=== PATIENT | female | born 1940 | race Caucasian/White ===

== ENCOUNTER → 2016-08-16 | Outpatient (CLI) | payer BC, OTHER | END | disposition home or self-care (01) | LOC: C.PATHSPEC 18:17 | PROVIDERS: ATTEND Podiatrist Primary Podiatric Medicine | DX: M67.471 Ganglion, right ankle and foot (principal) ==

== ENCOUNTER → 2017-04-12 | Outpatient (CLI) | payer BC ==
[2017-04-12 15:24] LABS: BLOOD UREA NITROGEN 15 mg/dl (7-18); CREATININE 0.96 mg/dl (0.60-1.20)
== END | disposition home or self-care (01) ==
LOC: C.LAB 12:17
PROVIDERS: ATTEND Podiatrist Primary Podiatric Medicine
DX: M67.471 Ganglion, right ankle and foot (principal)

== ENCOUNTER → 2017-04-18 | Outpatient (CLI) | payer BC ==
[~2017-04-18] MED LIST: GADAVIST IV PRN
--- NOTE | 2017-04-18 12:44 | DIAGNOSTIC IMAGING REPORT ---
R LOWER EXT NONJOINT COMBO CLINICAL HISTORY: GANGLION CYST TECHNIQUE: Multiaxial MRI acquisition COMPARISON STUDY: None FINDINGS: Findings consistent with a 7 x 6 mm ganglion cyst immediately dorsal and/or dorsal lateral to the base of the fifth metatarsal. This appears to be primarily within the subcutaneous fat. Appears to be a slight pressure effects upon the lateral cortical margin base fifth metatarsal. Remainder the study is remarkable for minimal degenerative change of the articular services throughout. There is a no evidence for a true bone marrow replacing process. All major ligamentous and tendinous structures are intact. IMPRESSION: 1. Cystic lesion adjacent to the base of the fifth metatarsal measuring 7 x 6 mm. 2. This is statistically most consistent with that of a ganglion cyst. 3. Several very small additional adjacent small cysts on the order 1 to 2 mm. 4. Remainder the study is remarkable for minimal scattered degenerative change for age. The above report was generated using voice recognition software. It may contain grammatical, syntax or spelling errors. Electronically signed by: Sumeet Webber M.D. 04/18/2017 12:43 PM Dictated Date/Time: 04/18/2017 12:35 PM
--- NOTE | 2017-04-18 14:20 | DIAGNOSTIC IMAGING REPORT ---
MRI OF THE RIGHT HINDFOOT/ANKLE WITH AND WITHOUT CONTRAST CLINICAL HISTORY: Ganglion cyst. COMPARISON STUDY: No previous studies for comparison. TECHNIQUE: Utilizing a 1.5 Ana magnet, multiplanar, multiecho imaging of the right hindfoot/ankle was performed pre and postcontrast administration. Injection of 6.5 cc of Gadavist IV was uneventful. Please note that the MRI of the right forefoot will be reported separately. FINDINGS: A marker was placed on the skin at site of palpable abnormality. Immediately deep to the marker, there is a multiloculated cystic nonenhancing focus that measures 1.8 x 1.2 cm in aggregate. This represents a ganglion cyst and represents the palpable abnormality. This has multiple components which measure up to 8 mm in size. There is a deeper 5 mm cystic focus adjacent to the lateral proximal shaft of the fifth metatarsal. The ganglion cyst overlies the extensor digitorum longus tendon. This also overlies the bases of the left fourth and fifth metatarsals. No additional ganglion cysts are noted. Talar dome is intact. Achilles tendon and plantar fascia are unremarkable. The flexor, extensor and peroneal tendons are intact. Intrinsic ligaments of the right ankle appear intact as well. IMPRESSION: 1.8 x 1.2 cm multiloculated cystic subcutaneous abnormality of the lateral right midfoot consistent with a ganglion cyst. This ganglion cyst overlies the extensor digitorum longus tendon as well as the bases of the fourth and fifth metatarsals. Electronically signed by: Lorne Diallo M.D. 04/18/2017 2:19 PM Dictated Date/Time: 04/18/2017 12:27 PM
== END | disposition home or self-care (01) ==
LOC: C.MRI 09:41
PROVIDERS: ATTEND Podiatrist Primary Podiatric Medicine
DX: M25.571 Pain in right ankle and joints of right foot (principal); M79.671 Pain in right foot; M85.471 Solitary bone cyst, right ankle and foot

== ENCOUNTER 2024-05-18 20:43 | Observation (INO) ==
--- NOTE | 2024-05-18 22:21 | CT Scan Report ---
Exam(s): CT HEAD Without Contrast EXAM: CT Head Without Intravenous Contrast CLINICAL HISTORY: Reason for exam: Confusion with fall. TECHNIQUE: Axial computed tomography images of the head/brain without intravenous contrast. CTDI is 38.74 mGy and DLP is 547.75 mGy-cm. Automated exposure control was utilized for the study. A dose lowering technique was utilized adhering to the principles of ALARA. COMPARISON: No relevant prior studies available. FINDINGS: Brain: No intracranial hemorrhage, mass-effect, or cerebral edema. Atrophy and chronic microvascular ischemic changes. Ventricles: Unremarkable. Bones/joints: Unremarkable. No fracture. Soft tissues: Unremarkable. Sinuses: No acute sinusitis. Mastoid air cells: Unremarkable as visualized. IMPRESSION: 1. No acute intracranial findings. 2. Atrophy and chronic microvascular ischemic changes. Electronically signed by: Ryan Loyola MD 05/18/24 22:20 PM
[2024-05-18 22:50] LABS: Hematocrit (blood only) 45.3 % (37.0-47.0); Hemoglobin 15.5 g/dl (12.0-16.0); Mean Corpuscular Hgb Conc 34.2 g/dL (32.0-36.0); Mean Corpuscular Volume 90.6 fL (80.0-100.0); Mean Platelet Volume 9.4 fL (9.4-12.4); Platelet Count 190 K/uL (130-400); RDW Coefficient of Variation 13.8 % (11.5-14.5); RDW Standard Deviation 46.1 fL (36.4-46.3); White Blood Count 9.15 K/ul (4.8-10.8)
--- NOTE | 2024-05-18 23:05 | XRay Report ---
Exam(s): XR CXR 1 VIEW EXAM: XR Chest, 1 View CLINICAL HISTORY: Reason for exam: stroke alert. TECHNIQUE: Frontal view of the chest. COMPARISON: No relevant prior studies available. FINDINGS: Lungs: No consolidation. No overt edema. Pleural space: No pleural effusion. No pneumothorax. Heart: Unremarkable. No cardiomegaly. Bones/joints: Chronic fracture deformity of the right clavicle. IMPRESSION: No acute findings in the chest. Electronically signed by: Ryan Loyola MD 05/18/24 23:04 PM
[2024-05-18 23:06] LABS: Alanine Aminotransferase 16 U/L (7-52); Albumin Globulin Ratio 1.6 (0.9-2); Albumin Level 4.4 gm/dl (3.4-5.0); Alkaline Phosphatase 84 U/L (34-104); Anion Gap 9 (3-11); Aspartate Aminotransferase 33 U/L (13-39); BUN Creatinine Ratio 17.6 (10-20); Bilirubin,Total 0.6 mg/dl (0.2-1.0); Blood Urea Nitrogen 16 mg/dl (6-23); Calcium 9.6 mg/dl (8.6-10.3); Carbon Dioxide 30 mmol/L (21-32); Chloride 100 mmol/L (98-107); Globulin 2.8 gm/dl (2.5-4.0); Glucose 104 mg/dl (70-99(Fasting)); Magnesium 2.1 mg/dl (1.7-2.4); Potassium 3.2 mmol/L (3.5-5.1); Sodium 139 mmol/L (136-145); Total Protein 7.2 gm/dl (6.0-8.3)
[2024-05-18 23:25] LABS: Partial Thromboplastin Ratio 1.1; Partial Thromboplastin Time 30 Seconds (21-31); Prothrombin Time 10.9 Seconds (9.0-12.0)
[2024-05-18 23:34] LABS: Appearance Urine Cloudy (Clear); Bacteria Urine Automated 4+ (None Seen); Bilirubin Urine Negative (Negative); Blood Urine 1+ (Negative); Color Urine Yellow; Epithelial Cell Urine Auto 0-2 /hpf (0-2); Glucose Urine UA Negative (Negative); Ketones Urine 1+ (Negative); Leukocyte Esterase Urine 2+ (Negative); Nitrite Urine Positive (Negative); Protein Urine Trace (Negative); RBC Urine Automated 0-2 /hpf (0-2); Specific Gravity Urine 1.022 (1.000-1.030); Urobilinogen Urine Negative (Negative); WBC Urine Automated 21-50 /hpf (0-5); pH Urine 5.5 (4.5-7.5)
[2024-05-18] MEDS: OPTIRAY 320 125ml IV ONE (23:53)
[2024-05-18 23:56] LABS: Troponin I High Sensitivity 10.7 pg/ml (0-14)
[2024-05-19 00:05] LABS: Thyroid Stimulating Hormone 22.423 uIu/ml (0.300-4.500)
[2024-05-19] MEDS: SODIUM CHLORIDE 0.9% 1,000 ML IV SCH (00:20)
[2024-05-19] MEDS: cefTRIAXone SODIUM 2,000 MG/50 ML BAG IV STA (00:20)
[2024-05-19] MEDS: POTASSIUM CHLORIDE CRTAB 20 MEQ TABCR PO STA (00:21)
--- NOTE | 2024-05-19 00:38 | Emergency Department Note ---
Impression & Plan Confusion, Generalized weakness, Acute UTI (urinary tract infection) ED Provider Note ED Provider Note NAME: CORKY SMART AGE:84 SEX: Female : 1940 ARRIVES VIA: private vehicle INFORMANT: Patient ED PROVIDER(s): Aliyah Hansen DO CHIEF COMPLAINT: confusion, weakness HPI: This is an 84-year-old female brought in by family due to concern for increased confusion, increased weakness, and an episode of incontinence tonight. They have noted a decline in her memory over the last several months. They states she did have a fall 2 months ago at [facility] but this was unwitnessed and they do not know if this was mechanical or syncope. They deny any recent illness, fevers or chills. No recent change in any medications. They state patient's symptoms seem to worsen the last 2 days and culminated tonight with an episode of incontinence at home. They state patient was shuffling and had difficulty getting out of her chair even with assistance. No more recent falls. Patient does live at home with her . has noted a decline in her appetite in the last 2 to 3 days also. Patient here seems confused to chronology of events and time. She does not recall recent events additionally. She does know she is at the hospital and recognizes family. PAST MEDICAL HISTORY:See Below PAST SURGICAL HISTORY:See Below FAMILY HISTORY:See Below SOCIAL HISTORY:See Below HOME MEDICATIONS:See Below ALLERGIES:See Below VITALS:See Below PHYSICAL EXAMINATION: GENERAL: alert, well appearing, well nourished, no distress, non-toxic HEAD: nc/at EYE EXAM: normal conjunctiva, PERRL and EOM's grossly intact OROPHARYNX: no exudate, no erythema, lips, buccal mucosa, and tongue normal and mucous membranes are dry NECK: supple, no nuchal rigidity, no adenopathy, non-tender LUNGS: Clear to auscultation. Normal chest wall mechanics, no w/r/r HEART: no murmurs, S1 normal and S2 normal ABDOMEN: abdomen soft, non-tender, normo-active bowel sounds, no masses, no rebound or guarding. SKIN: no rashes, petechiae, orbruising UPPER EXTREMITIES: upper extremities are grossly normal. FROM, nml pulses b/l. LOWER EXTREMITIES: No pitting edema. FROM, nml pulses b/l. NEURO EXAM: Normal sensorium, cranial nerves II-XII grossly intact, normal speech, no facial droop,nogross weakness of arms, no gross weakness of legs. Gross sensation intact. No ataxia. NIHSS 0. Vital Signs: reviewed and remarkable Differential Diagnosis: dehydration, stroke, anemia, hypoglycemia, hyponatremia, hypernatremia, urinary tract infection, pneumonia, bronchitis, sepsis, gastroenteritis, additional abdominal pathology, metabolic abnormalities, as well as others were considered MEDICAL DECISION MAKING: This is an 84-year-old female brought in by family due to concern for increased weakness, urinary incontinence, and memory loss/confusion recently. Patient was afebrile and hemodynamically stable. Family at bedside provides a lot of the history. Patient was afebrile and vital signs were stable. Labs drawn and sent, IV established, EKG and chest x-ray performed at bedside and interpreted by me and patient monitored on telemetry. Patient sent for CT head wo contrast initially. Urine collected and sent and did reveal urinary tract infection. Patient with no prior history of UTIs. She was started on IV Rocephin and IV fluids were also added as patient did appear clinically dehydrated. Patient had a normal and nonfocal neuroexam at bedside otherwise. In consideration for differential diagnosis, patient was sent back down for CT angiography head and neck. I discussed the results with patient's family at bedside as well as need for further inpatient evaluation. Case discussed with the hospitalist team additionally. Consultation(s): 0115: Discussed with Dr. Lomas, [facility] hospitalist team, for additional evaluation and management. ER Treatment Provided: See below Diagnostics Interpreted By Me: -ECG: Normal sinus at 66, normal axis, normal intervals, no acute ST/T wave changes -Cardiac Monitoring: An order was placed for continuous cardiac monitoring. The monitor shows a rate of 66 with normal sinus rhythm. -Laboratory studies: As stated above and show below. 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 Mother , age 79 , heart problems , COPD No problems noted. Brother , age 83 , dementia No problems noted. Son No problems noted. Daughter Lupus Sister Stomach cancer Other No family history of adverse response to anesthesia No family history of bleeding disorder Social History Smoking Status: Never smoker Do You Dip or Chew Tobacco: No; Hx Alcohol Use: No Hx Substance Use: No Preferred Language: Occitan Communication Ability: Effective Diabetes Clinical Manager Required: No Beliefs That Will Affect Care: None marital status: Current Living Situation: Spouse Feels Safe at Home: Yes Safety Concerns: Feels Safe At This Time Assistive Devices: Denture - Upper and Glasses Allergies Allergies Allergy/AdvReac Type Severity Reaction Status Date / Time No Known Drug Allergies Allergy Unknown Verified 05/19/24 00:47 Home Meds Home Medications Medication Instructions Recorded Confirmed levothyroxine 100 mcg tablet 100 mcg PO DAILYBB 01/07/18 05/19/24 (Synthroid) multivitamin 1 tab PO DAILY 01/07/18 05/19/24 Results & Data (ED) Vital Signs Vital Signs - 24 hr 05/18/24 20:53 05/18/24 22:04 05/18/24 22:15 Temperature 36.9 C Temperature Source Oral Pulse Rate 68 63 66 Pulse Rate from SpO2 Sensor 66 Respiratory Rate 20 19 Respiratory Effort / Characteristics Non-Labored Respiratory Depth Normal Blood Pressure 155/85 H Blood Pressure Mean 108 Pulse Oximetry 99 97 Oxygen Delivery Method Room Air Room Air Sepsis Recent Fever Within 48 Hours No Sepsis New/Unexplained Change in Mental Status Yes Sepsis Action Taken by Nursing No Action Required 05/18/24 22:24 05/18/24 22:30 05/18/24 22:42 Temperature Temperature Source Pulse Rate 65 63 62 Pulse Rate from SpO2 Sensor 65 64 63 Respiratory Rate 27 H 28 H 21 Respiratory Effort / Characteristics Respiratory Depth Blood Pressure Blood Pressure Mean Pulse Oximetry 95 95 95 Oxygen Delivery Method Room Air Room Air Room Air Sepsis Recent Fever Within 48 Hours Sepsis New/Unexplained Change in Mental Status Sepsis Action Taken by Nursing 05/18/24 22:51 05/18/24 22:56 05/18/24 23:00 Temperature Temperature Source Pulse Rate 69 Pulse Rate from SpO2 Sensor 65 Respiratory Rate 14 Respiratory Effort / Characteristics Respiratory Depth Blood Pressure 137/76 140/70 Blood Pressure Mean 87 96 Pulse Oximetry Oxygen Delivery Method Sepsis Recent Fever Within 48 Hours Sepsis New/Unexplained Change in Mental Status Sepsis Action Taken by Nursing 05/18/24 23:00 05/18/24 23:03 05/18/24 23:24 Temperature Temperature Source Pulse Rate 65 63 Pulse Rate from SpO2 Sensor 64 63 Respiratory Rate 15 23 Respiratory Effort / Characteristics Respiratory Depth Blood Pressure 140/70 Blood Pressure Mean 96 Pulse Oximetry 95 97 Oxygen Delivery Method Room Air Sepsis Recent Fever Within 48 Hours Sepsis New/Unexplained Change in Mental Status Sepsis Action Taken by Nursing 05/18/24 23:36 05/18/24 23:39 05/19/24 00:09 Temperature Temperature Source Pulse Rate 62 Pulse Rate from SpO2 Sensor 61 64 Respiratory Rate 27 H Respiratory Effort / Characteristics Respiratory Depth Blood Pressure 154/72 H Blood Pressure Mean 121 Pulse Oximetry 97 97 Oxygen Delivery Method Sepsis Recent Fever Within 48 Hours Sepsis New/Unexplained Change in Mental Status Sepsis Action Taken by Nursing 05/19/24 00:15 05/19/24 00:18 05/19/24 00:30 Temperature Temperature Source Pulse Rate 73 69 Pulse Rate from SpO2 Sensor 73 69 Respiratory Rate 19 16 Respiratory Effort / Characteristics Respiratory Depth Blood Pressure 176/59 H Blood Pressure Mean 80 Pulse Oximetry 96 96 Oxygen Delivery Method Sepsis Recent Fever Within 48 Hours Sepsis New/Unexplained Change in Mental Status Sepsis Action Taken by Nursing 05/19/24 00:33 05/19/24 00:45 Temperature Temperature Source Pulse Rate 67 62 Pulse Rate from SpO2 Sensor 65 62 Respiratory Rate 24 26 H Respiratory Effort / Characteristics Respiratory Depth Blood Pressure Blood Pressure Mean Pulse Oximetry 95 Oxygen Delivery Method Sepsis Recent Fever Within 48 Hours Sepsis New/Unexplained Change in Mental Status Sepsis Action Taken by Nursing Laboratory Data 05/18/24 22:40 05/18/24 22:40 Lab Results 05/18/24 05/18/24 Range/Units 22:40 22:56 WBC 9.15 (4.8-10.8) K/ul RBC 5.00 (4.20-5.40) M/uL Hgb 15.5 (12.0-16.0) g/dl Hct 45.3 (37.0-47.0) % MCV 90.6 (80.0-100.0) fL MCH 31.0 (25.0-34.0) pg MCHC 34.2 (32.0-36.0) g/dL RDW Std Deviation 46.1 (36.4-46.3) fL RDW Coeff of Consuelo 13.8 (11.5-14.5) % Plt Count 190 (130-400) K/uL MPV 9.4 (9.4-12.4) fL PT 10.9 (9.0-12.0) Seconds INR 1.0 (0.9-1.1) APTT 30 (21-31) Seconds PTT Ratio 1.1 Sodium 139 (136-145) mmol/L Potassium 3.2 L (3.5-5.1) mmol/L Chloride 100 (98-107) mmol/L Carbon Dioxide 30 (21-32) mmol/L Anion Gap 9 (3-11) BUN 16 (6-23) mg/dl Creatinine 0.91 (0.6-1.2) mg/dl Est Cr Clr Drug Dosing Not Reportable eGFR 62.21 BUN/Creatinine Ratio 17.6 (10-20) Glucose 104 H (70-99(Fasting)) mg/dl Calcium 9.6 (8.6-10.3) mg/dl Magnesium 2.1 (1.7-2.4) mg/dl Total Bilirubin 0.6 (0.2-1.0) mg/dl AST 33 (13-39) U/L ALT 16 (7-52) U/L Alkaline Phosphatase 84 (34-104) U/L Troponin I High Sens 10.7 (0-14) pg/ml Total Protein 7.2 (6.0-8.3) gm/dl Albumin 4.4 (3.4-5.0) gm/dl Globulin 2.8 (2.5-4.0) gm/dl Albumin/Globulin Ratio 1.6 (0.9-2) TSH 22.423 H (0.300-4.500) uIu/ml Free T4 0.73 (0.61-1.60) ng/dl Urine Color Yellow Urine Appearance Cloudy A (Clear) Urine pH 5.5 (4.5-7.5) Ur Specific [place] 1.022 (1.000-1.030) Urine Protein Trace H (Negative) Urine Glucose (UA) Negative (Negative) Urine Ketones 1+ H (Negative) Urine Blood 1+ H (Negative) Urine Nitrite Positive A (Negative) Urine Bilirubin Negative (Negative) Urine Urobilinogen Negative (Negative) Ur Leukocyte Esterase 2+ H (Negative) Urine WBC (Auto) 21-50 H (0-5) /hpf Urine RBC (Auto) 0-2 (0-2) /hpf U Hyaline Cast (Auto) 11-20 H (0-2) /lpf U Epithel Cells (Auto) 0-2 (0-2) /hpf Urine Bacteria (Auto) 4+ H (None Seen) Administered Medications Sodium Chloride (Nss) 1,000 mls @ 50 mls/hr IV .Q20H ONE Stop: 05/19/24 20:48 Last Admin: 05/19/24 02:20 Dose: 50 mls/hr Documented By: LAKESHA Discontinued Medications Sodium Chloride (Nss) 1,000 mls @ 125 mls/hr IV .Q8H MARY Stop: 05/19/24 23:29 Last Infusion: 05/19/24 01:05 Dose: Infused Documented By: Admin: 05/19/24 00:20 Dose: 125 mls/hr Documented By: KEVEN Ceftriaxone Sodium (Rocephin) 2,000 mg in 50 mls @ 100 mls/hr IV NOW STA Stop: 05/19/24 00:17 Last Infusion: 05/19/24 00:57 Dose: Infused Documented By: Admin: 05/19/24 00:20 Dose: 100 mls/hr Documented By: KEVEN Ioversol (Optiray 320 125ml) 125 ml IV ONCE ONE Stop: 05/18/24 23:54 Last Admin: 05/18/24 23:53 Dose: 118 ml Documented By: BLAKE Potassium Chloride (Potassium Chloride Crtab 20 Meq Tabcr) 40 meq PO NOW STA Stop: 05/18/24 23:26 Last Admin: 05/19/24 00:21 Dose: 40 meq Documented By: KMS Imaging Data Radiologist's Impression: Chest X-Ray 05/18/24 20:59 Exam(s): XR CXR 1 VIEW EXAM: XR Chest, 1 View CLINICAL HISTORY: Reason for exam: stroke alert. TECHNIQUE: Frontal view of the chest. COMPARISON: No relevant prior studies available. FINDINGS: Lungs: No consolidation. No overt edema. Pleural space: No pleural effusion. No pneumothorax. Heart: Unremarkable. No cardiomegaly. Bones/joints: Chronic fracture deformity of the right clavicle. IMPRESSION: No acute findings in the chest. Electronically signed by: Ryan Loyola MD 05/18/24 23:[address] 05/18/24 20:59 Exam(s): CT HEAD Without Contrast EXAM: CT Head Without Intravenous Contrast CLINICAL HISTORY: Reason for exam: Confusion with fall. TECHNIQUE: Axial computed tomography images of the head/brain without intravenous contrast. CTDI is 38.74 mGy and DLP is 547.75 mGy-cm. Automated exposure control was utilized for the study. A dose lowering technique was utilized adhering to the principles of ALARA. COMPARISON: No relevant prior studies available. FINDINGS: Brain: No intracranial hemorrhage, mass-effect, or cerebral edema. Atrophy and chronic microvascular ischemic changes. Ventricles: Unremarkable. Bones/joints: Unremarkable. No fracture. Soft tissues: Unremarkable. Sinuses: No acute sinusitis. Mastoid air cells: Unremarkable as visualized. IMPRESSION: 1. No acute intracranial findings. 2. Atrophy and chronic microvascular ischemic changes. Electronically signed by: Ryan Loyola MD 05/18/24 22:20 PM Head CTA 05/18/24 23:24 EXAM: CT angio head w con CLINICAL HISTORY: weak, ataxia TECHNIQUE: Contrast enhanced thin slice CT angiography scan of the cerebral vessels was performed with intravenous contrast. Angiographic images were processed, 3D MIP images were acquired for interpretation. Contiguous axial images were obtained. Reformatted coronal and sagittal images were also reviewed. If IV contrast material had not been administered, the likelihood of detecting abnormalities relevant to the patients condition would have been substantially decreased. CT scan was performed according to ALARA (as low as reasonable achievable). COMPARISON: none. FINDINGS: Bilateral internal carotid arteries show normal course, calibre and opacification in the canalicular and cavernous part. Their division into the anterior cerebral artery and middle cerebral artery is defined. A1, A2 and M1, M2 segments are normal on both the sides. Bilateral vertebral arteries are seen to unite the form the basilar artery in a normal fashion. Basilar artery shows normal course, caliber and opacification. Its division into the posterior cerebral arteries is defined. Bilateral P1 and P2 segments are normal. Visualized venous structures show normal opacification. No evidence of intracranial aneurysm or AV malformation is seen. IMPRESSION: 1. No evidence of stenosis or aneurysm. No evidence of dissection. Electronically signed by Charlie Tran 05-19-2024 01:04 AM Neck CTA 05/18/24 23:24 EXAM: CT angio neck with con CLINICAL HISTORY: weak, ataxia TECHNIQUE: Contrast enhanced thin slice CT angiography scan of the carotid vessels was performed with intravenous contrast. Angiographic images were processed, 3D MIP images were acquired for interpretation.Contiguous axial images were obtained. Reformatted coronal and sagittal images were also reviewed. If IV contrast material had not been administered, the likelihood of detecting abnormalities relevant to the patients condition would have been substantially decreased. CT scan was performed according to ALARA (as low as reasonable achievable). COMPARISON: None. FINDINGS: Included great vessels of the aortic arch are grossly unremarkable. Common carotid artery, carotid Bulb, internal carotid artery , and origin of the external carotid artery are well opacified. Vertebral arteries are well opacified. Jugular veins are well opacified. Included lung apices are grossly unremarkable. Thyroid gland appears unremarkable. IMPRESSION: 1. No evidence of stenosis or aneurysm. No evidence of dissection. Electronically signed by Charlie Tran 05-19-2024 01:03 AM Discharge Plan Visit Data Chief Complaint: TIA Symptoms Stated Complaint: NUMBNESS ON LT SIDE, CONFUSION, WEAKNESS ED Provider: Aliyah Hansen Discharge Problem: Confusion, Generalized weakness, Acute UTI (urinary tract infection) Patient Disposition: Admitted As Inpatient Discharge Instructions Interventions: ED Discharge Assessment Last Done: 05/19/24 01:21
[2024-05-19 00:41] LABS: T4 Free Thyroxine 0.73 ng/dl (0.61-1.60)
--- NOTE | 2024-05-19 00:54 | History & Physical Report ---
Date of Service May 19, 2024 Assessment & Plan (1) Complicated UTI (urinary tract infection): Plan: Complicated UTI No sepsis for now Incipient cognitive impairment Patient mentating well during encounter although noted to struggle with some memory lapses. Systolic murmur on exam hyperlipidemia, not on maintenance Rx hypothyroidism, TSH markedly evaded with normal free T4 prediabetes, hemoglobin A1c of 5.8 from last year left breast cancer status post surgery status post incomplete tamoxifen Rx, in remission Admit to medical Urine CS, Ceftriaxone TTE re: systolic murmur Increase home levothyroxine daily dose to 112 mcg p.o. from 100 mcg p.o. daily and recheck TSH outpatient after 6 weeks. PT OT eval DVT prophylaxis per Lovenox subcu DNR as per patient directives. Attempted to contact patient's (Mr. Shane Monet, contact #[phone]) over the phone to obtain additional details. No answer, left message for call back. Text document was generated using [employer] voice recognition software. It may contain grammatical or spelling errors. Kindly contact undersigned for clarification of any documentation item in question. History of Present Illness Chief Complaint: Increasing confusion, weakness as per records Primary Care Provider: Deborah Galarza MD History obtained from patient, ED provider, and records. Patient is a fair historian. Medical history significant for hyperlipidemia, hypothyroidism, prediabetes, left breast cancer status post surgery status post incomplete tamoxifen Rx. Patient with increasing confusion, memory issues at home over the last few weeks as per family. Fall at a local grocery few months ago. Patient/family unsure of syncopal episode. No recollection of head trauma. Incontinence symptoms noted at home. Patient denies headache, chest pain, SOB, cough. No fever, no chills. Achy lower abdominal pain. Denies hematuria symptoms. Ceftriaxone administered at the ER. Medical History as above Surgical History : Lymph node dissection, partial mastectomy left, cataract surgeries Family History : Heart disease, dementia, stomach cancer Personal/Social history : Non-smoker, rare EtOH intake, retired from office work Allergies Allergy/AdvReac Type Severity Reaction Status Date / Time No Known Drug Allergies Allergy Unknown Verified 05/19/24 00:47 Home Medications Medication Instructions Recorded Confirmed Type levothyroxine 100 mcg tablet 100 mcg PO DAILYBB 01/07/18 05/19/24 History (Synthroid) multivitamin 1 tab PO DAILY 01/07/18 05/19/24 History Past Med/Surg History Problem List (Updated 05/19/24 @ 06:11 by Christian Zimmer MD) Complicated UTI (urinary tract infection) Acute UTI (urinary tract infection) (Acute) Generalized weakness (Acute) Confusion (Acute) Acute dysfunction of both eustachian tubes Sensorineural hearing loss (SNHL) of both 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 Mother , age 79 , heart problems , COPD No problems noted. Brother , age 83 , dementia No problems noted. Son No problems noted. Daughter Lupus Sister Stomach cancer Other No family history of adverse response to anesthesia No family history of bleeding disorder Social History Smoking Status: Never smoker Do You Dip or Chew Tobacco: No; Hx Alcohol Use: No Hx Substance Use: No Preferred Language: Estonian Communication Ability: Effective Consumer Loan Processor Required: No Beliefs That Will Affect Care: None marital status: Current Living Situation: Spouse Feels Safe at Home: Yes Safety Concerns: Feels Safe At This Time Assistive Devices: Denture - Upper and Glasses Review of Systems Review of Systems: As per HPI, all other systems reviewed and negative Results & Data Results & Data Vital Signs (Past 12 Hours) Vital Signs Temp Pulse Resp BP Pulse Ox O2 Del Method 05/18/24 23:03 65 15 95 Room Air 05/18/24 23:00 140/70 05/18/24 23:00 140/70 05/18/24 22:56 137/76 05/18/24 22:51 69 14 05/18/24 22:42 62 21 95 Room Air 05/18/24 22:30 63 28 H 95 Room Air 05/18/24 22:24 65 27 H 95 Room Air 05/18/24 22:15 66 19 97 Room Air 05/18/24 22:04 63 05/18/24 20:53 36.9 C 68 20 155/85 H 99 Room Air Laboratory Results Laboratory Results WBC 9.15 K/ul (4.8-10.8) 05/18/24 22:40 RBC 5.00 M/uL (4.20-5.40) 05/18/24 22:40 Hgb 15.5 g/dl (12.0-16.0) 05/18/24 22:40 Hct 45.3 % (37.0-47.0) 05/18/24 22:40 MCV 90.6 fL (80.0-100.0) 05/18/24 22:40 MCH 31.0 pg (25.0-34.0) 05/18/24 22:40 MCHC 34.2 g/dL (32.0-36.0) 05/18/24 22:40 RDW Std Deviation 46.1 fL (36.4-46.3) 05/18/24 22:40 RDW Coeff of Consuelo 13.8 % (11.5-14.5) 05/18/24 22:40 Plt Count 190 K/uL (130-400) 05/18/24 22:40 MPV 9.4 fL (9.4-12.4) 05/18/24 22:40 PT 10.9 Seconds (9.0-12.0) 05/18/24 22:40 INR 1.0 (0.9-1.1) 05/18/24 22:40 APTT 30 Seconds (21-31) 05/18/24 22:40 PTT Ratio 1.1 05/18/24 22:40 Sodium 139 mmol/L (136-145) 05/18/24 22:40 Potassium 3.2 mmol/L (3.5-5.1) L 05/18/24 22:40 Chloride 100 mmol/L (98-107) 05/18/24 22:40 Carbon Dioxide 30 mmol/L (21-32) 05/18/24 22:40 Anion Gap 9 (3-11) 05/18/24 22:40 BUN 16 mg/dl (6-23) 05/18/24 22:40 Creatinine 0.91 mg/dl (0.6-1.2) 05/18/24 22:40 Est Cr Clr Drug Dosing Not Reportable 05/18/24 22:40 eGFR 62.21 05/18/24 22:40 BUN/Creatinine Ratio 17.6 (10-20) 05/18/24 22:40 Glucose 104 mg/dl (70-99(Fasting)) H 05/18/24 22:40 Calcium 9.6 mg/dl (8.6-10.3) 05/18/24 22:40 Magnesium 2.1 mg/dl (1.7-2.4) 05/18/24 22:40 Total Bilirubin 0.6 mg/dl (0.2-1.0) 05/18/24 22:40 AST 33 U/L (13-39) 05/18/24 22:40 ALT 16 U/L (7-52) 05/18/24 22:40 Alkaline Phosphatase 84 U/L (34-104) 05/18/24 22:40 Troponin I High Sens 10.7 pg/ml (0-14) 05/18/24 22:40 Total Protein 7.2 gm/dl (6.0-8.3) 05/18/24 22:40 Albumin 4.4 gm/dl (3.4-5.0) 05/18/24 22:40 Globulin 2.8 gm/dl (2.5-4.0) 05/18/24 22:40 Albumin/Globulin Ratio 1.6 (0.9-2) 05/18/24 22:40 TSH 22.423 uIu/ml (0.300-4.500) H 05/18/24 22:40 Free T4 0.73 ng/dl (0.61-1.60) 05/18/24 22:40 Urine Color Yellow 05/18/24 22:56 Urine Appearance Cloudy (Clear) A 05/18/24 22:56 Urine pH 5.5 (4.5-7.5) 05/18/24 22:56 Ur Specific [place] 1.022 (1.000-1.030) 05/18/24 22:56 Urine Protein Trace (Negative) H 05/18/24 22:56 Urine Glucose (UA) Negative (Negative) 05/18/24 22:56 Urine Ketones 1+ (Negative) H 05/18/24 22:56 Urine Blood 1+ (Negative) H 05/18/24 22:56 Urine Nitrite Positive (Negative) A 05/18/24 22:56 Urine Bilirubin Negative (Negative) 05/18/24 22:56 Urine Urobilinogen Negative (Negative) 05/18/24 22:56 Ur Leukocyte Esterase 2+ (Negative) H 05/18/24 22:56 Urine WBC (Auto) 21-50 /hpf (0-5) H 05/18/24 22:56 Urine RBC (Auto) 0-2 /hpf (0-2) 05/18/24 22:56 U Hyaline Cast (Auto) 11-20 /lpf (0-2) H 05/18/24 22:56 U Epithel Cells (Auto) 0-2 /hpf (0-2) 05/18/24 22:56 Urine Bacteria (Auto) 4+ (None Seen) H 05/18/24 22:56 Impressions Chest X-Ray 05/18/24 20:59 Exam(s): XR CXR 1 VIEW EXAM: XR Chest, 1 View CLINICAL HISTORY: Reason for exam: stroke alert. TECHNIQUE: Frontal view of the chest. COMPARISON: No relevant prior studies available. FINDINGS: Lungs: No consolidation. No overt edema. Pleural space: No pleural effusion. No pneumothorax. Heart: Unremarkable. No cardiomegaly. Bones/joints: Chronic fracture deformity of the right clavicle. IMPRESSION: No acute findings in the chest. Electronically signed by: Ryan Loyola MD 05/18/24 23:[address] 05/18/24 20:59 Exam(s): CT HEAD Without Contrast EXAM: CT Head Without Intravenous Contrast CLINICAL HISTORY: Reason for exam: Confusion with fall. TECHNIQUE: Axial computed tomography images of the head/brain without intravenous contrast. CTDI is 38.74 mGy and DLP is 547.75 mGy-cm. Automated exposure control was utilized for the study. A dose lowering technique was utilized adhering to the principles of ALARA. COMPARISON: No relevant prior studies available. FINDINGS: Brain: No intracranial hemorrhage, mass-effect, or cerebral edema. Atrophy and chronic microvascular ischemic changes. Ventricles: Unremarkable. Bones/joints: Unremarkable. No fracture. Soft tissues: Unremarkable. Sinuses: No acute sinusitis. Mastoid air cells: Unremarkable as visualized. IMPRESSION: 1. No acute intracranial findings. 2. Atrophy and chronic microvascular ischemic changes. Electronically signed by: Ryan Loyola MD 05/18/24 22:[address] abdomen pelvis: 1. Normal excretory function of bilateral kidneys demonstrated secondary to contrast injected from previous study. 2. Minimal bilateral pleural effusion with fibro-atelectatic bands in bilateral lower lobes. Diagnostic Findings EKG as per my interpretation :Rate 65, NSR, normal axis, nonspecific T wave abnormalities
--- NOTE | 2024-05-19 01:03 | CT Scan Report ---
EXAM: CT angio neck with con CLINICAL HISTORY: weak, ataxia TECHNIQUE: Contrast enhanced thin slice CT angiography scan of the carotid vessels was performed with intravenous contrast. Angiographic images were processed, 3D MIP images were acquired for interpretation.Contiguous axial images were obtained. Reformatted coronal and sagittal images were also reviewed. If IV contrast material had not been administered, the likelihood of detecting abnormalities relevant to the patients condition would have been substantially decreased. CT scan was performed according to ALARA (as low as reasonable achievable). COMPARISON: None. FINDINGS: Included great vessels of the aortic arch are grossly unremarkable. Common carotid artery, carotid Bulb, internal carotid artery , and origin of the external carotid artery are well opacified. Vertebral arteries are well opacified. Jugular veins are well opacified. Included lung apices are grossly unremarkable. Thyroid gland appears unremarkable. IMPRESSION: 1. No evidence of stenosis or aneurysm. No evidence of dissection. Electronically signed by Charlie Tran 05-19-2024 01:03 AM
--- NOTE | 2024-05-19 01:04 | CT Scan Report ---
EXAM: CT angio head w con CLINICAL HISTORY: weak, ataxia TECHNIQUE: Contrast enhanced thin slice CT angiography scan of the cerebral vessels was performed with intravenous contrast. Angiographic images were processed, 3D MIP images were acquired for interpretation. Contiguous axial images were obtained. Reformatted coronal and sagittal images were also reviewed. If IV contrast material had not been administered, the likelihood of detecting abnormalities relevant to the patients condition would have been substantially decreased. CT scan was performed according to ALARA (as low as reasonable achievable). COMPARISON: none. FINDINGS: Bilateral internal carotid arteries show normal course, calibre and opacification in the canalicular and cavernous part. Their division into the anterior cerebral artery and middle cerebral artery is defined. A1, A2 and M1, M2 segments are normal on both the sides. Bilateral vertebral arteries are seen to unite the form the basilar artery in a normal fashion. Basilar artery shows normal course, caliber and opacification. Its division into the posterior cerebral arteries is defined. Bilateral P1 and P2 segments are normal. Visualized venous structures show normal opacification. No evidence of intracranial aneurysm or AV malformation is seen. IMPRESSION: 1. No evidence of stenosis or aneurysm. No evidence of dissection. Electronically signed by Charlie Tran 05-19-2024 01:04 AM
[2024-05-19] MEDS ORDERED: PROMETHAZINE 6.25 MG/50.25 ML BAG IV PRN (01:30)
[2024-05-19] MEDS: SODIUM CHLORIDE 0.9% 1,000 ML IV ONE (02:20)
--- NOTE | 2024-05-19 03:16 | CT Scan Report ---
EXAM: CT abd pelvis wo con CLINICAL HISTORY: abd pain, uti TECHNIQUE: Contiguous axial images were obtained from the level of the diaphragm to the pubic symphysis without intravenous or oral contrast. Coronal and sagittal reconstructions were likewise performed and indicated to increase the sensitivity for detecting clinically relevant pathology. CT scan was performed according to ALARA (as low as reasonably achievable). COMPARISON: none FINDINGS: The visualized lung bases shows minimal bilateral pleural effusion with fibro-atelectatic bands in bilateral lower lobes. Evaluation of the abdominal and pelvic visceral organs is limited without intravenous contrast. The unenhanced liver, spleen, pancreas, and adrenal glands are grossly unremarkable. The gallbladder is present. The kidneys are normal in size and attenuation and shows contrast excretion. There is no hydronephrosis or perinephric stranding. The ureters are normal in caliber. No adenopathy or fluid collections are seen. No evidence of focal or diffuse bowel wall thickening or evidence of bowel obstruction is seen. The appendix is not visualized. The aorta is normal in caliber. The urinary bladder is normal in contour. Uterus and adnexa are unremarkable. No aggressive appearing osseous lesions are identified. IMPRESSION: 1. Normal excretory function of bilateral kidneys demonstrated secondary to contrast injected from previous study. 2. Minimal bilateral pleural effusion with fibro-atelectatic bands in bilateral lower lobes. Electronically signed by Charlie Tran 05-19-2024 03:15 AM
--- OUTSIDE RECORDS SUMMARY | 2024-05-19 05:14 | External Medical Summary ---
Author Name Unknown Address Unknown Organization K01:[facility] [place] - [address] [facility] [id number] Laboratory Report Ordering Provider Test Date Status ASIA SINCLAIR[facility] 12/05/2023 15:50:31 Final Observation Date Value Abnormality Reference (Units ) Status Cryptosporidium sp Ag [Presence] in Stool by Immunoassay 12/05/2023 15:50:31 Negative Negative Final Negative for Cryptosporidium Antigen. Giardia lamblia Ag [Presence ] in Stool by Immunoassay 12/05/2023 15:50:31 Negative Negative Final Negative for Giardia Specifi c Antigen. Performing Location [facility] [place] - [address] [facility] [address]
--- OUTSIDE RECORDS SUMMARY | 2024-05-19 05:14 | External Medical Summary | Summary of Care ---
Author Name Unknown Organization [facility] Address [address] [place] [address] Phone [phone] Care Team Providers Care Terminal Gauger Name Role Phone Deborah Galarza MD Primary Care Provider [phone] Reason for Visit * Reason Comments Outpatient Testing Encounter Details Date Type Department Care Team (Late st Contact Info) Description 12/05/2023 3:50 PM EDT Laboratory Laboratory, [facility] [address] [place] [address] Kian, Specimen Drop Off [facility] [address] [place] [address] Arrived Allergies Active Allergy Reactions Criticality Noted Date Comments Prednisone 05/02/2023 Nausea, lethargy, states she felt awful documented as of this encounter (statuses as of 12/05/2023) Medications Medication Sig Dispensed Refills Start Date End Date Status Q-10 CO-ENZYME 10 MG OR CAPS daily 0 07/27/2003 Active SUPER MILK THISTLE X PO CAPSIndications:takes at night Take by mouth. Indications: takes at night 0 10/20/2007 Active CHROMIUM 200 MCG PO CAPS one daily 11/19/2008 Active VITAMIN C 500 MG PO TABS 2 daily 11/19/2008 Active POTASSIUM 99 MG PO TABS one daily 0 Active FISH OIL 1000 MG PO CAPSIndications:Dysli pidemia, goal to be determined 2 capsules daily 01/31/2011 Active NATURAL SUPPLEMENT K2 100 mcg daily 09/21/2014 Active Bilberry 40 MG CAPS Take by mouth daily. 10/04/2015 Active Red Yeast Rice Extract 600 MG Oral Capsule Take by mouth daily. 10/04/2015 Active Lutein Esters 18.6 MG CAPSIndications:Healt h examination of defined subpopulation 2 times a day. 40 mg once daily 30 Cap 10/14/2017 Active Probiotic Product (PRO-BIOTIC BLEND) CAPS Take by mouth. Active Niacin 250 MG TabletIndications:lizzy es at night Take 1 Tablet by mouth in the morning. Active Fluticasone Propionate 50 MCG/ACT Nasal Suspension (Flonase) Administer 1 [place] into nostril in the morning. 04/19/2023 Active Vitamin D3 125 MCG (5000 UT) Oral Capsule Take 1 Capsule by mouth in the morning. Active Amoxicillin 500 MG Oral Capsule (Amoxil) Take 1 Capsule by mouth in the morning and 1 Capsule at noon and 1 Capsule before bedtime. 11/13/2023 Active Benefiber Oral Powder Take 1 Tbsf in a glass of water daily 11/15/2023 Active Levothyroxine Sodium 100 MCG Oral Tablet (Levoxyl)Indications: Acquired hypothyroidism Take 1 Tablet by mouth in the morning. (at least 30 min prior to breakfast or other meds). 30 Tablet 2 11/19/2023 Active documented as of this encounter (statuses as of 12/05/2023) Active Problems Problem Noted Date Diagnosed Date Chronic kidney disease, stage 3a 10/31/2020 Overview: Per CKD protocol Senile osteoporosis 04/17/2019 Pain of left upper arm 10/15/2018 Synovial cyst of hand 10/15/2018 Malignant neoplasm of upper- outer quadrant of left breast in female, estrogen receptor positive 11/13/2017 Cancer Staging:Clinical: Unsigned Pathologic stage from 12/18/2017:Stage IA(pT1c, pN0(sn), cM0, G2, ER: Positive, OH: Positive, HER2: Negative) - Signed by Prosper Daley MD on 12/18/2017 Dyslipidemia, goal LDL below 130 09/11/2011 Acquired hypothyroidism 05/23/2005 LFTs abnormal 11/10/2003 documented as of this encounter (statuses as of 12/05/2023) Resolved Problems Problem Noted Date Diagnosed Date Resolved Date Prediabetes 11/05/2022 12/05/2023 Overview: Per Prediabetes protocol Generalized weakness 09/11/2021 022 Dyslipidemia, goal to be determined 03/09/2009 09/11/2011 Overview: Per Lipid Taxonomy. Other allergic rhinitis 05/23/200509/23 Overview: ICD-10 update of inactive term documented as of this encounter (statuses as of 12/05/2023) Immunizations Name Administration Dates Next Due COVID-19 mRNA, LNP-s, No Pre serve, 2-Dose Series (Pfizer) 05/21/2020,04/30/2020 Pneumococcal Conjugate Vacc, 13 Valent (Prevnar) 10/04/2015 Pneumococcal Polysaccharide PPV23 (Pneumovax) Seasonal Influenza, Trivalen t, (IIV3), with Preserv, (Fluzone) 01/24/2010,01/11/2009 TD, Preservative Free 01/24/2010 TDAP, Age 7 and older, IM (Adacel) 11/15/2023 Varicella Zoster Vaccine (Adult) 09/11/2011 documented as of this encounter Social History Tobacco Use Types Packs/Day Years Used Date Smoking Tobacco: Never Smokeless Tobacco: Never Alcohol Use Standard Drinks/Week Comments Yes 0 (1 standard drink = 0.6 oz pur e alcohol) rare PHQ-2 Answer Date Recorded PHQ Adult Total Score 0 04/09/2022 Hunger Vital Sign Answer Date Recorded Within the past 12 months, y ou worried that your food would run out before you got the money to buy more. Never true 04/09/19 23 Within the past 12 months, t he food you bought just didn't last and you didn't have money to get more. Never true 04/09/2022 Sex and Gender Information Value Date Recorded Sex Assigned at Female 10/15/2018 9:28 AM EDT Gender Identity Female 10/15/2018 9:28 AM EDT Sexual Orientation Straight 10/15/2018 9: 28 AM EDT Job Start Date Occupation Industry Not on file Not on file Not on file documented as of this encounter Plan of Treatment Upcoming Encounters Date Type Department Care Team (Late st Contact Info) Description 05/19/2024 2:20 PM EST Office Visit General Internal Medicine [facility] [address] [place] [address] Deborah Galarza MD [address] [facility] [place] [address] Health Maintenance Due Date Last Done Comments Zoster Vaccines (2 of 3) 11/06/2011 09/11/2011 *BISPHONATE OR OTHER ACCEPTABLE MEDICATION NEEDED FOR OSTEOPOROSIS (REFER TO SMARTSET #1146) 04/21/2021 Depression Screening 04/09/2023 04/09/2022 COVID-19 Vaccine ( season) 2023 05/21/2020, 04/30/2020 Influenza Vaccine (FLU shot) (#1) 2023 01/24/2010, 01/11/2009 CKD PHOS USE SMARTSET 63333 12/15/202311/24, 10/22/2022, 04/19/2021 GFR 05/17/2024 11/15/2023, 02/0 10/2023, 12/14/2022, Additional history exists CKD HGB USE SMARTSET 98634 11/14/202411/14, 05/02/2023, 10/22/2022, Additional history exists TSH 11/14/2024 11/15/2023, 05/24, 05/02/2023, Additional history exists Albumin/Creatinine Ratio 11/19/2024 024, 10/25/2022, 08/29/2021 Colonoscopy 11/23/2024 11/24/2019, 0903/2019, 12/01/2018, Additional history exists DXA Scan 08/04/2025 08/05/2023, 10/25, 10/23/2017, Additional history exists DTap/Tdap Vaccines (2 - Td or Tdap) 11/14/2033 11/15/2023, 01/24/2010 Pneumococcal Vaccine: 65+ Years Completed 10/04/2015, 09/18/2013 RETIRED - COLONOSCOPY-EVERY 5 YRS AGES 18-100 Discontinued 11/24/2019, 11/24/2019, 12/01/2018, Additional history exists VITAMIN D LEVEL ONCE IN A LIFETIME-USE SMARTSET# [id number] Completed 12/14/2022, 04/19/2021, 09/16/2014, Additional history exists HPV (Gardasil) Vaccine Aged Out No lo nger eligible based on patient's age to complete this topic Hepatitis B Vaccine Aged Out No longe r eligible based on patient's age to complete this topic MENINGOCOCCAL (MENACTRA/MENVEO) Aged Out No longer eligible based on patient's age to complete this topic documented as of this encounter Medical Devices Implanted Type Area Gang Bore Operator Device Identifier Shelf Expiration Date Model / Serial / Lot Lens Intraoc 24.0 - [id number] - [id number] Implanted:Qty: 1 on 04/17/2022 by Leonel Guaman MD at [facility] Left: Eye [employer] 07/22/2026 [id number] / [id number] / Lens Intraoc 24.5 - [id number] - [id number] Implanted:Qty: 1 on 05/01/2022 by Leonel Guaman MD at OR [facility] Right: Eye [employer] 09/21/2026 [id number] / [id number] / [id number] documented as of this encounter Additional Health Concerns Infection Onset Date Last Indicated Resolved Time Gastrointestinal Rule-Out 12/04/2023 12/05/2023 documented as of this encounter Advance Directives * No Code (Latest Code Status on File) Date Activated Date Inactivated Comments 05/01/2022 12:14 PM 05/01/2022 6:11 PM This order re flects the patients wishes and were consensually agreed upon. Question Answer Comments Discussion of Advance Directives occurred with: Patient Does the patient have a Living Will? No Does the patient have Health Care Power of Attor robyn? No * No Code Date Activated Date Inactivated Comments 04/17/2022 8:42 AM 04/17/2022 3:06 PM This order r eflects the patients wishes and were consensually agreed upon. Question Answer Comments Discussion of Advance Directives occurred with: Patient Does the patient have a Living Will? No Does the patient have Health Care Power of Attor robyn? No Care Teams Terminal Gauger Relationship Specialty Start Date End Date Deborah Galarza MD [address] [place] [address] PCP - General Internal Medicine 05/09/12 documented as of this encounter
--- OUTSIDE RECORDS SUMMARY | 2024-05-19 05:14 | External Medical Summary ---
Author Name Unknown Address Unknown Organization : Laboratory Report Ordering Provider Test Date Status [facility]IR 12/05/2023 15:50:50 Final Observation Date Value Abnormality Reference (Units ) Status result / comment 12/05/2023 15:50:50 Not Detected Not Detected Final Antimicrobials, proton pump inhibitors, and bismuth
preparations inhibit H. pylori and ingestion up to
two weeks prior to testing may cause false negative
results. If clinically indicated the test should
be repeated on a new specimen obtained two weeks
after discontinuing treatment.

Test Performed at:
[employer] [facility]
[address]
[place] [address]
Donavan Ortega M.D., Ph.D.,Director of Laboratories Performing Location
--- OUTSIDE RECORDS SUMMARY | 2024-05-19 05:14 | External Medical Summary | Summary of Care ---
Author Name Unknown Organization [facility] Address [address] [place] [address] Phone [phone] Care Team Providers Care Automatic Folder Seamer Name Role Phone Deborah Galarza MD Primary Care Provider [phone] Reason for Visit * Reason Comments eRx-Medication Refill Encounter Details Date Type Department Care Team (Late st Contact Info) Description 05/15/2024 Refill General Internal Medicine [facility] [place] [address] [facility] [place] [address] Deborah Galarza MD 200 [facility] [place] [address] Acquired hypothyroidism Allergies Active Allergy Reactions Criticality Noted Date Comments Prednisone 05/02/2023 Nausea, lethargy, states she felt awful documented as of this encounter (statuses as of 05/16/2024) Medications Q-10 CO-ENZYME 10 MG OR CAPS daily 0 07/27/19 04 Active SUPER MILK THISTLE X PO CAPSIndications:t akes at night Take by mouth. Indications: takes at night 0 10/20/19 08 Active CHROMIUM 200 MCG PO CAPS one daily 11/20/19 09 Active VITAMIN C 500 MG PO TABS 2 daily 11/20/19 09 Active POTASSIUM 99 MG PO TABS one daily 0 Active FISH OIL 1000 MG PO CAPSIndications:D yslipidemia, goal to be determined 2 capsules daily 02/01/20 11 Active NATURAL SUPPLEMENT K2 100 mcg daily 09/22/19 15 Active Bilberry 40 MG CAPS Take by mouth daily. 10/04/19 16 Active Red Yeast Rice Extract 600 MG Oral Capsule Take by mouth daily. 10/04/19 16 Active Lutein Esters 18.6 MG CAPSIndications:H ealth examination of defined subpopulation 2 times a day. 40 mg once daily 30 Cap 10/15/19 18 Active Probiotic Product (PRO-BIOTIC BLEND) CAPS Take by mouth. Active Niacin 250 MG TabletIndications :takes at night Take 1 Tablet by mouth in the morning. Active Fluticasone Propionate 50 MCG/ACT Nasal Suspension (Flonase) Administer 1 [place] into nostril in the morning. 04/19/19 24 Active Vitamin D3 125 MCG (5000 UT) Oral Capsule Take 1 Capsule by mouth in the morning. Active Amoxicillin 500 MG Oral Capsule (Amoxil) Take 1 Capsule by mouth in the morning and 1 Capsule at noon and 1 Capsule before bedtime. 11/13/19 24 Active Benefiber Oral Powder Take 1 Tbsf in a glass of water daily 11/15/19 24 Active Nystatin 626263 UNIT/GM External Cream Apply topically to affected area 2 times a day. Apply to underneath both breasts twice daily 30 g 01/14/20 24 Active Levothyroxine Sodium 100 MCG Oral Tablet (Levoxyl)Indicati ons:Acquired hypothyroidism TAKE 1 TABLET BY MOUTH IN THE MORNING 30 MINUTES BEFORE BREAKFAST OR OTHER MEDS 30 Tablet 05/16/19 25 Active Levothyroxine Sodium 100 MCG Oral Tablet (Levoxyl)Indicati ons:Acquired hypothyroidism TAKE 1 TABLET BY MOUTH IN THE MORNING 30 MINUTES BEFORE BREAKFAST OR OTHER MEDS 30 Tablet 03/18/20 24 2024 Discontinued documented as of this encounter (statuses as of 05/16/2024) Active Problems Problem Noted Date Diagnosed Date Chronic kidney disease, stage 3a 10/31/2020 Overview: Per CKD protocol Senile osteoporosis 04/17/2019 Pain of left upper arm 10/15/2018 Synovial cyst of hand 10/15/2018 Malignant neoplasm of upper- outer quadrant of left breast in female, estrogen receptor positive 11/13/2017 Cancer Staging:Clinical: Unsigned Pathologic stage from 12/18/2017:Stage IA(pT1c, pN0(sn), cM0, G2, ER: Positive, MT: Positive, HER2: Negative) - Signed by Prosper Daley MD on 12/18/2017 Dyslipidemia, goal LDL below 130 09/11/2011 Acquired hypothyroidism 05/23/2005 LFTs abnormal 11/10/2003 documented as of this encounter (statuses as of 05/16/2024) Resolved Problems Problem Noted Date Diagnosed Date Resolved Date Prediabetes 11/05/2022 12/05/2023 Overview: Per Prediabetes protocol Generalized weakness 09/11/2021 022 Dyslipidemia, goal to be determined 03/09/2009 09/11/2011 Overview (03/09/2009): Per Lipid Taxonomy. Other allergic rhinitis 05/23/200509/23 Overview (01/15/2017): ICD-10 update of inactive term documented as of this encounter (statuses as of 05/16/2024) Immunizations Name Administration Dates Next Due COVID-19 mRNA, LNP-s, No Pre serve, 2-Dose Series (Pfizer) 05/21/2020,04/30/2020 Pneumococcal Conjugate Vacc, 13 Valent (Prevnar) 10/04/2015 Pneumococcal Polysaccharide PPV23 (Pneumovax) Seasonal Influenza Vac., MDV, IM, 0.5 mL (Fluzon e) 01/24/2010,01/11/2009 TD, Preservative Free 01/24/2010 TDAP, Age [...] money to get more. Never true 04/09/2022 Comments No Sex and Gender Information Value Date Recorded Sex Assigned at Female 10/15/2018 9:28 AM EDT Legal Sex Female 7:10 AM EST Gender Identity Female 10/15/2018 9:28 AM EDT Sexual Orientation Straight 10/15/2018 9: 28 AM EDT documented as of this encounter Miscellaneous Notes * Telephone Encounter - Lauren Cisneros RPh - 05/16/2024 12:28 PM ESTSigned Prescriptions: Disp Refills Levothyroxine Sodium 100 MCG Oral Tablet (*30 Tab*0 Sig: TAKE 1 TABLET BY MOUTH IN THE MORNING 30 MINUTES BEFORE BREAKFAST OR OTHER MEDSAuthorizing Provider: Vanita GALARZA User: LAUREN CISNEROS * Telephone Encounter - Lauren Cisneros RPh - 05/16/2024 12:27 PM EST RX authorized for this fill only. Zero additional refills given until upcoming appt. 05/19/2024 Overdue for repeat TSH, lab pending in chart. Thanks, Lauren Cisneros, PharmD Clinical Pharmacist [facility] ([facility]) [phone] 05/16/2024 12:27 PM documented in this encounter Plan of Treatment Upcoming Encounters Date Type Department Care Team (Late st Contact Info) Description 05/19/2024 2:20 PM EST Office Visit General Internal Medicine [facility] [place] [address] [place] [address] Deborah Galarza MD [address] [place] [id number] 11/11/2024 1:15 PM EDT Imaging Radiology [address], [place] [address] [place] [address] Health Maintenance Due Date Last Done Comments Zoster Vaccines (2 of 3) 11/06/2011 09/11/2011 *BISPHONATE OR OTHER ACCEPTABLE MEDICATION NEEDED FOR OSTEOPOROSIS (REFER TO SMARTSET #1146) 04/21/2021 Depression Screening 04/09/2023 04/09/2022 COVID-19 Vaccine ( season) 2023 05/21/2020, 04/30/2020 Influenza Vaccine (FLU shot) (#1) 2023 01/24/2010, 01/11/2009 CKD PHOS USE SMARTSET 65523 12/15/2023 09/04/2022, 10/22/2022, 04/19/2021 GFR 05/17/2024 11/15/2023, 02/0 10/2023, 12/14/2022, Additional history exists CKD HGB USE SMARTSET 71528 11/14/202411/14, 05/02/2023, 10/22/2022, Additional history exists TSH 11/14/2024 11/15/2023, 05/24, 05/02/2023, Additional history exists Albumin/Creatinine Ratio 11/19/2024 024, 10/25/2022, 08/29/2021 Colonoscopy 11/23/2024 11/24/2019, 0903/2019, 12/01/2018, Additional history exists DXA Scan 08/04/2025 08/05/2023, 08/3 , 10/23/2017, Additional history exists DTap/Tdap Vaccines (2 - Td or Tdap) 11/14/2033 11/15/2023, 01/24/2010 Pneumococcal Vaccine: 50+ Years Completed 10/04/2015, 09/18/2013 RETIRED - COLONOSCOPY-EVERY 5 YRS AGES 18-100 Discontinued 11/24/2019, 11/24/2019, 12/01/2018, Additional history exists VITAMIN D LEVEL ONCE IN A LIFETIME-USE SMARTSET# 67372 Completed 12/14/2022, 04/19/2021, 09/16/2014, Additional history exists HPV (Gardasil) Vaccine Aged Out No lo nger eligible based on patient's age to complete this topic Hepatitis B Vaccine Aged Out No longe r eligible based on patient's age to complete this topic MENINGOCOCCAL (MENACTRA/MENVEO) Aged Out No longer eligible based on patient's age to complete this topic Meningitis B Vaccine (Bexsero/Trumemba) Aged Out No longer eligible based on patient's age to complete this topic documented as of this encounter Medical Devices Implanted Type Area Route Sales Delivery Drivers Supervisor Device Identifier Shelf Expiration Date Model / Serial / Lot Lens Intraoc 24.0 - [id number] - [id number] Implanted:Qty: 1 on 04/17/2022 by Leonel Guaman MD at OR [facility] Left: Eye [employer]OM[employer] 07/22/2026 [id number] / [id number] / Lens Intraoc 24.5 - [id number] - [id number] Implanted:Qty: 1 on 05/01/2022 by Leonel Guaman MD at OR [facility] Right: Eye [employer] LOMB 09/21/2026 [id number] / [id number] / [id number] documented as of this encounter Visit Diagnoses Diagnosis Acquired hypothyroidism Unspecified hypothyroidism documented in this encounter Advance Directives * No Code [...] Power of Attor robyn? No Care Teams Automatic Folder Seamer Relationship Specialty Start Date End Date Deborah Galarza MD [address] [place] [address], [place] [address] PCP - General Internal Medicine 05/09/12 documented as of this encounter
--- OUTSIDE RECORDS SUMMARY | 2024-05-19 05:14 | External Medical Summary | Summary of Care ---
Author Name Unknown Organization [facility] Address [address] [place] [address] Phone [phone] Care Team Providers Care Oilseed Meat Presser Name Role Phone Deborah Galarza MD Primary Care Provider [phone] Reason for Visit * Reason Onset Date Comments transfer of records 01/01/2024 Encounter Details Date Type Department Care Team (Late st Contact Info) Description 01/01/2024 Telephone General Internal Medicine [facility] [place] 200 [facility] [place] [address] Deborah Galarza MD 200 [facility] [place] [address] transfer of records Allergies Active Allergy Reactions Criticality Noted Date Comments Prednisone 05/02/2023 Nausea, lethargy, states she felt awful documented as of this encounter (statuses as of 01/01/2024) Medications Medication Sig Dispensed Refills Start Date [...] 50 MCG/ACT Nasal Suspension (Flonase) Administer 1 [place] into nostril in the morning. 04/19/2023 Active [...] as of this encounter (statuses as of 01/01/2024) Active Problems Problem Noted Date Diagnosed Date [...] as of this encounter (statuses as of 01/01/2024) Resolved Problems Problem Noted Date Diagnosed Date Resolved Date Prediabetes 11/05/2022 12/05/2023 Overview: Per Prediabetes protocol Generalized weakness 09/11/2021 022 Dyslipidemia, goal to be determined 03/09/2009 09/11/2011 Overview: Per Lipid Taxonomy. Other allergic rhinitis 05/23/200509/23 Overview: ICD-10 update of inactive term documented as of this encounter (statuses as of 01/01/2024) Immunizations Name Administration Dates Next Due COVID-19 [...] on file documented as of this encounter Miscellaneous Notes * Telephone Encounter - Keyana Jones OSA - 01/01/2024 3:52 PM EDT [facility] Thank you Forward to [facility] documented in this encounter Plan of Treatment Upcoming Encounters Date Type Department Care Team (Late st Contact Info) Description 05/19/2024 2:20 PM EST Office Visit General Internal Medicine [facility] [place] [address] [place] [address] Deborah Galarza MD [address] [place], [place] [address] Health Maintenance Due Date Last Done Comments Zoster Vaccines (2 of 3) 11/06/2011 09/11/2011 *BISPHONATE OR OTHER ACCEPTABLE MEDICATION NEEDED FOR OSTEOPOROSIS (REFER TO SMARTSET #1146) 04/21/2021 Depression Screening 04/09/2023 04/09/2022 COVID-19 Vaccine ( season) 2023 05/21/2020, 04/30/2020 Influenza Vaccine (FLU shot) (#1) 2023 01/24/2010, 01/11/2009 CKD PHOS USE SMARTSET 66218 12/15/202311/24, 10/22/2022, 04/19/2021 GFR 05/17/2024 11/15/2023, 10/2023, 12/14/2022, Additional history exists CKD HGB USE SMARTSET 55092 11/14/202411/14, 05/02/2023, 10/22/2022, Additional history exists TSH 11/14/2024 11/15/2023, 05/24, 05/02/2023, Additional history exists Albumin/Creatinine Ratio 11/19/2024 024, 10/25/2022, 08/29/2021 Colonoscopy 11/23/2024 11/24/2019, 03/2019, 12/01/2018, Additional history exists DXA Scan 08/04/2025 08/05/2023, 08, 10/23/2017, Additional history exists DTap/Tdap Vaccines (2 - Td or Tdap) 11/14/2033 11/15/2023, 01/24/2010 Pneumococcal Vaccine: 65+ Years Completed 10/04/2015, 09/18/2013 RETIRED - COLONOSCOPY-EVERY 5 YRS AGES 18-100 Discontinued 11/24/2019, 11/24/2019, 12/01/2018, Additional history exists VITAMIN D LEVEL ONCE IN A LIFETIME-USE SMARTSET# 94302 Completed 12/14/2022, 04/19/2021, 09/16/2014, Additional history exists [...] this encounter Medical Devices Implanted Type Area Data Entry Specialist Device Identifier Shelf Expiration Date Model / Serial / Lot Lens Intraoc 24.0 - [id number] - [id number] Implanted:Qty: 1 on 04/17/2022 by Leonel Guaman MD at OR [facility] Left: Eye [employer]OMB 07/22/2026 [id number] / [id number] / Lens Intraoc 24.5 - [id number] - [id number] Implanted:Qty: 1 on 05/01/2022 by Leonel Guaman MD at OR [facility] Right: Eye [employer]CH [employer]OMB 09/21/2026 [id number] / [id number] / [id number] documented as of this encounter Advance Directives [...] Power of Attor robyn? No Care Teams Oilseed Meat Presser Relationship Specialty Start Date End Date Deborah Galarza MD [address] [place] [address], [place] [address] PCP - General Internal Medicine 05/09/12 documented as of this encounter
--- OUTSIDE RECORDS SUMMARY | 2024-05-19 05:14 | External Medical Summary | Summary of Care ---
Author Name Unknown Organization [facility] Address [address] [place] [address] Phone [phone] Care Team Providers Care Pumper Gager Apprentice Name Role Phone Dottie Galarza MD Primary Care Provider [phone] Reason for Visit * Reason Comments eRx-Medication Refill Encounter Details Date Type Department Care Team (Late st Contact Info) Description 03/16/2024 [facility] 200 [facility] [place] [address] Dottie Galarza MD 200 [facility] [place] [address] Chronic kidney disease, stage 3a (HCC)*; Acquired hypothyroidism Allergies Active Allergy Reactions Criticality Noted Date Comments Prednisone 05/02/2023 Nausea, lethargy, states she felt awful documented as of this encounter (statuses as of 03/19/2024) Medications Q-10 CO-ENZYME 10 MG OR CAPS [...] 50 MCG/ACT Nasal Suspension (Flonase) Administer 1 [place] into nostril in the morning. 04/19/19 24 [...] of water daily 11/15/19 24 Active Nystatin 054708 UNIT/GM External Cream Apply topically to affected area 2 times a day. Apply to underneath both breasts twice daily 30 g 01/14/20 24 Active Levothyroxine Sodium 100 MCG Oral Tablet (Levoxyl)Indicati ons:Acquired hypothyroidism TAKE 1 TABLET BY MOUTH IN THE MORNING 30 MINUTES BEFORE BREAKFAST OR OTHER MEDS 30 Tablet 03/18/20 24 Active Levothyroxine Sodium 100 MCG Oral Tablet (Levoxyl)Indicati ons:Acquired hypothyroidism Take 1 Tablet by mouth in the morning. (at least 30 min prior to breakfast or other meds). 30 Tablet 2 11/19/19 24 2023 Discontinued documented as of this encounter (statuses as of 03/19/2024) Active Problems Problem Noted Date Diagnosed Date Chronic kidney disease, stage 3a 10/31/2020 Overview: Per CKD protocol Senile osteoporosis 04/17/2019 Pain of left upper arm 10/15/2018 Synovial cyst of hand 10/15/2018 Malignant neoplasm of upper- outer quadrant of left breast in female, estrogen receptor positive 11/13/2017 Cancer Staging:Clinical: Unsigned Pathologic stage from 12/18/2017:Stage IA(pT1c, pN0(sn), cM0, G2, ER: Positive, NE: Positive, HER2: Negative) - Signed by Prosper Daley MD on 12/18/2017 Dyslipidemia, goal LDL below 130 09/11/2011 Acquired hypothyroidism 05/23/2005 LFTs abnormal 11/10/2003 documented as of this encounter (statuses as of 03/19/2024) Resolved Problems Problem Noted Date Diagnosed Date Resolved Date Prediabetes 11/05/2022 12/05/2023 Overview: Per Prediabetes protocol Generalized weakness 09/11/2021 022 Dyslipidemia, goal to be determined 03/09/2009 09/11/2011 Overview (03/09/2009): Per Lipid Taxonomy. Other allergic rhinitis 05/23/200509/23 Overview (01/15/2017): ICD-10 update of inactive term documented as of this encounter (statuses as of 03/19/2024) Immunizations Name Administration Dates Next Due COVID-19 [...] encounter Miscellaneous Notes * Telephone Encounter - Ernestine Bartlett - 03/19/2024 5:03 PM EST Received message from [facility] regarding patient needing labs. Patient was notified. Successfully contacted patient and provided [facility] message. * Telephone Encounter - Lorri Trent [facility] - 03/18/2024 10:52 AM ESTSigned Prescriptions: Disp Refills Levothyroxine Sodium 100 MCG Oral Tablet (*30 Tab*0 Sig: TAKE 1 TABLET BY MOUTH IN THE MORNING 30 MINUTES BEFORE BREAKFAST OR OTHER MEDS Authorizing Provider: DOTTIE GALARZA Ordering User: LORRI TRENT * Telephone Encounter - Lorri Trent [facility] - 03/18/2024 10:51 AM EST Provided 30 days supply with 0 refill(s). Per refill protocol patient should have repeat TSH on file within past year. Reviewed AMP report, Care Gaps/Health Maintenance, medications list, and for anyroutine labs typically ordered for this patient. Lab orders placed. Please contact patient to advise of labs ordered for blood draw. Fasting is not required. Advise toobtain labs before requesting the next refill. Thank you, Lorri Trent [facility] Clinical Pharmacist Centralized Clinical Pharmacy Services ([facility]) 03/18/24 10:51 AM [phone] * Telephone Encounter - Lorri Trent RPh - 03/18/2024 10:50 AM EST Did you pend patient's preferred pharmacy and medication before forwarding?yes Pharmacy: [facility] [address] [place] [address] Pending Prescriptions: Disp Refills Levothyroxine Sodium 100 MCG Oral Tablet *30 Tab*0 Sig: TAKE 1 TABLET BY MOUTH IN THE MORNING 30 MINUTES BEFORE BREAKFAST OR OTHER MEDS Last Visit: 11/15/2023 (in office), Visit date not found (telemedicine) Next Visit: 05/19/2024 If no future appointments scheduled, and last appointment is greater than a year ago, please schedule patient for a follow-up appointment Last date the medication was ordered: 11/19/2023 Is this request for a controlled substance?No Urine Drug Screen:No results found for this or any previous visit. Patient Phone Numbers Labs: Lab Results Component Value Date/Time CREAT 0.8 11/15/2023 03:50 PM CREAT 1.1 (H) 04/18/2020 10:36 AM POTASSIUM 3.4 (L) 11/15/2023 03:50 PM POTASSIUM 4.3 04/18/2020 10:36 AM TSH 0.66 11/15/2023 03:34 PM TSH 1.69 04/18/2020 10:36 AM LDL 149 (H) 04/19/2021 09:58 AM LDL 153 (H) 04/18/2020 10:36 AM LDL NOT APPLICABLE 04/18/2020 10:36 AM ALT 22 11/15/2023 03:50 PM ALT 36 (H) 04/18/2020 10:36 AM HGBA1C 5.8 (H) 11/15/2023 03:34 PM HGBA1C 5.6 10/14/2017 10:55 AM documented in this encounter Plan of Treatment Upcoming Encounters Date Type Department Care Team ([facility] st Contact Info) Description 05/19/2024 2:20 PM EST Office Visit General Internal Medicine [facility] 200 [facility] [place] [address] Dottie Galarza MD 200 [facility] [place] [address] 11/11/2024 1:15 PM EDT Imaging Radiology [address] [place] [address] Scheduled Orders Name Type Priority Associated Diagnoses Orde r Schedule PHOSPHORUS Lab Routine Chronic kidney disease, stage 3a (HCC) Expected: 04/01/2024 (Approximate), Expires: 03/19/2025 Health Maintenance Due Date Last Done Comments Zoster Vaccines (2 of 3) 11/06/2011 09/11/2011 *BISPHONATE OR OTHER ACCEPTABLE MEDICATION NEEDED FOR OSTEOPOROSIS (REFER TO SMARTSET #1146) 04/21/2021 Depression Screening 04/09/2023 04/09/2022 COVID-19 Vaccine ( season) 2023 05/21/2020, 04/30/2020 Influenza Vaccine (FLU shot) (#1) 2023 01/24/2010, 01/11/2009 CKD PHOS USE SMARTSET 97011 12/15/202311/24, 10/22/2022, 04/19/2021 GFR 05/17/2024 11/15/2023, 02/0 10/2023, 12/14/2022, Additional history exists CKD HGB USE SMARTSET 50553 11/14/202411/14, 05/02/2023, 10/22/2022, Additional history exists TSH [...] D LEVEL ONCE IN A LIFETIME-USE SMARTSET# 37277 Completed 12/14/2022, 04/19/2021, 09/16/2014, Additional history exists [...] this encounter Medical Devices Implanted Type Area Custodial Manager Device Identifier Shelf Expiration Date Model / Serial / Lot Lens Intraoc 24.0 - [id number] - [id number] Implanted:Qty: 1 on 04/17/2022 by Leonel Guaman MD at OR [facility] Left: Eye [employer] LOMB 07/22/2026 [id number] / [id number] / Lens Intraoc 24.5 - [id number] - [id number] Implanted:Qty: 1 on 05/01/2022 by Leonel Guaman MD at OR [facility] Right: Eye BAUSCH [employer] LOMB 09/21/2026 [id number] / [id number] / [id number] documented as of this encounter Visit Diagnoses Diagnosis Chronic kidney disease, stage 3a (HCC)- Primary Acquired hypothyroidism Unspecified hypothyroidism documented in this [...] Power of Attor robyn? No Care Teams Pumper Gager Apprentice Relationship Specialty Start Date End Date Dottie Galarza MD [address] [place] [address] PCP - General Internal Medicine 05/09/12 documented as of this encounter
--- OUTSIDE RECORDS SUMMARY | 2024-05-19 05:14 | External Medical Summary ---
Author Name Unknown Address Unknown Organization K01:[facility] [address] [facility] [address] Laboratory Report Ordering Provider Test Date Status [facility] 12/05/2023 15:50:31 Final Observation Date Value Abnormality Reference (Units ) Status Campylobacter sp DNA.diarrheagenic [Presence] in Stool by ANNITA with probe detection 12/05/2023 15:50:31 Negative Negative Final Salmonella sp rpoD gene [Presence] in Stool by ANNITA with probe detection 12/05/2023 15:50:31 Negative Negative Final Shigella species+EIEC invasion plasmid antigen H ipaH gene [Presence] in Stool by ANNITA with probe detection 12/05/2023 15:50:31 Negative Negative Final Vibrio sp DNA [Identifier] in Specimen by ANNITA with probe detection 12/05/2023 15:50:31 Negative Negative Final Yersinia enterocolitica recN gene [Presence] in Stool by ANNITA with probe detection 12/05/2023 15:50:31 Negative Negative Final Escherichia coli Stx1 toxin stx1 gene [Presence] in Stool by ANNITA with probe detection 12/05/2023 15:50:31 Negative Negative Final Escherichia coli Stx2 toxin stx2 gene [Presence] in Stool by ANNITA with probe detection 12/05/2023 15:50:31 Negative Negative Final Norovirus genogroups I and II RNA panel - Stool by ANNITA with probe detection 12/05/2023 15:50:31 Negative Negative Final Rotavirus A RNA [Presence] in Stool by ANNITA with probe detection 12/05/2023 15:50:31 Negative Negative Final Performing Location [facility] [facility] [address] [facility] [address]
--- OUTSIDE RECORDS SUMMARY | 2024-05-19 05:14 | External Medical Summary | Summary of Care ---
Author Name Unknown Organization [facility] Address [address] [address] Phone [phone] Care Team Providers Care Camouflage Assembler Name Role Phone Deborah Galarza MD Primary Care Provider [phone] Encounter Details Date Type Department Care Team (Late st Contact Info) Description 03/24/2024 Orders Only PATIENT PORTAL DO NOT DELETE THIS DEPT USED BY [place] [id number] Allergies Active Allergy Reactions Criticality Noted Date Comments Prednisone 05/02/2023 Nausea, lethargy, states she felt awful documented as of this encounter (statuses as of 03/24/2024) Medications Q-10 CO-ENZYME 10 MG OR CAPS daily 0 4 Active SUPER MILK THISTLE X PO CAPSIndications:ta kes at night Take by mouth. Indications: takes at night 0 8 Active CHROMIUM 200 MCG PO CAPS one daily 9 Active VITAMIN C 500 MG PO TABS 2 daily 9 Active POTASSIUM 99 MG PO TABS one daily 0 Active FISH OIL 1000 MG PO CAPSIndications:Dy slipidemia, goal to be determined 2 capsules daily 1 Active NATURAL SUPPLEMENT K2 100 mcg daily 5 Active Bilberry 40 MG CAPS Take by mouth daily. 6 Active Red Yeast Rice Extract 600 MG Oral Capsule Take by mouth daily. 6 Active Lutein Esters 18.6 MG CAPSIndications:He alth examination of defined subpopulation 2 times a day. 40 mg once daily 30 Cap 8 Active Probiotic Product (PRO-BIOTIC BLEND) CAPS Take by mouth. Activ e Niacin 250 MG TabletIndications: takes at night Take 1 Tablet by mouth in the morning. Active Fluticasone Propionate 50 MCG/ACT Nasal Suspension (Flonase) Administer 1 [place] into nostril in the morning. 4 Active Vitamin D3 125 MCG (5000 UT) Oral Capsule Take 1 Capsule by mouth in the morning. Active Amoxicillin 500 MG Oral Capsule (Amoxil) Take 1 Capsule by mouth in the morning and 1 Capsule at noon and 1 Capsule before bedtime. 4 Active Benefiber Oral Powder Take 1 Tbsf in a glass of water daily 4 Active Nystatin 696100 UNIT/GM External Cream Apply topically to affected area 2 times a day. Apply to underneath both breasts twice daily 30 g 4 Active Levothyroxine Sodium 100 MCG Oral Tablet (Levoxyl)Indicatio ns:Acquired hypothyroidism TAKE 1 TABLET BY MOUTH IN THE MORNING 30 MINUTES BEFORE BREAKFAST OR OTHER MEDS 30 Tablet 4 Active documented as of this encounter (statuses as of 03/24/2024) Active Problems Problem Noted Date Diagnosed Date Chronic kidney disease, stage 3a 10/31/2020 Overview: Per CKD protocol Senile osteoporosis 04/17/2019 Pain of left upper arm 10/15/2018 Synovial cyst of hand 10/15/2018 Malignant neoplasm of upper- outer quadrant of left breast in female, estrogen receptor positive 11/13/2017 Cancer Staging:Clinical: Unsigned Pathologic stage from 12/18/2017:Stage IA(pT1c, pN0(sn), cM0, G2, ER: Positive, OK: Positive, HER2: Negative) - Signed by Prosper Daley MD on 12/18/2017 Dyslipidemia, goal LDL below 130 09/11/2011 Acquired hypothyroidism 05/23/2005 LFTs abnormal 11/10/2003 documented as of this encounter (statuses as of 03/24/2024) Resolved Problems Problem Noted Date Diagnosed Date Resolved Date Prediabetes 11/05/2022 12/05/2023 Overview: Per Prediabetes protocol Generalized weakness 09/11/2021 022 Dyslipidemia, goal to be determined 03/09/2009 09/11/2011 Overview (03/09/2009): Per Lipid Taxonomy. Other allergic rhinitis 05/23/200509/23 Overview (01/15/2017): ICD-10 update of inactive term documented as of this encounter (statuses as of 03/24/2024) Immunizations Name Administration Dates Next Due COVID-19 [...] AM EDT documented as of this encounter Plan of Treatment Upcoming Encounters Date Type Department Care Team (Late st Contact Info) Description 05/19/2024 2:20 PM EST Office Visit General Internal Medicine [facility] [place] [address] [facility] [place], [place] [address] Deborah Galarza MD [address] [place] [address] 11/11/2024 1:15 PM EDT Imaging Radiology [facility] [address] [facility], [place] [address] [place] [address] Health Maintenance Due Date Last Done Comments Zoster Vaccines (2 of 3) 11/06/2011 09/11/2011 *BISPHONATE OR OTHER ACCEPTABLE MEDICATION NEEDED FOR OSTEOPOROSIS (REFER TO SMARTSET #1146) 04/21/2021 Depression Screening 04/09/2023 04/09/2022 COVID-19 Vaccine ( season) 2023 05/21/2020, 04/30/2020 Influenza Vaccine (FLU shot) (#1) 2023 01/24/2010, 01/11/2009 CKD PHOS USE SMARTSET 88170 12/15/202311/24, 10/22/2022, 04/19/2021 GFR 05/17/2024 11/15/2023, 02/0 10/2023, 12/14/2022, Additional history exists CKD HGB USE SMARTSET 05881 11/14/202411/14, 05/02/2023, 10/22/2022, Additional history exists TSH [...] D LEVEL ONCE IN A LIFETIME-USE SMARTSET# 04883 Completed 12/14/2022, 04/19/2021, 09/16/2014, Additional history exists [...] this encounter Medical Devices Implanted Type Area Melter Supervisor Open Hearth Furnace Device Identifier Shelf Expiration Date Model / Serial / Lot Lens Intraoc 24.0 - [id number] - [id number] Implanted:Qty: 1 on 04/17/2022 by Leonel Guaman MD at OR [facility] Left: Eye [employer] LOM[employer] 07/22/2026 [id number] / [id number] / Lens Intraoc 24.5 - [id number] - [id number] Implanted:Qty: 1 on 05/01/2022 by Leonel Guaman MD at OR [facility] Right: Eye [employer]OMB 09/21/2026 [id number] / [id number] / [id number] documented as of this encounter Advance Directives [...] Power of Attor robyn? No Care Teams Camouflage Assembler Relationship Specialty Start Date End Date Deborah Galarza MD [address] [place] [address] PCP - General Internal Medicine 05/09/12 documented as of this encounter
--- OUTSIDE RECORDS SUMMARY | 2024-05-19 05:14 | External Medical Summary | Summary of Care ---
Author Name Unknown Organization [facility] Address [address] [place] [address] Phone [phone] Care Team Providers Care Cloud Automation Tester Name Role Phone Deborah Galarza MD Primary Care Provider [phone] Reason for Visit * Reason Comments Follow Up Yearly, last seen in 2021, hx of breast cancer, s/p left mastectomy, on tamoxifen Encounter Details Date Type Department Care Team (Late st Contact Info) Description 01/14/2024 9:45 AM EDT Office Visit General Surgery, [facility] [address] [place] [address] Ning Salcedo MD [address] [place] [address] Yeast infection of the skin*; Encounter for screening mammogram for breast cancer; History of breast cancer Allergies Active Allergy Reactions Criticality Noted Date Comments Prednisone 05/02/2023 Nausea, lethargy, states she felt awful documented as of this encounter (statuses as of 01/14/2024) Medications Medication Sig Dispensed Refills Start Date [...] 50 MCG/ACT Nasal Suspension (Flonase) Administer 1 [place] into nostril in the morning. 04/19/2023 Active [...] other meds). 30 Tablet 2 11/19/2023 Active Nystatin 078528 UNIT/GM External Cream Apply topically to affected area 2 times a day. Apply to underneath both breasts twice daily 30 g 01/14/2024 Active documented as of this encounter (statuses as of 01/14/2024) Active Problems Problem Noted Date Diagnosed Date [...] as of this encounter (statuses as of 01/14/2024) Resolved Problems Problem Noted Date Diagnosed Date Resolved Date Prediabetes 11/05/2022 12/05/2023 Overview: Per Prediabetes protocol Generalized weakness 09/11/2021 022 Dyslipidemia, goal to be determined 03/09/2009 09/11/2011 Overview: Per Lipid Taxonomy. Other allergic rhinitis 05/23/200509/23 Overview: ICD-10 update of inactive term documented as of this encounter (statuses as of 01/14/2024) Immunizations Name Administration Dates Next Due COVID-19 [...] Date Smoking Tobacco: Never Smokeless Tobacco: Never Tobacco Cessation:Counseling Given: Not Answered Alcohol Use Standard Drinks/Week Comments Yes 0 [...] on file documented as of this encounter Last Filed Vital Signs Vital Sign Reading Time Taken Comments Blood Pressure 151/75 01/14/2024 9:40 AM EDT Pulse 77 01/14/2024 9:40 AM EDT Temperature 35.7 C (96.3 F) 01/14/2024 9:40 AM ED T Respiratory Rate - - Oxygen Saturation - - Inhaled Oxygen Concentration - - Weight 68.9 kg (152 lb) 01/14/2024 9:40 AM EDT Height - - Body Mass Index 26.71 11/15/2023 2:23 PM EDT documented in this encounter Progress Notes * Ning Salcedo MD - 01/14/2024 9:51 AM EDT [facility] FOLLOW UP NOTE Chief Complaint Patient presents with Follow Up Yearly, last seen in 2021, hx of breast cancer, s/p left mastectomy, on tamoxifen REASON FOR VISIT: Follow up Left Breast Cancer Clinical Stage 1 - 6 yr f/u with new rash under leftbreast Last visit 01/11/2022 HPI: Rocio Monet is a 83 year old female with a history of breast cancer, as per following: Date of treatment: 12/04/2017 Breast cancer treated: an intermediate grade invasive lobular Pathologic Stage 1 Carcinoma [place] nodes were negative x3 Primary tumor: estrogen receptor and progesterone receptor positive. HER-2/stephon receptors negative; Tumor size 19 mm; Margins were negative Surgical procedure performed: Left partial mastectomy and sentinel node biopsy Radiation history: No radiation (not recommended) Chemotherapy history: No chemo. On tamoxifen under the care of Dr. Daley. Stopped after 5 yrs. oncotype DX not done as pt was not willing to consider chemotherapy. Preop MRI scan showed no other foci of disease. 12/04/2017 A. Left axilla, sentinel lymph node #1 count 3985, biopsy: One benign lymph node confirmed by cytokeratin 7 staining B. Left axilla, sentinel lymph node #2 count 316, biopsy: One benign lymph node confirmed by cytokeratin 7 staining C. Left axilla, sentinel lymph node #3 count 69, biopsy: One benign lymph node confirmed by cytokeratin 7 staining D. Left breast, 2:00 needle localization, partial mastectomy: Invasive lobular carcinoma, classic type, grade 2, pT1c (1.9 cm in size), 0.15 cm from anterior margin Previous biopsy site changes are present BREAST ROS: No new breast lumps or masses, No severe breast pain, No nipple discharge Has noticed a rash under the left breast, itchy. Going on for the last month. No drainage. Tried 1%hydrocortisone cream with no effect. Occasionally gets a similar rash under the right side but it resolves quickly. GYNECOLOGIC HISTORY: Menarche at age: 14 Menopause at age: 53 Number of children: Patient's age at first live : 29 : No Ever take oral contraceptives? Yes, history of use for 4-5 year(s) Ever take estrogen? Yes, history of use for 3 year(s) BREAST IMAGIN11/11/23 Result MAMMOGRAM SCREENING KACI BILATERAL History History of breast cancer The patient has no documented relevant family history. Films Compared 11/09/2022 MAMMOGRAM DIAGNOSTIC KACI RIGHT, 10/29/2022 MAMMOGRAM SCREENING KACI BILATERAL, 11/07/2021 MAMMOGRAM DIAGNOSTIC KACI RIGHT, 10/27/2021 MAMMOGRAM SCREENING KACI BILATERAL, and 10/27/2020 MAMMOGRAM DIAGNOSTIC KACI BILATERAL Findings The breasts are heterogeneously dense, which may obscure small masses. Postsurgical changes relatedto breast conserving surgery for carcinoma are noted in the upper-outer quadrant of the left breast. No new dominant mass or clustered microcalcifications suspicious for malignancy are identified. Impression Bilateral No mammographic evidence of malignancy. BI-RADS Category: 2 - Benign. Recommendation Screening mammogram in 1 year is recommended for both breasts. FAMILY HISTORY: Family history of breast cancer: None Family history of ovarian cancer: None Family History Problem Relation Name Age of Onset Stomach cancer Sister 67 metastatic Alzheimer's disease Sister Heart Disorder Brother 52 CAD s/p quadruple bypass- from AD Breast Cancer No significant family history PAST MEDICAL HISTORY: Past Medical History: Diagnosis Date Abnormal LFTs 2004 resolved Breast cancer (HCC) 10/30/2017 Left breast invasive lobular carcinoma Dyslipidemia, goal to be determined Hypothyroidism Lyme disease 2010 Meniere's disease PAST SURGICAL HISTORY: Past Surgical History: Procedure Laterality Date BX LYMPH NODE DEEP AXIL Left 12/04/2017 BIOPSY LYMPH NODE DEEP AXILLARY OPEN performed by Ning Salcedo MD at [facility] COLONOSCOPY, DIAGNOSTIC (RECTUM) 12/01/2018 biopsies show adenomatous polyps/recall 5 years/COLONOSCOPY FLEXIBLE PROXIMAL DIAGNOSTIC performed by Hernan Ramon MD at ENDOSCOPY [facility] COLONOSCOPY, DIAGNOSTIC (RECTUM) 11/24/2019 normal / COLONOSCOPY FLEXIBLE PROXIMAL DIAGNOSTIC performed by Alyse Jacobson MD at ENDOSCOPY [facility] COLONOSCOPY, REMOVE LESION 02/2004 tubular adenoma. repeat 5 years. CYST ASPIRATION 08/21/2016 rt foot EGD, FLEXIBLE, DIAGNOSTIC 10/30/2019 normal bx / ESOPHAGOGASTRODUODENOSCOPY (EGD), FLEXIBLE, TRANSORAL, DIAGNOSTIC performed by Alyse Jacobson MD at ENDOSCOPY [facility] IDENTIFY SENTINEL NODE, RADIOACTIVE TRACER Left 12/04/2017 INJECTION PROCEDURE FOR IDENTIFICATION SENTINEL NODE performed by Ning Salcedo MD at [facility] PAYAM FLEX SIGMOID DIAGNOSITIC 10/30/2019 mild Lymphocytic (microscopic) colitis / SIGMOIDOSCOPY FLEXIBLE DIAGNOSTIC performed by Alyse Jacobson MD at ENDOSCOPY [facility] MASTECTOMY, PARTIAL Left 12/04/2017 MASTECTOMY PARTIAL performed by Ning Salcedo MD at [facility] OBTAINING SCREEN PAP SMEAR 07/09/2000 REMOVE CATARACT, INSERT LENS PROSTH Left 04/17/2022 left EXTRACAPSULAR CATARACT REMOVAL WITH INTRAOCULAR LENS performed by Leonel Guaman MD at [facility] REMOVE CATARACT, INSERT LENS PROSTH Right 05/01/2022 right EXTRACAPSULAR CATARACT REMOVAL WITH INTRAOCULAR LENS performed by Leonel Guaman MD at [facility] US GUIDED BREAST BIOPSY LEFT Left 10/30/2017 invasive lobular carcinoma CURRENT OUTPATIENT PRESCRIPTIONS: Current Outpatient Medications Medication Sig Dispense Refill Q-10 CO-ENZYME 10 MG OR CAPS daily 0 SUPER MILK THISTLE X PO CAPS Take by mouth. Indications: takes at night 0 CHROMIUM 200 MCG PO CAPS one daily VITAMIN C 500 MG PO TABS 2 daily POTASSIUM 99 MG PO TABS one daily 0 FISH OIL 1000 MG PO CAPS 2 capsules daily NATURAL SUPPLEMENT K2 100 mcg daily Bilberry 40 MG CAPS Take by mouth daily. Red Yeast Rice Extract 600 MG Oral Capsule Take by mouth daily. Lutein Esters 18.6 MG CAPS 2 times a day. 40 mg once daily 30 Cap 0 Probiotic Product (PRO-BIOTIC BLEND) CAPS Take by mouth. Niacin 250 MG Tablet Take 1 Tablet by mouth in the morning. Fluticasone Propionate 50 MCG/ACT Nasal Suspension (Flonase) Administer 1 [place] into nostril in themorning. Vitamin D3 125 MCG (5000 UT) Oral Capsule Take 1 Capsule by mouth in the morning. Amoxicillin 500 MG Oral Capsule (Amoxil) Take 1 Capsule by mouth in the morning and 1 Capsule at noon and 1 Capsule before bedtime. Benefiber Oral Powder Take 1 Tbsf in a glass of water daily Levothyroxine Sodium 100 MCG Oral Tablet (Levoxyl) Take 1 Tablet by mouth in the morning. (at least30 min prior to breakfast or other meds). 30 Tablet 2 No current facility-administered medications for this visit. ALLERGIES: Allergies as of 01/14/2024 - Reviewed 01/14/2024 Allergen Reaction Noted Prednisone 05/02/2023 SOCIAL HISTORY: Social History Tobacco Use Smoking status: Never Smokeless tobacco: Never Vaping Use Vaping status: Never Used Substance Use Topics Alcohol use: Yes Comment: rare Drug use: No ROS: GEN: no fever, fatigue, no weight loss. HEENT: no changes in vision or hearing, no sinus problems, no sore throat, no hoarseness. Has Meniere's disease RESPIRATORY: no cough, wheezing, SOB or change in breathing CARDIOVASCULAR: no exertional chest pain, dyspnea, palpitations GI:chronic diarrhea has seen GI : no dysuria, hematuria, frequency MUSCULOSKELETAL: no change in joint pains, no new arthritis PSYCHIATRIC: no significant anxiety or depression, unchanged sleep pattern HEME: no bleeding tendency, no clotting tendency NEURO: no significant headache, no seizures , no tremors SKIN: no new rashes, no itching PHYSICAL EXAMINATION: BP 151/75 | Pulse 77 | Temp 35.7 C (96.3 F) | Wt 68.9 kg (152 lb) | BMI 26.71 kg/m | BSA 1.75m Constitutional: alert, healthy Head: normocephalic, atraumatic Eyes: conjunctiva non-injected, sclera white Ears: pinna normal shape and color Neck: supple, no adenopathy Abdomen: soft, non-tender, no organomegaly Back: normal curvature, normal ROM Extremities: no edema Neuro: alert, gait normal, motor normal BREAST EXAMINATION: Right Breast: Right Breast: Masses noted: No Post XRT edema: No Post XRT erythema: No Other palpable abnormality: Yes, thicker tissue in upper outer breast Skin: Skin retraction: No Peau d'orange: No Telangectasia: No Scar(s) present: No Other changes: No Right Nipple: Nipple inversion: No Pagets: No Nipple discharge: No Right Lymph Nodes: Arm edema: No Palpable axillary adenopathy: No Palpable supraclavicular adenopathy: No Previous axillary incision: No Left Breast: Left Breast: Masses noted: Yes, scarring under the incision measuring 3 cm (thickened) Post XRT edema: No Post XRT erythema: No Other palpable abnormality: No Skin: Skin retraction: Yes, very mild retraction at the site in the upper outer breast Peau d'orange: No Telangectasia: No Scar(s) present: Yes, upper outer Other changes: Yes, rash under left breast c/w yeast infection Left Nipple: Nipple inversion: No Pagets: No Nipple discharge: No Left Lymph Nodes: Arm edema: No Palpable axillary adenopathy: No Palpable supraclavicular adenopathy: No Previous axillary incision: Yes, well healed IMPRESSION: Rocio Monet is now 6 yrs following treatment for left breast cancer - stage 1 treated with lumpectomy, sln biopsy and tamoxifen for 5 yrs. No evidence of disease. Has a rash under her left breast c/w yeast infection. Ordered nystatin cream. If not better in 2 weeks, asked her to return for a skin biopsy. Screening mammo due 10/2024 - order placed. PLAN: Nystatin cream. Continue with screening mammography F/u PRN. Ning Salcedo M.D. 01/14/2024 10:09 AM documented in this encounter Nursing Notes * Michelle Butler LPN - 01/14/2024 9:41 AM EDT Patient identified by name and date of . Chief Complaint Patient presents with Follow Up Yearly, last seen in 2021, hx of breast cancer, s/p left mastectomy, on tamoxifen documented in this encounter Plan of Treatment Upcoming Encounters Date Type Department Care Team (Late st Contact Info) Description 05/19/2024 2:20 PM EST Office Visit General Internal Medicine [address] [place] [address] Deborah Galarza MD [address] [facility] [place] [address] 11/11/2024 1:15 PM EDT Imaging Radiology [address] [place] [address] Scheduled Orders Name Type Priority Associated Diagnoses Orde r Schedule MAMMOGRAM SCREENING KACI BILATERAL Medical Imaging Routine Encounter for screening mammogram for breast cancer Expected: 11/11/2024 (Approximate), Expires: 02/13/2025 Health Maintenance Due Date Last Done Comments Zoster Vaccines (2 of 3) 11/06/2011 09/11/2011 *BISPHONATE OR OTHER ACCEPTABLE MEDICATION NEEDED FOR OSTEOPOROSIS (REFER TO SMARTSET #1146) 04/21/2021 Depression Screening 04/09/2023 04/09/2022 COVID-19 Vaccine ( season) 2023 05/21/2020, 04/30/2020 Influenza Vaccine (FLU shot) (#1) 2023 01/24/2010, 01/11/2009 CKD PHOS USE SMARTSET 46587 12/15/202311/24, 10/22/2022, 04/19/2021 GFR 05/17/2024 11/15/2023, 02/0 10/2023, 12/14/2022, Additional history exists CKD HGB USE SMARTSET 81996 11/14/202411/14, 05/02/2023, 10/22/2022, Additional history exists TSH 11/14/2024 11/15/2023, 05/24, 05/02/2023, Additional history exists Albumin/Creatinine Ratio 11/19/2024 024, 10/25/2022, 08/29/2021 Colonoscopy 11/23/2024 11/24/2019, 090 03/2019, 12/01/2018, Additional history exists DXA Scan 08/04/2025 08/05/2023, 10/25, 10/23/2017, Additional history exists DTap/Tdap Vaccines (2 - Td or Tdap) 11/14/2033 11/15/2023, 01/24/2010 Pneumococcal Vaccine: 65+ Years Completed 10/04/2015, 09/18/2013 RETIRED - COLONOSCOPY-EVERY 5 YRS AGES 18-100 Discontinued 11/24/2019, 11/24/2019, 12/01/2018, Additional history exists VITAMIN D LEVEL ONCE IN A LIFETIME-USE SMARTSET# 41786 Completed 12/14/2022, 04/19/2021, 09/16/2014, Additional history exists [...] this encounter Medical Devices Implanted Type Area Lithographers Printer Device Identifier Shelf Expiration Date Model / Serial / Lot Lens Intraoc 24.0 - [id number] - [id number] Implanted:Qty: 1 on 04/17/2022 by Leonel Guaman MD at OR [facility] Left: Eye [employer]OMB 07/22/2026 [id number] / [id number] / Lens Intraoc 24.5 - [id number] - [id number] Implanted:Qty: 1 on 05/01/2022 by Leonel Guaman MD at OR [facility] Right: Eye BAUSCH [employer] LOMB 09/21/2026 [id number] / [id number] documented as of this encounter Visit Diagnoses Diagnosis Yeast infection of the skin- Primary Candidiasis of skin and nails Encounter for screening mammogram for breast cancer History of breast cancer Personal history of malignant neoplasm of breast documented in this encounter Advance Directives * [...] Power of Attor robyn? No Care Teams Cloud Automation Tester Relationship Specialty Start Date End Date Deborah Galarza MD [address] [place] [id number] PCP - General Internal Medicine 05/09/12 documented as of this encounter"
--- OUTSIDE RECORDS SUMMARY | 2024-05-19 05:14 | External Medical Summary | Summary of Care ---
Author Name Unknown Organization [facility] Address [address] [place] [address] Phone [phone] Care Team Providers Care Playback Operator Name Role Phone Deborah Galarza MD Primary Care Provider [phone] Reason for Visit * Reason Onset Date Comments transfer of records 02/03/2024 Encounter Details Date Type Department Care Team (Late st Contact Info) Description 02/03/2024 Telephone General Internal Medicine [facility] [place] 200 [facility] [place] [address] Deborah Galarza MD 200 [facility] [place] [address] transfer of records Allergies Active Allergy Reactions Criticality Noted Date Comments Prednisone 05/02/2023 Nausea, lethargy, states she felt awful documented as of this encounter (statuses as of 02/03/2024) Medications Q-10 CO-ENZYME 10 MG OR CAPS [...] 50 MCG/ACT Nasal Suspension (Flonase) Administer 1 [place] into nostril in the morning. 4 Active [...] a glass of water daily 4 Active Levothyroxine Sodium 100 MCG Oral Tablet (Levoxyl)Indicatio ns:Acquired hypothyroidism Take 1 Tablet by mouth in the morning. (at least 30 min prior to breakfast or other meds). 30 Tablet 2 4 Active Nystatin 382016 UNIT/GM External Cream Apply topically to affected area 2 times a day. Apply to underneath both breasts twice daily 30 g 4 Active documented as of this encounter (statuses as of 02/03/2024) Active Problems Problem Noted Date Diagnosed Date Chronic kidney disease, stage 3a 10/31/2020 Overview: Per CKD protocol Senile osteoporosis 04/17/2019 Pain of left upper arm 10/15/2018 Synovial cyst of hand 10/15/2018 Malignant neoplasm of upper- outer quadrant of left breast in female, estrogen receptor positive 11/13/2017 Cancer Staging:Clinical: Unsigned Pathologic stage from 12/18/2017:Stage IA(pT1c, pN0(sn), cM0, G2, ER: Positive, MS: Positive, HER2: Negative) - Signed by Prosper Daley MD on 12/18/2017 Dyslipidemia, goal LDL below 130 09/11/2011 Acquired hypothyroidism 05/23/2005 LFTs abnormal 11/10/2003 documented as of this encounter (statuses as of 02/03/2024) Resolved Problems Problem Noted Date Diagnosed Date Resolved Date Prediabetes 11/05/2022 12/05/2023 Overview: Per Prediabetes protocol Generalized weakness 09/11/2021 022 Dyslipidemia, goal to be determined 03/09/2009 09/11/2011 Overview (03/09/2009): Per Lipid Taxonomy. Other allergic rhinitis 05/23/200509/23 Overview (01/15/2017): ICD-10 update of inactive term documented as of this encounter (statuses as of 02/03/2024) Immunizations Name Administration Dates Next Due COVID-19 [...] Telephone Encounter - Keyana Jones OSA - 02/03/2024 1:34 PM EST Pt would like records sent to [facility] is to receive charts on behave [facility] for continued of care Thank you Forward to [facility] documented in this encounter Plan of Treatment Upcoming Encounters Date Type Department Care Team (Late st Contact Info) Description 05/19/2024 2:20 PM EST Office Visit General Internal Medicine [facility] 200 [facility] [address] Deborah Galarza MD 200 [facility] [place] [address] 11/11/2024 1:15 PM EDT Imaging Radiology [address] 132 [facility] [place] [address] Health Maintenance Due Date Last Done Comments Zoster Vaccines (2 of 3) 11/06/2011 09/11/2011 *BISPHONATE OR OTHER ACCEPTABLE MEDICATION NEEDED FOR OSTEOPOROSIS (REFER TO SMARTSET #1146) 04/21/2021 Depression Screening 04/09/2023 04/09/2022 COVID-19 Vaccine ( season) 2023 05/21/2020, 04/30/2020 Influenza Vaccine (FLU shot) (#1) 2023 01/24/2010, 01/11/2009 CKD PHOS USE SMARTSET 40075 12/15/202311/24, 10/22/2022, 04/19/2021 GFR 05/17/2024 11/15/2023, 10/2023, 12/14/2022, Additional history exists CKD HGB USE SMARTSET 57457 11/14/202411/14, 05/02/2023, 10/22/2022, Additional history exists TSH 11/14/2024 11/15/2023, 05/24, 05/02/2023, Additional history exists Albumin/Creatinine Ratio 11/19/20242 024, 10/25/2022, 08/29/2021 Colonoscopy 11/23/2024 11/24/2019, 03/2019, 12/01/2018, Additional history exists DXA Scan 08/04/2025 08/05/2023, 10/25, 10/23/2017, Additional history exists DTap/Tdap Vaccines (2 - Td or Tdap) 11/14/2033 11/15/2023, 01/24/2010 Pneumococcal Vaccine: 65+ Years Completed 10/04/2015, 09/18/2013 RETIRED - COLONOSCOPY-EVERY 5 YRS AGES 18-100 Discontinued 11/24/2019, 11/24/2019, 12/01/2018, Additional history exists VITAMIN D LEVEL ONCE IN A LIFETIME-USE SMARTSET# 73092 Completed 12/14/2022, 04/19/2021, 09/16/2014, Additional history exists [...] this encounter Medical Devices Implanted Type Area Director Commercial Sales Device Identifier Shelf Expiration Date Model / Serial / Lot Lens Intraoc 24.0 - [id number] - [id number] Implanted:Qty: 1 on 04/17/2022 by Leonel Guaman MD at OR [facility] Left: Eye [employer] 07/22/2026 [id number] / [id number] / Lens Intraoc 24.5 - [id number] - [id number] Implanted:Qty: 1 on 05/01/2022 by Leonel Guaman MD at OR [facility] Right: Eye [employer]OMB 09/21/2026 [id number] / [id number] / [id number] documented as of this encounter Advance Directives [...] Power of Attor robyn? No Care Teams Playback Operator Relationship Specialty Start Date End Date Deborah Galarza MD [address] [place] [address], [place] [address] PCP - General Internal Medicine 05/09/12 documented as of this encounter
--- OUTSIDE RECORDS SUMMARY | 2024-05-19 05:14 | External Medical Summary | Summary of Care ---
Author Name Unknown Organization [facility] Address [address] [place] [address] Phone [phone] Care Team Providers Care Security Auditor Name Role Phone Deborah Galarza MD Primary Care Provider [phone] Reason for Visit * Reason Onset Date Comments transfer of records 01/28/2024 Encounter Details Date Type Department Care Team (Late st Contact Info) Description 01/28/2024 Telephone General Internal Medicine [facility] [place] 200 [facility] [place] [address] Deborah Galarza MD [address] [place] [address] transfer of records Allergies Active Allergy Reactions Criticality Noted Date Comments Prednisone 05/02/2023 Nausea, lethargy, states she felt awful documented as of this encounter (statuses as of 01/28/2024) Medications Medication Sig Dispensed Refills Start Date [...] 50 MCG/ACT Nasal Suspension (Flonase) Administer 1 [place] into nostril in the morning. 04/19/2023 Active [...] meds). 30 Tablet 2 11/19/2023 Active Nystatin 489658 UNIT/GM External Cream Apply topically to affected area 2 times a day. Apply to underneath both breasts twice daily 30 g 01/14/2024 Active documented as of this encounter (statuses as of 01/28/2024) Active Problems Problem Noted Date Diagnosed Date Chronic kidney disease, stage 3a 10/31/2020 Overview: Per CKD protocol Senile osteoporosis 04/17/2019 Pain of left upper arm 10/15/2018 Synovial cyst of hand 10/15/2018 Malignant neoplasm of upper- outer quadrant of left breast in female, estrogen receptor positive 11/13/2017 Cancer Staging:Clinical: Unsigned Pathologic stage from 12/18/2017:Stage IA(pT1c, pN0(sn), cM0, G2, ER: Positive, UT: Positive, HER2: Negative) - Signed by Prosper Daley MD on 12/18/2017 Dyslipidemia, goal LDL below 130 09/11/2011 Acquired hypothyroidism 05/23/2005 LFTs abnormal 11/10/2003 documented as of this encounter (statuses as of 01/28/2024) Resolved Problems Problem Noted Date Diagnosed Date Resolved Date Prediabetes 11/05/2022 12/05/2023 Overview: Per Prediabetes protocol Generalized weakness 09/11/2021 022 Dyslipidemia, goal to be determined 03/09/2009 09/11/2011 Overview: Per Lipid Taxonomy. Other allergic rhinitis 05/23/200509/23 Overview: ICD-10 update of inactive term documented as of this encounter (statuses as of 01/28/2024) Immunizations Name Administration Dates Next Due COVID-19 [...] Telephone Encounter - Keyana Jones OSA - 01/28/2024 2:40 PM EST Pt [facility] care Thank you Forward to [facility] documented in this encounter Plan of Treatment Upcoming Encounters Date Type Department Care Team (Late st Contact Info) Description 05/19/2024 2:20 PM EST Office Visit General Internal Medicine [facility] [address] [place] [address] Deborah Galarza MD 200 [facility] [place] [address] 11/11/2024 1:15 PM EDT Imaging Radiology [address], [place] 132 [facility] [place] [address] Health Maintenance Due Date Last Done Comments Zoster Vaccines (2 of 3) 11/06/2011 09/11/2011 *BISPHONATE OR OTHER ACCEPTABLE MEDICATION NEEDED FOR OSTEOPOROSIS (REFER TO SMARTSET #1146) 04/21/2021 Depression Screening 04/09/2023 04/09/2022 COVID-19 Vaccine ( season) 2023 05/21/2020, 04/30/2020 Influenza Vaccine (FLU shot) (#1) 2023 01/24/2010, 01/11/2009 CKD PHOS USE SMARTSET 43786 12/15/202311/24, 10/22/2022, 04/19/2021 GFR 05/17/2024 11/15/2023, 10/2023, 12/14/2022, Additional history exists CKD HGB USE SMARTSET 79175 11/14/202411/14, 05/02/2023, 10/22/2022, Additional history exists TSH [...] D LEVEL ONCE IN A LIFETIME-USE SMARTSET# 01561 Completed 12/14/2022, 04/19/2021, 09/16/2014, Additional history exists [...] this encounter Medical Devices Implanted Type Area Business Development Engineer Device Identifier Shelf Expiration Date Model / Serial / Lot Lens Intraoc 24.0 - [id number] - [id number] Implanted:Qty: 1 on 04/17/2022 by Leonel Guaman MD at OR [facility] Left: Eye [employer]OMB 07/22/2026 [id number] / [id number] / Lens Intraoc 24.5 - [id number] - [id number] Implanted:Qty: 1 on 05/01/2022 by Leonel Guaman MD at OR [facility] Right: Eye [employer]CH [employer]OMB 09/21/2026 [id number] / [id number] / [id number] documented as of this encounter Advance Directives [...] Power of Attor robyn? No Care Teams Security Auditor Relationship Specialty Start Date End Date Deborah Galarza MD [address] [place] [address] PCP - General Internal Medicine 05/09/12 documented as of this encounter
--- OUTSIDE RECORDS SUMMARY | 2024-05-19 05:15 | External Medical Summary | Summary of Care ---
Author Name Unknown Organization [facility] Address [address] [place] [address] Phone [phone] Care Team Providers Care Prescription Benefit Specialist Name Role Phone Deborah Galarza MD Primary Care Provider Reason for Visit * Reason Onset Date Comments Test Results 11/22/2023 Encounter Details Date Type Department Care Team (Late st Contact Info) Description 11/22/2023 Telephone General Internal Medicine [facility] [place] 200 [facility] [place] [address] Deborah Galarza MD 200 [facility] [place] [address] Test Results Allergies Active Allergy Reactions Criticality Noted Date Comments Prednisone 05/02/2023 Nausea, lethargy, states she felt awful documented as of this encounter (statuses as of 12/03/2023) Medications Medication Sig Dispensed Refills Start Date [...] 50 MCG/ACT Nasal Suspension (Flonase) Administer 1 [place] into nostril in the morning. 04/19/2023 Active [...] as of this encounter (statuses as of 12/03/2023) Active Problems Problem Noted Date Diagnosed Date Prediabetes 11/05/2022 Overview: Per Prediabetes protocol Chronic kidney disease, stage 3a 10/31/2020 Overview: Per CKD protocol Senile osteoporosis 04/17/2019 Pain of left upper arm 10/15/2018 Synovial cyst of hand 10/15/2018 Malignant neoplasm of upper- outer quadrant of left breast in female, estrogen receptor positive 11/13/2017 Cancer Staging:Clinical: Unsigned Pathologic stage from 12/18/2017:Stage IA(pT1c, pN0(sn), cM0, G2, ER: Positive, GA: Positive, HER2: Negative) - Signed by Prosper Daley MD on 12/18/2017 Dyslipidemia, goal LDL below 130 09/11/2011 Acquired hypothyroidism 05/23/2005 LFTs abnormal 11/10/2003 documented as of this encounter (statuses as of 12/03/2023) Resolved Problems Problem Noted Date Diagnosed Date Resolved Date Generalized weakness 09/11/2021 022 Dyslipidemia, goal to be determined 03/09/2009 09/11/2011 Overview: Per Lipid Taxonomy. Other allergic rhinitis 05/23/200509/23 Overview: ICD-10 update of inactive term documented as of this encounter (statuses as of 12/03/2023) Immunizations Name Administration Dates Next Due COVID-19 [...] encounter Miscellaneous Notes * Telephone Encounter - Mi Darnell LPN - 12/03/2023 10:05 AM EDT Patient aware and verbalized understanding, will comply. * Telephone Encounter - Mallorie Kothari MED ASSIST - 11/22/2023 3:18 PM EDT Attempted to call patient, there was no answer, left voicemail. When patient returns call, ok for MICA to relay message, please refer to below documentation. If needed, can transfer to dedicated nurse line. * Telephone Encounter - Mallorie Kothari MED ASSIST - 11/22/2023 3:18 PM EDT ----- Message from Deborah Galarza MD sent at 11/22/2023 9:33 AM EDT ----- Stool for c.diff negative but other 2 stool test couldn't be done due to container being over filled . Pt to resubmit for culture and parasite Urine normal documented in this encounter Plan of Treatment Upcoming Encounters Date Type Department Care Team (Late st Contact Info) Description 05/19/2024 2:20 PM EST Office Visit General Internal Medicine [facility] [place] 200 [facility] [place] [address] Deborah Galarza MD 200 [place] [address] Health Maintenance Due Date Last Done Comments Zoster Vaccines (2 of 3) 11/06/2011 09/11/2011 *BISPHONATE OR OTHER ACCEPTABLE MEDICATION NEEDED FOR OSTEOPOROSIS (REFER TO SMARTSET #1146) 04/21/2021 Depression Screening 04/09/2023 04/09/2022 COVID-19 Vaccine ( season) 2023 05/21/2020, 04/30/2020 Influenza Vaccine (FLU shot) (#1) 2023 01/24/2010, 01/11/2009 CKD PHOS USE SMARTSET 30432 12/15/202311/24, 10/22/2022, 04/19/2021 GFR 05/17/2024 11/15/2023, 02/0 10/2023, 12/14/2022, Additional history exists CKD HGB USE SMARTSET 09712 11/14/202411/14, 05/02/2023, 10/22/2022, Additional history exists HbA1c 11/14/2024 11/15/2023, 02/0 10/2023, 10/22/2022, Additional history exists TSH 11/14/2024 11/15/2023, 032 , 05/02/2023, Additional history exists Albumin/Creatinine Ratio 11/19/2024 [...] D LEVEL ONCE IN A LIFETIME-USE SMARTSET# 72897 Completed 12/14/2022, 04/19/2021, 09/16/2014, Additional history exists [...] this encounter Medical Devices Implanted Type Area Fabric Designer Device Identifier Shelf Expiration Date Model / Serial / Lot Lens Intraoc 24.0 - [id number] - [id number] Implanted:Qty: 1 on 04/17/2022 by Leonel Guaman MD at OR [facility] Left: Eye [employer]OM[employer] 07/22/2026 [id number] / [id number] / Lens Intraoc 24.5 - [id number] - [id number] Implanted:Qty: 1 on 05/01/2022 by Leonel Guaman MD at [facility] Right: Eye [employer]OMB 09/21/2026 [id number] / [id number] / [id number] documented as of this encounter Advance Directives [...] Power of Attor robyn? No Care Teams Prescription Benefit Specialist Relationship Specialty Start Date End Date Deborah Galarza MD [address] [place] [address] PCP - General Internal Medicine 05/09/12 documented as of this encounter
--- OUTSIDE RECORDS SUMMARY | 2024-05-19 05:15 | External Medical Summary | Summary of Care ---
Author Name Unknown Organization [facility] Address [address] [place] [address] Phone [phone] Care Team Providers Care Husbandry Person Name Role Phone Deborah Galarza MD Primary Care Provider [phone] Reason for Visit * Reason Comments Outpatient Testing Encounter Details Date Type Department Care Team (Late st Contact Info) Description 12/04/2023 12:40 PM EDT Laboratory Laboratory, [facility] 132 [facility] [place] [address] [facility] 132 [facility] [place] [address] Chronic diarrhea Allergies Active Allergy Reactions Criticality Noted Date Comments Prednisone 05/02/2023 Nausea, lethargy, states she felt awful documented as of this encounter (statuses as of 12/04/2023) Medications Medication Sig Dispensed Refills Start Date [...] 50 MCG/ACT Nasal Suspension (Flonase) Administer 1 [place] into nostril in the morning. 04/19/2023 Active [...] as of this encounter (statuses as of 12/04/2023) Active Problems Problem Noted Date Diagnosed Date [...] 12/18/2017:Stage IA(pT1c, pN0(sn), cM0, G2, ER: Positive, DC: Positive, HER2: Negative) - Signed by Prosper Daley MD on 12/18/2017 Dyslipidemia, goal LDL below 130 09/11/2011 Acquired hypothyroidism 05/23/2005 LFTs abnormal 11/10/2003 documented as of this encounter (statuses as of 12/04/2023) Resolved Problems Problem Noted Date Diagnosed Date Resolved Date Generalized weakness 09/11/2021 022 Dyslipidemia, goal to be determined 03/09/2009 09/11/2011 Overview: Per Lipid Taxonomy. Other allergic rhinitis 05/23/200509/23 Overview: ICD-10 update of inactive term documented as of this encounter (statuses as of 12/04/2023) Immunizations Name Administration Dates Next Due COVID-19 [...] Office Visit General Internal Medicine [address] [place] [address] [place] [address] Deborah Galarza MD [address] [place] [address] Scheduled Orders Name Type Priority Associated Diagnoses Orde r Schedule GASTROINTESTINAL PATHOGEN PANEL PCR Lab Routine Chronic diarrhea Ordered: 12/04/2023 GASTROINTESTINAL PATHOGEN PANEL CULTURE Lab Routine Chronic diarrhea Ordered: 12/04/2023 Health Maintenance Due Date Last Done Comments Zoster Vaccines (2 of 3) 11/06/2011 09/11/2011 *BISPHONATE OR OTHER ACCEPTABLE MEDICATION NEEDED FOR OSTEOPOROSIS (REFER TO SMARTSET #1146) 04/21/2021 Depression Screening 04/09/2023 04/09/2022 COVID-19 Vaccine ( season) 2023 05/21/2020, 04/30/2020 Influenza Vaccine (FLU shot) (#1) 2023 01/24/2010, 01/11/2009 CKD PHOS USE SMARTSET 10924 12/15/202311/24, 10/22/2022, 04/19/2021 GFR 05/17/2024 11/15/2023, 02/0 10/2023, 12/14/2022, Additional history exists CKD HGB USE SMARTSET 37103 11/14/202411/14, 05/02/2023, 10/22/2022, Additional history exists HbA1c [...] D LEVEL ONCE IN A LIFETIME-USE SMARTSET# 27345 Completed 12/14/2022, 04/19/2021, 09/16/2014, Additional history exists [...] this encounter Medical Devices Implanted Type Area Mechanical Development Engineer Device Identifier Shelf Expiration Date Model / Serial / Lot Lens Intraoc 24.0 - [id number] - [id number] Implanted:Qty: 1 on 04/17/2022 by Leonel Guaman MD at OR [facility] Left: Eye [employer]OM[employer] 07/22/2026 [id number] / [id number] / Lens Intraoc 24.5 - [id number] - [id number] Implanted:Qty: 1 on 05/01/2022 by Leonel Guaman MD at OR [facility] Right: Eye [employer]CH [employer] LOMB 09/21/2026 [id number] / [id number] / [id number] documented as of this encounter Visit Diagnoses Diagnosis Chronic diarrhea Diarrhea documented in this encounter Additional Health Concerns Infection Onset Date Last Indicated Resolved Time Gastrointestinal Rule-Out 12/04/2023 12/04/2023 documented as of this encounter Advance Directives [...] Power of Attor robyn? No Care Teams Husbandry Person Relationship Specialty Start Date End Date Deborah Galarza MD [address] [place] [address] [place] [address] PCP - General Internal Medicine 05/09/12 documented as of this encounter
--- OUTSIDE RECORDS SUMMARY | 2024-05-19 05:15 | External Medical Summary ---
Author Name Unknown Address Unknown Organization K01:[facility] [place] [address] [place] [address] Laboratory Report Ordering Provider Test Date Status DOTTIEASIAFE 12/05/2023 15:50:31 Final Observation Date Value Abnormality Reference (Units) Status Bacteria identified in Specimen by Culture 12/05/2023 15:50:31 No Aeromonas species or Plesiomonas species isolated. Final Test: Gastrointestinal Patho gen Panel Culture
Specimen Source: Stool
Specimen Type: Stool
Specimen Date: 12/05/2023 1550
Result Date: 12/08/2023 1116
Result Status: Final result
Resulting Lab: [facility]
[address]
[place] [address]

CULTURE

No Aeromonas species or Plesiomonas species isolated.

null Performing Location [facility] [address] [place] [address]
--- OUTSIDE RECORDS SUMMARY | 2024-05-19 05:15 | External Medical Summary | Summary of Care ---
Author Name Unknown Organization [facility] Address [address] [place] [address] Phone [phone] Care Team Providers Care Tag Meter Operator Name Role Phone Deborah Galarza MD Primary Care Provider [phone] Reason for Visit * Reason Onset Date Comments Re-Check Patient is here for recheck, states she thinks she is starting to have memory problems, when asked why she said because she forgot she had to go up the stairs here and forgot what the pulse ox is used for. Immunizations 11/15/2023 Encounter Details Date Type Department Care Team (Late st Contact Info) Description 11/15/2023 2:00 PM EDT Office Visit General Internal Medicine [facility] [address] [place] [id number] Deborah Galarza MD [address] [address] Prediabetes*; Senile osteoporosis; Malignant neoplasm of upper-outer quadrant of left breast in female, estrogen receptor positive (HCC); Pain of left upper arm; LFTs abnormal; Dyslipidemia, goal LDL below 130; Chronic kidney disease, stage 3a (HCC); Acquired hypothyroidism; Synovial cyst of hand; Chronic diarrhea; Hypercalcemia; Positive RPR test; Memory loss; Melissa albicans infection; Need for tetanus, diphtheria, and acellular pertussis (Tdap) vaccine; Need for ncpvexqmqk-oeppicm-jj rtussis (Tdap) vaccine; Hypokalemia Allergies Active Allergy Reactions Criticality Noted Date Comments Prednisone 05/02/2023 Nausea, lethargy, states she felt awful documented as of this encounter (statuses as of 11/27/2023) Medications Medication Sig Dispensed Refills Start Date End Date Status Q-10 CO-ENZYME 10 MG OR CAPS daily 0 07/27/2003 Active SUPER MILK THISTLE X PO CAPSIndications:take s at night Take by mouth. Indications: takes at night 0 10/20/2007 Active CHROMIUM 200 MCG PO CAPS one daily 11/19/2008 Active VITAMIN C 500 MG PO TABS 2 daily 11/19/2008 Active POTASSIUM 99 MG PO TABS one daily 0 Active FISH OIL 1000 MG PO CAPSIndications:Dysl ipidemia, goal to be determined 2 capsules daily 01/31/2011 Active NATURAL SUPPLEMENT K2 100 mcg daily 09/21/2014 Active Bilberry 40 MG CAPS Take by mouth daily. 10/04/2015 Active Red Yeast Rice Extract 600 MG Oral Capsule Take by mouth daily. 10/04/2015 Active Lutein Esters 18.6 MG CAPSIndications:Heal th examination of defined subpopulation 2 times a day. 40 mg once daily 30 Cap 10/14/2017 Active Probiotic Product (PRO-BIOTIC BLEND) CAPS Take by mouth. Active Niacin 250 MG TabletIndications:ta kes at night Take 1 Tablet by mouth in the morning. Active Fluticasone Propionate 50 MCG/ACT Nasal Suspension (Flonase) Administer 1 Clare into nostril in the morning. 04/19/2023 Active [...] a glass of water daily 11/15/2023 Active Clotrimazole 1 % External Cream (Lotrimin)Indication s:Melissa albicans infection Apply topically to affected area 2 times a day for 14 days. Apply to under breasts 30 g 1 11/15/2023 4 Active Levothyroxine Sodium 100 MCG Oral Tablet (Levoxyl)Indications :Acquired hypothyroidism Take 1 Tablet by mouth in the morning. (at least 30 min prior to breakfast or other meds). 30 Tablet 2 11/19/2023 Active MAGNESIUM 100 MG PO CAPS one daily 11/19/2008 4 Discontinue d(End of Procedure) Levothyroxine Sodium 125 MCG Oral Tablet (Levoxyl) TAKE 1 TABLET BY MOUTH IN THE MORNING (AT LEAST 30 MINUTES PRIOR TO BREAKFAST OR OTHER MEDS) 30 Tablet 11 10/07/2023 4 Discontinue d(Medicatio n/Dose Changed) documented as of this encounter (statuses as of 11/27/2023) Active Problems Problem Noted Date Diagnosed Date [...] as of this encounter (statuses as of 11/27/2023) Resolved Problems Problem Noted Date Diagnosed Date Resolved Date Generalized weakness 09/11/2021 022 Dyslipidemia, goal to be determined 03/09/2009 09/11/2011 Overview: Per Lipid Taxonomy. Other allergic rhinitis 05/23/200509/23 Overview: ICD-10 update of inactive term documented as of this encounter (statuses as of 11/27/2023) Immunizations Name Administration Dates Next Due COVID-19 [...] money to buy more. Never true 04/09/19 Within the past 12 months, t he [...] Sign Reading Time Taken Comments Blood Pressure 128/62 11/15/2023 2:23 PM EDT Pulse 70 11/15/2023 2:23 PM EDT Temperature 35.9 C (96.6 F) 11/15/2023 2:23 PM ED T Respiratory Rate 16 11/15/2023 2:23 PM EDT Oxygen Saturation 99% 11/15/2023 2:23 PM EDT Inhaled Oxygen Concentration - - Weight 68.8 kg (151 lb 9.6 oz) 11/15/2023 2:23 P M EDT Height 160.7 cm (5' 3.25") 11/15/2023 2:23 PM ED T Body Mass Index 26.64 11/15/2023 2:23 PM EDT documented in this encounter Patient Instructions * Patient Instructions* Melina Schwab LPN - 11/15/2023 3:14 PM EDT ~~PATIENT INSTRUCTIONS FOR TDAP VACCINE~~ Possible side effects of TDAP vaccine, (tetanus shot), are usually mild and can include: 1. Soreness or redness at injection site 2. Low grade fever 3. Body aches You may use a fever / pain reducing medication as needed for these symptoms. LET YOUR DOCTOR KNOW IMMEDIATELY IF YOU HAVE DIFFICULTY BREATHING OR SWALLOWING, EXPERIENCE ITCHINGOF FEET OR HANDS, HAVE SWELLING OF EYES, FACE OR INSIDE OF NOSE. documented in this encounter Progress Notes * Melina Schwab LPN - 11/15/2023 3:13 PM EDT Immunization Administration Documentation Time Out Procedure Performed: Yes Patient Identified (Ask Name/Date of ): Yes Does the patient have a fever greater than 101 degrees today? No Patient allergic to latex? No VFC Stock: No Immunization(s) verified: Yes, Immunization Name: Tdap (Adacel), VIS Sheet(s) given: Yes Verified Side and Site: Yes Verified Shot(s) with Parent(s)/Patient: Yes * Deborah Galarza MD - 11/15/2023 2:44 PM EDT Images from the original note were not included. History of Present Illness Rocio Monet is a 83 year old female that presents for Re-Check (Patient is here for recheck, states she thinks she is starting to have memory problems, when asked why she said because she forgot she had to go up the stairs here and forgot what the pulse ox is used for. /) 83 year old female with PMH significant for hypothyroidism, hyperlipidemia, allergic rhinitis presents here for recheck. Acute concern :- -states she thinks she is starting to have memory problems, when asked why she said because she forgot she had to go up the stairs here and forgot what the pulse ox is used to -continues to have diarrhea for last couple of years, already had multiple tests including CT of the abdomen and colonoscopy which were unremarkable. She does take magnesium which we talked about stopping but not sure if she held it or not Interimmedical history : As above Watching diet and exercise : Yes Routine labs : Due Routine HM : Agreeable to catch up except COVID booster and shingles vaccines Chronic medical problem: reviewed and stable Physical Exam Vitals: 11/15/23 1423 Temp: 35.9 C (96.6 F) Pulse: 70 Resp: 16 SpO2: 70% BP: 128/62 BMI: 26.63 Physical Exam Vitals and nursing note reviewed. Constitutional: General: She is not in acute distress. Appearance: She is normal weight. HENT: Head: Normocephalic. Cardiovascular: Rate and Rhythm: Normal rate and regular rhythm. Pulmonary: Effort: Pulmonary effort is normal. No respiratory distress. Breath sounds: No wheezing. Abdominal: General: Bowel sounds are normal. There is no distension. Palpations: Abdomen is soft. There is no mass. Musculoskeletal: General: No swelling, tenderness or signs of injury. Cervical back: Neck supple. No rigidity. Skin: General: Skin is warm. Findings: No lesion or rash. Neurological: Mental Status: She is alert and oriented to person, place, and time. Cranial Nerves: No cranial nerve deficit. Sensory: No sensory deficit. Motor: No weakness. Coordination: Coordination normal. Gait: Gait normal. Psychiatric: Mood and Affect: Mood normal. I have reviewed the following results: Assessment and Plan Prediabetes Doing well on conservative measure Continue to watch diet and exercise Wwill follow lab closely - HEMOGLOBIN A1C; Future Senile osteoporosis Declines treatment Malignant neoplasm of upper-outer quadrant of left breast in female, estrogen receptor positive (HCC) Doing well overall Pain of left upper arm LFTs abnormal Dyslipidemia, goal LDL below 130 Declines statins Chronic kidney disease, stage 3a (HCC) Avoid NSAID like ibuprofen,advil, aleve, naproxyn OTC. Drink plenty of fluid ( 60 oz/day ) . Will follow closely in future. Acquired hypothyroidism - TSH; Future - Levothyroxine Sodium 100 MCG Oral Tablet (Levoxyl); Take 1 Tablet by mouth in the morning. (at least 30 min prior to breakfast or other meds). Synovial cyst of hand Chronic diarrhea - GASTROINTESTINAL PATHOGEN PANEL, STOOL; Future - REGIONAL PARASITE ANTIGEN SCREEN; Future - CLOSTRIDIUM DIFFICILE, PCR; Future - LIPASE; Future - COMPREHENSIVE METABOLIC PANEL; Future - CBC; Future - TSH; Future - T4, FREE; Future - ALBUMIN / CREATININE RATIO, URINE; Future - GASTROINTESTINAL PATHOGEN PANEL, STOOL; Future - REGIONAL PARASITE ANTIGEN SCREEN; Future - HELICOBACTER PYLORI ANTIGEN, EIA, STOOL; Future Hypercalcemia - COMPREHENSIVE METABOLIC PANEL; Future - CALCIUM, IONIZED; Future - PTH; Future Positive RPR test - FTA-ABS; Future Memory loss - VITAMIN B12; Future - FOLIC ACID; Future - LYME DISEASE ANTIBODY SCREEN WITH REFLEX TO CONFIRMATION; Future - RPR; Future - HIV ANTIGEN & ANTIBODY SCREEN W/ CONFIRMATION; Future Melissa albicans infection - Clotrimazole 1 % External Cream (Lotrimin); Apply topically to affected area 2 times a day for 14days. Apply to under breasts Need for tetanus, diphtheria, and acellular pertussis (Tdap) vaccine Need for fwnjxmjqhi-ddruvvg-jhpfcxliy (Tdap) vaccine - TDAP (AGE 7 AND OLDER), ADACEL Hypokalemia - BASIC METABOLIC PANEL; Future Wrap-Up Time: I spent a total of 40-54 minutes (exact time 55 mins) on the date of service in preparation, delivery, and documentation of the care provided to Rocio Monet excluding any time spent in the performance of separately billed services. documented in this encounter Nursing Notes * Luz Maria Mukherjee LPN - 11/15/2023 2:23 PM EDT Chief Complaint Patient presents with Re-Check Patient is here for recheck, states she thinks she is starting to have memory problems, when asked why she said because she forgot she had to go up the stairs here and forgot what the pulse ox is used for. documented in this encounter Plan of Treatment Upcoming Encounters Date Type Department Care Team (Late st Contact Info) Description 05/19/2024 2:20 PM EST Office Visit General Internal Medicine [facility] [address] [place] [address] [address] Deborah Galarza MD [address] [place] [id number] Scheduled Orders Name Type Priority Associated Diagnoses Orde r Schedule TSH Lab Routine Acquired hypothyroidism Expected: 12/31/2023 (Approximate), Expires: 11/18/2024 BASIC METABOLIC PANEL Lab Routine Hypokalemia Expected: 11/26/2023 (Approximate), Expires: 11/18/2024 FTA-ABS Lab Routine Positive RPR test Expected: 11/26/2023, Expires: 11/18/2024 GASTROINTESTINAL PATHOGEN PANEL, STOOL Lab Routine Chronic diarrhea Expected: 11/22/2023 (Approximate), Expires: 11/21/2024 REGIONAL PARASITE ANTIGEN SCREEN Lab Routine Chronic diarrhea Expected: 11/22/2023 (Approximate), Expires: 11/21/2024 HELICOBACTER PYLORI ANTIGEN, EIA, STOOL Lab Routine Chronic diarrhea Expected: 11/22/2023 (Approximate), Expires: 11/21/2024 Health Maintenance Due Date Last Done Comments Zoster Vaccines (2 of 3) 11/06/2011 09/11/2011 *BISPHONATE OR OTHER ACCEPTABLE MEDICATION NEEDED FOR OSTEOPOROSIS (REFER TO SMARTSET #1146) 04/21/2021 Depression Screening 04/09/2023 04/09/2022 COVID-19 Vaccine ( season) 2023 05/21/2020, 04/30/2020 Influenza Vaccine (FLU shot) (#1) 2023 01/24/2010, 01/11/2009 CKD PHOS USE SMARTSET 74586 12/15/202311/24, 10/22/2022, 04/19/2021 GFR 05/17/2024 11/15/2023, 02/0 10/2023, 12/14/2022, Additional history exists CKD HGB USE SMARTSET 71072 11/14/202411/14, 05/02/2023, 10/22/2022, Additional history exists HbA1c 11/14/2024 11/15/2023, 02/0 10/2023, 10/22/2022, Additional history exists TSH 11/14/2024 11/15/2023, 05/24, 05/02/2023, Additional history exists Albumin/Creatinine Ratio 11/19/2024 024, 10/25/2022, 08/29/2021 Colonoscopy 11/23/2024 11/24/2019, 09/0 03/2019, 12/01/2018, Additional history exists DXA Scan 08/04/2025 08/05/2023, 10/25, 10/23/2017, Additional history exists DTap/Tdap Vaccines (2 - Td or Tdap) 11/14/2033 11/15/2023, 01/24/2010 Pneumococcal Vaccine: 65+ Years Completed 10/04/2015, 09/18/2013 RETIRED - COLONOSCOPY-EVERY 5 YRS AGES 18-100 Discontinued 11/24/2019, 11/24/2019, 12/01/2018, Additional history exists VITAMIN D LEVEL ONCE IN A LIFETIME-USE SMARTSET# [id number] Completed 12/14/2022, 04/19/2021, 09/16/2014, Additional history exists [...] this encounter Medical Devices Implanted Type Area Medical Scientific Liaison Device Identifier Shelf Expiration Date Model / Serial / Lot Lens Intraoc 24.0 - [id number] - [id number] Implanted:Qty: 1 on 04/17/2022 by Leonel Guaman MD at OR [facility] Left: Eye [employer] 07/22/2026 [id number] / [id number] / Lens Intraoc 24.5 - [id number] - [id number] Implanted:Qty: 1 on 05/01/2022 by Leonel Guaman MD at OR [facility] Right: Eye [employer] 09/21/2026 [id number] / [id number] / [id number] documented as of this encounter Results * ALBUMIN / CREATININE RATIO, URINE (11/20/2023 11:12 AM EDT) Albumin, Random Urine <1.20 mg/dL 11/20/2023 5:39 PM EDT LABORATORY [facility] Creatinine, Random Urine 70 mg/dL 11/20/2023 5:39 PM EDT LABORATORY [facility] Albumin / Creatinine Ratio, Urine <17 <30 mg/g Creat 11/20/2023 5:39 PM EDT LABORATORY [facility] Urine Urine specimen obtained by clean catch procedure / Unknown Non-blood Collection / Unknown 11/20/2023 11:12 AM EDT 11/20/2023 11:12 AM EDT Narrative LABORATORY [facility] - 11/20/2023 5:39 PM EDT Normal: <30 mg/g creatinine High: 30-300 mg/g creatinine Very High: >300 mg/g creatinine Nephrotic: >2200 mg/g creatinine Deborah Galarza MD LAB URINE ORDERABLES Performing Organization Address City/[facility]/ZIP Co de Phone Number LABORATORY [facility] [address] [place] [address] * CLOSTRIDIUM DIFFICILE, PCR (11/20/2023 11:12 AM EDT) Stool Consistency Liquid 11/20/2023 5:49 PM EDT LABORATORY [facility] Clostridium difficile Result Negative. No C. difficile toxin B gene DNA detected by PCR (Amplified Probe). Negative 11/20/2023 5:49 PM EDT LABORATORY [facility] Stool Stool specimen / Unknown Non-blood Collection / Unknown 11/20/2023 11:12 AM EDT 11/20/2023 11:12 AM EDT Deborah Galarza MD LAB MICRO - GENERAL ORDERABLES Performing Organization Address [facility]/ZIP Co de Phone Number LABORATORY [place] [address] [place] [address] * (ABNORMAL) CBC (11/15/2023 3:50 PM EDT) WBC 6.43 4.00 - 10.80 K/uL 11/15/2023 11:40 PM EDT LABORATORY [facility] RBC 5.07 3.85 - 5.15 M/uL 11/15/2023 11:40 PM EDT LABORATORY [facility] HGB 15.2 12.0 - 15.3 g/dL 11/15/2023 11:40 PM EDT LABORATORY [facility] HCT 47.8(H) 36.0 - 45.2 % 11/15/2023 11:40 PM EDT LAB[facility]ATORY [facility] MCV 94.3 81.5 - 97.5 fL 11/15/2023 11:40 PM EDT LAB[facility]ATORY [facility] MCH 30.0 27.0 - 34.0 pg 11/15/2023 11:40 PM EDT LABORATORY [facility] MCHC 31.8 32.0 - 36.0 g/dL 11/15/2023 11:40 PM EDT LABORATORY C RDW 13.3 11.5 - 15.5 % 11/15/2023 11:40 PM EDT LAB[facility]ATORY [facility] PLT 258 140 - 400 K/uL 11/15/2023 11:40 PM EDT LAB[facility]ATORY [facility] MPV 10.9 6.6 - 11.1 fL 11/15/2023 11:40 PM EDT LABORATORY [facility] nRBCs 0 <=0 /100 WBCs 11/15/2023 11:40 PM EDT LABORATORY [facility] Blood Venous blood specimen / Unknown Venipuncture / Unknown 11/15/2023 3:50 PM EDT 11/15/2023 3:50 PM EDT Deborah Galarza MD LAB BLOOD ORDERABLES LABORATORY [facility] [address] [place] [address] * (ABNORMAL) COMPREHENSIVE METABOLIC PANEL (11/15/2023 3:50 PM EDT) BUN 14 6 - 20 mg/dL 11/16/2023 12:13 AM EDT LABORATORY [facility] Creatinine 0.8 0.5 - 1.0 mg/dL 11/16/2023 12:13 AM EDT LABORATORY [facility] Estimated Glomerular Filtration Rate 72 >=60 mL/min 11/16/2023 12:13 AM EDT LABORATORY [facility] Comment:eGFR is calculated b ased on the CKD-EPI 2020 equation. Sodium 145 135 - 146 mmol/L 11/16/2023 12:13 AM EDT LABORATORY [facility] Potassium 3.4(L) 3.5 - 5.1 mmol/L 11/16/2023 12:13 AM EDT LABORATORY [facility] Chloride 105 98 - 107 mmol/L 11/16/2023 12:13 AM EDT LAB[facility]ATORY [facility] CO2 28 22 - 32 mmol/L 11/16/2023 12:13 AM EDT LABORATORY C Anion Gap 12 7 - 15 mmol/L 11/16/2023 12:13 AM EDT LABORATORY C Glucose 97 70 - 120 mg/dL 11/16/2023 12:13 AM EDT LABORATORY [facility] Albumin 4.5 3.8 - 5.0 g/dL 11/16/2023 12:13 AM EDT LABORATORY C AST 30 10 - 35 U/L 11/16/2023 12:13 AM EDT LABORATORY C Comment:Result may be falsel y elevated due to hemolysis. Alkaline Phosphatase 112 35 - 130 U/L 11/16/2023 12:13 AM EDT LABORATORY C Bilirubin, Total 0.3 <=1.2 mg/dL 11/16/2023 12:13 AM EDT LABORATORY C Calcium 10.1 8.4 - 10.2 mg/dL 11/16/2023 12:13 AM EDT LABORATORY C Protein 6.4 6.0 - 8.3 g/dL 11/16/2023 12:13 AM EDT LABORATORY C ALT 22 10 - 35 U/L 11/16/2023 12:13 AM EDT LABORATORY [facility] Blood Venous blood specimen / Unknown Venipuncture / Unknown 11/15/2023 3:50 PM EDT 11/15/2023 3:50 PM EDT Deborah Galarza MD LAB BLOOD ORDERABLES Performing Organization Address City/State/[facility] Co de Phone Number LABORATORY [facility] [address] [place] [address] * (ABNORMAL) HEMOGLOBIN A1C (11/15/2023 3:34 PM EDT) Hemoglobin A1C 5.8(H) 4.0 - 5.6 % 11/16/2023 12:09 AM EDT LABORATORY [facility] Comment:The use of HbA1c to monitor glycemic status is based on normal hemoglobin and HbA composition. This test should not be used in patients with abnormal hemoglobin that affects the half life of the red blood cell or the in vivo glycation rates. Estimated Average Glucose 120 <126 mg/dL 11/16/2023 12:09 AM EDT LABORATORY [facility] Blood Venous blood specimen / Unknown Venipuncture / Unknown 11/15/2023 3:34 PM EDT 11/15/2023 3:34 PM EDT Deborah Galarza MD LAB BLOOD ORDERABLES Performing Organization Address [facility] de Phone Number LABORATORY [facility] [address] [place] [address] * HIV ANTIGEN & ANTIBODY SCREEN W/ CONFIRMATION (11/15/2023 3:34 PM EDT) HIV Antigen & Antibody Negative Negative 11/16/2023 1:01 AM EDT LABORATORY [facility] Comment:Negative HIV-1/2 ant igen and antibody screening tset results usually indicate the absence of HIV-1 and HIV-2 infection. However, such negative results do not rule-out acute HIV infection. If acute HIV-1 infection is highly suspected, it is recommended that a specimen be submitted for detection of HIV-1 RNA. Blood Venous blood specimen / Unknown Venipuncture / Unknown 11/15/2023 3:34 PM EDT 11/15/2023 3:34 PM EDT Deborah Galarza MD LAB BLOOD ORDERABLES Performing Organization Address [facility] de Phone Number LABORATORY [facility] [address] [place] [address] * (ABNORMAL) RPR (11/15/2023 3:34 PM EDT) Pathologist [facility] RPR Screen Reactive( A) Nonreactive 11/19/2023 9:14 AM EDT LABORATORY [facility] RPR Titer 1:1 Titer 11/19/2023 9:14 AM EDT LABORATORY [facility] Comment:Test results reporte d to [facility]. Blood Venous blood specimen / Unknown Venipuncture / Unknown 11/15/2023 3:34 PM EDT 11/15/2023 3:34 PM EDT Deborah Galarza MD LAB BLOOD ORDERABLES LABORATORY [facility] [address] [place] [address] * FOLIC ACID (11/15/2023 3:34 PM EDT) Pathologist [facility] Folic Acid >20.0 >4.5 ng/mL 11/16/2023 1:47 AM EDT LABORATORY [facility] Blood Venous blood specimen / Unknown Venipuncture / Unknown 11/15/2023 3:34 PM EDT 11/15/2023 3:34 PM EDT Deborah Galarza MD LAB BLOOD ORDERABLES Performing Organization Address City/[facility]/ZIP Co de Phone Number LABORATORY [facility] [address] [place] [address] * (ABNORMAL) VITAMIN B12 (11/15/2023 3:34 PM EDT) Pathologist [facility] Vitamin B12 1,360(H) 232 - 1,245 pg/mL 11/16/2023 1:15 AM EDT LABORATORY [facility] Blood Venous blood specimen / Unknown Venipuncture / Unknown 11/15/2023 3:34 PM EDT 11/15/2023 3:34 PM EDT Deborah Galarza MD LAB BLOOD ORDERABLES Performing Organization Address [facility]/ZIP Co de Phone Number LABORATORY [facility] [address] [place] [address] * (ABNORMAL) T4, FREE (11/15/2023 3:34 PM EDT) Pathologist [facility] T4, Free 1.8(H) 0.9 - 1.7 ng/dL 11/16/2023 1:15 AM EDT LABORATORY [facility] Blood Venous blood specimen / Unknown Venipuncture / Unknown 11/15/2023 3:34 PM EDT 11/15/2023 3:34 PM EDT Deborah Galarza MD LAB BLOOD ORDERABLES LABORATORY [facility] [address] [place] [address] * TSH (11/15/2023 3:34 PM EDT) TSH 0.66 0.27 - 4.20 uIU/mL 11/16/2023 1:15 AM EDT LABORATORY [facility] Blood Venous blood specimen / Unknown Venipuncture / Unknown 11/15/2023 3:34 PM EDT 11/15/2023 3:34 PM EDT Deborah Galarza MD LAB BLOOD ORDERABLES Performing Organization Address [facility] de Phone Number LABORATORY [facility] [address] [place] [address] * CALCIUM, IONIZED (11/15/2023 3:34 PM EDT) Calcium, Ionized 1.31 1.13 - 1.32 mmol/L 11/15/2023 10:16 PM EDT LABORATORY C Comment:This test was develo ped and its performance characteristics dtermined by [employer]. It has not been cleared or approved by the [place] Food and Drug Administration Blood Venous blood specimen / Unknown Venipuncture / Unknown 11/15/2023 3:34 PM EDT 11/15/2023 3:34 PM EDT Deborah Galarza MD LAB BLOOD ORDERABLES Performing Organization Address [facility] de Phone Number LABORATORY [facility] [address] [place] [address] * LIPASE (11/15/2023 3:34 PM EDT) Lipase 26 13 - 60 U/L 11/16/2023 12:54 AM EDT LABORATORY [facility] Blood Venous blood specimen / Unknown Venipuncture / Unknown 11/15/2023 3:34 PM EDT 11/15/2023 3:34 PM EDT Deborah Galarza MD LAB BLOOD ORDERABLES Performing Organization Address [facility] Co de Phone Number LABORATORY [facility] [address] [place] [address] documented in this encounter Visit Diagnoses Diagnosis Prediabetes- Primary Other abnormal glucose Senile osteoporosis Malignant neoplasm of upper-outer quadrant of left breast in female, estrogen receptor positive (HCC) Pain of left upper arm Pain in limb LFTs abnormal Other abnormal blood chemistry Dyslipidemia, goal LDL below 130 Other and unspecified hyperlipidemia Chronic kidney disease, stage 3a (HCC) Acquired hypothyroidism Unspecified hypothyroidism Synovial cyst of hand Chronic diarrhea Diarrhea Hypercalcemia Positive RPR test Memory loss Melissa albicans infection Candidiasis of unspecified site Need for tetanus, diphtheria, and acellular pertussis (Tdap) vaccine Need for dbewapcdoq-knehyen-bixvdnfjb (Tdap) vaccine Need for prophylactic vaccination with combined ysccilsomg-jsqqsbn-ifuxcyodz (DTP) vaccine Hypokalemia Hypopotassemia documented in this encounter Advance Directives * [...] Power of Attor robyn? No Care Teams Tag Meter Operator Relationship Specialty Start Date End Date Deborah Galarza MD [address] [facility] [place] [address] PCP - General Internal Medicine 05/09/12 documented as of this encounter
--- OUTSIDE RECORDS SUMMARY | 2024-05-19 05:15 | External Medical Summary | Summary of Care ---
Author Name Unknown Organization [facility] Address [address] [place] [address] Phone [phone] Care Team Providers Care Pile Fabric Knitter Name Role Phone Deborah Galarza MD Primary Care Provider [phone] Reason for Visit * Reason Onset Date Comments Test Results 11/19/2023 Encounter Details Date Type Department Care Team (Late st Contact Info) Description 11/19/2023 Telephone General Internal Medicine [facility] [place] [address] [place] [address] Deborah Galarza MD [address] [facility] [place] [address] Test Results Allergies Active Allergy Reactions Criticality Noted Date Comments Prednisone 05/02/2023 Nausea, lethargy, states she felt awful documented as of this encounter (statuses as of 11/21/2023) Medications Medication Sig Dispensed Refills Start Date [...] 50 MCG/ACT Nasal Suspension (Flonase) Administer 1 [place] into nostril in the morning. 04/19/2023 Active [...] 11/15/2023 Active Clotrimazole 1 % External Cream (Lotrimin)Indications :Melissa albicans infection Apply topically to affected area 2 times a day for 14 days. Apply to under breasts 30 g 1 11/15/2023 11/29/2023 Active Levothyroxine Sodium 100 MCG Oral Tablet (Levoxyl)Indications: Acquired hypothyroidism Take 1 Tablet by mouth in the morning. (at least 30 min prior to breakfast or other meds). 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 Other allergic rhinitis 05/23/200509/23 Overview: ICD-10 update of inactive term documented as of this encounter (statuses as of 11/21/2023) Immunizations Name Administration Dates Next Due COVID-19 [...] encounter Miscellaneous Notes * Telephone Encounter - CarieMi segura LPN - 11/21/2023 4:26 PM EDT Pt is returning phone call and aware. * Telephone Encounter - Nancy Trent LPN - 11/21/2023 4:06 PM EDT Attempted to call patient, there was no answer, left voicemail. When patient returns call, ok for MICA to relay message, please refer to below documentation. If needed, can transfer to dedicated nurse line. * Telephone Encounter - Deborah Galarza MD - 11/21/2023 11:07 AM EDT Please clarify - pt is on 125 mcg and I decreased to 100 mcg * Telephone Encounter - Patsy Harris LPN - 11/21/2023 10:05 AM EDT Patient aware and verbalized understanding Please clarify dose of Levothyroxine, Note indicates to "Decrease levothyroxine to 125 mcg daily" RX sent on 11/18 is 100mcg. * Telephone Encounter - Patsy Harris LPN - 11/21/2023 10:02 AM EDT Patient aware and verbalized understanding * Telephone Encounter - Mallorie Kothari MED ASSIST - 11/20/2023 1:11 PM EDT Left message for the patient to call the office. Upon return call please transfer to a dedicated telephone nurse. * Telephone Encounter - Jaymie Vo LPN - 11/19/2023 4:29 PM EDT Left message for patient to return call. * Telephone Encounter - Jaymie Vo LPN - 11/19/2023 4:28 PM EDT ----- Message from Deborah Galarza MD sent at 11/19/2023 4:27 PM EDT ----- Potassium slightly low which is likely from chronic diarrhea - make sure she is not taking magnesium supplement and taking potassium supplement ? Increase food rich in potassium like banana, yogurt,dried apricot,spinach,white beans, mushroom, avocardo ect and repeat lab in 1 week Tsh on low side and free T4 slightly high means she is overreacted . Decrease levothyroxine to 125 mcg daily and repeat TSH and free t4 in 6 weeks Syphilis screening +ve - check if she ever had syphilis in remote past and if yes was it treated asit might make it +ve . Suggest to repeat different test called FTA -ABS- in 1 week Vit b12 high - stop supplement if taking , calcium , parathyroid hormone , HIV, Lyme negative documented in this encounter Plan of Treatment Upcoming Encounters Date Type Department Care Team (Late st Contact Info) Description 05/19/2024 2:20 PM EST Office Visit General Internal Medicine [facility] [place] [address] [place], [place] [address] Deborah Galarza MD [address] [place] [address] Health Maintenance Due Date Last Done Comments Zoster Vaccines (2 of 3) 11/06/2011 09/11/2011 *BISPHONATE OR OTHER ACCEPTABLE MEDICATION NEEDED FOR OSTEOPOROSIS (REFER TO SMARTSET #1146) 04/21/2021 COVID-19 Vaccine ( season) 2022 05/21/2020, 04/30/2020 Depression Screening 04/09/2023 04/09/2022 Influenza Vaccine (FLU shot) (#1) 2023 01/24/2010, 01/11/2009 CKD PHOS USE SMARTSET 74474 12/15/2023 092 04/2022, 10/22/2022, 04/19/2021 GFR 05/17/2024 11/15/2023, 02/0 10/2023, 12/14/2022, Additional history exists CKD HGB USE SMARTSET 99660 11/14/202411/14, 05/02/2023, 10/22/2022, Additional history exists HbA1c [...] D LEVEL ONCE IN A LIFETIME-USE SMARTSET# 71845 Completed 12/14/2022, 04/19/2021, 09/16/2014, Additional history exists [...] this encounter Medical Devices Implanted Type Area Electric Meter Inspector Device Identifier Shelf Expiration Date Model / Serial / Lot Lens Intraoc 24.0 - [id number] - [id number] Implanted:Qty: 1 on 04/17/2022 by Leonel Guaman MD at OR [facility] Left: Eye [employer] 07/22/2026 [id number] / [id number] / Lens Intraoc 24.5 - [id number] - [id number] Implanted:Qty: 1 on 05/01/2022 by Leonel Guaman MD at OR [facility] Right: Eye [employer] 09/21/2026 [id number] / [id number] / [id number] documented as of this encounter Additional Health Concerns Infection Onset Date Last Indicated Resolved Time Gastrointestinal Rule-Out 11/20/2023 11/20/2023 7:47 PM EDT C. difficile Rule-Out 11/20/2023 11/20/20232023 5:49 PM EDT documented as of this encounter Advance Directives [...] Power of Attor robyn? No Care Teams Pile Fabric Knitter Relationship Specialty Start Date End Date Deborah Galarza MD [address] [place] [address] PCP - General Internal Medicine 05/09/12 documented as of this encounter
[2024-05-19] MEDS: LEVOTHYROXINE SODIUM 112 MCG TABLET PO SCH (06:30)
[2024-05-19] MEDS: ENOXAPARIN INJ 40 MG/0.4 ML SYR SQ SCH (08:11)
[2024-05-19] MEDS: MULTIVITAMIN TAB PO SCH (08:11)
[2024-05-19 09:57] LABS: Basophils # (auto) 0.06 K/uL (0.00-0.20); Basophils % (auto) 0.8 %; Eosinophils # (auto) 0.02 K/uL (0.00-0.50); Eosinophils % (auto) 0.3 %; Hematocrit (blood only) 44.6 % (37.0-47.0); Hemoglobin 15.1 g/dl (12.0-16.0); Immature Granulocytes # (auto) 0.02 K/uL (0.01-0.20); Immature Granulocytes % (auto) 0.3 %; Lymphocytes # (auto) 1.81 K/uL (1.20-3.40); Lymphocytes % (auto) 23.5 %; Mean Corpuscular Hemoglobin 30.8 pg (25.0-34.0); Mean Corpuscular Hgb Conc 33.9 g/dL (32.0-36.0); Monocytes # (auto) 0.93 K/uL (0.11-0.59); Monocytes % (auto) 12.1 %; Neutrophils # (auto) 4.87 K/uL (1.40-6.50); Platelet Count 176 K/uL (130-400); RDW Coefficient of Variation 13.9 % (11.5-14.5); RDW Standard Deviation 46.7 fL (36.4-46.3); White Blood Count 7.71 K/ul (4.8-10.8)
[2024-05-19 10:18] LABS: Calcium 9.1 mg/dl (8.6-10.3); Potassium 3.2 mmol/L (3.5-5.1)
--- NOTE | 2024-05-19 14:56 | Communication Note ---
Patient seen and examined at bedside. Patient appears back to her baseline. Is no longer confused, feels well. She states she feels comfortable walking. We discussed that she will work with physical therapy and Occupational Therapy before discharge home. UTI is being treated adequately. She is agreeable with the plan. Date of Service: May 19, 2024
--- NOTE | 2024-05-19 15:49 | Electrocardiogram Report ---
Test Reason : Blood Pressure : */* mmHG Vent. Rate : 66 BPM Atrial Rate : 66 BPM P-R Int : 152 ms QRS Dur : 72 ms QT Int : 424 ms P-R-T Axes : 48 29 15 degrees QTcB Int : 444 ms Normal sinus rhythm Nonspecific T wave abnormality Abnormal ECG No previous ECGs available Confirmed by Murray Marte ([id number]) on 05/19/2024 3:48:53 PM Referred By: REFERRED SELF Confirmed By: Murray Marte
[2024-05-19] MEDS: cefTRIAXone SODIUM 2,000 MG/50 ML BAG IV SCH (23:06)
[2024-05-20 08:12] LABS: Albumin Globulin Ratio 1.4 (0.9-2); Albumin Level 3.6 gm/dl (3.4-5.0); BUN Creatinine Ratio 20.5 (10-20); Bilirubin,Total 0.4 mg/dl (0.2-1.0); Calcium 8.4 mg/dl (8.6-10.3); Creatinine Clr Calc Pharmacy 49.3 ml/min; Globulin 2.6 gm/dl (2.5-4.0); Potassium 3.2 mmol/L (3.5-5.1); Total Protein 6.2 gm/dl (6.0-8.3)
--- NOTE | 2024-05-20 18:16 | Hospitalist Progress Note ---
Date of Service May 20, 2024 Assessment & Plan (1) Complicated UTI (urinary tract infection): Plan: Complicated UTI -No sepsis -much improved mentally compared to admission Plan: -continue ceftriaxone/augmentin (on discharge) for 7 days -awaiting placement Incipient cognitive impairment -Patient mentating well during encounter although noted to struggle with some memory lapses -discussed extensively with family, family requesting MRI to better understand baseline and if had stroke Plan: -MRI ordered, per patient she states she will likely refuse it -f/u outpatient for discussion of starting donepezil/memantine Systolic murmur on exam hyperlipidemia, not on maintenance Rx hypothyroidism, TSH markedly evaded with normal free T4 prediabetes, hemoglobin A1c of 5.8 from last year left breast cancer status post surgery status post incomplete tamoxifen Rx, in remission Feeding/fluids: regular Analgesia: tylenol Sedation: na Thromboprophylaxis: lovenox Head up position: na Ulcer prophylaxis: na Glycemic control: na Spontaneous breathing trial: na Bowel care: miralax prn Indwelling catheter removal: na Deescalation of antibiotics: ceftriaxone, switch to PO on discharge I spent a total of 50 minutes in direct patient care, including [id number] time with the patient and/or family, reviewing medical records, ordering and reviewing diagnostic tests, and coordinating care with other healthcare providers. This time includes: history taking, physical examination, medical decision making, counseling, ECG interpretation, imaging interpretation, lab interpretation, orders, and education, excluding time spent in the performance of separately billed services. Admission and Anticipated Discharge Date Admission Date: May 19, 2024 Subjective Patient seen and examined at bedside. Ms. Monet is doing well today, feels much better. Discussed case with and son at bedside, discussed MRI. Family requesting MRI in order to determine patient baseline and if patient had infarcts in past. Patient does not want MRI. Discussed ordering MRI and letting patient decide if she wants it at time, patient agreeable to plan as is son. Review of Systems Review of Systems: CONSTITUTIONAL: Patient denies fevers, chills, sweats and weight changes. EYES: Patient denies any visual symptoms. EARS, NOSE, AND THROAT: No difficulties with hearing. No symptoms of rhinitis or sore throat. CARDIOVASCULAR: Patient denies chest pains, palpitations, orthopnea and paroxysmal nocturnal dyspnea. RESPIRATORY: No dyspnea on exertion, no wheezing or cough. GI: No nausea, vomiting, diarrhea, constipation, abdominal pain, hematochezia or melena. : No urinary hesitancy or dribbling. No nocturia or urinary frequency. No abnormal urethral discharge. MUSCULOSKELETAL: No myalgias or arthralgias. diffuse weakness NEUROLOGIC: No chronic headaches, no seizures. Patient denies numbness, tingling or weakness. PSYCHIATRIC: Patient denies problems with mood disturbance. No problems with anxiety. ENDOCRINE: No excessive urination or excessive thirst. DERMATOLOGIC: Patient denies any rashes or skin changes. Physical Exam Physical Exam: Gen: A&O 3 NAD HEENT: NCAT, EOMI, not icteric. External ears normal. No rhinorrhea. Moist mucous membranes. Neck: Supple, full range of motion, no observable masses, No meningeal sign. Lungs: No Respiratory distress. CV: RRR, no edema. Abdomen: Soft, nondistended, No rebound tenderness. MSK: No joint swelling, no redness. Notable diffuse weakness. Skin: No rashes, petechiae, lesions. Normal color per patient. Neuro: Normal Gait, Grossly intact. Psych: Appropriate for situation. Results & Data Results & Data Vital Signs (Past 12 Hours) Vital Signs Temp Pulse Resp BP Pulse Ox O2 Del Method 05/20/24 15:16 37.0 C 68 16 129/75 96 Room Air 05/20/24 08:30 Room Air 05/20/24 07:43 37.3 C 68 16 153/80 H 93 Room Air Laboratory Results -personally reviewed, hemodynamically stable, potassium of 3.2 Medications Administered Enoxaparin Sodium (Enoxaparin Inj 40 Mg/0.4 Ml Syr) 40 mg SQ QAM [facility] Stop: 06/18/24 08:59 Last Admin: 05/20/24 08:17 Dose: 40 mg Documented By: Admin: 05/19/24 08:11 Dose: 40 mg Documented By: MICHAEL Ceftriaxone Sodium (Rocephin) 2,000 mg in 50 mls @ 100 mls/hr IV Q24H [facility] Stop: 05/30/24 00:00 Last Infusion: 05/19/24 23:48 Dose: Infused Documented By: Admin: 05/19/24 23:06 Dose: 100 mls/hr Documented By: ANITRA Levothyroxine Sodium (Levothyroxine Sodium 112 Mcg Tablet) 112 mcg PO DAILYBB [facility] Stop: 06/18/24 06:29 Last Admin: 05/20/24 06:17 Dose: 112 mcg Documented By: Admin: 05/19/24 06:30 Dose: 112 mcg Documented By: LAKESHA Multivitamins (Multivitamin Tab) [facility] [place] Stop: 06/18/24 08:59 Last Admin: 05/20/24 08:18 Dose: 1 tab Documented By: Admin: 05/19/24 08:11 Dose: 1 tab Documented By: MICHAEL
[2024-05-20] MEDS: POTASSIUM CHLORIDE CRTAB 20 MEQ TABCR PO STA (18:31)
[2024-05-21 07:54] LABS: Albumin Globulin Ratio 1.3 (0.9-2); Albumin Level 3.5 gm/dl (3.4-5.0); BUN Creatinine Ratio 13.7 (10-20); Bilirubin,Total 0.4 mg/dl (0.2-1.0); Calcium 8.6 mg/dl (8.6-10.3); Creatinine Clr Calc Pharmacy 52.7 ml/min; Globulin 2.6 gm/dl (2.5-4.0); Potassium 3.6 mmol/L (3.5-5.1); Total Protein 6.1 gm/dl (6.0-8.3)
--- NOTE | 2024-05-21 14:30 | Magnetic Resonance Report ---
MR brain wo con HISTORY: 84 years-old Female r/o infarct acutely altered mental status with stroke like symptoms COMPARISON: Head CT 05/18/2024 TECHNIQUE: Multiplanar multisequence MRI the brain was obtained without IV contrast FINDINGS: No restricted diffusion to suggest acute or subacute infarct. Midline structures appear unremarkable. Degenerative changes of the cervical spine. Partially empty sella. No acute intracranial hemorrhage, midline shift, abnormal extra-axial collection, acute hydrocephalus or intra-axial mass. Study is degraded by motion. Ex vacuo ventriculomegaly again noted. Cerebral ve nous sinuses and major arterial flow voids appear patent. Mastoid air cells are clear. Mild mucosal t hickening of the paranasal sinuses. Bilateral lens repair. Involutional changes with moderate to adva nced T2/FLAIR hyperintense foci throughout the white matter suggestive of chronic microvascular ische an disease. IMPRESSION: 1. No acute intracranial abnormality. No acute or subacute infarct. 2. Involutional changes with chronic microvascular ischemic disease and ex vacuo ventriculomegaly. ACT 112: Negative or not required by law. The above report was generated using voice recognition software. It may contain grammatical, syntax o r spelling errors. Electronically signed by: Ephraim Reynaga M.D. 05/21/2024 2:29 PM
--- NOTE | 2024-05-21 20:19 | Hospitalist Progress Note ---
Date of Service May 21, 2024 Assessment & Plan (1) Complicated UTI (urinary tract infection): Plan: Complicated UTI -No sepsis -much improved mentally compared to admission Plan: -continue ceftriaxone/augmentin (on discharge) for 7 days -awaiting placement Incipient cognitive impairment -Patient mentating well during encounter although noted to struggle with some memory lapses -discussed extensively with family, MRI consistent with dementia and significant brain atrophy with compensatory CSF Plan: -f/u outpatient for discussion of starting donepezil/memantine Systolic murmur on exam hyperlipidemia, not on maintenance Rx hypothyroidism, TSH markedly evaded with normal free T4 prediabetes, hemoglobin A1c of 5.8 from last year left breast cancer status post surgery status post incomplete tamoxifen Rx, in r emission Feeding/fluids: regular Analgesia: tylenol Sedation: na Thromboprophylaxis: lovenox Head up position: na Ulcer prophylaxis: na Glycemic control: na Spontaneous breathing trial: na Bowel care: miralax prn Indwelling catheter removal: na Deescalation of antibiotics: ceftriaxone, switch to PO on discharge I spent a total of 45 minutes in direct patient care, including [id number]-qf-[id number] time with the patient and/or family, reviewing medical records, ordering and reviewing diagnostic tests, and coordinating care with other healthcare providers. This time includes: history taking, physical examination, medical decision making, counseling, ECG interpretation, imaging interpretation, lab interpretation, orders, and education, excluding time spent in the performance of separately billed services. Admission and Anticipated Discharge Date Admission Date: May 19, 2024 Subjective Patient seen and examined at bedside. Patient would like to go home, discussed need for therapy and for a safe home enviorement. Discussed case extensively with and son at bedside. Family requested MRI for further evaluation of a baseline cognition, and to rule out any abnormalities. MRI was unrevealing except for chronic ischemic changes in increased CSF in setting of brain atrophy. Review of Systems Review of Systems: CONSTITUTIONAL: Patient denies fevers, chills, sweats and weight changes. EYES: Patient denies any visual symptoms. EARS, NOSE, AND THROAT: No difficulties with hearing. No symptoms of rhinitis or sore throat. CARDIOVASCULAR: Patient denies chest pains, palpitations, orthopnea and paroxysmal nocturnal dyspnea. RESPIRATORY: No dyspnea on exertion, no wheezing or cough. GI: No nausea, vomiting, diarrhea, constipation, abdominal pain, hematochezia or melena. : No urinary hesitancy or dribbling. No nocturia or urinary frequency. No abnormal urethral discharge. MUSCULOSKELETAL: No myalgias or arthralgias. diffuse weakness NEUROLOGIC: No chronic headaches, no seizures. Patient denies numbness, tingling or weakness. PSYCHIATRIC: Patient denies problems with mood disturbance. No problems with anxiety. ENDOCRINE: No excessive urination or excessive thirst. DERMATOLOGIC: Patient denies any rashes or skin changes. Physical Exam Physical Exam: Gen: A&O 2-3 NAD HEENT: NCAT, EOMI, not icteric. External ears normal. No rhinorrhea. Moist mucous membranes. Neck: Supple, full range of motion, no observable masses, No meningeal sign. Lungs: No Respiratory distress. CV: RRR, no edema. Abdomen: Soft, nondistended, No rebound tenderness. MSK: No joint swelling, no redness. Notable diffuse weakness. Skin: No rashes, petechiae, lesions. Normal color per patient. Neuro: Normal Gait, Grossly intact. Psych: Appropriate for situation. a little agitated this morning. Results & Data Results & Data Vital Signs (Past 12 Hours) Vital Signs Temp Pulse Resp BP Pulse Ox O2 Del Method 05/21/24 16:09 36.8 C 64 16 122/68 96 Room Air Laboratory Results -personally reviewed, stable creatinine Medications Administered Enoxaparin Sodium (Enoxaparin Inj 40 Mg/0.4 Ml Syr) 40 mg SQ QAM [facility] Stop: 06/18/24 08:59 Last Admin: 05/21/24 08:48 Dose: 40 mg Documented By: Admin: 05/20/24 08:17 Dose: 40 mg Documented By: Admin: 05/19/24 08:11 Dose: 40 mg Documented By: MICHAEL Ceftriaxone Sodium (Rocephin) 2,000 mg in 50 mls @ 100 mls/hr IV Q24H [facility] Stop: 05/30/24 00:00 Last Infusion: 05/21/24 01:30 Dose: Infused Documented By: Admin: 05/21/24 00:33 Dose: 100 mls/hr Documented By: Infusion: 05/19/24 23:48 Dose: Infused Documented By: Admin: 05/19/24 23:06 Dose: 100 mls/hr Documented By: ANITRA Levothyroxine Sodium (Levothyroxine Sodium 112 Mcg Tablet) 112 mcg PO DAILYBB [facility] Stop: 06/18/24 06:29 Last Admin: 05/21/24 05:27 Dose: 112 mcg Documented By: Admin: 05/20/24 06:17 Dose: 112 mcg Documented By: Admin: 05/19/24 06:30 Dose: 112 mcg Documented By: LAKESHA Multivitamins (Multivitamin Tab) 1 tab PO QAM [facility] Stop: 06/18/24 08:59 Last Admin: 05/21/24 08:48 Dose: 1 tab Documented By: Admin: 05/20/24 08:18 Dose: 1 tab Documented By: Admin: 05/19/24 08:11 Dose: 1 tab Documented By: MICHAEL
[2024-05-22] MEDS: POLYETHYLENE (MIRALAX) 17 GM PACK PO PRN (08:09)
[2024-05-22] MEDS: ACETAMINOPHEN 325 MG TAB PO PRN (08:09)
[2024-05-22 08:35] LABS: Albumin Globulin Ratio 1.5 (0.9-2); Albumin Level 3.6 gm/dl (3.4-5.0); BUN Creatinine Ratio 14.5 (10-20); Bilirubin,Total 0.4 mg/dl (0.2-1.0); Calcium 8.6 mg/dl (8.6-10.3); Creatinine Clr Calc Pharmacy 55.7 ml/min; Globulin 2.4 gm/dl (2.5-4.0); Potassium 3.3 mmol/L (3.5-5.1)
--- NOTE | 2024-05-22 16:13 | Hospitalist Progress Note ---
Date of Service May 22, 2024 Assessment & Plan (1) Complicated UTI (urinary tract infection): Plan: Complicated UTI -No sepsis -much improved mentally compared to admission Plan: -stop ceftriaxone, start augmentin for rest of course -remove IV -ok to shower -awaiting placement Incipient cognitive impairment -Patient mentating well during encounter although noted to struggle with some memory lapses -discussed extensively with family, MRI consistent with dementia and significant brain atrophy with compensatory CSF Plan: -f/u outpatient for discussion of starting donepezil/memantine Systolic murmur on exam hyperlipidemia, not on maintenance Rx hypothyroidism, TSH markedly evaded with normal free T4 prediabetes, hemoglobin A1c of 5.8 from last year left breast cancer status post surgery status post incomplete tamoxifen Rx, in remission Feeding/fluids: regular Analgesia: tylenol Sedation: na Thromboprophylaxis: lovenox Head up position: na Ulcer prophylaxis: na Glycemic control: na Spontaneous breathing trial: na Bowel care: miralax prn Indwelling catheter removal: na Deescalation of antibiotics: switched to augmentin I spent a total of 45 minutes in direct patient care, including [id number]-eg-ewyl time with the patient and/or family, reviewing medical records, ordering and reviewing diagnostic tests, and coordinating care with other healthcare providers. This time includes: history taking, physical examination, medical decision making, counseling, ECG interpretation, imaging interpretation, lab interpretation, orders, and education, excluding time spent in the performance of separately billed services. Admission and Anticipated Discharge Date Admission Date: May 19, 2024 Subjective Patient seen and examined at bedside. Discussed case with daughter and son at bedside as well. Patient is doing well today. Awaiting placement. Review of Systems Review of Systems: CONSTITUTIONAL: Patient denies fevers, chills, sweats and weight changes. EYES: Patient denies any visual symptoms. EARS, NOSE, AND THROAT: No difficulties with hearing. No symptoms of rhinitis or sore throat. CARDIOVASCULAR: Patient denies chest pains, palpitations, orthopnea and paroxysmal nocturnal dyspnea. RESPIRATORY: No dyspnea on exertion, no wheezing or cough. GI: No nausea, vomiting, diarrhea, constipation, abdominal pain, hematochezia or melena. : No urinary hesitancy or dribbling. No nocturia or urinary frequency. No abnormal urethral discharge. MUSCULOSKELETAL: No myalgias or arthralgias. NEUROLOGIC: No chronic headaches, no seizures. Patient denies numbness, tingling or weakness. PSYCHIATRIC: Patient denies problems with mood disturbance. No problems with anxiety. ENDOCRINE: No excessive urination or excessive thirst. DERMATOLOGIC: Patient denies any rashes or skin changes. Physical Exam Physical Exam: Gen: A&O 2-3 NAD HEENT: NCAT, EOMI, not icteric. External ears normal. No rhinorrhea. Moist mucous membranes. Neck: Supple, full range of motion, no observable masses, No meningeal sign. Lungs: No Respiratory distress. CV: RRR, no edema. Abdomen: Soft, nondistended, No rebound tenderness. MSK: No joint swelling, no redness. Notable diffuse weakness. Skin: No rashes, petechiae, lesions. Normal color per patient. Neuro: Normal Gait, Grossly intact. Psych: Appropriate for situation. a little agitated this morning. Results & Data Results & Data Vital Signs (Past 12 Hours) Vital Signs Temp Pulse Resp BP Pulse Ox O2 Del Method 05/22/24 14:59 36.8 C 68 18 137/80 96 Room Air 05/22/24 07:11 37.3 C 66 16 136/70 93 Room Air Laboratory Results -personally reviewed, low potassium at 3.3 Medications Administered Acetaminophen (Acetaminophen 325 Mg Tab) 650 mg PO QID PRN PRN Reason: pain/fever Stop: 06/18/24 01:29 Last Admin: 05/22/24 08:09 Dose: 650 mg Documented By: CHAKA Enoxaparin Sodium (Enoxaparin Inj 40 Mg/0.4 Ml Syr) 40 mg SQ QAM [facility] Stop: 06/18/24 08:59 Last Admin: 05/22/24 08:08 Dose: 40 mg Documented By: Admin: 05/21/24 08:48 Dose: 40 mg Documented By: Admin: 05/20/24 08:17 Dose: 40 mg Documented By: Admin: 05/19/24 08:11 Dose: 40 mg Documented By: MICHAEL Levothyroxine Sodium (Levothyroxine Sodium 112 Mcg Tablet) 112 mcg PO DAILYBB [facility] Stop: 06/18/24 06:29 Last Admin: 05/22/24 06:16 Dose: 112 mcg Documented By: Admin: 05/21/24 05:27 Dose: 112 mcg Documented By: Admin: 05/20/24 06:17 Dose: 112 mcg Documented By: Admin: 05/19/24 06:30 Dose: 112 mcg Documented By: LAKESHA Multivitamins (Multivitamin Tab) 1 tab PO QAM [facility] Stop: 06/18/24 08:59 Last Admin: 05/22/24 08:08 Dose: 1 tab Documented By: Admin: 05/21/24 08:48 Dose: 1 tab Documented By: Admin: 05/20/24 08:18 Dose: 1 tab Documented By: Admin: 05/19/24 08:11 Dose: 1 tab Documented By: MICHAEL Polyethylene Glycol (Polyethylene (Miralax) 17 Gm Pack) 17 gm PO DAILY PRN PRN Reason: Constipation Stop: 06/19/24 18:18 Last Admin: 05/22/24 08:09 Dose: 17 gm Documented By: CHAKA
[2024-05-22] MEDS ORDERED: ONDANSETRON 4 MG OD TAB PO PRN (16:53)
[2024-05-22] MEDS: AMOXICILLIN/CLAVULANATE 875 MG TAB PO SCH (17:50)
[2024-05-22] MEDS: POTASSIUM CHLORIDE CRTAB 20 MEQ TABCR PO STA (17:50)
--- NOTE | 2024-05-23 13:55 | Hospitalist Progress Note ---
Date of Service May 23, 2024 Assessment & Plan (1) Complicated UTI (urinary tract infection): Plan: Complicated UTI -No sepsis -much improved mentally compared to admission Plan: -continue augmentin for rest of course -ok to shower -awaiting placement Incipient cognitive impairment -Patient mentating well during encounter although noted to struggle with some memory lapses -discussed extensively with family, MRI consistent with dementia and significant brain atrophy with compensatory CSF Plan: -f/u outpatient for discussion of starting donepezil/memantine Systolic murmur on exam hyperlipidemia, not on maintenance Rx hypothyroidism, TSH markedly evaded with normal free T4 prediabetes, hemoglobin A1c of 5.8 from last year left breast cancer status post surgery status post incomplete tamoxifen Rx, in remission Feeding/fluids: regular Analgesia: tylenol Sedation: na Thromboprophylaxis: lovenox Head up position: na Ulcer prophylaxis: na Glycemic control: na Spontaneous breathing trial: na Bowel care: miralax prn Indwelling catheter removal: na Deescalation of antibiotics: augmentin I spent a total of 40 minutes in direct patient care, including [id number] time with the patient and/or family, reviewing medical records, ordering and reviewing diagnostic tests, and coordinating care with other healthcare providers. This time includes: history taking, physical examination, medical decision making, counseling, ECG interpretation, imaging interpretation, lab interpretation, orders, and education, excluding time spent in the performance of separately billed services. Admission and Anticipated Discharge Date Admission Date: May 19, 2024 Subjective Patient seen and exmained at bedside. Ms. Monet is doing well today. At bedside with . Review of Systems Review of Systems: CONSTITUTIONAL: Patient denies fevers, chills, sweats and weight changes. EYES: Patient denies any visual symptoms. EARS, NOSE, AND THROAT: No difficulties with hearing. No symptoms of rhinitis or sore throat. CARDIOVASCULAR: Patient denies chest pains, palpitations, orthopnea and paroxysmal nocturnal dyspnea. RESPIRATORY: No dyspnea on exertion, no wheezing or cough. GI: No nausea, vomiting, diarrhea, constipation, abdominal pain, hematochezia or melena. : No urinary hesitancy or dribbling. No nocturia or urinary frequency. No abnormal urethral discharge. MUSCULOSKELETAL: No myalgias or arthralgias. NEUROLOGIC: No chronic headaches, no seizures. Patient denies numbness, tingling or weakness. PSYCHIATRIC: Patient denies problems with mood disturbance. No problems with anxiety. ENDOCRINE: No excessive urination or excessive thirst. DERMATOLOGIC: Patient denies any rashes or skin changes. Physical Exam Physical Exam: Gen: A&O 2-3 NAD HEENT: NCAT, EOMI, not icteric. External ears normal. No rhinorrhea. Moist mucous membranes. Neck: Supple, full range of motion, no observable masses, No meningeal sign. Lungs: No Respiratory distress. CV: RRR, no edema. Abdomen: Soft, nondistended, No rebound tenderness. MSK: No joint swelling, no redness. Notable diffuse weakness. Skin: No rashes, petechiae, lesions. Normal color per patient. Neuro: Normal Gait, Grossly intact. Psych: Appropriate for situation. Results & Data Results & Data Vital Signs (Past 12 Hours) Vital Signs Temp Pulse Resp BP Pulse Ox O2 Del Method 05/23/24 07:36 37.2 C 69 16 136/79 92 Room Air Laboratory Results -no labs Medications Administered Acetaminophen (Acetaminophen 325 Mg Tab) 650 mg PO QID PRN PRN Reason: pain/fever Stop: 06/18/24 01:29 Last Admin: 05/22/24 08:09 Dose: 650 mg Documented By: CHAKA Amoxicillin/Clavulanate Potassium (Amoxicillin/Clavulanate 875 Mg Tab) 1 tab PO BIDM [facility]; Protocol Stop: 05/27/24 16:59 Last Admin: 05/23/24 08:26 Dose: 1 tab Documented By: Admin: 05/22/24 17:50 Dose: 1 tab Documented By: SABINE Enoxaparin Sodium (Enoxaparin Inj 40 Mg/0.4 Ml Syr) 40 mg SQ QAM [facility] Stop: 06/18/24 08:59 Last Admin: 05/23/24 08:27 Dose: Not Given Documented By: Admin: 05/22/24 08:08 Dose: 40 mg Documented By: Admin: 05/21/24 08:48 Dose: 40 mg Documented By: Admin: 05/20/24 08:17 Dose: 40 mg Documented By: Admin: 05/19/24 08:11 Dose: 40 mg Documented By: MICHAEL Levothyroxine Sodium (Levothyroxine Sodium 112 Mcg Tablet) 112 mcg PO DAILYBB [facility] Stop: 06/18/24 06:29 Last Admin: 05/23/24 05:43 Dose: 112 mcg Documented By: Admin: 05/22/24 06:16 Dose: 112 mcg Documented By: Admin: 05/21/24 05:27 Dose: 112 mcg Documented By: Admin: 05/20/24 06:17 Dose: 112 mcg Documented By: Admin: 05/19/24 06:30 Dose: 112 mcg Documented By: LAKESHA Multivitamins (Multivitamin Tab) 1 tab PO QAM [facility] Stop: 06/18/24 08:59 Last Admin: 05/23/24 08:26 Dose: 1 tab Documented By: Admin: 05/22/24 08:08 Dose: 1 tab Documented By: Admin: 05/21/24 08:48 Dose: 1 tab Documented By: Admin: 05/20/24 08:18 Dose: 1 tab Documented By: Admin: 05/19/24 08:11 Dose: 1 tab Documented By: MICHAEL Polyethylene Glycol (Polyethylene (Miralax) 17 Gm Pack) 17 gm PO DAILY PRN PRN Reason: Constipation Stop: 06/19/24 18:18 Last Admin: 05/22/24 08:09 Dose: 17 gm Documented By: CHAKA
--- NOTE | 2024-05-24 12:16 | Hospitalist Progress Note ---
Date of Service May 24, 2024 Assessment & Plan (1) Complicated UTI (urinary tract infection): Plan: Complicated UTI -No sepsis -much improved mentally compared to admission Plan: -continue augmentin for rest of course -ok to shower -awaiting placement Incipient cognitive impairment -Patient mentating well during encounter although noted to struggle with some memory lapses -discussed extensively with family, MRI consistent with dementia and significant brain atrophy with compensatory CSF Plan: -f/u outpatient for discussion of starting donepezil/memantine Systolic murmur on exam hyperlipidemia, not on maintenance Rx hypothyroidism, TSH markedly evaded with normal free T4 prediabetes, hemoglobin A1c of 5.8 from last year left breast cancer status post surgery status post incomplete tamoxifen Rx, in remission Feeding/fluids: regular Analgesia: tylenol Sedation: na Thromboprophylaxis: lovenox Head up position: na Ulcer prophylaxis: na Glycemic control: na Spontaneous breathing trial: na Bowel care: miralax prn Indwelling catheter removal: na Deescalation of antibiotics: augmentin I spent a total of 40 minutes in direct patient care, including [id number] time with the patient and/or family, reviewing medical records, ordering and reviewing diagnostic tests, and coordinating care with other healthcare providers. This time includes: history taking, physical examination, medical decision making, counseling, ECG interpretation, imaging interpretation, lab interpretation, orders, and education, excluding time spent in the performance of separately billed services. Admission and Anticipated Discharge Date Admission Date: May 19, 2024 Subjective Patient seen and examined at bedside. Patient doing well today. Looking forward to going to rehab. Review of Systems Review of Systems: CONSTITUTIONAL: Patient denies fevers, chills, sweats and weight changes. EYES: Patient denies any visual symptoms. EARS, NOSE, AND THROAT: No difficulties with hearing. No symptoms of rhinitis or sore throat. CARDIOVASCULAR: Patient denies chest pains, palpitations, orthopnea and paroxysmal nocturnal dyspnea. RESPIRATORY: No dyspnea on exertion, no wheezing or cough. GI: No nausea, vomiting, diarrhea, constipation, abdominal pain, hematochezia or melena. : No urinary hesitancy or dribbling. No nocturia or urinary frequency. No abnormal urethral discharge. MUSCULOSKELETAL: No myalgias or arthralgias. NEUROLOGIC: No chronic headaches, no seizures. Patient denies numbness, tingling or weakness. PSYCHIATRIC: Patient denies problems with mood disturbance. No problems with anxiety. ENDOCRINE: No excessive urination or excessive thirst. DERMATOLOGIC: Patient denies any rashes or skin changes. Physical Exam Physical Exam: Gen: A&O 2-3 NAD HEENT: NCAT, EOMI, not icteric. External ears normal. No rhinorrhea. Moist mucous membranes. Neck: Supple, full range of motion, no observable masses, No meningeal sign. Lungs: No Respiratory distress. CV: RRR, no edema. Abdomen: Soft, nondistended, No rebound tenderness. MSK: No joint swelling, no redness. Notable diffuse weakness. Skin: No rashes, petechiae, lesions. Normal color per patient. Neuro: Normal Gait, Grossly intact. Psych: Appropriate for situation. Results & Data Results & Data Vital Signs (Past 12 Hours) Vital Signs Temp Pulse Resp BP Pulse Ox O2 Del Method 05/24/24 11:58 37 C 72 16 118/74 94 Room Air 05/24/24 07:47 37.1 C 68 14 124/78 93 Room Air 05/24/24 07:05 Room Air Medications Administered Acetaminophen (Acetaminophen 325 Mg Tab) 650 mg PO QID PRN PRN Reason: pain/fever Stop: 06/18/24 01:29 Last Admin: 05/22/24 08:09 Dose: 650 mg Documented By: CHAKA Amoxicillin/Clavulanate Potassium (Amoxicillin/Clavulanate 875 Mg Tab) 1 tab PO BIDM [facility]; Protocol Stop: 05/27/24 16:59 Last Admin: 05/24/24 08:49 Dose: 1 tab Documented By: Admin: 05/23/24 17:21 Dose: 1 tab Documented By: Admin: 05/23/24 08:26 Dose: 1 tab Documented By: Admin: 05/22/24 17:50 Dose: 1 tab Documented By: SABINE Enoxaparin Sodium (Enoxaparin Inj 40 Mg/0.4 Ml Syr) 40 mg SQ QAM [facility] Stop: 06/18/24 08:59 Last Admin: 05/24/24 08:49 Dose: Not Given Documented By: Admin: 05/23/24 08:27 Dose: Not Given Documented By: Admin: 05/22/24 08:08 Dose: 40 mg Documented By: Admin: 02/27/25 08:48 Dose: 40 mg Documented By: Admin: 05/20/24 08:17 Dose: 40 mg Documented By: Admin: 05/19/24 08:11 Dose: 40 mg Documented By: MICHAEL Levothyroxine Sodium (Levothyroxine Sodium 112 Mcg Tablet) 112 mcg PO DAILYBB [facility] Stop: 06/18/24 06:29 Last Admin: 05/24/24 03:49 Dose: 112 mcg Documented By: Admin: 05/23/24 05:43 Dose: 112 mcg Documented By: Admin: 05/22/24 06:16 Dose: 112 mcg Documented By: Admin: 05/21/24 05:27 Dose: 112 mcg Documented By: Admin: 05/20/24 06:17 Dose: 112 mcg Documented By: Admin: 05/19/24 06:30 Dose: 112 mcg Documented By: LAKESHA Multivitamins (Multivitamin Tab) 1 tab PO QAM [facility] Stop: 06/18/24 08:59 Last Admin: 05/24/24 08:49 Dose: 1 tab Documented By: Admin: 05/23/24 08:26 Dose: 1 tab Documented By: Admin: 05/22/24 08:08 Dose: 1 tab Documented By: Admin: 05/21/24 08:48 Dose: 1 tab Documented By: Admin: 05/20/24 08:18 Dose: 1 tab Documented By: Admin: 05/19/24 08:11 Dose: 1 tab Documented By: MICHAEL Polyethylene Glycol (Polyethylene (Miralax) 17 Gm Pack) 17 gm PO DAILY PRN PRN Reason: Constipation Stop: 06/19/24 18:18 Last Admin: 05/22/24 08:09 Dose: 17 gm Documented By: CHAKA
--- NOTE | 2024-05-25 16:16 | Hospitalist Progress Note ---
Date of Service May 25, 2024 Assessment & Plan (1) Complicated UTI (urinary tract infection): Plan: Complicated UTI -No sepsis -much improved mentally compared to admission -finished course of augmentin/ceftriaxone -ok to shower -awaiting placement Incipient cognitive impairment -Patient mentating well during encounter although noted to struggle with some memory lapses -discussed extensively with family, MRI consistent with dementia and significant brain atrophy with compensatory CSF Plan: -f/u outpatient for discussion of starting donepezil/memantine Systolic murmur on exam hyperlipidemia, not on maintenance Rx hypothyroidism, TSH markedly evaded with normal free T4 prediabetes, hemoglobin A1c of 5.8 from last year left breast cancer status post surgery status post incomplete tamoxifen Rx, in remission Feeding/fluids: regular Analgesia: tylenol Sedation: na Thromboprophylaxis: lovenox Head up position: na Ulcer prophylaxis: na Glycemic control: na Spontaneous breathing trial: na Bowel care: miralax prn Indwelling catheter removal: na Deescalation of antibiotics: stopped augmentin today I spent a total of 40 minutes in direct patient care, including [id number] time with the patient and/or family, reviewing medical records, ordering and reviewing diagnostic tests, and coordinating care with other healthcare providers. This time includes: history taking, physical examination, medical decision making, counseling, ECG interpretation, imaging interpretation, lab interpretation, orders, and education, excluding time spent in the performance of separately billed services. Admission and Anticipated Discharge Date Admission Date: May 19, 2024 Subjective Patient seen and examined at [facility]. present as well. Ms. Monet is doing well today, no concerns, would like to go to rehab. Review of Systems Review of Systems: CONSTITUTIONAL: Patient denies fevers, chills, sweats and weight changes. EYES: Patient denies any visual symptoms. EARS, NOSE, AND THROAT: No difficulties with hearing. No symptoms of rhinitis or sore throat. CARDIOVASCULAR: Patient denies chest pains, palpitations, orthopnea and paroxysmal nocturnal dyspnea. RESPIRATORY: No dyspnea on exertion, no wheezing or cough. GI: No nausea, vomiting, diarrhea, constipation, abdominal pain, hematochezia or melena. : No urinary hesitancy or dribbling. No nocturia or urinary frequency. No abnormal urethral discharge. MUSCULOSKELETAL: No myalgias or arthralgias. NEUROLOGIC: No chronic headaches, no seizures. Patient denies numbness, tingling or weakness. PSYCHIATRIC: Patient denies problems with mood disturbance. No problems with anxiety. ENDOCRINE: No excessive urination or excessive thirst. DERMATOLOGIC: Patient denies any rashes or skin changes. Physical Exam Physical Exam: Gen: A&O 2-3 NAD HEENT: NCAT, EOMI, not icteric. External ears normal. No rhinorrhea. Moist mucous membranes. Neck: Supple, full range of motion, no observable masses, No meningeal sign. Lungs: No Respiratory distress. CV: RRR, no edema. Abdomen: Soft, nondistended, No rebound tenderness. MSK: No joint swelling, no redness. Notable diffuse weakness. Skin: No rashes, petechiae, lesions. Normal color per patient. Neuro: Normal Gait, Grossly intact. Psych: Appropriate for situation. Results & Data Results & Data Vital Signs (Past 12 Hours) Vital Signs Temp Pulse Resp BP Pulse Ox O2 Del Method 05/25/24 15:33 36.6 C 61 16 115/76 93 Room Air 05/25/24 08:00 Room Air 05/25/24 07:24 36.8 C 61 16 121/66 92 Room Air
--- NOTE | 2024-05-26 15:28 | Hospitalist Progress Note ---
Date of Service May 26, 2024 Assessment & Plan (1) Complicated UTI (urinary tract infection): Plan: Complicated UTI -No sepsis -much improved mentally compared to admission -finished course of augmentin/ceftriaxone -ok to shower -awaiting placement, auth pending Incipient cognitive impairment -Patient mentating well during encounter although noted to struggle with some memory lapses -discussed extensively with family, MRI consistent with dementia and significant brain atrophy with compensatory CSF Plan: -f/u outpatient for discussion of starting donepezil/memantine Systolic murmur on exam hyperlipidemia, not on maintenance Rx hypothyroidism, TSH markedly evaded with normal free T4 prediabetes, hemoglobin A1c of 5.8 from last year left breast cancer status post surgery status post incomplete tamoxifen Rx, in remission Feeding/fluids: regular Analgesia: tylenol Sedation: na Thromboprophylaxis: lovenox Head up position: na Ulcer prophylaxis: na Glycemic control: na Spontaneous breathing trial: na Bowel care: miralax prn Indwelling catheter removal: na Deescalation of antibiotics: s/p augmentin I spent a total of 40 minutes in direct patient care, including trme-lh-[id number] time with the patient and/or family, reviewing medical records, ordering and reviewing diagnostic tests, and coordinating care with other healthcare providers. This time includes: history taking, physical examination, medical decision making, counseling, ECG interpretation, imaging interpretation, lab interpretation, orders, and education, excluding time spent in the performance of separately billed services. Admission and Anticipated Discharge Date Admission Date: May 19, 2024 Subjective Patient seen and examined at bedside. present. Both doing well today, no concerns. Review of Systems Review of Systems: CONSTITUTIONAL: Patient denies fevers, chills, sweats and weight changes. EYES: Patient denies any visual symptoms. EARS, NOSE, AND THROAT: No difficulties with hearing. No symptoms of rhinitis or sore throat. CARDIOVASCULAR: Patient denies chest pains, palpitations, orthopnea and paroxysmal nocturnal dyspnea. RESPIRATORY: No dyspnea on exertion, no wheezing or cough. GI: No nausea, vomiting, diarrhea, constipation, abdominal pain, hematochezia or melena. : No urinary hesitancy or dribbling. No nocturia or urinary frequency. No abnormal urethral discharge. MUSCULOSKELETAL: No myalgias or arthralgias. NEUROLOGIC: No chronic headaches, no seizures. Patient denies numbness, tingling or weakness. PSYCHIATRIC: Patient denies problems with mood disturbance. No problems with anxiety. ENDOCRINE: No excessive urination or excessive thirst. DERMATOLOGIC: Patient denies any rashes or skin changes. Physical Exam Physical Exam: Gen: A&O 2-3 NAD HEENT: NCAT, EOMI, not icteric. External ears normal. No rhinorrhea. Moist mucous membranes. Neck: Supple, full range of motion, no observable masses, No meningeal sign. Lungs: No Respiratory distress. CV: RRR, no edema. Abdomen: Soft, nondistended, No rebound tenderness. MSK: No joint swelling, no redness. Notable diffuse weakness. Skin: No rashes, petechiae, lesions. Normal color per patient. Neuro: Normal Gait, Grossly intact. Psych: Appropriate for situation. Results & Data Results & Data Vital Signs (Past 12 Hours) Vital Signs Temp Pulse Resp BP Pulse Ox O2 Del Method 05/26/24 07:53 36.9 C 66 16 120/72 94 Room Air 05/26/24 07:26 Room Air
[2024-05-27 07:32] VITALS: BP 132/66; PULSE 65; RESP 16; TEMP 98.2; O2SAT 93
--- NOTE | 2024-05-27 13:40 | Discharge Summary ---
Discharge Summary Date of Service May 27, 2024 Principal Dx & Hospital Course #1 = Principal Diagnosis (1) Complicated UTI (urinary tract infection): Complicated UTI -No sepsis -much improved mentally compared to admission -finished course of augmentin/ceftriaxone -ok to shower -going to SNF today Incipient cognitive impairment -Patient mentating well during encounter although noted to struggle with some memory lapses -discussed extensively with family, MRI consistent with dementia and significant brain atrophy with compensatory CSF Plan: -f/u outpatient for discussion of starting donepezil/memantine Systolic murmur on exam hyperlipidemia, not on maintenance Rx hypothyroidism, TSH markedly evaded with normal free T4 prediabetes, hemoglobin A1c of 5.8 from last year left breast cancer status post surgery status post incomplete tamoxifen Rx, in remission Feeding/fluids: regular Analgesia: tylenol Sedation: na Thromboprophylaxis: lovenox Head up position: na Ulcer prophylaxis: na Glycemic control: na Spontaneous breathing trial: na Bowel care: miralax prn Indwelling catheter removal: na Deescalation of antibiotics: s/p augmentin Notes For Next Care Provider Medical history significant for hyperlipidemia, hypothyroidism, prediabetes, left breast cancer status post surgery status post incomplete tamoxifen Rx. Presented for confusion. On medicine, patient treated for complex UTI, patient mentation improved. MRI head revealed significant volume loss. Patient unable to return home due to elderly and safety concerns. Patient accepted to SNF on 05/27/2024, medically stable for transfer at this time. Would recommend starting donepezil and memantine with PCP. Medication Changes From Visit -miralax, vitamin D, zofran Admission HPI Per Admitting Provider History obtained from patient, ED provider, and records. Patient is a fair historian. Medical history significant for hyperlipidemia, hypothyroidism, prediabetes, left breast cancer status post surgery status post incomplete tamoxifen Rx. Patient with increasing confusion, memory issues at home over the last few weeks as per family. Fall at a local grocery few months ago. Patient/family unsure of syncopal episode. No recollection of head trauma. Incontinence symptoms noted at home. Patient denies headache, chest pain, SOB, cough. No fever, no chills. Achy lower abdominal pain. Denies hematuria symptoms. Ceftriaxone administered at the ER. Medical History as above Surgical History : Lymph node dissection, partial mastectomy left, cataract surgeries Family History : Heart disease, dementia, stomach cancer Personal/Social history : Non-smoker, rare EtOH intake, retired from office work Discharge Exam Gen: A&O 2-3 NAD HEENT: NCAT, EOMI, not icteric. External ears normal. No rhinorrhea. Moist mucous membranes. Neck: Supple, full range of motion, no observable masses, No meningeal sign. Lungs: No Respiratory distress. CV: RRR, no edema. Abdomen: Soft, nondistended, No rebound tenderness. MSK: No joint swelling, no redness. Notable diffuse weakness. Skin: No rashes, petechiae, lesions. Normal color per patient. Neuro: Normal Gait, Grossly intact. Psych: Appropriate for situation. Updated Medication List Medication Instructions Recorded Confirmed Type levothyroxine 100 mcg tablet 100 mcg PO DAILYBB 01/07/18 05/19/24 History (Synthroid) multivitamin 1 tab PO DAILY 01/07/18 05/19/24 History cholecalciferol (vitamin D3) 25 25 mcg PO DAILY 1 month #30 caps 05/27/24 Rx mcg (1,000 unit) capsule (Vitamin D3) ondansetron 4 mg disintegrating 4 mg PO Q6H PRN nausea and 05/27/24 Rx tablet vomiting #10 tabs polyethylene glycol 3350 17 gram 17 g PO DAILY PRN constipation #14 05/27/24 Rx oral powder packet (Miralax) ea Hospital Stay Data Consultations 05/19/24 01:11 ED Decision to Admit Stat Diagnostic Imagining Performed 05/18/24 20:59 CT head/brain wo con Stat 05/18/24 23:24 CT angio head w con Stat CT angio neck with con Stat 05/19/24 01:30 CT Abd and Pelvis [CT abd pelvis wo con] Stat 05/21/24 00:00 MR brain wo con Routine Pending Results Patient Have Any Pending Studies at Discharge: No Discharge Instructions Given to Patient (Per Discharging Provider) 1. Please work hard at physical therapy. Total Time Total Time Spent Total Time Spent (In Minutes): I spent a total of 35 minutes in direct patient care, including hyfe-fr-jvio time with the patient and/or family, reviewing medical records, ordering and reviewing diagnostic tests, and coordinating care with other healthcare providers. This time includes: history taking, physical examination, medical decision making, counseling, ECG interpretation, imaging interpretation, lab interpretation, orders, and education, excluding time spent in the performance of separately billed services.
== END 2024-05-27 13:45 | DRG 690 ==
LOC: ED 20:43 → 3N 05-19 00:55 → INTOOBSV 05-19 00:55 → 3N 05-19 01:21

== ENCOUNTER 2024-06-29 15:45 | Inpatient (IN) ==
[2024-06-29] MEDS: ONDANSETRON INJ 2 MG/ML 2 ML VIAL IV STA ×2 (16:10→18:42)
[2024-06-29 16:20] LABS: Basophils # (auto) 0.09 K/uL (0.00-0.20); Basophils % (auto) 0.8 %; Eosinophils # (auto) 0.03 K/uL (0.00-0.50); Eosinophils % (auto) 0.3 %; Hematocrit (blood only) 45.4 % (37.0-47.0); Hemoglobin 14.9 g/dl (12.0-16.0); Immature Granulocytes # (auto) 0.04 K/uL (0.01-0.20); Immature Granulocytes % (auto) 0.4 %; Lymphocytes # (auto) 1.46 K/uL (1.20-3.40); Lymphocytes % (auto) 13.7 %; Mean Corpuscular Hemoglobin 30.3 pg (25.0-34.0); Mean Corpuscular Hgb Conc 32.8 g/dL (32.0-36.0); Mean Corpuscular Volume 92.3 fL (80.0-100.0); Mean Platelet Volume 9.4 fL (9.4-12.4); Monocytes # (auto) 0.53 K/uL (0.11-0.59); Neutrophils # (auto) 8.53 K/uL (1.40-6.50); Neutrophils % (auto) 79.8 %; Platelet Count 290 K/uL (130-400); RDW Coefficient of Variation 13.4 % (11.5-14.5); RDW Standard Deviation 45.5 fL (36.4-46.3); Red Blood Count 4.92 M/uL (4.20-5.40); White Blood Count 10.68 K/ul (4.8-10.8)
[2024-06-29 16:37] LABS: Albumin Globulin Ratio 1.6 (0.9-2); Albumin Level 4.6 gm/dl (3.4-5.0); BUN Creatinine Ratio 18.9 (10-20); Bilirubin,Total 0.6 mg/dl (0.2-1.0); Calcium 10.1 mg/dl (8.6-10.3); Creatinine Clr Calc Pharmacy 53.1 ml/min; Globulin 2.8 gm/dl (2.5-4.0); Potassium 3.7 mmol/L (3.5-5.1); Total Protein 7.4 gm/dl (6.0-8.3)
[2024-06-29] MEDS: SODIUM CHLORIDE 0.9% 1,000 ML IV ONE ×2 (17:08→19:56)
[2024-06-29] MEDS: OPTIRAY 320 100ml IV ONE (17:53)
[2024-06-29 17:58] LABS: Appearance Urine Clear (Clear); Bacteria Urine Automated None Seen (None Seen); Bilirubin Urine Negative (Negative); Blood Urine Negative (Negative); Cast Urine Automated 0-2 /lpf (0-2); Color Urine Yellow; Glucose Urine UA Negative (Negative); Ketones Urine Trace (Negative); Leukocyte Esterase Urine 1+ (Negative); Nitrite Urine Negative (Negative); Protein Urine Negative (Negative); RBC Urine Automated 0-2 /hpf (0-2); Specific Gravity Urine 1.019 (1.000-1.030); Urobilinogen Urine Negative (Negative); pH Urine 5.5 (4.5-7.5)
--- NOTE | 2024-06-29 19:05 | CT Scan Report ---
INDICATION: Abdominal pain and vomiting. COMPARISON: No relevant priors available. TECHNIQUE: Axial CT images of the abdomen and pelvis were obtained following IV contrast administration. Coronal and sagittal reformations were reviewed. FINDINGS: Visualized lung bases appear unremarkable. The liver, gallbladder, spleen, pancreas and adrenal glands appear unremarkable. No hydronephrosis. No evidence of bowel obstruction/appendicitis. Thickening versus nondistention of the transverse and descending colon. Retained colonic stool. Moderate rectal fecal impaction. No free air. Fluid collection in the left inferior rectus sheath measuring 2.6 x 1.9 x 2.2 cm. No soft tissue gas. This is new from prior study. Negative for abdominal aortic aneurysm or dissection. The urinary bladder appears unremarkable. No acute osseous abnormality evident. IMPRESSION: 1. Thickening versus nondistention of the transverse and descending colon. Correlate for possibility of early colitis. 2. Fluid collection in the left inferior rectus sheath measuring 2.6 x 1.9 x 2.2 cm. This is new from prior study. Correlate for hematoma or abscess as clinically relevant. 3. Moderate rectal fecal impaction. Electronically signed by Luis Alfredo Hendricks 06-29-2024 7:05 PM
--- NOTE | 2024-06-29 19:09 | Emergency Department Note ---
Impression & Plan Complicated UTI (urinary tract infection), Confusion, Generalized weakness, Colitis ED Provider Note NAME: CORKY SMART AGE: 84 SEX: F : 1940 ARRIVES VIA: Walk-In INFORMANT: [Patient][, ] ED PROVIDER(S): [Jada Daley MD] CHIEF COMPLAINT: Nausea, vomiting HPI: This is an 84-year-old female sent for nausea vomiting. Patient is with her family who provides most of the history. They state that for the past 24 hours she has had reduced p.o. intake. Today her and her went to lunch. When arriving in the parking lot, she could not get of the car due to persistent nausea and vomiting. She was somewhat altered as well, slow to respond. The family still estimates happens may have been due to a UTI. She reports no abdominal pain at this time. ROS: See above HPI for pertinent positives & negatives. A total of [10] systems reviewed and were otherwise negative. PAST MEDICAL HISTORY: [See Below] PAST SURGICAL HISTORY: [See Below] FAMILY HISTORY: [See Below] SOCIAL HISTORY: [See Below] HOME MEDICATIONS: [See Below] ALLERGIES: [See Below] VITALS: See Below PHYSICAL EXAMINATION: General: resting comfortably in no acute distress Head: Normocephalic and atraumatic Eyes: Normal inspection, extraocular muscles intact Ear, nose, throat: Normal external exam Neck: Normal range of motion Respiratory: lungs clear to auscultation bilaterally Cardiovascular: Regular rate/rhythm, no murmur GI: soft, nontender, no guarding or rebound negative Joyner sign Extremities: nontender, moves all extremities Neuro: The patient awake and alert, appropriately conversive, no focal deficits, symmetric faces Skin: Warm, dry, and intact MEDICAL DECISION MAKING: This is a 84-year-old female sent for nausea and vomiting. Will do screening abdominal CT at this time. Will get basic blood work. Low concern for cholecystitis or appendicitis based on abdominal exam. Will check urinalysis. -Bloodwork is reviewed showing no significant leukocytosis, anemia, electrolyte or creatinine abnormality -Urinalysis reveals possible UTI versus contamination. With symptoms somewhat similar to her previous UTI, will treat with ceftriaxone at this time. -CT imaging otherwise reveals possible early colitis as well as a fluid collection a left inferior rectus sheath which may be related to abscess or hematoma. She has moderate fecal retention -On reassessment, patient has nontender abdomen. She specifically is nontender, fluctuant, bruising or cellulitis consistent over the left inferior rectus sheath area. She has not had any trauma, she has no current fevers. Does not appear consistent with current abscess. -Discussed care with the admitting team as patient is somewhat altered as per family and an unsafe discharge plan as patient lives with her who cannot currently care for her. Differential diagnosis: Cholecystitis, bowel perforation, diverticulitis, cystitis, pyelonephritis, renal colic, UTI, appendicitis Independent History obtained from: , son Diagnostics interpreted by me: ECG: [none] Cardiac Monitoring: An order was placed for continuous cardiac monitoring. The monitor shows a rate of 59 with sinus rhythm. 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 Mother , age 79 , heart problems , COPD No problems noted. Brother , age 83 , dementia No problems noted. Son No problems noted. Daughter Lupus Sister Stomach cancer Other No family history of adverse response to anesthesia No family history of bleeding disorder Social History Smoking Status: Never smoker Second Hand Exposure: No; Do You Dip or Chew Tobacco: No; Tobacco Cessation Education Requested by Patient: No Hx Alcohol Use: No Hx Substance Use: No Preferred Language: [place] Citizen Communication Ability: Effective Physics Technician Required: No Beliefs That Will Affect Care: None marital status: Current Living Situation: Spouse Other Information That Helps Us Care for You: No Feels Safe at Home: Yes Safety Concerns: Feels Safe At This Time Assistive Devices: Denture - Upper and Glasses Allergies Allergies Allergy/AdvReac Type Severity Reaction Status Date / Time No Known Drug Allergies Allergy Unknown Verified 06/29/24 18:10 Home Meds Home Medications Medication Instructions Recorded Confirmed multivitamin 1 tab PO DAILY 01/07/18 06/29/24 donepezil 10 mg tablet 10 mg PO QAM 06/29/24 06/29/24 levothyroxine 75 mcg tablet 75 mcg PO DAILYBB 06/29/24 06/29/24 Results & Data (ED) Vital Signs Vital Signs - 24 hr 06/29/24 15:46 06/29/24 16:06 06/29/24 16:30 Temperature 36.3 C L Temperature Source Skin Pulse Rate 71 80 76 Pulse Rate [Left Apical] Respiratory Rate 22 23 Respiratory Effort / Characteristics Non-Labored Spontaneous Respiratory Depth Normal Respiratory Pattern Regular Blood Pressure 163/78 H Blood Pressure [Right Arm] Blood Pressure Mean 106 Blood Pressure Mean [Right Arm] Pulse Oximetry 96 95 Oxygen Delivery Method Room Air Room Air Sepsis Recent Fever Within 48 Hours No Sepsis New/Unexplained Change in Mental Status N/A Sepsis Action Taken by Nursing No Action Required 06/29/24 16:48 06/29/24 17:00 06/29/24 18:00 Temperature Temperature Source Pulse Rate 77 74 82 Pulse Rate [Left Apical] Respiratory Rate 20 15 17 Respiratory Effort / Characteristics Respiratory Depth Respiratory Pattern Blood Pressure Blood Pressure [Right Arm] Blood Pressure Mean Blood Pressure Mean [Right Arm] Pulse Oximetry 96 97 97 Oxygen Delivery Method Room Air Room Air Room Air Sepsis Recent Fever Within 48 Hours Sepsis New/Unexplained Change in Mental Status Sepsis Action Taken by Nursing 06/29/24 18:09 06/29/24 18:30 06/29/24 18:42 Temperature Temperature Source Pulse Rate 78 88 Pulse Rate [Left Apical] 85 Respiratory Rate 22 22 21 Respiratory Effort / Characteristics Non-Labored Spontaneous Respiratory Depth Normal Respiratory Pattern Regular Blood Pressure 139/73 Blood Pressure [Right Arm] 160/80 H Blood Pressure Mean 95 Blood Pressure Mean [Right Arm] 106 Pulse Oximetry 96 95 96 Oxygen Delivery Method Room Air Room Air Room Air Sepsis Recent Fever Within 48 Hours Sepsis New/Unexplained Change in Mental Status Sepsis Action Taken by Nursing 06/29/24 18:51 06/29/24 19:00 06/29/24 19:55 Temperature Temperature Source Pulse Rate 79 Pulse Rate [Left Apical] 80 Respiratory Rate 22 22 Respiratory Effort / Characteristics Non-Labored Spontaneous Respiratory Depth Normal Respiratory Pattern Regular Blood Pressure 137/74 Blood Pressure [Right Arm] 132/82 Blood Pressure Mean 89 Blood Pressure Mean [Right Arm] 98 Pulse Oximetry 96 97 Oxygen Delivery Method Room Air Room Air Sepsis Recent Fever Within 48 Hours Sepsis New/Unexplained Change in Mental Status Sepsis Action Taken by Nursing 06/29/24 19:57 06/29/24 20:00 06/29/24 20:27 Temperature Temperature Source Pulse Rate 79 88 Pulse Rate [Left Apical] Respiratory Rate 22 Respiratory Effort / Characteristics Respiratory Depth Respiratory Pattern Blood Pressure 142/78 H Blood Pressure [Right Arm] Blood Pressure Mean 98 Blood Pressure Mean [Right Arm] Pulse Oximetry 97 Oxygen Delivery Method Room Air Sepsis Recent Fever Within 48 Hours Sepsis New/Unexplained Change in Mental Status Sepsis Action Taken by Nursing 06/29/24 20:30 Temperature Temperature Source Pulse Rate Pulse Rate [Left Apical] Respiratory Rate Respiratory Effort / Characteristics Respiratory Depth Respiratory Pattern Blood Pressure 131/60 Blood Pressure [Right Arm] Blood Pressure Mean 83 Blood Pressure Mean [Right Arm] Pulse Oximetry Oxygen Delivery Method Sepsis Recent Fever Within 48 Hours Sepsis New/Unexplained Change in Mental Status Sepsis Action Taken by Nursing Laboratory Data 06/30/24 06:45 06/30/24 06:45 Lab Results 06/29/24 06/29/24 Range/Units 16:07 17:19 WBC 10.68 (4.8-10.8) K/ul RBC 4.92 (4.20-5.40) M/uL Hgb 14.9 (12.0-16.0) g/dl Hct 45.4 (37.0-47.0) % MCV 92.3 (80.0-100.0) fL MCH 30.3 (25.0-34.0) pg MCHC 32.8 (32.0-36.0) g/dL RDW Std Deviation 45.5 (36.4-46.3) fL RDW Coeff of Consuelo 13.4 (11.5-14.5) % Plt Count 290 (130-400) K/uL MPV 9.4 (9.4-12.4) fL Immature Gran % (Auto) 0.4 % Neut % (Auto) 79.8 % Lymph % (Auto) 13.7 % [place] % (Auto) 5.0 % Eos % (Auto) 0.3 % Baso % (Auto) 0.8 % Neut # (Auto) 8.53 H (1.40-6.50) K/uL Lymph # (Auto) 1.46 (1.20-3.40) K/uL [place] # (Auto) 0.53 (0.11-0.59) K/uL Eos # (Auto) 0.03 (0.00-0.50) K/uL Baso # (Auto) 0.09 (0.00-0.20) K/uL Immature Gran # (Auto) 0.04 (0.01-0.20) K/uL Sodium 140 (136-145) mmol/L Potassium 3.7 (3.5-5.1) mmol/L Chloride 104 (98-107) mmol/L Carbon Dioxide 27 (21-32) mmol/L Anion Gap 9 (3-11) BUN 14 (6-23) mg/dl Creatinine 0.74 (0.6-1.2) mg/dl Est Cr Clr Drug Dosing 53.1 ml/min eGFR 79.73 BUN/Creatinine Ratio 18.9 (10-20) Glucose 161 H (70-99(Fasting)) mg/dl Calcium 10.1 (8.6-10.3) mg/dl Total Bilirubin 0.6 (0.2-1.0) mg/dl AST 26 (13-39) U/L ALT 21 (7-52) U/L Alkaline Phosphatase 97 (34-104) U/L Total Protein 7.4 (6.0-8.3) gm/dl Albumin 4.6 (3.4-5.0) gm/dl Globulin 2.8 (2.5-4.0) gm/dl Albumin/Globulin Ratio 1.6 (0.9-2) Lipase 16 (11-82) U/L Urine Color Yellow Urine Appearance Clear (Clear) Urine pH 5.5 (4.5-7.5) Ur Specific [place] 1.019 (1.000-1.030) Urine Protein Negative (Negative) Urine Glucose (UA) Negative (Negative) Urine Ketones Trace H (Negative) Urine Blood Negative (Negative) Urine Nitrite Negative (Negative) Urine Bilirubin Negative (Negative) Urine Urobilinogen Negative (Negative) Ur Leukocyte Esterase 1+ H (Negative) Urine WBC (Auto) 6-10 H (0-5) /hpf Urine RBC (Auto) 0-2 (0-2) /hpf U Hyaline Cast (Auto) 0-2 (0-2) /lpf U Epithel Cells (Auto) 3-5 H (0-2) /hpf Urine Bacteria (Auto) None Seen (None Seen) Administered Medications Metronidazole (Flagyl) 500 mg in 100 mls @ 100 mls/hr IV Q8H [facility]; Protocol Stop: 07/04/24 05:59 Last Infusion: 06/30/24 07:24 Dose: Infused Documented By: Admin: 06/30/24 06:14 Dose: 100 mls/hr Documented By: DONG Sodium Chloride (Nss) 1,000 mls @ 75 mls/hr IV .[id number] [facility] Stop: 06/30/24 20:59 Last Admin: 06/30/24 10:30 Dose: 75 mls/hr Documented By: Infusion: 06/30/24 10:30 Dose: Infused Documented By: Admin: 06/29/24 21:31 Dose: 75 mls/hr Documented By: KATHERIN Levothyroxine Sodium (Levothyroxine Sodium 75 Mcg Tablet) [facility] Stop: 07/30/24 06:29 Last Admin: 06/30/24 06:14 Dose: 75 mcg Documented By: DONG Multivitamins (Multivitamin Tab) 1 tab PO DAILY [facility] Stop: 07/30/24 08:59 Last Admin: 06/30/24 08:33 Dose: 1 tab Documented By: KELVIN Ondansetron HCl (Ondansetron Inj 2 Mg/Ml 2 Ml Vial) 4 mg IV Q6H PRN PRN Reason: Nausea Stop: 07/29/24 20:30 Last Admin: 06/30/24 07:27 Dose: 4 mg Documented By: Admin: 06/29/24 22:37 Dose: 4 mg Documented By: DONG Polyethylene Glycol (Polyethylene (Miralax) 17 Gm Pack) 17 gm PO DAILY MARY Stop: 07/30/24 08:59 Last Admin: 06/30/24 08:33 Dose: 17 gm Documented By: KELVIN Discontinued Medications Sodium Chloride (Nss) 1,000 mls @ 999 mls/hr IV .Q1H1M ONE Stop: 06/29/24 18:03 Last Infusion: 06/29/24 19:35 Dose: Infused Documented By: Admin: 06/29/24 17:08 Dose: 999 mls/hr Documented By: VINCENZO Sodium Chloride (Nss) 1,000 mls @ 999 mls/hr IV .Q1H1M ONE Stop: 06/29/24 20:04 Last Infusion: 06/29/24 22:11 Dose: Infused Documented By: Admin: 06/29/24 19:56 Dose: 999 mls/hr Documented By: VINCENZO Ceftriaxone Sodium (Rocephin) 2,000 mg in 50 mls @ 100 mls/hr IV NOW STA Stop: 06/29/24 19:39 Last Infusion: 06/29/24 21:29 Dose: Infused Documented By: Admin: 06/29/24 19:56 Dose: 100 mls/hr Documented By: VINCENZO Ceftriaxone Sodium (Rocephin) 2,000 mg in 50 mls @ 100 mls/hr IV NOW STA Stop: 06/29/24 21:06 Last Admin: 06/29/24 21:31 Dose: Not Given Documented By: VINCENZO Metronidazole (Flagyl) 500 mg in 100 mls @ 100 mls/hr IV NOW STA; Protocol Stop: 06/29/24 21:36 Last Infusion: 06/29/24 22:43 Dose: Infused Documented By: Admin: 06/29/24 21:31 Dose: 100 mls/hr Documented By: KATHERIN Ioversol (Optiray 320 100ml) 94 ml IV ONCE ONE Stop: 06/29/24 17:54 Last Admin: 06/29/24 17:53 Dose: 94 ml Documented By: JAY JAY Ondansetron HCl (Ondansetron Inj 2 Mg/Ml 2 Ml Vial) 4 mg IV NOW STA Stop: 06/29/24 16:07 Last Admin: 06/29/24 16:10 Dose: 4 mg Documented By: OFELIA Ondansetron HCl (Ondansetron Inj 2 Mg/Ml 2 Ml Vial) 4 mg IV NOW STA Stop: 06/29/24 18:33 Last Admin: 06/29/24 18:42 Dose: 4 mg Documented By: [facility] Discharge Plan Visit Data Chief Complaint: Vomiting Stated Complaint: VOMITING ED Provider: Jada Daley Discharge Problem: Complicated UTI (urinary tract infection), Confusion, Generalized weakness, Colitis Patient Disposition: Admitted As Inpatient Discharge Instructions Interventions: ED Discharge Assessment Last Done: 06/29/24 21:40
[2024-06-29] MEDS: cefTRIAXone SODIUM 2,000 MG/50 ML BAG IV STA ×2 (19:56→21:31)
[2024-06-29] MEDS ORDERED: MAGNESIUM HYDROXIDE SUSP 30 ML UDC PO PRN (20:31)
[2024-06-29] MEDS ORDERED: ACETAMINOPHEN 325 MG TAB PO PRN (20:31)
--- NOTE | 2024-06-29 20:43 | History & Physical Report ---
Date of Service June 29, 2024 Assessment & Plan (1) Colitis: Plan Assessment/plan Patient with a past medical history of hypothyroidism, dementia presents to the hospital with nausea and vomiting for 1 day. Possible colitis Constipation Patient presents to the hospital with nausea and vomiting No leukocytosis on admission BUN/creatinine within normal limits CT abdomen pelvis shows possible early colitis in transverse and descending colon and moderate fecal retention. Will start clear liquid diet. Started on ceftriaxone and Flagyl. IV fluids with normal saline at 75 cc/h Antiemetics Last BM after arrival to the ED; start MiraLAX daily to regulate bowel movement. Left inferior rectus sheath fluid collection- CT abdomen pelvis shows left inferior rectus sheath fluid collection of 2 cm on admission; Possibly hematoma related with retching due to vomiting; ; will obtain ultrasound to better evaluate. NO overlying tenderness/swelling to suggest abscess. Chronic conditiona; Hypothyroidismcontinue levothyroxine 75 mcg Dementia Saw neurology as outpatient on 06/11/2024; MoCA score of 18/25 with deficit in delayed recall, language and educated function concerning for Alzheimer's dementia; started on donepezil.continue on donepezil DNR/DNI DVT-SCDs given possibility of rectus sheath collection(?hematoma) Time spent evaluating patient, direct bedside care, chart review, placing orders, interpretation of diagnostic studies, discussion with consultants, patient, and family members, as well as other required patient management activities is 60 minutes Please note the above document was generated using voice recognition software. It may contain grammatical, syntax or spelling errors. Any formal questions or concerns about the content, text or information contained within the body of this dictation should be directly addressed to the provider for clarification History of Present Illness Chief Complaint: Nausea and Vomiting for 1 day Primary Care Provider: Deborah Galarza MD History obtained from interview with the patient and chart review Past medical history of dementia, hypothyroidism, history of breast cancer, dyslipidemia Last admission with complicated UTI from 05/19 to 05/26/2024; was discharged to short-term rehab at [facility]. Discharged home on 06/04/2024. Patient presents to the hospital with nausea and vomiting for 1 day Patient reports that she started to feel nauseous after waking up today. She went to a restaurant with her to have lunch. However, she started to experience episodes of vomiting as soon as she arrived at the place. The vomiting was bilious; no blood seen. She reports some abdominal discomfort on her left lower quadrant. Reports chills; no fever, chest pain, shortness of breath or urinary symptoms. Last bowel movement was after arrival to the ED. Patient reports having bowel movement every 2 to 3 days. On presentation to the ED; she was normotensive, afebrile and saturating well on room air. No leukocytosis present. BUN/creatinine within normal limits. Urinalysis shows 6-[address] abdomen pelvis shows possible early colitis of the transverse and descending colon. Fluid collection in inferior rectus sheath measuring 2 cm; moderate fecal impaction Allergies Allergy/AdvReac Type Severity Reaction Status Date / Time No Known Drug Allergies Allergy Unknown Verified 06/29/24 18:10 Home Medications Medication Instructions Recorded Confirmed Type multivitamin 1 tab PO DAILY 01/07/18 06/29/24 History donepezil 10 mg tablet 10 mg PO QAM 06/29/24 06/29/24 History levothyroxine 75 mcg tablet 75 mcg PO DAILYBB 06/29/24 06/29/24 History Past Med/Surg History Problem List (Updated 06/29/24 @ 20:39 by Musa Tran MD) Colitis Complicated UTI (urinary tract infection) Generalized weakness (Acute) Confusion (Acute) Acute dysfunction of both eustachian tubes Sensorineural hearing loss (SNHL) of both ears Malignant neoplasm of upper-outer quadrant of left breast in female, estrogen receptor positive (Acute) Abnormal left breast mammogram Status post ultrasound-guided core needle biopsy 10/30/2017 Lobular carcinoma Estrogen receptor positive, progesterone receptor positive, HER-2/stephon negative Status post lumpectomy and sentinel lymph node biopsy 12/04/2017 Stage pT1c pN0 grade 2 Medical History Meniere disease Lyme disease Hypothyroidism Dyslipidemia Surgical History Status post left breast lumpectomy Family History Father , age 47 , [place] No problems noted. Mother , age 79 , heart problems , COPD No problems noted. Brother , age 83 , dementia No problems noted. Son No problems noted. Daughter Lupus Sister Stomach cancer Other No family history of adverse response to anesthesia No family history of bleeding disorder Social History Smoking Status: Never smoker Do You Dip or Chew Tobacco: No; Hx Alcohol Use: No Hx Substance Use: No Preferred Language: Thai Communication Ability: Effective Adult Education Instructor Required: No Beliefs That Will Affect Care: None marital status: Current Living Situation: Spouse Feels Safe at Home: Yes Assistive Devices: Denture - Upper and Glasses Physical Exam Physical Exam: On physical exam; Constitutional: WD/WN, vitals as above, NAD, sitting up in bed, pleasant, conversing easily Respiratory: normal respiratory effort, lungs clear to auscultation, no wheeze, rales, rhonchi. Normal insp/exp effort, no accessory muscle use Cardiovascular: RRR, no murmur, no edema Vessels: no JVD or carotid bruit Chest: normal inspection of chest Abdomen: Mild tenderness in left lower quadrant; no redness/swelling seen. Bowel sounds present. Musculoskeletal: no cyanosis or clubbing, extremities motor strength 5/5 Skin: no rashes, warm and dry normal turgor Neurologic: PERRL, EOMI, accommodation nl, no face palsy, no dysarthria CN's II- XI intact bilaterally and moves all extremities Results & Data Results & Data Vital Signs (Past 12 Hours) Vital Signs Temp Pulse Pulse Resp BP BP Pulse Ox 06/29/24 19:57 79 06/29/24 19:55 80 22 132/82 97 06/29/24 19:00 137/74 06/29/24 18:51 79 22 96 06/29/24 18:42 88 21 96 06/29/24 18:30 78 22 139/73 95 06/29/24 18:09 85 22 160/80 H 96 06/29/24 18:00 82 17 97 06/29/24 17:00 74 15 97 06/29/24 16:48 77 20 96 06/29/24 16:30 76 23 95 06/29/24 16:06 80 06/29/24 15:46 36.3 C L 71 22 163/78 H 96 O2 Del Method 06/29/24 19:57 06/29/24 19:55 Room Air 06/29/24 19:00 06/29/24 18:51 Room Air 06/29/24 18:42 Room Air 06/29/24 18:30 Room Air 06/29/24 18:09 Room Air 06/29/24 18:00 Room Air 06/29/24 17:00 Room Air 06/29/24 16:48 Room Air 06/29/24 16:30 Room Air 06/29/24 16:06 06/29/24 15:46 Room Air Code Status & VTE Plan VTE Prophylaxis Plan VTE Prophylaxis will be ordered: Yes
[2024-06-29] MEDS: SODIUM CHLORIDE 0.9% 1,000 ML IV SCH (21:31)
[2024-06-29] MEDS: metroNIDAZOLE 500 MG/100 ML BAG IV STA (21:31)
[2024-06-29] MEDS: ONDANSETRON INJ 2 MG/ML 2 ML VIAL IV PRN (22:37)
--- NOTE | 2024-06-29 22:48 | Ultrasound Report ---
Exam(s): US SOFT TISSUE EXAM: US Abdomen soft tissue, Limited CLINICAL HISTORY: Reason for exam: evaluate for Left rectal sheath collection in CT. TECHNIQUE: Real-time ultrasound of the soft tissues of the area of interest, left lower quadrant abdomen with image documentation. COMPARISON: CT abdomen pelvis, same day. FINDINGS: Soft tissues: There is a lobular predominantly hypoechoic mass, corresponding to the CT abnormality in the left rectus muscle, measuring 4 x 1.7 x 4.4 cm. This is avascular, and probably reflects a hematoma. No drainable abscess. IMPRESSION: 1. Nonspecific 4 x 4 x 1.7 cm mass left rectus muscle, corresponding to the CT abnormality, probable hematoma. 2. No drainable abscess. Electronically signed by: Ayla Kramer M.D. 06/29/24 22:47 PM
--- OUTSIDE RECORDS SUMMARY | 2024-06-30 04:16 | External Medical Summary | Summary of Care ---
Author Name Unknown Organization [facility] Address [address] [place] [address] Phone [phone] Care Team Providers Care Hair Spinner Name Role Phone Deborah Galarza MD Primary Care Provider [phone] Encounter Details Date Type Department Care Team (Latest Contact Info) Description 05/19/2024 1:35 AM EST - 05/19/2024 11:59 PM EST Hospital Encounter Radiology Film File [address] [place] [address] Discharge Disposition: Home - Self Care Allergies Active Allergy Reactions Criticality Noted Date Comments Prednisone 05/02/2023 Nausea, lethargy, states she felt awful documented as of this encounter (statuses as of 06/24/2024) Medications Q-10 CO-ENZYME 10 MG OR CAPS daily 0 4 Active SUPER MILK THISTLE X PO CAPSIndications:t [...] daily. 6 Active Lutein Esters 18.6 MG CAPSIndications:H ealth examination of defined subpopulation 2 times a day. 40 mg once daily 30 Cap 8 Active Probiotic Product (PRO-BIOTIC BLEND) CAPS Take by mouth. Act alysha Niacin 250 MG TabletIndications :takes at night Take 1 Tablet by mouth in the morning. Active Fluticasone Propionate 50 MCG/ACT Nasal Suspension (Flonase) Administer 1 [place] into nostril in the morning. 4 Active [...] glass of water daily 4 Active Nystatin 359113 UNIT/GM External Cream Apply topically to affected area 2 times a day. Apply to underneath both breasts twice daily 30 g 4 Active documented as of this encounter (statuses as of 06/24/2024) Active Problems Problem Noted Date Diagnosed Date Dementia of the Alzheimer's type, with late onset, uncomplicated 06/11/2024 Chronic kidney disease, stage 3a 10/31/2020 Overview: Per CKD protocol Senile osteoporosis 04/17/2019 Pain of left upper arm 10/15/2018 Synovial cyst of hand 10/15/2018 Malignant neoplasm of upper- outer quadrant of left breast in female, estrogen receptor positive 11/13/2017 Cancer Staging:Clinical: Unsigned Pathologic stage from 12/18/2017:Stage IA(pT1c, pN0(sn), cM0, G2, ER: Positive, MO: Positive, HER2: Negative) - Signed by Prosper Daley MD on 12/18/2017 Dyslipidemia, goal LDL below 130 09/11/2011 Acquired hypothyroidism 05/23/2005 LFTs abnormal 11/10/2003 documented as of this encounter (statuses as of 06/24/2024) Resolved Problems Problem Noted Date Diagnosed Date Resolved Date Prediabetes 11/05/2022 12/05/2023 Overview: Per Prediabetes protocol Generalized weakness 09/11/2021 022 Dyslipidemia, goal to be determined 03/09/2009 09/11/2011 Overview (03/09/2009): Per Lipid Taxonomy. Other allergic rhinitis 05/23/200509/23 Overview (01/15/2017): ICD-10 update of inactive term documented as of this encounter (statuses as of 06/24/2024) Immunizations Name Administration Dates Next Due COVID-19 mRNA, LNP-s, No Pre serve, 2-Dose Series (Pfizer) 05/21/2020,04/30/2020 Pneumococcal Conjugate Vacc, 13 Valent (Prevnar) 10/04/2015 Pneumococcal Polysaccharide PPV23 (Pneumovax) Seasonal Influenza Vac., MDV, IM, 0.5 mL (Fluzon e) 01/24/2010,01/11/2009 TD, Preservative Free 01/24/2010 TDAP, Age 7 and older, IM (Adacel) 11/15/2023 Varicella Zoster Vaccine Adult (Zostavax) 2011 documented as of this encounter Social History [...] Care Team (Late st Contact Info) Description 11/11/2024 1:15 PM EDT Imaging Radiology [address] [facility] [address] [place] [phone] 01/05/2025 2:20 PM EDT Telemedicine Neurology, [place] Adelaida Azevedo [address] [place] [place] [address] Mariano Mccarty MD [address] [place] [address] Cart, Telemed [facility] [address] [place] [address] Health Maintenance Due Date Last Done Comments Depression Screening 1952 Zoster Vaccines (2 of 3) 11/06/2011 09/11/2011 *BISPHONATE OR OTHER ACCEPTABLE MEDICATION NEEDED FOR OSTEOPOROSIS (REFER TO SMARTSET #1146) 04/21/2021 COVID-19 Vaccine ( season) 2023 05/21/2020, 04/30/2020 CKD HGB USE SMARTSET 10613 11/14/202411/14, 05/02/2023, 10/22/2022, Additional history exists Albumin/Creatinine Ratio 11/19/2024 024, 10/25/2022, 08/29/2021 Colonoscopy 11/23/2024 11/24/2019, 03/2019, 12/01/2018, Additional history exists Influenza Vaccine (FLU shot) (Season Ended) 2024 01/24/2010, 01/11/2009 GFR 12/11/2024 06/10/2024, 10/24, 05/02/2023, Additional history exists CKD PHOS USE SMARTSET 67466 06/10/202505/23, 12/14/2022, 10/22/2022, Additional history exists TSH 06/10/2025 06/10/2024, 10/24, 06/12/2023, Additional history exists DXA Scan 08/04/2025 08/05/2023, 10/25, 10/23/2017, Additional history exists DTap/Tdap Vaccines (2 - Td or Tdap) 11/14/2033 11/15/2023, 01/24/2010 Pneumococcal Vaccine: 50+ Years Completed 10/04/2015, 09/18/2013 RETIRED - COLONOSCOPY-EVERY 5 YRS AGES 18-100 Discontinued 11/24/2019, 11/24/2019, 12/01/2018, Additional history exists VITAMIN D LEVEL ONCE IN A LIFETIME-USE SMARTSET# [id number] Completed 12/14/2022, 04/19/2021, 09/16/2014, Additional history exists [...] this encounter Medical Devices Implanted Type Area General Cleaner Device Identifier Shelf Expiration Date Model / Serial / Lot Lens Intraoc 24.0 - [id number] - [id number] Implanted:Qty: 1 on 04/17/2022 by Leonel Guaman MD at OR [facility] Left: Eye [employer]USCH [employer] LOMB 07/22/2026 [id number] / [id number] / Lens Intraoc 24.5 - [id number] - [id number] Implanted:Qty: 1 on 05/01/2022 by Leonel Guaman MD at OR [facility] Right: Eye [employer]USCH [employer] LOMB 09/21/2026 [id number] / [id number] documented as of this encounter Procedures Procedure Name Priority Date/Time Associated Diagnosis Comments RADIOLOGY EXAM - CT (IMAGES ONLY, NO REPORT) Routine 05/19/2024 1:35 AM EST documented in this encounter Results * RADIOLOGY EXAM - CT (IMAGES ONLY, NO REPORT) (05/19/2024 1:35 AM EST) 05/19/2024 1:34 AM EST Narrative Scheduling, Silent - 06/23/2024 5:07 PM EDT This is an imaging study not interpreted or resulted by a [facility] or [facility] contracted radiologist. Sheri Bryson DO DAVILA CT Final Result documented in this encounter Advance Directives * [...] Power of Attor robyn? No Care Teams Hair Spinner Relationship Specialty Start Date End Date Deborah Galarza MD [address] [facility] [place] [address] PCP - General Internal Medicine 05/09/12 documented as of this encounter
--- OUTSIDE RECORDS SUMMARY | 2024-06-30 04:16 | External Medical Summary | Summary of Care ---
Author Name Unknown Organization [facility] Address [address] [place] [address] Phone [phone] Care Team Providers Care Mold Loft Worker Name Role Phone Debroah Galarza MD Primary Care Provider [phone] Encounter Details Date Type Department Care Team (Latest Contact Info) Description 05/18/2024 9:45 PM EST - 05/18/2024 11:59 PM EST Hospital Encounter Radiology Film File [address] [place] [address] Discharge Disposition: Home - Self [...] 50 MCG/ACT Nasal Suspension (Flonase) Administer 1 [place] into nostril in the morning. 4 Active [...] glass of water daily 4 Active Nystatin 253432 UNIT/GM External Cream Apply topically to affected [...] 12/18/2017:Stage IA(pT1c, pN0(sn), cM0, G2, ER: Positive, MA: Positive, HER2: Negative) - Signed by Prosper [...] Description 11/11/2024 1:15 PM EDT Imaging Radiology [address] [facility] [address] [place] [phone] 01/05/2025 2:20 PM EDT Telemedicine Neurology, [place] Adelaida Azevedo [address] [place] [address] Mariano Mccarty MD [address] [place] [address] Cart, Telemed [facility] [address] [place] [address] Health Maintenance Due Date Last Done Comments Depression Screening 1952 Zoster Vaccines (2 of 3) 11/06/2011 09/11/2011 *BISPHONATE OR OTHER ACCEPTABLE MEDICATION NEEDED FOR OSTEOPOROSIS (REFER TO SMARTSET #1146) 04/21/2021 COVID-19 Vaccine ( season) 2023 05/21/2020, 04/30/2020 CKD HGB USE SMARTSET 63418 11/14/202411/14, 05/02/2023, 10/22/2022, Additional history exists Albumin/Creatinine Ratio 11/19/2024 024, 10/25/2022, 08/29/2021 Colonoscopy 11/23/2024 11/24/2019, 03/2019, 12/01/2018, Additional history exists Influenza Vaccine (FLU shot) (Season Ended) 2024 01/24/2010, 01/11/2009 GFR 12/11/2024 06/10/2024, 10/24, 05/02/2023, Additional history exists CKD PHOS USE SMARTSET 10197 06/10/202505/23, 12/14/2022, 10/22/2022, Additional history exists TSH 06/10/2025 06/10/2024, 10/24, 06/12/2023, Additional history exists DXA Scan 08/04/2025 08/05/2023, 10/25, 10/23/2017, Additional history exists DTap/Tdap Vaccines (2 - Td or Tdap) 11/14/2033 11/15/2023, 01/24/2010 Pneumococcal Vaccine: 50+ Years Completed 10/04/2015, 09/18/2013 RETIRED - COLONOSCOPY-EVERY 5 YRS AGES 18-100 Discontinued 11/24/2019, 11/24/2019, 12/01/2018, Additional history exists VITAMIN D LEVEL ONCE IN A LIFETIME-USE SMARTSET# 55561 Completed 12/14/2022, 04/19/2021, 09/16/2014, Additional history exists [...] this encounter Medical Devices Implanted Type Area Web Site Designer Device Identifier Shelf Expiration Date Model / Serial / Lot Lens Intraoc 24.0 - [id number] - [id number] Implanted:Qty: 1 on 04/17/2022 by Leonel Guaman MD at OR [facility] Left: Eye BAUSCH [employer] LOMB 07/22/2026 [id number] / [id number] / Lens Intraoc 24.5 - [id number] - [id number] Implanted:Qty: 1 on 05/01/2022 by Leonel Guaman MD at OR [facility] Right: Eye BAUSCH [employer] LOMB 09/21/2026 [id number] / [id number] / [id number] documented as of this encounter Procedures Procedure Name Priority Date/Time Associated Diagnosis Comments RADIOLOGY EXAM - CT (IMAGES ONLY, NO REPORT) Routine 05/18/2024 9:45 PM EST documented in this encounter Results * RADIOLOGY EXAM - CT (IMAGES ONLY, NO REPORT) (05/18/2024 9:45 PM EST) 05/18/2024 9:42 PM EST Narrative Scheduling, Silent - 06/23/2024 5:03 PM EDT This is an imaging study [...] Power of Attor robyn? No Care Teams Mold Loft Worker Relationship Specialty Start Date End Date Deborah Galarza MD [address] [place] [address] PCP - General Internal Medicine 05/09/12 documented as of this encounter
--- OUTSIDE RECORDS SUMMARY | 2024-06-30 04:16 | External Medical Summary | Summary of Care ---
Author Name Unknown Organization [facility] Address [address] [place] [address] Phone [phone] Care Team Providers Care Retread Technician Name Role Phone Deborah Galarza MD Primary Care Provider [phone] Encounter Details Date Type Department Care Team (Latest Contact Info) Description 05/19/2024 - 05/19/2024 12:04 AM [facility] Hospital Encounter Radiology Film File [address] [place] [address] Discharge Disposition: Home - Self [...] 50 MCG/ACT Nasal Suspension (Flonase) Administer 1 [place] into nostril in the morning. 4 Active [...] glass of water daily 4 Active Nystatin 957741 UNIT/GM External Cream Apply topically to affected [...] 12/18/2017:Stage IA(pT1c, pN0(sn), cM0, G2, ER: Positive, ID: Positive, HER2: Negative) - Signed by Prosper [...] Description 11/11/2024 1:15 PM EDT Imaging Radiology [facility] 1st Floor, [place] [address] [place] [phone] 01/05/2025 2:20 PM EDT Telemedicine Neurology, [place] Adelaida Azevedo [address] [place] [address] Mariano Mccarty MD [address] [place] [address] Cart, Telemed [facility] [address] [facility] [address] Health Maintenance Due Date Last Done Comments Depression Screening 1952 Zoster Vaccines (2 of 3) 11/06/2011 09/11/2011 *BISPHONATE OR OTHER ACCEPTABLE MEDICATION NEEDED FOR OSTEOPOROSIS (REFER TO SMARTSET #1146) 04/21/2021 COVID-19 Vaccine ( season) 2023 05/21/2020, 04/30/2020 CKD HGB USE SMARTSET 04347 11/14/202411/14, 05/02/2023, 10/22/2022, Additional history exists Albumin/Creatinine Ratio 11/19/2024 024, 10/25/2022, 08/29/2021 Colonoscopy 11/23/2024 11/24/2019, 03/2019, 12/01/2018, Additional history exists Influenza Vaccine (FLU shot) (Season Ended) 2024 01/24/2010, 01/11/2009 GFR 12/11/2024 06/10/2024, 10/24, 05/02/2023, Additional history exists CKD PHOS USE SMARTSET 20414 06/10/202505/23, 12/14/2022, 10/22/2022, Additional history exists TSH 06/10/2025 06/10/2024, 10/24, 06/12/2023, Additional history exists DXA Scan 08/04/2025 08/05/2023, 10/25, 10/23/2017, Additional history exists DTap/Tdap Vaccines (2 - Td or Tdap) 11/14/2033 11/15/2023, 01/24/2010 Pneumococcal Vaccine: 50+ Years Completed 10/04/2015, 09/18/2013 RETIRED - COLONOSCOPY-EVERY 5 YRS AGES 18-100 Discontinued 11/24/2019, 11/24/2019, 12/01/2018, Additional history exists VITAMIN D LEVEL ONCE IN A LIFETIME-USE SMARTSET# 10179 Completed 12/14/2022, 04/19/2021, 09/16/2014, Additional history exists [...] this encounter Medical Devices Implanted Type Area Coil Winder Hand Device Identifier Shelf Expiration Date Model / Serial / Lot Lens Intraoc 24.0 - [id number] - [id number] Implanted:Qty: 1 on 04/17/2022 by Leonel Guaman MD at OR [facility] Left: Eye BAUSCH [employer] LOMB 07/22/2026 [id number] / [id number] / Lens Intraoc 24.5 - [id number] - [id number] Implanted:Qty: 1 on 05/01/2022 by Leonel Guaman MD at OR [facility] Right: Eye BAUSCH [employer] LOMB 09/21/2026 [id number] / [id number] / [id number] documented as of this encounter Procedures Procedure Name Priority Date/Time Associated Diagnosis Comments RADIOLOGY EXAM - CT (IMAGES ONLY, NO REPORT) Routine 05/19/2024 12:00 AM EST documented in this encounter Results * RADIOLOGY EXAM - CT (IMAGES ONLY, NO REPORT) (05/19/2024 12:00 AM EST) 05/18/2024 11:5 1 PM EST Narrative Scheduling, Silent - 06/23/2024 5:05 PM EDT This is an imaging study not interpreted or resulted by a [facility] or [facility] contracted radiologist. Sherisalome Bryson DO DAVILA CT Final Result documented [...] Power of Attor robyn? No Care Teams Retread Technician Relationship Specialty Start Date End Date Deborah Galarza MD [address] [facility] [place], [place] [address] PCP - General Internal Medicine 05/09/12 documented as of this encounter
--- OUTSIDE RECORDS SUMMARY | 2024-06-30 04:17 | External Medical Summary | Summary of Care ---
Author Name Unknown Organization [facility] Address [address] [place] [address] Phone [phone] Care Team Providers Care Product Safety Engineer Name Role Phone Deborah Galarza MD Primary Care Provider [phone] Encounter Details Date Type Department Care Team (Late st Contact Info) Description 06/22/2024 Orders Only Outcomes Research Department [address] [place] [address] Roma Holt [facility] [employer] Research Other*[id number] Allergies Active Allergy Reactions Criticality Noted Date Comments Prednisone 05/02/2023 Nausea, lethargy, states she felt awful documented as of this encounter (statuses as of 06/22/2024) Medications Q-10 CO-ENZYME 10 MG OR CAPS [...] 50 MCG/ACT Nasal Suspension (Flonase) Administer 1 [place] into nostril in the morning. 4 Active [...] glass of water daily 4 Active Nystatin 863175 UNIT/GM External Cream Apply topically to affected area 2 times a day. Apply to underneath both breasts twice daily 30 g 4 Active Levothyroxine Sodium 75 MCG Oral Tablet (Levoxyl)Indicati ons:Impaired fasting glucose Take 1 Tablet by mouth in the morning. (at least 30 min prior to breakfast or other meds). 60 Tablet 5 Active Donepezil HCl 10 MG Oral Tablet (Aricept)Indicati ons:Dementia of the Alzheimer's type, with late onset, uncomplicated (HCC) Take 1 Tablet by mouth in the morning. Take with largest meal of the day.. 30 Tablet 3 5 Active documented as of this encounter (statuses as of 06/22/2024) Active Problems Problem Noted Date Diagnosed Date [...] as of this encounter (statuses as of 06/22/2024) Resolved Problems Problem Noted Date Diagnosed Date Resolved Date Prediabetes 11/05/2022 12/05/2023 Overview: Per Prediabetes protocol Generalized weakness 09/11/2021 022 Dyslipidemia, goal to be determined 03/09/2009 09/11/2011 Overview (03/09/2009): Per Lipid Taxonomy. Other allergic rhinitis 05/23/200509/23 Overview (01/15/2017): ICD-10 update of inactive term documented as of this encounter (statuses as of 06/22/2024) Immunizations Name Administration Dates Next Due COVID-19 [...] Description 11/11/2024 1:15 PM EDT Imaging Radiology [facility], [place] [address] [place] [phone] 01/05/2025 2:20 PM EDT Telemedicine Neurology, [place] Adelaida Azevedo [address] [place] [address] Mariano Mccarty MD [address] [place] [address] Cart, Telemed [facility] [address] [facility] [address] Scheduled Orders Name Type Priority Associated Diagnoses Orde r Schedule MYCODE SUBSEQUENT ADULT Lab Routine MyCode Research Other*[id number] Every 6 Months for 2 Occurrences starting 06/22/2024 until 07/12/2025 Health Maintenance Due Date Last Done Comments Zoster Vaccines (2 of 3) 11/06/2011 09/11/2011 *BISPHONATE OR OTHER ACCEPTABLE MEDICATION NEEDED FOR OSTEOPOROSIS (REFER TO SMARTSET #1146) 04/21/2021 Depression Screening 04/09/2023 04/09/2022 COVID-19 Vaccine ( season) 2023 05/21/2020, 04/30/2020 Influenza Vaccine (FLU shot) (#1) 2023 01/24/2010, 01/11/2009 CKD HGB USE SMARTSET 53412 11/14/202411/14, 05/02/2023, 10/22/2022, Additional history exists Albumin/Creatinine Ratio 11/19/202411/19/ 024, 10/25/2022, 08/29/2021 Colonoscopy 11/23/2024 11/24/2019, 03/2019, 12/01/2018, Additional history exists GFR 12/11/2024 06/10/2024, 10/24, 05/02/2023, Additional history exists CKD PHOS USE SMARTSET 08489 06/10/202505/23, 12/14/2022, 10/22/2022, Additional history exists TSH 06/10/2025 06/10/2024, 10/24, 06/12/2023, Additional history exists DXA Scan 08/04/2025 08/05/2023, 10/25, 10/23/2017, Additional history exists DTap/Tdap Vaccines (2 - Td or Tdap) 11/14/2033 11/15/2023, 01/24/2010 Pneumococcal Vaccine: 50+ Years Completed 10/04/2015, 09/18/2013 RETIRED - COLONOSCOPY-EVERY 5 YRS AGES 18-100 Discontinued 11/24/2019, 11/24/2019, 12/01/2018, Additional history exists VITAMIN D LEVEL ONCE IN A LIFETIME-USE SMARTSET# 62334 Completed 12/14/2022, 04/19/2021, 09/16/2014, Additional history exists [...] this encounter Medical Devices Implanted Type Area Pie Dough Roller Device Identifier Shelf Expiration Date Model / Serial / Lot Lens Intraoc 24.0 - [id number] - [id number] Implanted:Qty: 1 on 04/17/2022 by Leonel Guaman MD at OR [facility] Left: Eye BAUSCH & LOMB 07/22/2026 [id number] / [id number] / Lens Intraoc 24.5 - [id number] - [id number] Implanted:Qty: 1 on 05/01/2022 by Leonel Guaman MD at OR [facility] Right: Eye BAUSCH & LOMB 09/21/2026 [id number] / [id number] documented as of this encounter Visit Diagnoses Diagnosis MyCode Research Other*[id number] documented in this encounter Advance Directives * [...] Power of Attor robyn? No Care Teams Product Safety Engineer Relationship Specialty Start Date End Date Deborha Galarza MD [address] [place] [address], [place] [address] PCP - General Internal Medicine 05/09/12 documented as of this encounter
--- OUTSIDE RECORDS SUMMARY | 2024-06-30 04:17 | External Medical Summary | Summary of Care ---
Author Name Unknown Organization [facility] Address [address] [place] [address] Phone [phone] Care Team Providers Care Patient Care Representative Name Role Phone Deborah Galarza MD Primary Care Provider [phone] Reason for Visit * Reason Onset Date Comments Other 06/23/2024 Image request Encounter Details Date Type Department Care Team (Late st Contact Info) Description 06/23/2024 Telephone [facility] [address], [place] [id number] Specified, Jona [facility] Resource [address] [place] [address] Other (Image request) Allergies Active Allergy Reactions Criticality Noted Date Comments Prednisone 05/02/2023 Nausea, lethargy, states she felt awful documented as of this encounter (statuses as of 06/23/2024) Medications Q-10 CO-ENZYME 10 MG OR CAPS [...] 50 MCG/ACT Nasal Suspension (Flonase) Administer 1 [place] into nostril in the morning. 4 Active [...] glass of water daily 4 Active Nystatin 433710 UNIT/GM External Cream Apply topically to affected [...] as of this encounter (statuses as of 06/23/2024) Active Problems Problem Noted Date Diagnosed Date [...] 12/18/2017:Stage IA(pT1c, pN0(sn), cM0, G2, ER: Positive, [place]: Positive, HER2: Negative) - Signed by Prosper Daley MD on 12/18/2017 Dyslipidemia, goal LDL below 130 09/11/2011 Acquired hypothyroidism 05/23/2005 LFTs abnormal 11/10/2003 documented as of this encounter (statuses as of 06/23/2024) Resolved Problems Problem Noted Date Diagnosed Date Resolved Date Prediabetes 11/05/2022 12/05/2023 Overview: Per Prediabetes protocol Generalized weakness 09/11/2021 022 Dyslipidemia, goal to be determined 03/09/2009 09/11/2011 Overview (03/09/2009): Per Lipid Taxonomy. Other allergic rhinitis 05/23/200509/23 Overview (01/15/2017): ICD-10 update of inactive term documented as of this encounter (statuses as of 06/23/2024) Immunizations Name Administration Dates Next Due COVID-19 [...] encounter Miscellaneous Notes * Telephone Encounter - Julieth Guzman OSA - 06/23/2024 3:39 PM EDT Imaging received via [facility] and pushed to PACS * Telephone Encounter - Romi Caba OSA - 06/23/2024 3:22 PM EDT Outgoing call to [facility] requesting images for MRI Brain from 05/21/2024, CT ABD Pelvis from 05/19/2024, CR, OT Chest Xray from 05/18/2024, CT Angiogram Neck from 05/18/2024, CT Angiogram Head from 05/18/2024, Spoke with Gurpreet who stated they are pushing images over now to [employer]. documented in this encounter Plan of Treatment Upcoming Encounters Date Type Department Care Team (Late st Contact Info) Description 11/11/2024 1:15 PM EDT Imaging Radiology [facility] 1st [facility], [place] [address] [place] [phone] 01/05/2025 2:20 PM EDT Telemedicine Neurology, [address] [place] [address] Mariano Mccarty MD [address] [place] [id number] Cart, Telemed [facility] [address] [place] [address] Health Maintenance Due Date Last Done Comments Depression Screening 1952 Zoster Vaccines (2 of 3) 11/06/2011 09/11/2011 *BISPHONATE OR OTHER ACCEPTABLE MEDICATION NEEDED FOR OSTEOPOROSIS (REFER TO SMARTSET #1146) 04/21/2021 COVID-19 Vaccine (3 - season) 2023 05/21/2020, 04/30/2020 CKD HGB USE SMARTSET 52023 11/14/202411/14, 05/02/2023, 10/22/2022, Additional history exists Albumin/Creatinine Ratio 11/19/2024 024, 10/25/2022, 08/29/2021 Colonoscopy 11/23/2024 11/24/2019, 03/2019, 12/01/2018, Additional history exists Influenza Vaccine (FLU shot) (Season Ended) 2024 01/24/2010, 01/11/2009 GFR 12/11/2024 06/10/2024, 10/24, 05/02/2023, Additional history exists CKD PHOS USE SMARTSET 98139 06/10/202505/23, 12/14/2022, 10/22/2022, Additional history exists TSH 06/10/2025 06/10/2024, 10/24, 06/12/2023, Additional history exists DXA Scan 08/04/2025 08/05/2023, 10/25, 10/23/2017, Additional history exists DTap/Tdap Vaccines (2 - Td or Tdap) 11/14/2033 11/15/2023, 01/24/2010 Pneumococcal Vaccine: 50+ Years Completed 10/04/2015, 09/18/2013 RETIRED - COLONOSCOPY-EVERY 5 YRS AGES 18-100 Discontinued 11/24/2019, 11/24/2019, 12/01/2018, Additional history exists VITAMIN D LEVEL ONCE IN A LIFETIME-USE SMARTSET# 45017 Completed 12/14/2022, 04/19/2021, 09/16/2014, Additional history exists [...] this encounter Medical Devices Implanted Type Area Kitchen Help Handyman Device Identifier Shelf Expiration Date Model / Serial / Lot Lens Intraoc 24.0 - [id number] - [id number] Implanted:Qty: 1 on 04/17/2022 by Leonel Guaman MD at OR [facility] Left: Eye [employer]OM[employer] 07/22/2026 [id number] / [id number] / Lens Intraoc 24.5 - [id number] - [id number] Implanted:Qty: 1 on 05/01/2022 by Leonel Guaman MD at OR [facility] Right: Eye BAUSCH [employer] LOMB 09/21/2026 [id number] / [id number] documented as of this encounter Advance Directives [...] Power of Attor robyn? No Care Teams Patient Care Representative Relationship Specialty Start Date End Date Deborah Galarza MD [address] [place] [address], [place] [address] PCP - General Internal Medicine 05/09/12 documented as of this encounter
--- OUTSIDE RECORDS SUMMARY | 2024-06-30 04:17 | External Medical Summary | Summary of Care ---
Author Name Unknown Organization [facility] Address [address] [facility] [place] [address] Phone [phone] Care Team Providers Care Cake Icer Name Role Phone Deborah Galarza MD Primary Care Provider [phone] Encounter Details Date Type Department Care Team (Late st Contact Info) Description 05/18/2024 Orders Only Neurology [address] [place] [phone] hSeri Bryson, [address] [place] [address] Allergies Active Allergy Reactions Criticality Noted Date [...] 50 MCG/ACT Nasal Suspension (Flonase) Administer 1 [place] into nostril in the morning. 4 Active [...] glass of water daily 4 Active Nystatin 816774 UNIT/GM External Cream Apply topically to affected [...] 12/18/2017:Stage IA(pT1c, pN0(sn), cM0, G2, ER: Positive, [place]: Positive, HER2: Negative) - Signed by Prosper [...] Description 11/11/2024 1:15 PM EDT Imaging Radiology [facility] 1st [facility], [place] [address] [place] [phone] 01/05/2025 2:20 PM EDT Telemedicine Neurology, [place] [address] [place] [address] Mariano Mccarty MD [address] [place] [address] Cart, Telemed [facility] [address] [facility] [place] [address] Health Maintenance Due Date Last Done Comments Depression Screening 1952 Zoster Vaccines (2 of 3) 11/06/2011 09/11/2011 *BISPHONATE OR OTHER ACCEPTABLE MEDICATION NEEDED FOR OSTEOPOROSIS (REFER TO SMARTSET #1146) 04/21/2021 COVID-19 Vaccine ( season) 2023 05/21/2020, 04/30/2020 CKD HGB USE SMARTSET 22129 11/14/202411/14, 05/02/2023, 10/22/2022, Additional history exists Albumin/Creatinine Ratio 11/19/2024 024, 10/25/2022, 08/29/2021 Colonoscopy 11/23/2024 11/24/2019, 0903/2019, 12/01/2018, Additional history exists Influenza Vaccine (FLU shot) (Season Ended) 2024 01/24/2010, 01/11/2009 GFR 12/11/2024 06/10/2024, 10/24, 05/02/2023, Additional history exists CKD PHOS USE SMARTSET 19398 06/10/202505/23, 12/14/2022, 10/22/2022, Additional history exists TSH 06/10/2025 06/10/2024, 10/24, 06/12/2023, Additional history exists DXA Scan 08/04/2025 08/05/2023, 10/25, 10/23/2017, Additional history exists DTap/Tdap Vaccines (2 - Td or Tdap) 11/14/2033 11/15/2023, 01/24/2010 Pneumococcal Vaccine: 50+ Years Completed 10/04/2015, 09/18/2013 RETIRED - COLONOSCOPY-EVERY 5 YRS AGES 18-100 Discontinued 11/24/2019, 11/24/2019, 12/01/2018, Additional history exists VITAMIN D LEVEL ONCE IN A LIFETIME-USE SMARTSET# 88064 Completed 12/14/2022, 04/19/2021, 09/16/2014, Additional history exists [...] this encounter Medical Devices Implanted Type Area Packager Hand Device Identifier Shelf Expiration Date Model / Serial / Lot Lens Intraoc 24.0 - [id number] - [id number] Implanted:Qty: 1 on 04/17/2022 by Leonel Guaman MD at OR [facility] Left: Eye [employer]USCH [employer] LOMB 07/22/2026 [id number] / [id number] / Lens Intraoc 24.5 - [id number] - [id number] Implanted:Qty: 1 on 05/01/2022 by Leonel Guaman MD at OR [facility] Right: Eye [employer]USCH [employer] LOMB 09/21/2026 [id number] / [id number] / [id number] documented as of this encounter Procedures Procedure Name Priority Date/Time Associated Diagnosis Comments RADIOLOGY EXAM - CT (IMAGES ONLY, NO REPORT) Routine 05/19/2024 12:05 AM EST documented in this encounter Results * RADIOLOGY EXAM - CT (IMAGES ONLY, NO REPORT) (05/19/2024 12:05 AM EST) 05/18/2024 11:5 1 PM EST Narrative Scheduling, Silent - 06/23/2024 5:09 PM EDT This is an imaging study not interpreted or resulted by a [facility] or [facility] contracted radiologist. Sheri Bryson DO LOLA CT Final Result documented in this encounter [...] Power of Attor robyn? No Care Teams Cake Icer Relationship Specialty Start Date End Date Deborah Galarza MD [address] [place] [address] PCP - General Internal Medicine 05/09/12 documented as of this encounter
--- OUTSIDE RECORDS SUMMARY | 2024-06-30 04:17 | External Medical Summary | Summary of Care ---
Author Name Unknown Organization [facility] Address [address] [facility] [place] [address] Phone [phone] Care Team Providers Care Manager Market Name Role Phone Deborah Galarza MD Primary Care Provider [phone] Encounter Details Date Type Department Care Team (Late st Contact Info) Description 05/18/2024 Orders Only Neurology [address] [place] [phone] Sheri Bryson, [address] [place] [address] [...] 50 MCG/ACT Nasal Suspension (Flonase) Administer 1 [place] into nostril in the morning. 4 Active [...] glass of water daily 4 Active Nystatin 013297 UNIT/GM External Cream Apply topically to affected [...] 12/18/2017:Stage IA(pT1c, pN0(sn), cM0, G2, ER: Positive, [place]: Positive, HER2: Negative) - Signed by Prosper [...] Description 11/11/2024 1:15 PM EDT Imaging Radiology [facility] [address] [facility], [place] [address] [place] [phone] 01/05/2025 2:20 PM EDT Telemedicine Neurology, [place] [address] [place] [place] [address] Mariano Mccarty MD [address] [place] [place] [address] Cart, Telemed [facility] [address] [facility] [place] [address] Health Maintenance Due Date Last Done Comments Depression Screening 1952 Zoster Vaccines (2 of 3) 11/06/2011 09/11/2011 *BISPHONATE OR OTHER ACCEPTABLE MEDICATION NEEDED FOR OSTEOPOROSIS (REFER TO SMARTSET #1146) 04/21/2021 COVID-19 Vaccine ( season) 2023 05/21/2020, 04/30/2020 CKD HGB USE SMARTSET 26798 11/14/202411/14, 05/02/2023, 10/22/2022, Additional history exists Albumin/Creatinine Ratio 11/19/2024 024, 10/25/2022, 08/29/2021 Colonoscopy 11/23/2024 11/24/2019, 0903/2019, 12/01/2018, Additional history exists Influenza Vaccine (FLU shot) (Season Ended) 2024 01/24/2010, 01/11/2009 GFR 12/11/2024 06/10/2024, 10/24, 05/02/2023, Additional history exists CKD PHOS USE SMARTSET 68260 06/10/202505/23, 12/14/2022, 10/22/2022, Additional history exists TSH 06/10/2025 06/10/2024, 10/24, 06/12/2023, Additional history exists DXA Scan 08/04/2025 08/05/2023, 10/25, 10/23/2017, Additional history exists DTap/Tdap Vaccines (2 - Td or Tdap) 11/14/2033 11/15/2023, 01/24/2010 Pneumococcal Vaccine: 50+ Years Completed 10/04/2015, 09/18/2013 RETIRED - COLONOSCOPY-EVERY 5 YRS AGES 18-100 Discontinued 11/24/2019, 11/24/2019, 12/01/2018, Additional history exists VITAMIN D LEVEL ONCE IN A LIFETIME-USE SMARTSET# 04015 Completed 12/14/2022, 04/19/2021, 09/16/2014, Additional history exists [...] this encounter Medical Devices Implanted Type Area Highway Administrative Engineer Device Identifier Shelf Expiration Date Model / Serial / Lot Lens Intraoc 24.0 - [id number] - [id number] Implanted:Qty: 1 on 04/17/2022 by Leonel Guaman MD at OR [facility] Left: Eye BAUSCH [employer] LOMB 07/22/2026 [id number] / [id number] / Lens Intraoc 24.5 - [id number] - [id number] Implanted:Qty: 1 on 05/01/2022 by Leonel Guaman MD at OR [facility] Right: Eye BAUSCH [employer] LOMB 09/21/2026 [id number] / [id number] / [id number] documented as of this encounter Procedures Procedure [...] interpreted or resulted by a [facility] or [facility] contracted radiologist. Sheri Bryson DO LOLA CT [...] Power of Attor robyn? No Care Teams Manager Market Relationship Specialty Start Date End Date Deborah Galarza MD [address] [facility] [place] [address] PCP - General Internal Medicine 05/09/12 documented as of this encounter
--- OUTSIDE RECORDS SUMMARY | 2024-06-30 04:17 | External Medical Summary | Summary of Care ---
Author Name Unknown Organization [facility] Address [address] [place] [address] Phone [phone] Care Team Providers Care Raw Hide Trimmer Name Role Phone Deborah Galarza MD Primary Care Provider [phone] Reason for Visit * Reason Onset Date Comments Medication Problem 06/17/2024 Encounter Details Date Type Department Care Team (Late st Contact Info) Description 06/17/2024 Telephone Neurology Tyler [address] [place] [address] [place] [address] Sheri Bryson, DO [address] [place] [address] Medication Problem Allergies Active Allergy Reactions Criticality Noted Date Comments Prednisone 05/02/2023 Nausea, lethargy, states she felt awful documented as of this encounter (statuses as of 06/18/2024) Medications Q-10 CO-ENZYME 10 MG OR CAPS [...] 50 MCG/ACT Nasal Suspension (Flonase) Administer 1 [place] into nostril in the morning. 04/19/19 24 [...] of water daily 11/15/19 24 Active Nystatin 099529 UNIT/GM External Cream Apply topically to affected area 2 times a day. Apply to underneath both breasts twice daily 30 g 01/14/20 24 Active Levothyroxine Sodium 75 MCG Oral Tablet (Levoxyl)Indicati ons:Impaired fasting glucose Take 1 Tablet by mouth in the morning. (at least 30 min prior to breakfast or other meds). 60 Tablet 06/16/19 25 Active Donepezil HCl 10 MG Oral Tablet (Aricept)Indicati ons:Dementia of the Alzheimer's type, with late onset, uncomplicated (HCC) Take 1 Tablet by mouth in the morning. Take with largest meal of the day.. 30 Tablet 3 06/18/19 25 Active Donepezil HCl 5 MG Oral Tablet (Aricept)Indicati ons:Dementia of the Alzheimer's type, with late onset, uncomplicated (HCC) Take 1 Tablet by mouth in the morning. Take with largest meal of the day. Start taking 1 tablet per day for one month. After one month increase to 2 tablets daily.. 30 Tablet 3 06/12/19 25 025 Discontin ued(Patie nt preferenc e/discont inuation) documented as of this encounter (statuses as of 06/18/2024) Active Problems Problem Noted Date Diagnosed Date [...] 12/18/2017:Stage IA(pT1c, pN0(sn), cM0, G2, ER: Positive, [place]: Positive, HER2: Negative) - Signed by Prosper Daley MD on 12/18/2017 Dyslipidemia, goal LDL below 130 09/11/2011 Acquired hypothyroidism 05/23/2005 LFTs abnormal 11/10/2003 documented as of this encounter (statuses as of 06/18/2024) Resolved Problems Problem Noted Date Diagnosed Date Resolved Date Prediabetes 11/05/2022 12/05/2023 Overview: Per Prediabetes protocol Generalized weakness 09/11/2021 022 Dyslipidemia, goal to be determined 03/09/2009 09/11/2011 Overview (03/09/2009): Per Lipid Taxonomy. Other allergic rhinitis 05/23/200509/23 Overview (01/15/2017): ICD-10 update of inactive term documented as of this encounter (statuses as of 06/18/2024) Immunizations Name Administration Dates Next Due COVID-19 [...] encounter Miscellaneous Notes * Telephone Encounter - Colette Faria OSA - 06/17/2024 2:33 PM EDT Pt came in and was stating the medication, Donepezil was on a 30 day supply but pt said that it needs to be ordered as 1 month at 10 milligrams not 5 and not to put that they need to double it. Please call pt if you have any questions. Thank you documented in this encounter Plan of Treatment Upcoming Encounters Date Type Department Care Team (Late st Contact Info) Description 11/11/2024 1:15 PM EDT Imaging Radiology [facility] 1st [facility] [address] [place] [phone] 01/05/2025 2:20 PM EDT Telemedicine Neurology, [place] Adelaida Azevedo [address] [place] [address] Mariano Mccarty MD [address] [place] [address] Cart, Telemed [facility] [address] [place] [address] [place] [address] Health Maintenance Due Date Last Done Comments Zoster Vaccines (2 of 3) 11/06/2011 09/11/2011 *BISPHONATE OR OTHER ACCEPTABLE MEDICATION NEEDED FOR OSTEOPOROSIS (REFER TO SMARTSET #1146) 04/21/2021 Depression Screening 04/09/2023 04/09/2022 COVID-19 Vaccine ( season) 2023 05/21/2020, 04/30/2020 Influenza Vaccine (FLU shot) (#1) 2023 01/24/2010, 01/11/2009 CKD HGB USE SMARTSET 38615 11/14/202411/14, 05/02/2023, 10/22/2022, Additional history exists Albumin/Creatinine Ratio 11/19/2024 024, 10/25/2022, 08/29/2021 Colonoscopy 11/23/2024 11/24/2019, 03/2019, 12/01/2018, Additional history exists GFR 12/11/2024 06/10/2024, 08/2 05/2023, 05/02/2023, Additional history exists CKD PHOS USE SMARTSET 32268 06/10/202505/23, 12/14/2022, 10/22/2022, Additional history exists TSH 06/10/2025 06/10/2024, 10/24, 06/12/2023, Additional history exists DXA Scan 08/04/2025 08/05/2023, 083 , 10/23/2017, Additional history exists DTap/Tdap Vaccines (2 - Td or Tdap) 11/14/2033 11/15/2023, 01/24/2010 Pneumococcal Vaccine: 50+ Years Completed 10/04/2015, 09/18/2013 RETIRED - COLONOSCOPY-EVERY 5 YRS AGES 18-100 Discontinued 11/24/2019, 11/24/2019, 12/01/2018, Additional history exists VITAMIN D LEVEL ONCE IN A LIFETIME-USE SMARTSET# 03510 Completed 12/14/2022, 04/19/2021, 09/16/2014, Additional history exists [...] this encounter Medical Devices Implanted Type Area Dining Room Captain Device Identifier Shelf Expiration Date Model / Serial / Lot Lens Intraoc 24.0 - [id number] - [id number] Implanted:Qty: 1 on 04/17/2022 by Leonel Guaman MD at OR [facility] Left: Eye BAUSCH [employer] LOMB 07/22/2026 [id number] / [id number] / Lens Intraoc 24.5 - [id number] - [id number] Implanted:Qty: 1 on 05/01/2022 by Leonel Guaman MD at OR [facility] Right: Eye BAUSCH [employer] LOMB 09/21/2026 [id number] / [id number] / [id number] documented as of this encounter Visit Diagnoses Diagnosis Dementia of the Alzheimer's type, with late onset, uncomplicated (HCC)- Primary Alzheimer's disease documented in this encounter Advance Directives * [...] Power of Attor robyn? No Care Teams Raw Hide Trimmer Relationship Specialty Start Date End Date Deborah Galarza MD [address] [facility] [place] [address] PCP - General Internal Medicine 05/09/12 documented as of this encounter
--- OUTSIDE RECORDS SUMMARY | 2024-06-30 04:17 | External Medical Summary | Summary of Care ---
Author Name Unknown Organization [facility] Address [address] [place] [address] Phone [phone] Care Team Providers Care Train System Operator Name Role Phone Deborah Galarza MD Primary Care Provider [phone] Encounter Details Date Type Department Care Team (Latest Contact Info) Description 05/21/2024 1:55 PM EST - 05/21/2024 11:59 PM EST Hospital Encounter Radiology Film [place] [address] [place] [address] Discharge Disposition: Home - Self [...] 50 MCG/ACT Nasal Suspension (Flonase) Administer 1 [place] into nostril in the morning. 4 Active [...] glass of water daily 4 Active Nystatin 545715 UNIT/GM External Cream Apply topically to affected [...] Description 11/11/2024 1:15 PM EDT Imaging Radiology [address] [facility] [address] [place] [phone] 01/05/2025 2:20 PM EDT Telemedicine Neurology, [place] Adelaida Azevedo [address] [place] [address] Mariano Mccarty MD [address] [place] [address] Cart, Telemed [facility] [address] [place] [address] Health Maintenance Due Date Last Done Comments Depression Screening 1952 Zoster Vaccines (2 of 3) 11/06/2011 09/11/2011 *BISPHONATE OR OTHER ACCEPTABLE MEDICATION NEEDED FOR OSTEOPOROSIS (REFER TO SMARTSET #1146) 04/21/2021 COVID-19 Vaccine ( season) 2023 05/21/2020, 04/30/2020 CKD HGB USE SMARTSET 03817 11/14/202411/14, 05/02/2023, 10/22/2022, Additional history exists Albumin/Creatinine Ratio 11/19/2024 024, 10/25/2022, 08/29/2021 Colonoscopy 11/23/2024 11/24/2019, 03/2019, 12/01/2018, Additional history exists Influenza Vaccine (FLU shot) (Season Ended) 2024 01/24/2010, 01/11/2009 GFR 12/11/2024 06/10/2024, 10/24, 05/02/2023, Additional history exists CKD PHOS USE SMARTSET 18039 06/10/202505/23, 12/14/2022, 10/22/2022, Additional history exists TSH 06/10/2025 06/10/2024, 10/24, 06/12/2023, Additional history exists DXA Scan 08/04/2025 08/05/2023, 10/25, 10/23/2017, Additional history exists DTap/Tdap Vaccines (2 - Td or Tdap) 11/14/2033 11/15/2023, 01/24/2010 Pneumococcal Vaccine: 50+ Years Completed 10/04/2015, 09/18/2013 RETIRED - COLONOSCOPY-EVERY 5 YRS AGES 18-100 Discontinued 11/24/2019, 11/24/2019, 12/01/2018, Additional history exists VITAMIN D LEVEL ONCE IN A LIFETIME-USE SMARTSET# 82740 Completed 12/14/2022, 04/19/2021, 09/16/2014, Additional history exists [...] this encounter Medical Devices Implanted Type Area Airport Planner Device Identifier Shelf Expiration Date Model / Serial / Lot Lens Intraoc 24.0 - [id number] - [id number] Implanted:Qty: 1 on 04/17/2022 by Leonel Guaman MD at OR [facility] Left: Eye BAUSCH [employer] LOMB 07/22/2026 [id number] / [id number] / Lens Intraoc 24.5 - [id number] - [id number] Implanted:Qty: 1 on 05/01/2022 by Leonel Guaman MD at OR [facility] Right: Eye BAUSCH [employer] LOMB 09/21/2026 [id number] / [id number] / [id number] documented as of this encounter Procedures Procedure Name Priority Date/Time Associated Diagnosis Comments RADIOLOGY EXAM - MRI (IMAGES ONLY, NO REPORT) Routine 05/21/2024 1:55 PM EST documented in this encounter Results * RADIOLOGY EXAM - MRI (IMAGES ONLY, NO REPORT) (05/21/2024 1:55 PM EST) 05/21/2024 1:53 PM EST Narrative Scheduling, Silent - 06/23/2024 5:01 PM EDT This is an imaging study not interpreted or resulted by a [facility] or [facility] contracted radiologist. Sherisalome Bryson DO [facility] MRI-MRA Final Result documented in this encounter Advance [...] Power of Attor robyn? No Care Teams Train System Operator Relationship Specialty Start Date End Date Deborah Galarza MD [address] [place] [address] PCP - General Internal Medicine 05/09/12 documented as of this encounter
--- OUTSIDE RECORDS SUMMARY | 2024-06-30 04:17 | External Medical Summary | Summary of Care ---
Author Name Unknown Organization [facility] Address [address] [facility] [place] [address] Phone [phone] Care Team Providers Care V Groove Cutter Name Role Phone Deborah Galarza MD Primary Care Provider [phone] Encounter Details Date Type Department Care Team (Late st Contact Info) Description 05/21/2024 Orders Only Neurology [address] 35 [...] 50 MCG/ACT Nasal Suspension (Flonase) Administer 1 [place] into nostril in the morning. 4 Active [...] glass of water daily 4 Active Nystatin 274973 UNIT/GM External Cream Apply topically to affected [...] Description 11/11/2024 1:15 PM EDT Imaging Radiology [facility] 1st [facility], [place] [address] [place] [phone] 01/05/2025 2:20 PM EDT Telemedicine Neurology, [place] Adelaida Azevedo [address] [place] [address] Mariano Mccarty MD [address] [place] [address] Cart, Telemed [facility] [address] [facility] [place] [address] Health Maintenance Due Date Last Done Comments Depression Screening 1952 Zoster Vaccines (2 of 3) 11/06/2011 09/11/2011 *BISPHONATE OR OTHER ACCEPTABLE MEDICATION NEEDED FOR OSTEOPOROSIS (REFER TO SMARTSET #1146) 04/21/2021 COVID-19 Vaccine ( season) 2023 05/21/2020, 04/30/2020 CKD HGB USE SMARTSET 86537 11/14/202411/14, 05/02/2023, 10/22/2022, Additional history exists Albumin/Creatinine Ratio 11/19/2024 024, 10/25/2022, 08/29/2021 Colonoscopy 11/23/2024 11/24/2019, 0903/2019, 12/01/2018, Additional history exists Influenza Vaccine (FLU shot) (Season Ended) 2024 01/24/2010, 01/11/2009 GFR 12/11/2024 06/10/2024, 10/24, 05/02/2023, Additional history exists CKD PHOS USE SMARTSET 58212 06/10/202505/23, 12/14/2022, 10/22/2022, Additional history exists TSH 06/10/2025 06/10/2024, 10/24, 06/12/2023, Additional history exists DXA Scan 08/04/2025 08/05/2023, 10/25, 10/23/2017, Additional history exists DTap/Tdap Vaccines (2 - Td or Tdap) 11/14/2033 11/15/2023, 01/24/2010 Pneumococcal Vaccine: 50+ Years Completed 10/04/2015, 09/18/2013 RETIRED - COLONOSCOPY-EVERY 5 YRS AGES 18-100 Discontinued 11/24/2019, 11/24/2019, 12/01/2018, Additional history exists VITAMIN D LEVEL ONCE IN A LIFETIME-USE SMARTSET# 22026 Completed 12/14/2022, 04/19/2021, 09/16/2014, Additional history exists [...] this encounter Medical Devices Implanted Type Area Skull Chopper Device Identifier Shelf Expiration Date Model / Serial / Lot Lens Intraoc 24.0 - [id number] - [id number] Implanted:Qty: 1 on 04/17/2022 by Leonel Guaman MD at OR [facility] Left: Eye [employer] LOMB 07/22/2026 [id number] / [id number] / Lens Intraoc 24.5 - [id number] - [id number] Implanted:Qty: 1 on 05/01/2022 by Leonel Guaman MD at OR [facility] Right: Eye [employer]CH [employer]OMB 09/21/2026 [id number] / [id number] / [id number] documented as of this encounter Procedures Procedure [...] [facility] contracted radiologist. Sheri Bryson DO DAVILA MRI-MRA Final Result documented in this encounter [...] Power of Attor robyn? No Care Teams V Groove Cutter Relationship Specialty Start Date End Date Deborah Galarza MD [address] [facility] [place] [address] PCP - General Internal Medicine 05/09/12 documented as of this encounter
--- OUTSIDE RECORDS SUMMARY | 2024-06-30 04:17 | External Medical Summary | Summary of Care ---
Author Name Unknown Organization [facility] Address [address] [place] [address] Phone [phone] Care Team Providers Care Employment Security Officer Name Role Phone Deborah Galarza MD Primary Care Provider [phone] Reason for Visit * Reason Onset Date Comments Other 06/23/2024 Image request Encounter Details Date Type Department Care Team (Late st Contact Info) Description 06/23/2024 Telephone [facility] [address] [place], [place] [id number] Specified, Jona No Resource [address] [place] [address] Other (Image request) Allergies Active [...] 50 MCG/ACT Nasal Suspension (Flonase) Administer 1 [place] into nostril in the morning. 4 Active [...] glass of water daily 4 Active Nystatin 328849 UNIT/GM External Cream Apply topically to affected [...] 12/18/2017:Stage IA(pT1c, pN0(sn), cM0, G2, ER: Positive, [place]: Positive, HER2: Negative) - Signed by Prosper [...] 06/23/2024 3:22 PM EDT Outgoing call to [facility] requesting images for MRI Brain from 05/21/2024, CT ABD Pelvis from 05/19/2024, CR, OT Chest Xray from 05/18/2024, CT Angiogram Neck from 05/18/2024, CT Angiogram Head from 05/18/2024, Spoke with Gurpreet who stated they are pushing images over now to [facility]. documented in this encounter Plan of Treatment Upcoming Encounters Date Type Department Care Team (Late st Contact Info) Description 11/11/2024 1:15 PM EDT Imaging Radiology [facility] 1st [facility], [place] [address] [place] [phone] 01/05/2025 2:20 PM EDT Telemedicine Neurology, Adelaida Garcia Dr [address] [place] [address] Mariano Mccarty MD [address] [place] [phone] Cart, Telemed [facility] [address] [place] [address] Health Maintenance Due Date Last Done Comments Depression Screening 1952 Zoster Vaccines (2 of 3) 11/06/2011 09/11/2011 *BISPHONATE OR OTHER ACCEPTABLE MEDICATION NEEDED FOR OSTEOPOROSIS (REFER TO SMARTSET #1146) 04/21/2021 COVID-19 Vaccine (3 - season) 2023 05/21/2020, 04/30/2020 CKD HGB USE SMARTSET 81690 11/14/202411/14, 05/02/2023, 10/22/2022, Additional history exists Albumin/Creatinine Ratio 11/19/2024 024, 10/25/2022, 08/29/2021 Colonoscopy 11/23/2024 11/24/2019, 03/2019, 12/01/2018, Additional history exists Influenza Vaccine (FLU shot) (Season Ended) 2024 01/24/2010, 01/11/2009 GFR 12/11/2024 06/10/2024, 10/24, 05/02/2023, Additional history exists CKD PHOS USE SMARTSET 66836 06/10/202505/23, 12/14/2022, 10/22/2022, Additional history exists TSH 06/10/2025 06/10/2024, 10/24, 06/12/2023, Additional history exists DXA Scan 08/04/2025 08/05/2023, 10/25, 10/23/2017, Additional history exists DTap/Tdap Vaccines (2 - Td or Tdap) 11/14/2033 11/15/2023, 01/24/2010 Pneumococcal Vaccine: 50+ Years Completed 10/04/2015, 09/18/2013 RETIRED - COLONOSCOPY-EVERY 5 YRS AGES 18-100 Discontinued 11/24/2019, 11/24/2019, 12/01/2018, Additional history exists VITAMIN D LEVEL ONCE IN A LIFETIME-USE SMARTSET# 17278 Completed 12/14/2022, 04/19/2021, 09/16/2014, Additional history exists [...] this encounter Medical Devices Implanted Type Area Furnace Firer Device Identifier Shelf Expiration Date Model / Serial / Lot Lens Intraoc 24.0 - [id number] - [id number] Implanted:Qty: 1 on 04/17/2022 by Leonel Guaman MD at OR [facility] Left: Eye [employer]CH [employer] LOMB 07/22/2026 [id number] / [id number] / Lens Intraoc 24.5 - [id number] - [id number] Implanted:Qty: 1 on 05/01/2022 by Leonel Guaman MD at OR [facility] Right: Eye [employer]OMB 09/21/2026 [id number] / [id number] / [id number] documented as of this encounter Advance Directives [...] Power of Attor robyn? No Care Teams Employment Security Officer Relationship Specialty Start Date End Date Deborah Galarza MD [address] [place] [address], [place] [address] PCP - General Internal Medicine 05/09/12 documented as of this encounter
--- OUTSIDE RECORDS SUMMARY | 2024-06-30 04:17 | External Medical Summary | Summary of Care ---
Author Name Unknown Organization [facility] Address [address] [place] [address] Phone [phone] Care Team Providers Care Public Records Officer Name Role Phone Deborah Galarza MD Primary Care Provider [phone] Reason for Visit * Reason Onset Date Comments Other 06/23/2024 Image request Encounter Details Date Type Department Care Team (Late st Contact Info) Description 06/23/2024 Telephone [facility] [address] [place], [place] [phone] Specified, Jona No Resource [address] [place] [address] Other (Image request) Allergies Active [...] 50 MCG/ACT Nasal Suspension (Flonase) Administer 1 [place] into nostril in the morning. 4 Active [...] glass of water daily 4 Active Nystatin 398701 UNIT/GM External Cream Apply topically to affected [...] 06/23/2024 3:22 PM EDT Outgoing call to [facility] requesting images for MRI Brain from 05/21/2024, CT ABD Pelvis from 05/19/2024, CR, OT Chest Xray from 05/18/2024, CT Angiogram Neck from 05/18/2024, CT Angiogram Head from 05/18/2024, Spoke with Gurpreet who stated they are pushing images over now to [facility]. documented in this encounter Plan of Treatment Upcoming Encounters Date Type Department Care Team (Late st Contact Info) Description 11/11/2024 1:15 PM EDT Imaging Radiology [facility] 1st [facility] [place] [address] [place] [phone] 01/05/2025 2:20 PM EDT Telemedicine Neurology, Adelaida Garcia Dr [address] [place] [address] Mariano Mccarty MD [address] [place] [phone] Cart, Telemed [facility] [address] [place] [address] Health Maintenance Due Date Last Done Comments Depression Screening 1952 Zoster Vaccines (2 of 3) 11/06/2011 09/11/2011 *BISPHONATE OR OTHER ACCEPTABLE MEDICATION NEEDED FOR OSTEOPOROSIS (REFER TO SMARTSET #1146) 04/21/2021 COVID-19 Vaccine (3 - season) 2023 05/21/2020, 04/30/2020 CKD HGB USE SMARTSET 16802 11/14/202411/14, 05/02/2023, 10/22/2022, Additional history exists Albumin/Creatinine Ratio 11/19/2024 024, 10/25/2022, 08/29/2021 Colonoscopy 11/23/2024 11/24/2019, 03/2019, 12/01/2018, Additional history exists Influenza Vaccine (FLU shot) (Season Ended) 2024 01/24/2010, 01/11/2009 GFR 12/11/2024 06/10/2024, 10/24, 05/02/2023, Additional history exists CKD PHOS USE SMARTSET 00833 06/10/202505/23, 12/14/2022, 10/22/2022, Additional history exists TSH 06/10/2025 06/10/2024, 10/24, 06/12/2023, Additional history exists DXA Scan 08/04/2025 08/05/2023, 10/25, 10/23/2017, Additional history exists DTap/Tdap Vaccines (2 - Td or Tdap) 11/14/2033 11/15/2023, 01/24/2010 Pneumococcal Vaccine: 50+ Years Completed 10/04/2015, 09/18/2013 RETIRED - COLONOSCOPY-EVERY 5 YRS AGES 18-100 Discontinued 11/24/2019, 11/24/2019, 12/01/2018, Additional history exists VITAMIN D LEVEL ONCE IN A LIFETIME-USE SMARTSET# 48425 Completed 12/14/2022, 04/19/2021, 09/16/2014, Additional history exists [...] encounter Medical Devices Implanted Type Area Director Peoplesoft Device Identifier Shelf Expiration Date Model / Serial / Lot Lens Intraoc 24.0 - [id number] - [id number] Implanted:Qty: 1 on 04/17/2022 by Leonel Guaman MD at OR [facility] Left: Eye BAUSCH [employer] LOMB 07/22/2026 [id number] / [id number] / Lens Intraoc 24.5 - [id number] - [id number] Implanted:Qty: 1 on 05/01/2022 by Leonel Guaman MD at OR [facility] Right: Eye [employer]USCH [employer] LOMB 09/21/2026 [id number] / [id number] / [id number] documented as of this encounter Advance Directives [...] Power of Attor robyn? No Care Teams Public Records Officer Relationship Specialty Start Date End Date Deborah Galarza MD [address] [place] [address], [place] [address] PCP - General Internal Medicine 05/09/12 documented as of this encounter
--- OUTSIDE RECORDS SUMMARY | 2024-06-30 04:17 | External Medical Summary | Summary of Care ---
Author Name Unknown Organization [facility] Address [address] [place] [address] Phone [phone] Care Team Providers Care Account Administrator Name Role Phone Deborah Galarza MD Primary Care Provider [phone] Encounter Details Date Type Department Care Team (Latest Contact Info) Description 05/19/2024 12:05 AM EST - 05/19/2024 1:34 AM EST Hospital Encounter Radiology Film File [address] [place] [address] Discharge Disposition: Home - Self [...] 50 MCG/ACT Nasal Suspension (Flonase) Administer 1 [place] into nostril in the morning. 4 Active [...] glass of water daily 4 Active Nystatin 040564 UNIT/GM External Cream Apply topically to affected [...] 12/18/2017:Stage IA(pT1c, pN0(sn), cM0, G2, ER: Positive, MD: Positive, HER2: Negative) - Signed by Prosper [...] Description 11/11/2024 1:15 PM EDT Imaging Radiology [address] [facility] [address] [place] [phone] 01/05/2025 2:20 PM EDT Telemedicine Neurology, [place] Adelaida Azevedo [address] [place] [address] Mariano Mccarty MD [address] [place] [address] Cart, Telemed [facility] [address] [place] [address] Health Maintenance Due Date Last Done Comments Depression Screening 1952 Zoster Vaccines (2 of 3) 11/06/2011 09/11/2011 *BISPHONATE OR OTHER ACCEPTABLE MEDICATION NEEDED FOR OSTEOPOROSIS (REFER TO SMARTSET #1146) 04/21/2021 COVID-19 Vaccine ( season) 2023 05/21/2020, 04/30/2020 CKD HGB USE SMARTSET 60736 11/14/202411/14, 05/02/2023, 10/22/2022, Additional history exists Albumin/Creatinine Ratio 11/19/2024 024, 10/25/2022, 08/29/2021 Colonoscopy 11/23/2024 11/24/2019, 03/2019, 12/01/2018, Additional history exists Influenza Vaccine (FLU shot) (Season Ended) 2024 01/24/2010, 01/11/2009 GFR 12/11/2024 06/10/2024, 10/24, 05/02/2023, Additional history exists CKD PHOS USE SMARTSET 15705 06/10/202505/23, 12/14/2022, 10/22/2022, Additional history exists TSH 06/10/2025 06/10/2024, 10/24, 06/12/2023, Additional history exists DXA Scan 08/04/2025 08/05/2023, 10/25, 10/23/2017, Additional history exists DTap/Tdap Vaccines (2 - Td or Tdap) 11/14/2033 11/15/2023, 01/24/2010 Pneumococcal Vaccine: 50+ Years Completed 10/04/2015, 09/18/2013 RETIRED - COLONOSCOPY-EVERY 5 YRS AGES 18-100 Discontinued 11/24/2019, 11/24/2019, 12/01/2018, Additional history exists VITAMIN D LEVEL ONCE IN A LIFETIME-USE SMARTSET# 08875 Completed 12/14/2022, 04/19/2021, 09/16/2014, Additional history exists [...] this encounter Medical Devices Implanted Type Area Bill Distributor Device Identifier Shelf Expiration Date Model / Serial / Lot Lens Intraoc 24.0 - [id number] - [id number] Implanted:Qty: 1 on 04/17/2022 by Leonel Guaman MD at OR [facility] Left: Eye [employer]OM[employer] 07/22/2026 [id number] / [id number] / Lens Intraoc 24.5 - [id number] - [id number] Implanted:Qty: 1 on 05/01/2022 by Leonel Guaman MD at OR [facility] Right: Eye [employer]OM[employer] 09/21/2026 [id number] / [id number] / [id number] documented as of this encounter Procedures Procedure [...] [facility]. Sherisalome Bryson RAD CT Final Result documented in this encounter [...] Power of Attor robyn? No Care Teams Account Administrator Relationship Specialty Start Date End Date Deborah Galarza MD [address] [facility] [place] [address] PCP - General Internal Medicine 05/09/12 documented as of this encounter
--- OUTSIDE RECORDS SUMMARY | 2024-06-30 04:17 | External Medical Summary | Summary of Care ---
Author Name Unknown Organization [facility] Address [address] [place] [address] Phone [phone] Care Team Providers Care Instrumentation And Control Technician Name Role Phone Deborah Galarza MD Primary Care Provider [phone] Reason for Visit * Reason Onset Date Comments Test Results 06/15/2024 Encounter Details Date Type Department Care Team (Late st Contact Info) Description 06/15/2024 Telephone General Internal Medicine [facility] [place] [address] [facility] [place] [address] Deborah Galarza MD [address] [place] [address] Test Results Allergies Active Allergy Reactions Criticality Noted Date Comments Prednisone 05/02/2023 Nausea, lethargy, states she felt awful documented as of this encounter (statuses as of 06/15/2024) Medications Q-10 CO-ENZYME 10 MG OR CAPS [...] 50 MCG/ACT Nasal Suspension (Flonase) Administer 1 [place] into nostril in the morning. 4 Active [...] glass of water daily 4 Active Nystatin 065189 UNIT/GM External Cream Apply topically to affected area 2 times a day. Apply to underneath both breasts twice daily 30 g 4 Active Donepezil HCl 5 MG Oral Tablet (Aricept)Indicati ons:Dementia of the Alzheimer's type, with late onset, uncomplicated (HCC) Take 1 Tablet by mouth in the morning. Take with largest meal of the day. Start taking 1 tablet per day for one month. After one month increase to 2 tablets daily.. 30 Tablet 3 5 Active Levothyroxine Sodium 75 MCG Oral Tablet (Levoxyl)Indicati ons:Impaired fasting glucose Take 1 Tablet by mouth in the morning. (at least 30 min prior to breakfast or other meds). 60 Tablet 5 Active documented as of this encounter (statuses as of 06/15/2024) Active Problems Problem Noted Date Diagnosed Date [...] 12/18/2017:Stage IA(pT1c, pN0(sn), cM0, G2, ER: Positive, [place]: Positive, HER2: Negative) - Signed by Prosper Daley MD on 12/18/2017 Dyslipidemia, goal LDL below 130 09/11/2011 Acquired hypothyroidism 05/23/2005 LFTs abnormal 11/10/2003 documented as of this encounter (statuses as of 06/15/2024) Resolved Problems Problem Noted Date Diagnosed Date Resolved Date Prediabetes 11/05/2022 12/05/2023 Overview: Per Prediabetes protocol Generalized weakness 09/11/2021 022 Dyslipidemia, goal to be determined 03/09/2009 09/11/2011 Overview (03/09/2009): Per Lipid Taxonomy. Other allergic rhinitis 05/23/200509/23 Overview (01/15/2017): ICD-10 update of inactive term documented as of this encounter (statuses as of 06/15/2024) Immunizations Name Administration Dates Next Due COVID-19 [...] encounter Miscellaneous Notes * Telephone Encounter - Shantell Whelan LPN - 06/15/2024 11:26 AM EDT Patient advised of results and recommendations. * Telephone Encounter - Shantell Whelan LPN - 06/15/2024 11:26 AM EDT ----- Message from Deborah Galarza MD sent at 06/15/2024 8:34 AM EDT ----- Tsh low with high free t4 , which means current thyroid medicine dose high, need to decrease levothyroxine dose to 75 mcg and recheck TSH in 6 weeks. Ordered Calcium slightly high , PTH (parathyroid hormone level ) and phos normal - less concerning . Make sure no calcium and tums Vitamin B and folic acid normal . Confirmatory syphilis test negative so initial one was falsely positive Noticed that she was seen by neurologist - follow as directed . Pt has dementia so better to call to make sure documented in this encounter Plan of Treatment Upcoming Encounters Date Type Department Care Team (Late st Contact Info) Description 11/11/2024 1:15 PM EDT Imaging Radiology [facility] 1st [facility] [address] [place] [phone] 01/05/2025 2:20 PM EDT Telemedicine Neurology, [place] Adelaida Azevedo [address] [place] [address] [place] [address] Mariano Mccarty MD [address] [place] [address] Cart, Telemed [facility] [address] [facility] [place], [place] [address] Health Maintenance Due Date Last Done Comments Zoster Vaccines (2 of 3) 11/06/2011 09/11/2011 *BISPHONATE OR OTHER ACCEPTABLE MEDICATION NEEDED FOR OSTEOPOROSIS (REFER TO SMARTSET #1146) 04/21/2021 Depression Screening 04/09/2023 04/09/2022 COVID-19 Vaccine ( season) 2023 05/21/2020, 04/30/2020 Influenza Vaccine (FLU shot) (#1) 2023 01/24/2010, 01/11/2009 CKD HGB USE SMARTSET 46751 11/14/202411/14, 05/02/2023, 10/22/2022, Additional history exists Albumin/Creatinine Ratio 11/19/2024 024, 10/25/2022, 08/29/2021 Colonoscopy 11/23/2024 11/24/2019, 03/2019, 12/01/2018, Additional history exists GFR 12/11/2024 06/10/2024, 10/24, 05/02/2023, Additional history exists CKD PHOS USE SMARTSET 54054 06/10/202505/23, 12/14/2022, 10/22/2022, Additional history exists TSH 06/10/2025 06/10/2024, 10/24, 06/12/2023, Additional history exists DXA Scan 08/04/2025 08/05/2023, 10/25, 10/23/2017, Additional history exists DTap/Tdap Vaccines (2 - Td or Tdap) 11/14/2033 11/15/2023, 01/24/2010 Pneumococcal Vaccine: 50+ Years Completed 10/04/2015, 09/18/2013 RETIRED - COLONOSCOPY-EVERY 5 YRS AGES 18-100 Discontinued 11/24/2019, 11/24/2019, 12/01/2018, Additional history exists VITAMIN D LEVEL ONCE IN A LIFETIME-USE SMARTSET# 93636 Completed 12/14/2022, 04/19/2021, 09/16/2014, Additional history exists [...] this encounter Medical Devices Implanted Type Area Instruction Dean Device Identifier Shelf Expiration Date Model / Serial / Lot Lens Intraoc 24.0 - [id number] - [id number] Implanted:Qty: 1 on 04/17/2022 by Leonel Guaman MD at OR [facility] Left: Eye [employer]USCH [employer] LOMB 07/22/2026 [id number] / [id number] / Lens Intraoc 24.5 - [id number] - [id number] Implanted:Qty: 1 on 05/01/2022 by Leonel Guaman MD at OR [facility] Right: Eye BAUSCH [employer] LOMB 09/21/2026 [id number] / [id number] documented as of this encounter Advance Directives [...] Power of Attor robyn? No Care Teams Instrumentation And Control Technician Relationship Specialty Start Date End Date Deborah Galarza MD [address] [place] [address], [place] [address] PCP - General Internal Medicine 05/09/12 documented as of this encounter
--- OUTSIDE RECORDS SUMMARY | 2024-06-30 04:17 | External Medical Summary | Summary of Care ---
Author Name Unknown Organization [facility] Address [address] [facility] [place] [address] Phone [phone] Care Team Providers Care Record Producer Name Role Phone Deborah Galarza MD Primary Care Provider [phone] Encounter Details Date Type Department Care Team [...] 50 MCG/ACT Nasal Suspension (Flonase) Administer 1 [place] into nostril in the morning. 4 Active [...] glass of water daily 4 Active Nystatin 746171 UNIT/GM External Cream Apply topically to affected [...] 12/18/2017:Stage IA(pT1c, pN0(sn), cM0, G2, ER: Positive, NV: Positive, HER2: Negative) - Signed by Prosper [...] Description 11/11/2024 1:15 PM EDT Imaging Radiology [facility] 1st [facility], [place] [address] [place] [phone] 01/05/2025 2:20 PM EDT Telemedicine Neurology, [place] Adelaida Azeveod [address] [place] [address] Mariano Mccarty MD [address] [place] [address] Cart, Telemed [facility] [address] [facility] [place] [address] Health Maintenance Due Date Last Done Comments Depression Screening 1952 Zoster Vaccines (2 of 3) 11/06/2011 09/11/2011 *BISPHONATE OR OTHER ACCEPTABLE MEDICATION NEEDED FOR OSTEOPOROSIS (REFER TO SMARTSET #1146) 04/21/2021 COVID-19 Vaccine ( season) 2023 05/21/2020, 04/30/2020 CKD HGB USE SMARTSET 48229 11/14/202411/14, 05/02/2023, 10/22/2022, Additional history exists Albumin/Creatinine Ratio 11/19/2024 024, 10/25/2022, 08/29/2021 Colonoscopy 11/23/2024 11/24/2019, 0903/2019, 12/01/2018, Additional history exists Influenza Vaccine (FLU shot) (Season Ended) 2024 01/24/2010, 01/11/2009 GFR 12/11/2024 06/10/2024, 10/24, 05/02/2023, Additional history exists CKD PHOS USE SMARTSET 06975 06/10/202505/23, 12/14/2022, 10/22/2022, Additional history exists TSH 06/10/2025 06/10/2024, 10/24, 06/12/2023, Additional history exists DXA Scan 08/04/2025 08/05/2023, 10/25, 10/23/2017, Additional history exists DTap/Tdap Vaccines (2 - Td or Tdap) 11/14/2033 11/15/2023, 01/24/2010 Pneumococcal Vaccine: 50+ Years Completed 10/04/2015, 09/18/2013 RETIRED - COLONOSCOPY-EVERY 5 YRS AGES 18-100 Discontinued 11/24/2019, 11/24/2019, 12/01/2018, Additional history exists VITAMIN D LEVEL ONCE IN A LIFETIME-USE SMARTSET# [id number] Completed 12/14/2022, 04/19/2021, 09/16/2014, Additional history exists [...] this encounter Medical Devices Implanted Type Area [place] Device Identifier Shelf Expiration Date Model / Serial / Lot Lens Intraoc 24.0 - [id number] - [id number] Implanted:Qty: 1 on 04/17/2022 by Leonel Guaman MD at OR [facility] Left: Eye BAUSCH & LOMB 07/22/2026 [id number] / [id number] / Lens Intraoc 24.5 - [id number] - [id number] Implanted:Qty: 1 on 05/01/2022 by Leonel Guaman MD at OR [facility] Right: Eye BAUSCH & LOMB 09/21/2026 [id number] / [id number] / [id number] documented as of this encounter Procedures Procedure [...] Power of Attor robyn? No Care Teams Record Producer Relationship Specialty Start Date End Date Deborah Galarza MD [address] [facility] [place] [address] PCP - General Internal Medicine 05/09/12 documented as of this encounter
--- OUTSIDE RECORDS SUMMARY | 2024-06-30 04:17 | External Medical Summary | Summary of Care ---
Author Name Unknown Organization [facility] Address [address] [facility] [place] [address] Phone [phone] Care Team Providers Care Manager State Name Role Phone Deborah Galarza MD Primary Care Provider [phone] Encounter Details Date Type Department Care Team (Late st Contact Info) Description 05/19/2024 Orders Only Neurology [address] [place] [phone] Sheri Bryson DO [address] [place] [address] Allergies [...] 50 MCG/ACT Nasal Suspension (Flonase) Administer 1 [place] into nostril in the morning. 4 Active [...] glass of water daily 4 Active Nystatin 594677 UNIT/GM External Cream Apply topically to affected [...] 1:15 PM EDT Imaging Radiology [facility] 1st [facility], [place] [address] [place] [phone] 01/05/2025 2:20 PM EDT Telemedicine Neurology, [place] Adelaida Azevedo [address] [place] [address] Mariano Mccarty MD [address] [place] [address] Cart, Telemed [facility] [address] [facility] [place] [address] Health Maintenance Due Date Last Done Comments Depression Screening 1952 Zoster Vaccines (2 of 3) 11/06/2011 09/11/2011 *BISPHONATE OR OTHER ACCEPTABLE MEDICATION NEEDED FOR OSTEOPOROSIS (REFER TO SMARTSET #1146) 04/21/2021 COVID-19 Vaccine ( season) 2023 05/21/2020, 04/30/2020 CKD HGB USE SMARTSET 68392 11/14/202411/14, 05/02/2023, 10/22/2022, Additional history exists Albumin/Creatinine Ratio 11/19/2024 024, 10/25/2022, 08/29/2021 Colonoscopy 11/23/2024 11/24/2019, 0903/2019, 12/01/2018, Additional history exists Influenza Vaccine (FLU shot) (Season Ended) 2024 01/24/2010, 01/11/2009 GFR 12/11/2024 06/10/2024, 10/24, 05/02/2023, Additional history exists CKD PHOS USE SMARTSET 73406 06/10/202505/23, 12/14/2022, 10/22/2022, Additional history exists TSH 06/10/2025 06/10/2024, 10/24, 06/12/2023, Additional history exists DXA Scan 08/04/2025 08/05/2023, 10/25, 10/23/2017, Additional history exists DTap/Tdap Vaccines (2 - Td or Tdap) 11/14/2033 11/15/2023, 01/24/2010 Pneumococcal Vaccine: 50+ Years Completed 10/04/2015, 09/18/2013 RETIRED - COLONOSCOPY-EVERY 5 YRS AGES 18-100 Discontinued 11/24/2019, 11/24/2019, 12/01/2018, Additional history exists VITAMIN D LEVEL ONCE IN A LIFETIME-USE SMARTSET# [id number] Completed 12/14/2022, 04/19/2021, 09/16/2014, Additional history exists [...] this encounter Medical Devices Implanted Type Area Architecture Drafter Device Identifier Shelf Expiration Date Model / Serial / Lot Lens Intraoc 24.0 - [id number] - [id number] Implanted:Qty: 1 on 04/17/2022 by Leonel Guaman MD at OR [facility] Left: Eye BAUSCH & LOMB 07/22/2026 [id number] / [id number] / Lens Intraoc 24.5 - [id number] - [id number] Implanted:Qty: 1 on 05/01/2022 by Leonel Guaman MD at OR [facility] Right: Eye BAUSCH & LOMB 09/21/2026 [id number] / [id number] / [id number] documented as of this encounter Procedures Procedure [...] of Attor robyn? No Care Teams Manager State Relationship Specialty Start Date End Date Deborah Galarza MD [address] [facility] [place] [address] PCP - General Internal Medicine 05/09/12 documented as of this encounter
--- OUTSIDE RECORDS SUMMARY | 2024-06-30 04:18 | External Medical Summary ---
Author Name Unknown Address Unknown Organization : Laboratory Report Ordering Provider Test Date Status ASIA SINCLAIRFE 06/10/2024 11:55:09 Final Observation Date Value Abnormality Reference (Units ) Status FTA - ABS 06/10/2024 11:55:09 Nonreactive Nonreact alysha Final The FTA-ABS is a treponemal assay that is intended to
be used with other tests (e.g., RPR) as part of a
diagnostic algorithm for syphilis. The preferred
treponemal-specific tests for confirmation of a
reactive RPR are Treponema pallidum Particle
Agglutination (TP-PA) or other treponemal antibody
assays. From Sexually Transmitted Infections Treatment
Guidelines,2020 MMWR Recomm Rep 2020;70 (No. RR-4):
pg.39.

Test Performed at:
[facility]
[address] [place] [address]
Donavan Ortega M.D., Ph.D.,Director of Laboratories Performing Location
--- OUTSIDE RECORDS SUMMARY | 2024-06-30 04:18 | External Medical Summary | Summary of Care ---
Author Name Unknown Organization [facility] Address [address] [place] [address] Phone [phone] Care Team Providers Care Dining Room Cashier Name Role Phone Deborah Galarza MD Primary Care Provider [phone] Encounter Details Date Type Department Care Team (Late st Contact Info) Description 06/11/2024 Telephone Neurology, [place] [address] [place] [address] Sheri Bryson DO [address] [place] [address] Allergies Active Allergy Reactions Criticality Noted Date Comments Prednisone 05/02/2023 Nausea, lethargy, states she felt awful documented as of this encounter (statuses as of 06/12/2024) Medications Q-10 CO-ENZYME 10 MG OR CAPS [...] 50 MCG/ACT Nasal Suspension (Flonase) Administer 1 [place] into nostril in the morning. 4 Active [...] glass of water daily 4 Active Nystatin 648814 UNIT/GM External Cream Apply topically to affected area 2 times a day. Apply to underneath both breasts twice daily 30 g 4 Active Levothyroxine Sodium 100 MCG Oral Tablet (Levoxyl)Indicatio ns:Acquired hypothyroidism TAKE 1 TABLET BY MOUTH IN THE MORNING 30 MINUTES BEFORE BREAKFAST OR OTHER MEDS. 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 Other allergic rhinitis 05/23/200509/23 Overview (01/15/2017): ICD-10 update of inactive term documented as of this encounter (statuses as of 06/12/2024) Immunizations Name Administration Dates Next Due COVID-19 [...] encounter Miscellaneous Notes * Telephone Encounter - Alivia Guzman MED ASSIST - 06/11/2024 4:49 PM EDT Medical Release Form was successfully completed and faxed to the [facility] for [facility] of the [facility]. DION Moran documented in this encounter Plan of Treatment Upcoming Encounters Date Type Department Care Team (Late st Contact Info) Description 11/11/2024 1:15 PM EDT Imaging Radiology [address], [place] [address] [place] [phone] 12/22/2024 3:00 PM EDT Office Visit Neurology, [place] Adelaida Azevedo [address] [place] [address] [place] [address] Paul Ferrera, PAPatricia [address] [facility] [address] [place] [address] Health Maintenance Due Date Last Done Comments Zoster Vaccines (2 of 3) 11/06/2011 09/11/2011 *BISPHONATE OR OTHER ACCEPTABLE MEDICATION NEEDED FOR OSTEOPOROSIS (REFER TO SMARTSET #1146) 04/21/2021 Depression Screening 04/09/2023 04/09/2022 COVID-19 Vaccine ( season) 2023 05/21/2020, 04/30/2020 Influenza Vaccine (FLU shot) (#1) 2023 01/24/2010, 01/11/2009 CKD HGB USE SMARTSET 01236 11/14/202411/14, 05/02/2023, 10/22/2022, Additional history exists Albumin/Creatinine Ratio 11/19/2024 024, 10/25/2022, 08/29/2021 Colonoscopy 11/23/2024 11/24/2019, 0903/2019, 12/01/2018, Additional history exists GFR 12/11/2024 06/10/2024, 10/24, 05/02/2023, Additional history exists CKD PHOS USE SMARTSET 10999 06/10/202505/23, 12/14/2022, 10/22/2022, Additional history exists TSH 06/10/2025 06/10/2024, 10/24, 06/12/2023, Additional history exists DXA Scan 08/04/2025 08/05/2023, 10/25, 10/23/2017, Additional history exists DTap/Tdap Vaccines (2 - Td or Tdap) 11/14/2033 11/15/2023, 01/24/2010 Pneumococcal Vaccine: 50+ Years Completed 10/04/2015, 09/18/2013 RETIRED - COLONOSCOPY-EVERY 5 YRS AGES 18-100 Discontinued 11/24/2019, 11/24/2019, 12/01/2018, Additional history exists VITAMIN D LEVEL ONCE IN A LIFETIME-USE SMARTSET# [id number] Completed 12/14/2022, 04/19/2021, 09/16/2014, Additional history exists [...] this encounter Medical Devices Implanted Type Area Milk Drier Device Identifier Shelf Expiration Date Model / Serial / Lot Lens Intraoc 24.0 - [id number] - [id number] Implanted:Qty: 1 on 04/17/2022 by Leonel Guaman MD at OR [facility] Left: Eye BAUSCH & LOMB 07/22/2026 [id number] / [id number] / Lens Intraoc 24.5 - [id number] - [id number] Implanted:Qty: 1 on 05/01/2022 by Leonel Guaman MD at OR [facility] Right: Eye BAUSCH & LOMB 09/21/2026 [id number] / [id number] / [id number] documented as of this encounter Advance Directives [...] Power of Attor robyn? No Care Teams Dining Room Cashier Relationship Specialty Start Date End Date Deborah Galarza MD [address] [place] [address] PCP - General Internal Medicine 05/09/12 documented as of this encounter
--- OUTSIDE RECORDS SUMMARY | 2024-06-30 04:18 | External Medical Summary | Summary of Care ---
Author Name Unknown Organization [facility] Address [address] [place] [address] Phone [phone] Care Team Providers Care Beam Racker Name Role Phone Deborah Galarza MD Primary Care Provider [phone] Reason for Referral * Evaluate & Treat - Unlimited Visits (Within 30 days (routine)) - Pending Review Specialty Diagnoses / Procedures Referred By Contlashay t Referred To Contact Neurology Diagnoses Dementia, unspecified dementia severity, unspecified dementia type, unspecified whether behavioral, psychotic, or mood disturbance or anxiety (HCC) Deborah Galarza MD [address] [facility] [address] [place] [place] [address] Phone: tel: fax: Referral ID Status Reason Start Date Expiration Date Visits Requested Visits Authorized [id number] Pending Review Specialty Services Required 06/10/[phone] Question Answer Referral Priority Within 30 days (routine) Where should this appointment be scheduled? [facility] Is this referral being placed for insurance purposes ONLY No, patient needs appointment [facility] NEUROLOGY REFERRAL QUESTIONS Memory/Cognition Comments New onset dementia Reason for Visit * Reason Onset Date Comments Hospital Follow-Up Hospital Follow-Up 06/10/2024 Encounter Details Date Type Department Care Team (Late st Contact Info) Description 06/10/2024 10:00 AM EDT Office Visit General Internal Medicine [place] [address] [place] [address] Deborah Galarza MD [address] [facility] [place] [address] Complicated UTI (urinary tract infection)*; Hypercalcemia; Hospital discharge follow-up; Dementia, unspecified dementia severity, unspecified dementia type, unspecified whether behavioral, psychotic, or mood disturbance or anxiety (HCC); Chronic kidney disease, stage 3a (HCC); Synovial cyst of hand; Acquired hypothyroidism; Senile osteoporosis; Malignant neoplasm of upper-outer quadrant of left breast in female, estrogen receptor positive (HCC); Pain of left upper arm; LFTs abnormal; Dyslipidemia, goal LDL below 130; Positive 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 4 Active [...] glass of water daily 4 Active Nystatin 086015 UNIT/GM External Cream Apply topically to affected area 2 times a day. Apply to underneath both breasts twice daily 30 g 4 Active Levothyroxine Sodium 100 MCG Oral Tablet (Levoxyl)Indicatio ns:Acquired hypothyroidism TAKE 1 TABLET BY MOUTH IN THE MORNING 30 MINUTES BEFORE BREAKFAST OR OTHER MEDS. 30 Tablet 5 Active documented as of this encounter (statuses as of 06/10/2024) Active Problems Problem Noted Date Diagnosed Date Chronic kidney disease, stage 3a 10/31/2020 Overview: Per CKD protocol Senile osteoporosis 04/17/2019 Pain of left upper arm 10/15/2018 Synovial cyst of hand 10/15/2018 Malignant neoplasm of upper- outer quadrant of left breast in female, estrogen receptor positive 11/13/2017 Cancer Staging:Clinical: Unsigned Pathologic stage from 12/18/2017:Stage IA(pT1c, pN0(sn), cM0, G2, ER: Positive, TN: Positive, HER2: Negative) - Signed by Prosper Daley MD on 12/18/2017 Dyslipidemia, goal LDL below 130 09/11/2011 Acquired hypothyroidism 05/23/2005 LFTs abnormal 11/10/2003 documented as of this encounter (statuses as of 06/10/2024) Resolved Problems Problem Noted Date Diagnosed Date Resolved Date Prediabetes 11/05/2022 12/05/2023 Overview: Per Prediabetes protocol Generalized weakness 09/11/2021 022 Dyslipidemia, goal to be determined 03/09/2009 09/11/2011 Overview (03/09/2009): Per Lipid Taxonomy. Other allergic rhinitis 05/23/200509/23 Overview (01/15/2017): ICD-10 update of inactive term documented as of this encounter (statuses as of 06/10/2024) Immunizations Name Administration Dates Next Due COVID-19 [...] AM EDT documented as of this encounter Last Filed Vital Signs Vital Sign Reading Time Taken Comments Blood Pressure 130/60 06/10/2024 10:06 AM EDT Pulse 85 06/10/2024 10:06 AM EDT Temperature 36.2 °C (97.2 °F) 06/10/2024 1 0:06 AM EDT Respiratory Rate 18 06/10/2024 10:0 6 AM EDT Oxygen Saturation 99% 06/10/2024 10: 06 AM EDT Inhaled Oxygen Concentration - - Weight 67.9 kg (149 lb 12.8 oz) 025 10:06 AM EDT Height 160.7 cm (5' 3.27") 06/10/2024 1 0:06 AM EDT Body Mass Index 26.31 06/10/2024 10:06 AM EDT documented in this encounter Patient Instructions * Patient Instructions* Deborah Galarza MD - 06/10/2024 10:31 AM EDT Taking Medicine Safely Medicine is given to help treat or prevent illness. But if you don't take it correctly, it might not help. It might even harm you. Your doctor or pharmacist can help you learn the right way to take your medicine. Listed below are some tips to help you take medicine safely. Safety Tips Have a routine for taking each medicine. Make it part of something you do each day, such as brushing your teeth or eating a meal. When you go to the hospital or your doctor's office, bring all your current medicines in their original boxes or bottles. If you can't do that, bring an up-to-date list of your medicines. Do not stop taking a prescription medicine unless your doctor tells you to. Doing so could make your condition worse. Do not share medicines. Let your doctor and pharmacist know of any allergies you have. Taking prescription medicines with alcohol, street drugs, herbs, supplements, or even some gkmj-saq-txevffr medicines can be harmful. Talk to your doctor or pharmacist before using any of these things while taking a prescription medicine. When filling your prescriptions, try using the same pharmacy for all your medicines. If not, let the pharmacist know what medicines you are already on. Keep medicines out of the reach of children and pets. Do not use medicine that has or that doesn't look or smell right. Get rid of it properly. To find out the right way to get rid of medicine: Call your [facility] or [facility] government's household trash and recycling service and ask if a drug take-back program is available in your community. Call your local pharmacy and ask the right way to get rid of the medicine. Go to http://www.fda.gov/ForConsumers/ConsumerUpdates/hlm322099 to learn how to get rid of medicines safely. Using Generic Medicines Medicines have brand names and generic (chemical) names. When a medicine is first made, it is sold only under its brand name. Later, it can be made and sold as a generic. Generic medicines cost less than brand-name medicines and most work just as well. Most people can use the generic medicine instead of the brand-name medicine, unless their doctor says otherwise. Krysta Bell, [address] [place] [address]. All rights reserved. This information is not intended as a substitute for professional medical care. Always follow your healthcare professional's instructions. Coping with Your Diagnosis of a Chronic Health Condition If you have a chronic health condition, you have a problem that may not go away over time. Heart disease, asthma, arthritis, and diabetes are just a few of the chronic conditions that exist. Right now, these conditions have no known cure. But you can take an active role in managing your health. Coping with Your Diagnosis If you've just learned about your health condition, you may be angry, depressed, or afraid. Or you might feel relieved just to know what's wrong. Even if you've known about your health problem for a while, adjusting to it can be hard. But learning about your condition can help you cope. Look for books at your local library. If you have access to a computer, check the Internet. Or contact a group that focuses on your specific problem. Accepting Change Change is hard for most people. Yet right now you may be facing many changes. What you eat or the way you work may change. Your moods, and even your symptoms, might vary from day to day. Although it isn't easy, learning to accept change can help you feel more in control. Taking Control Feeling you have control can make living with your condition easier. Discuss treatment options withyour health care provider. The more you know, the more active you can be in your care. Moving Forward You may wonder whether you will be able to do the things you've always done. That depends on your age, the condition you have, and your goals. To make the most of each day, try to build caring relationships, be active, and eat right. Also, do your best to keep a sense of humor. Kyrsta Bell, [address] [place] [address], [place] [address]. All rights reserved. This information is not intended as a substitute for professional medical care. Always follow your healthcare professional's instructions. Taking an Active Role in Your Medicines Take the time to learn about your medicine. For instance, why are you taking it? What does it do? Work with your doctor or other health care providers to get the answers you need. Talk to your pharmacist about how to take each medicine, and ask for a fact sheet on each one. Ask Questions About Your Medicine What is the name of the medicine? Why do I need to take it? When should I take it? How should I take it: with water? with food? on an empty stomach? How much do I take? What do I do if I miss a dose? What side effects could it cause and which ones should I call the doctor about? Are there any foods or medicines I should avoid while taking this medicine? Keeping track of your medications? Name of medicine: Taken for: Dose: Time(s) to take it: Take an Active Role Fill all your prescriptions at the same pharmacy. This keeps your medicine history in one place. Talk to the pharmacist. Make sure you understand how to take each medicine. Ask for a fact sheet about each one. Tell your doctor and pharmacist about all the prescription and pkdn-dqx-fyddwmp medicines you take.This includes vitamins and herbal remedies. Tell your doctor and pharmacist if you have any medical conditions or allergies to any medicine or food, or if you are or . Keep a list of all your medicines. Use the sample to the right as a guide for the type of information needed. © 4663-5042 [facility], [address] [place] [address], [place] [address]. All rights reserved. This information is not intended as a substitute for professional medical care. Always follow your healthcare professional's instructions. documented in this encounter Progress Notes * Deborah Galarza MD - 06/10/2024 10:25 AM EDT Images from the original note were not included. Subjective Rocio Monet is a 84 year old female that presents for Hospital Follow-Up 84 year old female with PMH significant for hypothyroidism, hyperlipidemia, allergic rhinitis presents here for hospital follow up . She was admitted to [facility] hospital from 05/19/24 through 05/28/24 and was discharged to [facility] then home on 06/04/24 . History of Present Illness The patient, with a history of thyroid issues and memory issues and confusion that have been ongoing for a few years presented to ER on 05/19/24 with worsening of memory and weakness with a balance . She was hospitalized for a urinary infection with confusion. During the hospital stay, CT head, CTA head an MRI scan was conducted which did not show any blockages or stroke or mass but did show microvascular disease and significant volume loss in the brain, indicative of dementia. She was treated with antibiotic for E coli UTI and sent to [facility] for rehab since she was still confused with some weakness towards end of discharge. She was finally sent home after 1 week of stay in the retirement. Her physical balance and weakness has been improving nicely with physical therapy and she has PT and OT at home set up already. The patient's memory issues seem to have worsened after the hospital stay compared to her baseline but been improving gradually since she has out of there. The patient is currently on thyroid medication and reports no issues with good bladder control or improved sleep. The patient's short-term memory is particularly affected, with the patient often forgetting recent events or information. The patient also reports occasional hallucinations, such as seeing bugs that aren't there. The patient had a fall in a grocery store and went to ER in Jan where she doesnot have any recollection of. In her last visit with me in October up-to-date in she did mentioned about some memory loss and I ordered some blood work which showed positive RPR. I sent her a message and order some other blood tests to confirm which she did not do it yet Family is asking for handicap parking lot since she is dependent on walker and sometimes forget to use it with the risk of fall. They are also interested in getting some aid help at home which I asked her son to check with her insurance , home health nurse who is helping her right now and area of aging. I reviewed patient's hospital record including ER note, H&P, [employer] consultant's note if applicable, discharge summary, labs and imaging. shelter discharge summary was not available at the time of visit Patient Active Problem List Diagnosis LFTs abnormal Acquired hypothyroidism Dyslipidemia, goal LDL below 130 Malignant neoplasm of upper-outer quadrant of left breast in female, estrogen receptor positive (HCC) Pain of left upper arm Synovial cyst of hand Senile osteoporosis Chronic kidney disease, stage 3a (HCC) Medication list : Levothyroxine Sodium 100 MCG Oral Tablet (Levoxyl) Nystatin 755697 UNIT/GM External Cream Amoxicillin 500 MG Oral Capsule (Amoxil) Benefiber Oral Powder Vitamin D3 125 MCG (5000 UT) Oral Capsule Fluticasone Propionate 50 MCG/ACT Nasal Suspension (Flonase) Niacin 250 MG Tablet Probiotic Product (PRO-BIOTIC BLEND) CAPS Lutein Esters 18.6 MG CAPS Bilberry 40 MG CAPS Red Yeast Rice Extract 600 MG Oral Capsule NATURAL SUPPLEMENT FISH OIL 1000 MG PO CAPS POTASSIUM 99 MG PO TABS CHROMIUM 200 MCG PO CAPS VITAMIN C 500 MG PO TABS SUPER MILK THISTLE X PO CAPS Q-10 CO-ENZYME 10 MG OR CAPS Objective BP 130/60 | Pulse 85 | Temp 97.2 °F (36.2 °C) (Tympanic) | Resp 18 | Ht 5' 3.27" (1.607 m) | Wt 149 lb 12.8 oz (67.9 kg) | SpO2 99% | BMI 26.31 kg/m² | BSA 1.74 m² Physical Exam GENERAL: Pleasant lady, not in acute distress. HEENT: Throat without erythema, tongue normal. NECK: No cervical lymphadenopathy. CHEST: Lungs clear to auscultation bilaterally, no crackles or wheezing. CARDIOVASCULAR: Regular rate and rhythm, no murmurs. ABDOMEN: Abdomen soft, non-tender. EXTREMITIES: No edema in extremities. NEUROLOGICAL: Mildly demented but oriented to time, place, and person. Speech clear. Some imbalance, ambulating with walker. Results LABS Syphilis screening: Positive (10/2023) Potassium: Low (05/19/2024) RADIOLOGY Brain MRI: No stroke, significant volume loss (05/19/2024) Assessment and Plan Assessment & Plan Memory loss Progressive memory loss with significant short-term impairment. MRI indicated volume loss suggestive of dementia. Differential includes Alzheimer's and vascular dementia. Family history noted. Occasional visual hallucinations. Aricept proposed to stabilize memory loss. -mini-mental state examination today showed 27/30 score - Refer to neurology for cognitive testing and evaluation. - Order blood work to rule out reversible causes of dementia, including repeat syphilis testing. - Start Aricept (donepezil) to stabilize memory loss if lab work was unremarkable Fall risk Recent fall with wrist injury. Uses walker 50% of the time. Family cautious about mobility. - Issue a handicap parking placard for safer access to public places. Hypokalemia Low potassium levels during hospitalization, likely due to infection and decreased intake. - Monitor potassium levels in upcoming blood work. Acquired hypothyroidism On levothyroxine 100 mcg daily. Thyroid levels well-managed. - Order blood work to confirm thyroid levels. - Prescribe a 90-day supply of levothyroxine if blood work confirms well-managed levels. Complicated UTI (urinary tract infection) (Primary) - DISCH MED RECON CUR MED LIS Hypercalcemia - PTH; Future; Expected date: 06/10/2024 Hospital discharge follow-up - DISCH MED RECON CUR MED LIS Dementia, unspecified dementia severity, unspecified dementia type, unspecified whether behavioral,psychotic, or mood disturbance or anxiety (HCC) - DISCH MED RECON CUR MED LIS - ADULT NEUROLOGY REFERRAL OP - COMPREHENSIVE METABOLIC PANEL; Future; Expected date: 06/10/2024 - VITAMIN B12; Future; Expected date: 06/10/2024 - FOLIC ACID; Future; Expected date: 06/10/2024 - FTA-ABS; Future; Expected date: 06/10/2024 - MINI-MENTAL QUESTIONNAIRE SCAN (MMSE) OP Chronic kidney disease, stage 3a (HCC) Synovial cyst of hand Acquired hypothyroidism - TSH WITH FREE T4 IF INDICATED; Future; Expected date: 06/10/2024 Senile osteoporosis Malignant neoplasm of upper-outer quadrant of left breast in female, estrogen receptor positive (HCC) Pain of left upper arm LFTs abnormal Dyslipidemia, goal LDL below 130 Positive RPR test - FTA-ABS; Future; Expected date: 06/10/2024 Impaired fasting glucose - HEMOGLOBIN A1C; Future; Expected date: 06/10/2024 Wrap-Up PLAN: Continue present medication(s): Renew prescription(s) for: We will renew levothyroxine after blood work comes back Referral(s) to: Neurology Schedule labs: Today Patient education: Importance of taking medication, seems specialist, keeping follow up and continue to work with physical therapy. Also discuss about moving to 1 story house or senior apartment or even assisted living in near future Follow up in 3 month(s). I spent a total of 40-54 minutes (exact time 54 mins) on the date of service in preparation, delivery, and documentation of the care provided to Rocio Monet excluding any time spent in the performance of separately billed services. Text in this note was generated using an ambient documentation service. I discussed the use of a device to record and summarize our discussion today. All persons present during the encounter consented to its use. documented in this encounter Nursing Notes * Aislinn Orellana CMA - 06/10/2024 10:04 AM EDT Pt here today for a hospital discharge in regards to a UTI. Pt stayed at [facility] for a week and half (discharged 05/28) and then was admitted to [facility] for a week after documented in this encounter Plan of Treatment Upcoming Encounters Date Type Department Care Team (Late st Contact Info) Description 06/11/2024 3:00 PM EDT Office Visit Neurology [address] [place] [phone] Sheri Bryson, DO [address] [facility] [place] [address] 11/11/2024 1:15 PM EDT Imaging Radiology [address] [place] [phone] Scheduled Referrals Name Type Priority Associated Diagnoses Orde r Schedule ADULT NEUROLOGY REFERRAL OP Referral Within 30 days (routine) Dementia, unspecified dementia severity, unspecified dementia type, unspecified whether behavioral, psychotic, or mood disturbance or anxiety (HCC) Ordered: 06/10/2024 Health Maintenance Due Date Last Done Comments Zoster Vaccines (2 of 3) 11/06/2011 09/11/2011 *BISPHONATE OR OTHER ACCEPTABLE MEDICATION NEEDED FOR OSTEOPOROSIS (REFER TO SMARTSET #1146) 04/21/2021 Depression Screening 04/09/2023 04/09/2022 COVID-19 Vaccine ( season) 2023 05/21/2020, 04/30/2020 Influenza Vaccine (FLU shot) (#1) 2023 01/24/2010, 01/11/2009 CKD HGB USE SMARTSET 66907 11/14/202411/14, 05/02/2023, 10/22/2022, Additional history exists Albumin/Creatinine Ratio 11/19/2024 024, 10/25/2022, 08/29/2021 Colonoscopy 11/23/2024 11/24/2019, 03/2019, 12/01/2018, Additional history exists GFR 12/11/2024 06/10/2024, 10/24, 05/02/2023, Additional history exists CKD PHOS USE SMARTSET 65324 06/10/202505/23, 12/14/2022, 10/22/2022, Additional history exists TSH 06/10/2025 06/10/2024, 10/24, 06/12/2023, Additional history exists DXA Scan 08/04/2025 08/05/2023, 10/25, 10/23/2017, Additional history exists DTap/Tdap Vaccines (2 - Td or Tdap) 11/14/2033 11/15/2023, 01/24/2010 Pneumococcal Vaccine: 50+ Years Completed 10/04/2015, 09/18/2013 RETIRED - COLONOSCOPY-EVERY 5 YRS AGES 18-100 Discontinued 11/24/2019, 11/24/2019, 12/01/2018, Additional history exists VITAMIN D LEVEL ONCE IN A LIFETIME-USE SMARTSET# [id number] Completed 12/14/2022, 04/19/2021, 09/16/2014, Additional history exists [...] this encounter Medical Devices Implanted Type Area Safe Deposit Attendant Device Identifier Shelf Expiration Date Model / Serial / Lot Lens Intraoc 24.0 - [id number] - [id number] Implanted:Qty: 1 on 04/17/2022 by Leonel Guaman MD at OR [facility] Left: Eye [employer] 07/22/2026 [id number] / [id number] / Lens Intraoc 24.5 - [id number] - [id number] Implanted:Qty: 1 on 05/01/2022 by Leonel Guaman MD at OR [facility] Right: Eye [employer] 09/21/2026 [id number] / [id number] / [id number] documented as of this encounter Results * PTH (06/10/2024 11:55 AM EDT) PTH 50 15 - 65 pg/mL 06/10/2024 8:58 PM EDT LAB[facility]ATORY [facility] Blood Venous blood specimen / Unknown Venipuncture / Unknown 06/10/2024 11:55 AM EDT 06/10/2024 11:55 AM EDT Deborah Galarza MD LAB BLOOD ORDERABLES Final Res ult Performing Organization Address [facility]/ZIP Co de Phone Number LABORATORY [address] [address] * FOLIC ACID (06/10/2024 11:55 AM EDT) Pathologist [facility] Folic Acid >20.0 >4.5 ng/mL 06/10/2024 8:58 PM EDT LAB[facility]ORY [facility] Blood Venous blood specimen / Unknown Venipuncture / Unknown 06/10/2024 11:55 AM EDT 06/10/2024 11:55 AM EDT Deborah Galarza MD LAB BLOOD ORDERABLES Final Res ult LABORATORY [place] [address] [place] [address] * VITAMIN B12 (06/10/2024 11:55 AM EDT) Vitamin B12 828 232 - 1,245 pg/mL 06/10/2024 8:58 PM EDT LAB[facility]ATORY [facility] Blood Venous blood specimen / Unknown Venipuncture / Unknown 06/10/2024 11:55 AM EDT 06/10/2024 11:55 AM EDT Deborah Galarza MD LAB BLOOD ORDERABLES Final Res ult Performing Organization Address City/[facility]/ZIP Co de Phone Number LABORATORY [facility] [address] [place] [address] * (ABNORMAL) HEMOGLOBIN A1C (06/10/2024 11:55 AM EDT) Hemoglobin A1C 5.7(H) 4.0 - 5.6 % 06/10/2024 7:57 PM EDT LAB[facility]ATORY [facility] Comment:The use of HbA1c to monitor glycemic status is based on normal hemoglobin and HbA composition. This test should not be used in patients with abnormal hemoglobin that affects the half life of the red blood cell or the in vivo glycation rates. Estimated Average Glucose 117 <126 mg/dL 06/10/2024 7:57 PM EDT LAB[facility]ATORY [facility] Blood Venous blood specimen / Unknown Venipuncture / Unknown 06/10/2024 11:55 AM EDT 06/10/2024 11:55 AM EDT Deborah Galarza MD LAB BLOOD ORDERABLES Final Res ult Performing Organization Address [facility] Co de Phone Number LABORATORY [facility] [address] [place] [address] * (ABNORMAL) TSH WITH FREE T4 IF INDICATED (06/10/2024 11:55 AM EDT) TSH 0.17(L) 0.27 - 4.20 uIU/mL 06/10/2024 8:15 PM EDT LABORATORY [facility] Blood Venous blood specimen / Unknown Venipuncture / Unknown 06/10/2024 11:55 AM EDT 06/10/2024 11:55 AM EDT Deborah Galarza MD LAB BLOOD ORDERABLES Final Res ult Performing Organization Address City/[facility]/ZIP Co de Phone Number LAB[facility]ATORY [facility] [address] [place] [address] * (ABNORMAL) COMPREHENSIVE METABOLIC PANEL (06/10/2024 11:55 AM EDT) BUN 17 6 - 20 mg/dL 06/10/2024 1:18 PM EDT [facility] CREATININE 0.8 0.5 - 1.0 mg/dL 06/10/2024 1:18 PM EDT [facility] 56 EGFR 69 >=60 mL/min 06/10/2024 1:18 PM EDT [facility] 56 Comment:eGFR is calculated b ased on the CKD-EPI 2020 equation. SODIUM 145 135 - 146 mmol/L 06/10/2024 1:18 PM EDT [facility] 56 POTASSIUM 4.0 3.5 - 5.1 mmol/L 06/10/2024 1:18 PM EDT [facility] 56 CHLORIDE 106 98 - 107 mmol/L 06/10/2024 1:18 PM EDT [facility] 56 CO2 29 22 - 32 mmol/L 06/10/2024 1:18 PM EDT [facility] 56 ANION GAP 10 7 - 15 mmol/L 06/10/2024 1:18 PM EDT [facility] 56 GLUCOSE 111 70 - 120 mg/dL 06/10/2024 1:18 PM EDT [facility] 56 Albumin 4.6 3.8 - 5.0 g/dL 06/10/2024 1:18 PM EDT [facility] 56 AST 27 10 - 35 U/L 06/10/2024 1:18 PM EDT [facility] 56 Alkaline Phosphatase 136(H) 35 - 130 U/L 06/10/2024 1:18 PM EDT [facility] 56 Bilirubin, Total 0.4 <=1.2 mg/dL 06/10/2024 1:18 PM EDT [facility] 56 CALCIUM 10.7(H) 8.4 - 10.2 mg/dL 06/10/2024 1:18 PM EDT [facility] 56- Protein 7.4 6.0 - 8.3 g/dL 06/10/2024 1:18 PM EDT [facility] 56 ALT 21 10 - 35 U/L 06/10/2024 1:18 PM EDT [facility] 56-02 Blood Venous blood specimen / Unknown Venipuncture / Unknown 06/10/2024 11:55 AM EDT 06/10/2024 11:55 AM EDT Deborah Galarza MD LAB BLOOD ORDERABLES Final Res ult [facility]-02 [address] [place] [address] documented in this encounter Visit Diagnoses Diagnosis Complicated UTI (urinary tract infection)- Primary Urinary tract infection, site not specified Hypercalcemia Hospital discharge follow-up Other follow-up examination Dementia, unspecified dementia severity, unspecified dementia type, unspecified whether behavioral, psychotic, or mood disturbance or anxiety (HCC) Chronic kidney disease, stage 3a (HCC) Synovial cyst of hand Acquired hypothyroidism Unspecified hypothyroidism Senile osteoporosis Malignant neoplasm of upper-outer quadrant of left breast in female, estrogen receptor positive (HCC) Pain of left upper arm Pain in limb LFTs abnormal Other abnormal blood chemistry Dyslipidemia, goal LDL below 130 Other and unspecified hyperlipidemia Positive RPR test Impaired fasting glucose documented in this encounter Advance Directives * [...] Power of Attor robyn? No Care Teams Beam Racker Relationship Specialty Start Date End Date [facility] [address] [facility] [address] PCP - General Internal Medicine 05/09/12 documented as of this encounter
--- OUTSIDE RECORDS SUMMARY | 2024-06-30 04:18 | External Medical Summary | Summary of Care ---
Author Name Unknown Organization [facility] Address [address] [place] [address] Phone [phone] Care Team Providers Care Asbestos Handler Name Role Phone Deborah Galarza MD Primary Care Provider [phone] Reason for Visit * Reason Comments Memory Loss * Evaluate & Treat - Unlimited Visits (Within 30 days (routine)) - Pending Review Specialty Diagnoses / Procedures Referred By Ed wong Referred To Contact Neurology Diagnoses Dementia, unspecified dementia severity, unspecified dementia type, unspecified whether behavioral, psychotic, or mood disturbance or anxiety (HCC) Deborah Galarza MD [address] [place] [address] Phone: tel: fax: Referral ID Status Reason Start Date Expiration Date Visits Requested Visits Authorized [id number] Pending Review Specialty Services Required 06/10/[phone] Encounter Details Date Type Department Care Team (Latest Contact Info) Description 06/11/2024 3:00 PM EDT Office Visit Neurology [address] [place] [address] Sheri Bryson DO [address] [place] [address] Dementia of the Alzheimer's type, with late onset, uncomplicated (HCC)* Allergies Active Allergy Reactions Criticality Noted Date [...] 50 MCG/ACT Nasal Suspension (Flonase) Administer 1 [place] into nostril in the morning. 4 Active [...] glass of water daily 4 Active Nystatin 447667 UNIT/GM External Cream Apply topically to affected area 2 times a day. Apply to underneath both breasts twice daily 30 g 4 Active Levothyroxine Sodium 100 MCG Oral Tablet (Levoxyl)Gisselletio ns:Acquired hypothyroidism TAKE 1 TABLET BY MOUTH IN THE MORNING 30 MINUTES BEFORE BREAKFAST OR OTHER MEDS. 30 Tablet 5 Active Donepezil HCl 5 MG Oral Tablet (Aricept)Indicatio ns:Dementia of the Alzheimer's type, with late onset, uncomplicated (HCC) Take 1 Tablet by mouth in the morning. Take with largest meal of the day. Start taking 1 tablet per day for one month. After one month increase to 2 tablets daily.. 30 Tablet 3 5 Active documented as [...] 12/18/2017:Stage IA(pT1c, pN0(sn), cM0, G2, ER: Positive, CT: Positive, HER2: Negative) - Signed by Prosper [...] mRNA, LNP-s, No Pre serve, 2-Dose Series ([employer]) 05/21/2020,04/30/2020 Pneumococcal Conjugate Vacc, 13 Valent (Prevnar) [...] AM EDT documented as of this encounter Patient Instructions * Patient Instructions* Sheri Bryson DO - 06/11/2024 4:32 PM EDT We will start Donepezil 5 mg for one month, then increase to 10 mg daily and stop there. This medications is for memeory loss. We are overall concerned for Alzheimer's dementia. Please obtain imaging discs fro MRI brain or have them upload the images to PACS. Helpful Tips for People with Cognitive Impairment and Dementia For patients Correct visual impairment Correct hearing impairment Use memory aids (e.g. calendars, planners, check lists) Taking your medications Make a medication schedule on paper with medication name, dosage and when they should be taken Set alarms on the phone Use pillboxes Use medication dispensers (e.g. Med Ready) Utilize Pillpack service through your pharmacy (e.g. [employer]ens[employer]) where they pack your medications based onwhen you take them into individual packets, so you don't need to sort them into pillboxes yourself or take each medication from the bottles. For caregivers Planning for the future is vitally important. You should discuss with your loved one what he/she would want or not want when he/she can no longer make his/her decision when he/she can still do so. Don't wait until it's too late! These include medical decisions (e.g. resuscitation if his/her heart stops; breathing tube if he/she cannot breath on her own; dialysis if kidneys fail; feeding tubes if he/she can't eat anymore), living arrangements (home health, or residential if he/she can't live safely at home independently anymore), financial decisions (estate planning, inheritance), and surrogate decision makers (e.g. power of trademark attorney) if he/she can no longer make sound decisions. Work with an trademark attorney on putting these wishes on paper and store it at a safe place. Share a copy with his/her doctors. For forgetfulness, use memory aids Use calendars and clocks to help them stay oriented Use bulletin board, planners and/or check lists to keep track of things to-do Family pictures and albums with names and relationships Family videos Pillboxes or illpack service. If still unable to manage with Pillpack, consider automatic pill dispensers (e.g. RASILIENT SYSTEMS). They are automated with alarms and opens when it's time to take the medications. Brown ranges from $70 to 150. Communication Minimize distractions, such as making sure you talk in a quiet place and that the TV is off. Face him/her when you talk. Maintain eye contact. Use simple and concise language. Give instructions one step at a time. For example, “go to the kitchen”, “Open the cabinet door”, and then “get the glass” instead of “Go get the glass from the kitchen”. When he/she has difficulty answering open-ended questions, provide multiple choice and suggest words he/she is looking for. For important tasks, such as medication adherence, double check that the task is being completed correctly before and after she is finished (ex. check medication dosage before administration, etc.) Avoid “don't you remember?” especially if it causes distress or agitation. Gently remind them. When there is difficulty with reading, use pictures as labels. Establish and maintain routines Regular sleep schedule Meals at regular hours Avoid changing the environment (e.g. different living arrangements, frequent change in caregivers) Keep frequently used items in the same place Preventing delirium or “sundowning” Clocks and calendars on the wall or other visible areas. During the day, keep the room bright, curtains open. At night, keep it dark and quiet. Work with his/her doctors to see if medications are optimized or can be simplified. Some medications are harmful for the brain, and some have limited benefits. Our pharmacists can review your medications and make recommendations. How to respond to mood changes, e.g. anxiety, depression, agitation Speak in a calm voice When he/she is agitated, reassure them rather than try to reason with them. Try to identify triggers for agitation, e.g. pain, hunger, thirst, constipation. If he/she is hallucinating or paranoid about something/someone, reassure and can investigate the situation to demonstrate that there are no impending harm. Reasoning with him/her often is not productive because in his/her mind, what he/she sees or hears is very real to him/her. Sleep disturbance Avoid napping/sleeping excessively during the day to avoid day-night reversal. Keep naps between 20minutes to maximum 1 hour. Consider taking melatonin 1-2 hours before bedtime nightly to help regular the body clock. Can start with 3 to 5 mg night, and gradually increase to 15 mg every 1-2 weeks based on effectiveness and tolerability. Avoiding falls and injury Minimize clutter in the home. Avoid carpets, rugs and other tripping hazards. Make sure hallways, bathroom and bedroom are well-lit. Consider motion-sensing lights. Encourage the use of a cane or walker if imbalance or unsteady. Consider a medical alert necklace or bracelet for emergencies. Install grab bars and use shower chair in the shower/bathtub. Wandering Consider medical ID bracelet with name, address, contact number if he/she gets lost Consider installing locks on the door(s). Consider tracking devices and cameras in the house (ask Dr. Justin for a list of devices) Medic Alert® + Alzheimer's Association Safe Return® is a 24-hour emergency response service that provides assistance when a person with dementia becomes lost or has a medical emergency. Comfort Zone® is a comprehensive Web-based location management system that allows families to monitor a personwith Alzheimer's. Visit alz.org/safety to learn more. Holidays and family gatherings Involve him/her in activities, e.g. preparing food, wrapping packages and setting the table if he/she can safely do so. Try to maintain routines as much as possible to avoid confusions and distress. Focus on things that bring happiness, e.g. music, good memories. Safety: Inform family and guests of cognitive and/or behavioral changes involving him/her such as confusionand trouble remembering family members. It may be helpful to ask family/friends to call before theyarrive at your house so you can prepare your loved one ahead of time. We know that older people and individuals with cognitive impairment and dementia do worse if they contract COVID-19 infection. We recommend getting him/her vaccinated, if not already; as well as making sure family and guests are fully vaccinated and without and COVID-19 symptoms when visiting you and your loved one. Food safety You may consider meal delivery (available through some [place] [employer] [facility] Meals on Wheels programs), certain grocery stores, and apps like Door Accruit, TalkShoe, and VendorShop. There are also subscriptions for pre-made meals that requires light cooking, e.g. Hello Fresh and Blue Aprons, and ones that require scanning a barcode and heating up in a special convection oven (e.g. Tovala). Other Resources The Alzheimer's Association 15/10 Helpline [phone] Features: Confidential care consultation by master's level clinicians with: decision- making support, crisis management, education Referral to local community programs, services and support documented in this encounter Plan of Treatment Upcoming Encounters Date Type Department Care Team (Late st Contact Info) Description 11/11/2024 1:15 PM EDT Imaging Radiology [facility] [facility], [place] [address] [place] [phone] 12/22/2024 3:00 PM EDT Office Visit Neurology, [place] [address] [place] [address] [place] [phone] Paul Ferrera PA-C [address] [place] [address] [place] [address] Health Maintenance Due Date Last Done Comments Zoster Vaccines (2 of 3) 11/06/2011 09/11/2011 *BISPHONATE OR OTHER ACCEPTABLE MEDICATION NEEDED FOR OSTEOPOROSIS (REFER TO SMARTSET #1146) 04/21/2021 Depression Screening 04/09/2023 04/09/2022 COVID-19 Vaccine ( season) 2023 05/21/2020, 04/30/2020 Influenza Vaccine (FLU shot) (#1) 2023 01/24/2010, 01/11/2009 CKD HGB USE SMARTSET 66003 11/14/202411/14, 05/02/2023, 10/22/2022, Additional history exists Albumin/Creatinine Ratio 11/19/2024 024, 10/25/2022, 08/29/2021 Colonoscopy 11/23/2024 11/24/2019, 03/2019, 12/01/2018, Additional history exists GFR 12/11/2024 06/10/2024, 10/24, 05/02/2023, Additional history exists CKD PHOS USE SMARTSET 48503 06/10/202505/23, 12/14/2022, 10/22/2022, Additional history exists TSH 06/10/2025 06/10/2024, 10/24, 06/12/2023, Additional history exists DXA Scan 08/04/2025 08/05/2023, 10/25, 10/23/2017, Additional history exists DTap/Tdap Vaccines (2 - Td or Tdap) 11/14/2033 11/15/2023, 01/24/2010 Pneumococcal Vaccine: 50+ Years Completed 10/04/2015, 09/18/2013 RETIRED - COLONOSCOPY-EVERY 5 YRS AGES 18-100 Discontinued 11/24/2019, 11/24/2019, 12/01/2018, Additional history exists VITAMIN D LEVEL ONCE IN A LIFETIME-USE SMARTSET# 95330 Completed 12/14/2022, 04/19/2021, 09/16/2014, Additional history exists [...] this encounter Medical Devices Implanted Type Area Filler And Trimmer Device Identifier Shelf Expiration Date Model / Serial / Lot Lens Intraoc 24.0 - [id number] - [id number] Implanted:Qty: 1 on 04/17/2022 by Leonel Guaman MD at OR [facility] Left: Eye BAUSCH & LOMB 07/22/2026 [id number] / [id number] / Lens Intraoc 24.5 - [id number] - [id number] Implanted:Qty: 1 on 05/01/2022 by Leonel Guaman MD at OR [facility] Right: Eye BAUSCH & LOMB 09/21/2026 [id number] / [id number] / [id number] documented as of this encounter Visit Diagnoses [...] Power of Attor robyn? No Care Teams Asbestos Handler Relationship Specialty Start Date End Date Deborah Galarza MD [address] [facility] [place] [address] PCP - General Internal Medicine 05/09/12 documented as of this encounter
--- OUTSIDE RECORDS SUMMARY | 2024-06-30 04:18 | External Medical Summary | Summary of Care ---
Author Name Unknown Organization [facility] Address [address] [place] [address] Phone [phone] Care Team Providers Care Counter Installer Name Role Phone Deborah Galarza MD Primary Care Provider [phone] Reason for Visit * Reason Onset Date Comments Forms Request 06/12/2024 Encounter Details Date Type Department Care Team (Late st Contact Info) Description 06/12/2024 Telephone General Internal Medicine [facility] [place] [address] [facility] [place] [address] Deborah Galarza MD [address] [facility] [place] [address] Forms Request Allergies Active Allergy Reactions Criticality Noted Date Comments Prednisone 05/02/2023 Nausea, lethargy, states she felt awful documented as of this encounter (statuses as of 06/15/2024) Medications Q-10 CO-ENZYME 10 MG OR CAPS daily 0 07/27/19 04 Active SUPER MILK THISTLE X PO CAPSIndications:ta [...] 10/04/19 16 Active Lutein Esters 18.6 MG CAPSIndications:He alth examination of defined subpopulation 2 times a day. 40 mg once daily 30 Cap 10/15/19 18 Active Probiotic Product (PRO-BIOTIC BLEND) CAPS Take by mouth. Activ e Niacin 250 MG TabletIndications: takes at night Take 1 Tablet by mouth in the morning. Active Fluticasone Propionate 50 MCG/ACT Nasal Suspension (Flonase) Administer 1 [place] into nostril in the morning. 04/19/19 24 [...] of water daily 11/15/19 24 Active Nystatin 697088 UNIT/GM External Cream Apply topically to affected area 2 times a day. Apply to underneath both breasts twice daily 30 g 01/14/20 24 Active Donepezil HCl 5 MG Oral Tablet (Aricept)Indicatio ns:Dementia of the Alzheimer's type, with late onset, uncomplicated (HCC) Take 1 Tablet by mouth in the morning. Take with largest meal of the day. Start taking 1 tablet per day for one month. After one month increase to 2 tablets daily.. 30 Tablet 3 06/12/19 25 Active Levothyroxine Sodium 100 MCG Oral Tablet (Levoxyl)Gisselletio ns:Acquired hypothyroidism TAKE 1 TABLET BY MOUTH IN THE MORNING 30 MINUTES BEFORE BREAKFAST OR OTHER MEDS. 30 Tablet 06/07/19 25 025 Discontin ued(Medic ation/Dos e Changed) documented as of this encounter (statuses [...] mRNA, LNP-s, No Pre serve, 2-Dose Series ([employer]) 05/21/2020,04/30/2020 Pneumococcal Conjugate Vacc, 13 Valent (Prevnar) [...] Encounter - Shantell Whelan LPN - 06/15/2024 8:21 AM EDT Form is disability parking placard and it can be picked up at internal med reception agent. * Telephone Encounter - Aislinn Orellana CMA - 06/12/2024 3:22 PM EDT Form is completed and ready to be picked up. Aislinn Orellana CMA * Telephone Encounter - Brunilda Martinez OSA - 06/12/2024 12:19 PM EDT Patient requests their disability parking placard application to be completed. Provider to complete form; Deborah Galarza MD Form placed in nurses forms request box for review. (Confirm patient's name/ or MRN is on form) on form Patient requests the form to be Picked up When form is complete, please call/MyG patient at Cell Thank you! documented in this encounter Plan of Treatment Upcoming Encounters Date Type Department Care Team (Late st Contact Info) Description 11/11/2024 1:15 PM EDT Imaging Radiology [address], [place] [address] [place] [address] 12/22/2024 3:00 PM EDT Office Visit Neurology, [place] Adelaida [address] [place] [address] [place] [phone] Paul Ferrera PA-C [address] [facility] [address] [place] [address] Health Maintenance Due Date Last Done Comments Zoster Vaccines (2 of 3) 11/06/2011 09/11/2011 *BISPHONATE OR OTHER ACCEPTABLE MEDICATION NEEDED FOR OSTEOPOROSIS (REFER TO SMARTSET #1146) 04/21/2021 Depression Screening 04/09/2023 04/09/2022 COVID-19 Vaccine ( season) 2023 05/21/2020, 04/30/2020 Influenza Vaccine (FLU shot) (#1) 2023 01/24/2010, 01/11/2009 CKD HGB USE SMARTSET 37057 11/14/202411/14, 05/02/2023, 10/22/2022, Additional history exists Albumin/Creatinine Ratio 11/19/2024 024, 10/25/2022, 08/29/2021 Colonoscopy 11/23/2024 11/24/2019, 0903/2019, 12/01/2018, Additional history exists GFR 12/11/2024 06/10/2024, 10/24, 05/02/2023, Additional history exists CKD PHOS USE SMARTSET 74442 06/10/202505/23, 12/14/2022, 10/22/2022, Additional history exists TSH 06/10/2025 06/10/2024, 10/24, 06/12/2023, Additional history exists DXA Scan 08/04/2025 08/05/2023, 10/25, 10/23/2017, Additional history exists DTap/Tdap Vaccines (2 - Td or Tdap) 11/14/2033 11/15/2023, 01/24/2010 Pneumococcal Vaccine: 50+ Years Completed 10/04/2015, 09/18/2013 RETIRED - COLONOSCOPY-EVERY 5 YRS AGES 18-100 Discontinued 11/24/2019, 11/24/2019, 12/01/2018, Additional history exists VITAMIN D LEVEL ONCE IN A LIFETIME-USE SMARTSET# 65269 Completed 12/14/2022, 04/19/2021, 09/16/2014, Additional history exists [...] this encounter Medical Devices Implanted Type Area Sugar Grinder Device Identifier Shelf Expiration Date Model / Serial / Lot Lens Intraoc 24.0 - [id number] - [id number] Implanted:Qty: 1 on 04/17/2022 by Leonel Guaman MD at OR [facility] Left: Eye BAUSCH & LOMB 07/22/2026 [id number] / [id number] / Lens Intraoc 24.5 - [id number] - [id number] Implanted:Qty: 1 on 05/01/2022 by Leonel Guaman MD at OR [facility] Right: Eye BAUSCH & LOMB 09/21/2026 [id number] / [id number] / [id number] documented as of this encounter Advance Directives [...] Power of Attor robyn? No Care Teams Counter Installer Relationship Specialty Start Date End Date Deborah Galarza MD [address] [facility] [place] [address] PCP - General Internal Medicine 05/09/12 documented as of this encounter
--- OUTSIDE RECORDS SUMMARY | 2024-06-30 04:18 | External Medical Summary ---
Author Name Unknown Address Unknown Organization K01:[facility] [place] [address] [place] [address] Laboratory Report Ordering Provider Test Date Status DOTTIEASIAFE 06/10/2024 11:55:09 Final Observation Date Value Abnormality Reference (Units ) Status TSH 06/10/2024 11:55:09 0.17 Below low normal 0.2 7-4.20 (uIU/mL) Final Performing Location [facility] [place] [place] [address] [place] [address]
--- OUTSIDE RECORDS SUMMARY | 2024-06-30 04:18 | External Medical Summary ---
Author Name Unknown Address Unknown Organization K01:[facility] [place] [address] [place] [address] Laboratory Report Ordering Provider Test Date Status [facility] 06/10/2024 11:55:09 Final Observation Date Value Abnormality Reference (Units ) Status T4, Free 06/10/2024 11:55:09 2.9 Above high normal 0. 9-1.7 (ng/dL) Final Performing Location [facility]ORY [facility] - [address] [place] [address]
--- OUTSIDE RECORDS SUMMARY | 2024-06-30 04:18 | External Medical Summary | Summary of Care ---
Author Name Unknown Organization [facility] Address [address] [place] [address] Phone [phone] Care Team Providers Care Maintenance Groundman Name Role Phone Deborah Galarza MD Primary Care Provider [phone] Reason for Referral * Evaluate & Treat - Unlimited Visits (Within 30 days (routine)) - Pending Review Specialty Diagnoses / Procedures Referred By Ed wong Referred To Contact Neurology Diagnoses Dementia, unspecified dementia severity, unspecified dementia type, unspecified whether behavioral, psychotic, or mood disturbance or anxiety (HCC) Deborah Galarza MD [address] [place] [address] Phone: tel: fax: Referral ID Status Reason Start Date Expiration Date Visits Requested Visits Authorized [id number] Pending Review Specialty Services Required 06/10/2024 999 999 Question Answer Referral Priority Within 30 days (routine) Where should this appointment be scheduled? [facility] Is this referral being placed for insurance purposes ONLY No, patient needs appointment [facility] NEUROLOGY REFERRAL QUESTIONS Memory/Cognition Comments New onset dementia Reason for Visit * Reason Onset Date Comments Hospital Follow-Up Hospital Follow-Up 06/10/2024 Encounter Details Date Type Department Care Team (Late st Contact Info) Description 06/10/2024 10:00 AM EDT Office Visit General Internal Medicine [facility] [address] [place] [address] Deborah Galarza MD [address] [place] [address] Complicated UTI (urinary tract infection)*; Hypercalcemia; Hospital [...] 50 MCG/ACT Nasal Suspension (Flonase) Administer 1 [place] into nostril in the morning. 04/19/19 24 [...] of water daily 11/15/19 24 Active Nystatin 033956 UNIT/GM External Cream Apply topically to affected area 2 times a day. Apply to underneath both breasts twice daily 30 g 01/14/20 24 Active Levothyroxine Sodium 75 MCG Oral Tablet (Levoxyl)Indicatio ns:Impaired fasting glucose Take 1 Tablet by mouth in the morning. (at least 30 min prior to breakfast or other meds). 60 Tablet 06/16/19 25 Active Levothyroxine Sodium 100 MCG Oral [...] 12/18/2017:Stage IA(pT1c, pN0(sn), cM0, G2, ER: Positive, CO: Positive, HER2: Negative) - Signed by Prosper [...] street drugs, herbs, supplements, or even some felw-tix-tbirnqc medicines can be harmful. Talk to your [...] to get rid of medicine: Call your [facility] [place] or [facility] government's household trash and recycling service and ask if a drug take-back program is available in your community. Call your local pharmacy and ask the right way to get rid of the medicine. Go to http://www.fda.gov/ForConsumers/ConsumerUpdates/nju478992 to learn how to get rid of [...] brand-name medicine, unless their doctor says otherwise. © 8873-9503 [facility], [address] [place] [address], [place] [address]. All rights reserved. This information is not [...] best to keep a sense of humor. © Krysta [address] [address]. All rights reserved. This information is not [...] and pharmacist about all the prescription and mfey-gju-yxpgbtb medicines you take.This includes vitamins and herbal remedies. Tell your doctor and pharmacist if you have any medical conditions or allergies to any medicine or food, or if you are or . Keep a list of all your medicines. Use the sample to the right as a guide for the type of information needed. © Krysta [address] [address]. All rights reserved. This information is not [...] follow up . She was admitted to [facility] hospital from 05/19/24 through 05/28/24 and was discharged to [facility] then home on 06/04/24 . History of [...] for E coli UTI and sent to [facility] for rehab since she was still confused with some weakness towards end of discharge. She was finally sent home after 1 week of stay in the [facility]. Her physical balance and weakness has been [...] patient's hospital record including ER note, H&P, executive consultant's note if applicable, discharge summary, labs and imaging. custodial discharge summary was not available at the [...] Sodium 100 MCG Oral Tablet (Levoxyl) Nystatin 941275 UNIT/GM External Cream Amoxicillin 500 MG Oral [...] regards to a UTI. Pt stayed at [facility] for a week and half (discharged 05/28) and then was admitted to [facility] for a week after documented in this encounter Miscellaneous Notes * Addendum Note - Deborah Galarza MD - 06/15/2024 8:34 AM EDTAddended by: DEBORAH GALARZA on: 06/15/2024 08:34 AM Modules accepted: Orders documented in this encounter Plan of Treatment Upcoming Encounters Date Type Department Care Team (Late st Contact Info) Description 11/11/2024 1:15 PM EDT Imaging Radiology [facility] 1st [facility] [address] [place] [phone] 12/22/2024 3:00 PM EDT Office Visit Neurology, [place] Adelaida Azevedo [address] [place] [address] [address] [address] Paul Ferrera PA-C [address] [facility] [address] [address] Scheduled Orders Name Type Priority Associated Diagnoses Orde r Schedule TSH WITH FREE T4 IF INDICATED Lab Routine Impaired fasting glucose Expected: 07/27/2024 (Approximate), Expires: 06/15/2025 Scheduled Referrals Name Type Priority Associated Diagnoses [...] 2023 01/24/2010, 01/11/2009 CKD HGB USE SMARTSET 76669 11/14/202411/14, 05/02/2023, 10/22/2022, Additional history exists Albumin/Creatinine Ratio 11/19/2024 024, 10/25/2022, 08/29/2021 Colonoscopy 11/23/2024 11/24/2019, 03/2019, 12/01/2018, Additional history exists GFR 12/11/2024 06/10/2024, 10/24, 05/02/2023, Additional history exists CKD PHOS USE SMARTSET 98742 06/10/202505/23, 12/14/2022, 10/22/2022, Additional history exists TSH 06/10/2025 06/10/2024, 10/24, 06/12/2023, Additional history exists DXA Scan 08/04/2025 08/05/2023, 10/25, 10/23/2017, Additional history exists DTap/Tdap Vaccines (2 - Td or Tdap) 11/14/2033 11/15/2023, 01/24/2010 Pneumococcal Vaccine: 50+ Years Completed 10/04/2015, 09/18/2013 RETIRED - COLONOSCOPY-EVERY 5 YRS AGES 18-100 Discontinued 11/24/2019, 11/24/2019, 12/01/2018, Additional history exists VITAMIN D LEVEL ONCE IN A LIFETIME-USE SMARTSET# 99763 Completed 12/14/2022, 04/19/2021, 09/16/2014, Additional history exists [...] this encounter Medical Devices Implanted Type Area Post Acute Care Nurse Device Identifier Shelf Expiration Date Model / Serial / Lot Lens Intraoc 24.0 - [id number] - [id number] Implanted:Qty: 1 on 04/17/2022 by Leonel uGaman MD at OR [facility] Left: Eye [employer]CH [employer] LOMB 07/22/2026 [id number] / [id number] / Lens Intraoc 24.5 - [id number] - [id number] Implanted:Qty: 1 on 05/01/2022 by Leonel Guaman MD at OR [facility] Right: Eye [employer]CH [employer] LOMB 09/21/2026 [id number] / [id number] / [id number] documented as of this encounter Results * PTH (06/10/2024 11:55 AM EDT) [facility] PTH 50 15 - 65 pg/mL 06/10/2024 8:58 PM EDT [facility] Blood Venous blood specimen / Unknown Venipuncture / Unknown 06/10/2024 11:55 AM EDT 06/10/2024 11:55 AM EDT Deborah Galarza MD LAB BLOOD ORDERABLES Final Res ult [facility] [address] [place] [address] * FOLIC ACID (06/10/2024 11:55 AM EDT) [facility] Folic Acid >20.0 >4.5 ng/mL 06/10/2024 8:58 PM EDT [facility] Blood Venous blood specimen / Unknown Venipuncture / Unknown 06/10/2024 11:55 AM EDT 06/10/2024 11:55 AM EDT Deborah Galarza MD LAB BLOOD ORDERABLES Final Res ult Performing Organization Address [facility]/ZIP Co de Phone Number [facility]ORY [facility] [address] [place] [address] * VITAMIN B12 (06/10/2024 11:55 AM EDT) [facility] Vitamin B12 828 232 - 1,245 pg/mL 06/10/2024 8:58 PM EDT [facility] Blood Venous blood specimen / Unknown Venipuncture / Unknown 06/10/2024 11:55 AM EDT 06/10/2024 11:55 AM EDT Deborah Galarza MD LAB BLOOD ORDERABLES Final Res ult Performing Organization Address [facility] de Phone Number LABORATORY [address] [address] * (ABNORMAL) HEMOGLOBIN A1C (06/10/2024 11:55 AM EDT) [facility] Hemoglobin A1C 5.7(H) 4.0 - 5.6 % 06/10/2024 7:57 PM EDT [facility] Comment:The use of HbA1c to monitor glycemic status is based on normal hemoglobin and HbA composition. This test should not be used in patients with abnormal hemoglobin that affects the half life of the red blood cell or the in vivo glycation rates. Estimated Average Glucose 117 <126 mg/dL 06/10/2024 7:57 PM EDT [facility] Blood Venous blood specimen / Unknown Venipuncture / Unknown 06/10/2024 11:55 AM EDT 06/10/2024 11:55 AM EDT Deborah Galarza MD LAB BLOOD ORDERABLES Final Res ult [facility] [address] [place] [address] * (ABNORMAL) TSH WITH FREE T4 IF INDICATED (06/10/2024 11:55 AM EDT) TSH 0.17(L) 0.27 - 4.20 uIU/mL 06/10/2024 8:15 PM EDT [facility] Blood Venous blood specimen / Unknown Venipuncture / Unknown 06/10/2024 11:55 AM EDT 06/10/2024 11:55 AM EDT Deborah Galarza MD LAB BLOOD ORDERABLES Final Res ult Performing Organization Address [facility] Co de Phone Number [facility]ATORY [facility] [address] [place] [address] * (ABNORMAL) COMPREHENSIVE METABOLIC PANEL (06/10/2024 11:55 AM EDT) BUN 17 6 - 20 mg/dL 06/10/2024 1:18 PM EDT [facility] 56- CREATININE 0.8 0.5 - 1.0 mg/dL 06/10/2024 1:18 PM EDT [facility] 56- EGFR 69 >=60 mL/min 06/10/2024 1:18 PM EDT [facility] 56- Comment:eGFR is calculated b ased on the CKD-EPI 2020 equation. SODIUM 145 135 - 146 mmol/L 06/10/2024 1:18 PM EDT [facility] 56- POTASSIUM 4.0 3.5 - 5.1 mmol/L 06/10/2024 1:18 PM EDT [facility] 56- CHLORIDE 106 98 - 107 mmol/L 06/10/2024 1:18 PM EDT [facility] 56- CO2 29 22 - 32 mmol/L 06/10/2024 1:18 PM EDT [facility] 56- ANION GAP 10 7 - 15 mmol/L 06/10/2024 1:18 PM EDT [facility] 56- GLUCOSE 111 70 - 120 mg/dL 06/10/2024 1:18 PM EDT [facility] 56- Albumin 4.6 3.8 - 5.0 g/dL 06/10/2024 1:18 PM EDT [facility] 56- AST 27 10 - 35 U/L 06/10/2024 1:18 PM EDT [facility] 56- Alkaline Phosphatase 136(H) 35 - 130 U/L 06/10/2024 1:18 PM EDT [facility] 56- Bilirubin, Total 0.4 <=1.2 mg/dL 06/10/2024 1:18 PM EDT [facility] 56- CALCIUM 10.7(H) 8.4 - 10.2 mg/dL 06/10/2024 1:18 PM EDT [facility] 56- Protein 7.4 6.0 - 8.3 g/dL 06/10/2024 1:18 PM EDT [facility] 56 ALT 21 10 - 35 U/L 06/10/2024 1:18 PM EDT [facility] 56 Blood Venous blood specimen / Unknown Venipuncture / Unknown 06/10/2024 11:55 AM EDT 06/10/2024 11:55 AM EDT Deborah Galarza MD LAB BLOOD ORDERABLES Final Res ult [facility] [address] [place] [address] documented in this encounter Visit Diagnoses Diagnosis [...] Power of Attor robyn? No Care Teams Maintenance Groundman Relationship Specialty Start Date End Date Deborah Galarza MD [address] [place] [address] PCP - General Internal Medicine 05/09/12 documented as of this encounter
--- OUTSIDE RECORDS SUMMARY | 2024-06-30 04:18 | External Medical Summary ---
Author Name Unknown Address Unknown Organization [id number]:[facility] [place] [address] [address] Laboratory Report Ordering Provider Test Date Status [facility]U SINCLAIR 06/10/2024 11:55:09 Final Observation Date Value Abnormality Reference (Units ) Status Parathyrin.intact [Mass/volume] in Serum or Plasma 06/10/2024 11:55:09 50 15-65 (pg/mL) Final Performing Location [facility] [place] [address] [place] [address]
--- OUTSIDE RECORDS SUMMARY | 2024-06-30 04:18 | External Medical Summary ---
Author Name Unknown Address Unknown Organization [id number]:[facility] [place] [facility] [address] [address] Laboratory Report Ordering Provider Test Date Status WU SINCLAIR 06/10/2024 11:55:09 Final Observation Date Value Abnormality Reference (Units ) Status Folic Acid 06/10/2024 11:55:09 >20.0 >4.5 (ng/ mL) Final Performing Location LABORATORY [facility] - [address] [place] [address]
--- OUTSIDE RECORDS SUMMARY | 2024-06-30 04:18 | External Medical Summary ---
Author Name Unknown Address Unknown Organization K01:[facility] [place] [address] [facility] [address] Laboratory Report Ordering Provider Test Date Status WU SINCLAIR 06/10/2024 11:55:09 Final Observation Date Value Abnormality Reference (Units ) Status HbA1C 06/10/2024 11:55:09 5.7 Above high normal 4. 0-5.6 (%) Final The use of HbA1c to monitor glycemic status is based on normal hemoglobin and HbA composition. This test should not be used in patients with abnormal hemoglobin that affects the half life of the red blood cell or the in vivo glycation rates. Glucose, estimated average 06/10/2024 11:55:09 117 <126 (mg/dL) Final Performing Location [facility] [place] [address] [facility] [address]
--- OUTSIDE RECORDS SUMMARY | 2024-06-30 04:18 | External Medical Summary | Summary of Care ---
Author Name Unknown Organization [facility] Address [address] [place] [address] Phone [phone] Care Team Providers Care Music Engraver Name Role Phone Deborah Galarza MD Primary Care Provider [phone] Encounter Details Date Type Department Care Team (Late st Contact Info) Description 05/19/2024 Result Scan Unspecified Department <No scans attached> Allergies Active Allergy Reactions Criticality Noted Date [...] 50 MCG/ACT Nasal Suspension (Flonase) Administer 1 [place] into nostril in the morning. 4 Active [...] glass of water daily 4 Active Nystatin 564497 UNIT/GM External Cream Apply topically to affected [...] 12/18/2017:Stage IA(pT1c, pN0(sn), cM0, G2, ER: Positive, AK: Positive, HER2: Negative) - Signed by Prosper [...] Description 11/11/2024 1:15 PM EDT Imaging Radiology [address] [place] [address] [place] [address] 12/22/2024 3:00 PM EDT Office Visit Neurology, [place] Adelaida Azevedo [address] [address] [place] [address] Paul Ferrera, PAMeghanaC [address] [facility] [address] [address] Health Maintenance Due Date Last Done Comments Zoster Vaccines (2 of 3) 11/06/2011 09/11/2011 *BISPHONATE OR OTHER ACCEPTABLE MEDICATION NEEDED FOR OSTEOPOROSIS (REFER TO SMARTSET #1146) 04/21/2021 Depression Screening 04/09/2023 04/09/2022 COVID-19 Vaccine ( season) 2023 05/21/2020, 04/30/2020 Influenza Vaccine (FLU shot) (#1) 2023 01/24/2010, 01/11/2009 CKD HGB USE SMARTSET 87148 11/14/202411/14, 05/02/2023, 10/22/2022, Additional history exists Albumin/Creatinine Ratio 11/19/2024 024, 10/25/2022, 08/29/2021 Colonoscopy 11/23/2024 11/24/2019, 03/2019, 12/01/2018, Additional history exists GFR 12/11/2024 06/10/2024, 10/24, 05/02/2023, Additional history exists CKD PHOS USE SMARTSET 86404 06/10/202505/23, 12/14/2022, 10/22/2022, Additional history exists TSH 06/10/2025 06/10/2024, 10/24, 06/12/2023, Additional history exists DXA Scan 08/04/2025 08/05/2023, 10/25, 10/23/2017, Additional history exists DTap/Tdap Vaccines (2 - Td or Tdap) 11/14/2033 11/15/2023, 01/24/2010 Pneumococcal Vaccine: 50+ Years Completed 10/04/2015, 09/18/2013 RETIRED - COLONOSCOPY-EVERY 5 YRS AGES 18-100 Discontinued 11/24/2019, 11/24/2019, 12/01/2018, Additional history exists VITAMIN D LEVEL ONCE IN A LIFETIME-USE SMARTSET# 78666 Completed 12/14/2022, 04/19/2021, 09/16/2014, Additional history exists [...] this encounter Medical Devices Implanted Type Area Packaging Machine Supplies Distributor Device Identifier Shelf Expiration Date Model / Serial / Lot Lens Intraoc 24.0 - [id number] - [id number] Implanted:Qty: 1 on 04/17/2022 by Leonel Guaman MD at OR [facility] Left: Eye [employer]OM[employer] 07/22/2026 [id number] / [id number] / Lens Intraoc 24.5 - [id number] - [id number] Implanted:Qty: 1 on 05/01/2022 by Leonel Guaman MD at OR [facility] Right: Eye [employer]OM[employer] 09/21/2026 [id number] / [id number] / [id number] documented as of this encounter Procedures Procedure Name Priority Date/Time Associated Diagnosis Comments RADIOLOGY SCANNED RESULT 05/19/2024 documented in this encounter Results * RADIOLOGY SCANNED RESULT (05/19/2024) 05/19/2024 us No Physician Data Unknown DIAGNOSTIC RADIOLOGY S ERVICES Final Result documented in this encounter Advance [...] Power of Attor robyn? No Care Teams Music Engraver Relationship Specialty Start Date End Date Deborah Galarza MD [address] [place] [address] PCP - General Internal Medicine 05/09/12 documented as of this encounter
--- OUTSIDE RECORDS SUMMARY | 2024-06-30 04:18 | External Medical Summary | Summary of Care ---
Author Name Unknown Organization [facility] Address [address] [place] [address] Phone [phone] Care Team Providers Care Online Tutor Name Role Phone Deborah Galarza MD Primary Care Provider [phone] Reason for Visit * Reason Comments Outpatient Testing Encounter Details Date Type Department Care Team (Late st Contact Info) Description 06/10/2024 11:50 AM EDT Laboratory Laboratory [facility] State Karlo Osborne [address] [place] [phone] [facility] [address] [place] [address] [employer] Other*[id number]; Acquired hypothyroidism; Hypokalemia; Positive RPR test; Chronic kidney disease, stage 3a ([facility]); Dementia, unspecified dementia severity, unspecified dementia type, unspecified whether behavioral, psychotic, or mood disturbance or anxiety ([facility]); Impaired fasting glucose; Hypercalcemia Allergies Active Allergy Reactions Criticality Noted Date [...] 50 MCG/ACT Nasal Suspension (Flonase) Administer 1 [place] into nostril in the morning. 4 Active [...] glass of water daily 4 Active Nystatin [id number] UNIT/GM External Cream Apply topically to affected [...] [address] [place] [phone] Sheri Bryson, DO [address] [place] [address] 11/11/2024 1:15 PM EDT Imaging Radiology [address] [place] [phone] Pending Results Name Type Priority Associated Diagnoses Date /Time MYCODE SUBSEQUENT ADULT Lab Routine MyCode Research Other*[id number] 06/10/2024 11:55 AM EDT FTA-ABS Lab Routine Positive RPR test 06/10/2024 11:55 AM EDT TSH WITH FREE T4 IF INDICATED Lab Routine Acquired hypothyroidism 06/10/2024 11:55 AM EDT HEMOGLOBIN A1C Lab Routine Impaired fasting glucose 06/10/2024 11:55 AM EDT VITAMIN B12 Lab Routine Dementia, unspecified dementia severity, unspecified dementia type, unspecified whether behavioral, psychotic, or mood disturbance or anxiety ([facility]) 06/10/2024 11:55 AM EDT FOLIC ACID Lab Routine Dementia, unspecified dementia severity, unspecified dementia type, unspecified whether behavioral, psychotic, or mood disturbance or anxiety ([facility]) 06/10/2024 11:55 AM EDT MYCODE SST1 Lab Routine MyCode Research Other*[id number] 06/10/2024 11:55 AM EDT MYCODE SST2 Lab Routine MyCode Research Other*[id number] 06/10/2024 11:55 AM EDT PTH Lab Routine Hypercalcemia 06/10/2024 11:55 AM EDT Health Maintenance Due Date Last Done Comments Zoster Vaccines (2 of 3) 11/06/2011 09/11/2011 *BISPHONATE OR OTHER ACCEPTABLE MEDICATION NEEDED FOR OSTEOPOROSIS (REFER TO SMARTSET #1146) 04/21/2021 Depression Screening 04/09/2023 04/09/2022 COVID-19 Vaccine ( season) 2023 05/21/2020, 04/30/2020 Influenza Vaccine (FLU shot) (#1) 2023 01/24/2010, 01/11/2009 CKD PHOS USE SMARTSET 03380 12/15/202305/23, 12/14/2022, 10/22/2022, Additional history exists CKD HGB USE SMARTSET 62931 11/14/202411/14, 05/02/2023, 10/22/2022, Additional history exists TSH 11/14/2024 11/15/2023, 05/24, 05/02/2023, Additional history exists Albumin/Creatinine Ratio 11/19/2024 024, 10/25/2022, 08/29/2021 Colonoscopy 11/23/2024 11/24/2019, 0903/2019, 12/01/2018, Additional history exists GFR 12/11/2024 06/10/2024, 10/24, 05/02/2023, Additional history exists DXA Scan 08/04/2025 08/05/2023, 10/25, 10/23/2017, Additional history exists DTap/Tdap Vaccines (2 - Td or Tdap) 11/14/2033 11/15/2023, 01/24/2010 Pneumococcal Vaccine: 50+ Years Completed 10/04/2015, 09/18/2013 RETIRED - COLONOSCOPY-EVERY 5 YRS AGES 18-100 Discontinued 11/24/2019, 11/24/2019, 12/01/2018, Additional history exists VITAMIN D LEVEL ONCE IN A LIFETIME-USE SMARTSET# 28029 Completed 12/14/2022, 04/19/2021, 09/16/2014, Additional history exists [...] this encounter Medical Devices Implanted Type Area Piano Tuner Device Identifier Shelf Expiration Date Model / Serial / Lot Lens Intraoc 24.0 - [id number] - [id number] Implanted:Qty: 1 on 04/17/2022 by Leonel Guaman MD at OR [facility] Left: Eye BAUSCH & LOMB 07/22/2026 [id number] / [id number] / Lens Intraoc 24.5 - [id number] - [id number] Implanted:Qty: 1 on 05/01/2022 by Leonel Guaman MD at OR [facility] Right: Eye BAUSCH & LOMB 09/21/2026 [id number] / [id number] / [id number] documented as of this encounter Procedures Procedure Name Priority Date/Time Associated Diagnosis Comments COMPREHENSIVE METABOLIC PANEL Routine 06/10/2024 11:55 AM EDT Dementia, unspecified dementia severity, unspecified dementia type, unspecified whether behavioral, psychotic, or mood disturbance or anxiety (HCC) PHOSPHORUS Routine 06/10/2024 11:55 AM EDT Chronic kidney disease, stage 3a (HCC) documented in this encounter Results * (ABNORMAL) COMPREHENSIVE METABOLIC PANEL (06/10/2024 11:55 AM EDT) BUN 17 6 - 20 mg/dL 06/10/2024 1:18 PM EDT [facility]02 CREATININE 0.8 0.5 - 1.0 mg/dL 06/10/2024 1:18 PM EDT [facility]02 EGFR 69 >=60 mL/min 06/10/2024 1:18 PM EDT [facility]-02 Comment:eGFR is calculated b ased on the CKD-EPI 2020 equation. SODIUM 145 135 - 146 mmol/L 06/10/2024 1:18 PM EDT [facility]-02 POTASSIUM 4.0 3.5 - 5.1 mmol/L 06/10/2024 1:18 PM EDT [facility] 56- CHLORIDE 106 98 - 107 mmol/L 06/10/2024 1:18 PM EDT [facility] 56 CO2 29 22 - 32 mmol/L 06/10/2024 1:18 PM EDT [facility] 56 ANION GAP 10 7 - 15 mmol/L 06/10/2024 1:18 PM EDT [facility] 56 GLUCOSE 111 70 - 120 mg/dL 06/10/2024 1:18 PM EDT [facility] 56 Albumin 4.6 3.8 - 5.0 g/dL 06/10/2024 1:18 PM EDT [facility] 56 AST 27 10 - 35 U/L 06/10/2024 1:18 PM EDT [facility] 56 Alkaline Phosphatase 136(H) 35 - 130 U/L 06/10/2024 1:18 PM EDT [facility] 56 Bilirubin, Total 0.4 <=1.2 mg/dL 06/10/2024 1:18 PM EDT [facility] 56 CALCIUM 10.7(H) 8.4 - 10.2 mg/dL 06/10/2024 1:18 PM EDT [facility] 56 Protein 7.4 6.0 - 8.3 g/dL 06/10/2024 1:18 PM EDT [facility] 56 ALT 21 10 - 35 U/L 06/10/2024 1:18 PM EDT [facility] 56 Blood Venous blood specimen / Unknown Venipuncture / Unknown 06/10/2024 11:55 AM EDT 06/10/2024 11:55 AM EDT us Deborah Galarza MD LAB BLOOD ORDERABLES Final Res ult [facility] 56-[address] [place] [address] * PHOSPHORUS (06/10/2024 11:55 AM EDT) Phosphorus 3.5 2.5 - 4.8 mg/dL 06/10/2024 1:18 PM EDT [facility] 56 Blood Venous blood specimen / Unknown Venipuncture / Unknown 06/10/2024 11:55 AM EDT 06/10/2024 11:55 AM EDT Kristy Trent [facility] LAB BLOOD ORDERABLES Melanie l Result [facility] 56 200 [facility] [place] [address] documented in this encounter Visit Diagnoses Diagnosis MyCode Research Other*[id number] Acquired hypothyroidism Unspecified hypothyroidism Hypokalemia Hypopotassemia Positive RPR test Chronic kidney disease, stage 3a (HCC) Dementia, unspecified dementia severity, unspecified dementia type, unspecified whether behavioral, psychotic, or mood disturbance or anxiety (HCC) Impaired fasting glucose Hypercalcemia documented in this encounter Advance Directives * [...] Power of Attor robyn? No Care Teams Online Tutor Relationship Specialty Start Date End Date Deborah Galarza MD 200 [facility] [place] [address] PCP - General Internal Medicine 05/09/12 documented as of this encounter
--- OUTSIDE RECORDS SUMMARY | 2024-06-30 04:18 | External Medical Summary | Summary of Care ---
Author Name Unknown Organization [facility] Address [address] [place] [address] Phone [phone] Care Team Providers Care Water Service Dispatcher Name Role Phone Deborah Galarza MD Primary Care Provider [phone] Reason for Visit * Reason Onset Date Comments Forms Request 06/12/2024 Encounter Details Date Type Department Care Team (Late st Contact Info) Description 06/12/2024 Telephone General Internal Medicine [facility] [place] [address] [facility] [place] [address] Deborah Galarza MD 200 [facility] [place] [address] Forms Request Allergies Active Allergy Reactions Criticality [...] 50 MCG/ACT Nasal Suspension (Flonase) Administer 1 [place] into nostril in the morning. 4 Active [...] glass of water daily 4 Active Nystatin 932721 UNIT/GM External Cream Apply topically to affected [...] mRNA, LNP-s, No Pre serve, 2-Dose Series ([employer]) 05/21/2020,04/30/2020 Pneumococcal Conjugate Vacc, 13 Valent (Prevnar) [...] encounter Miscellaneous Notes * Telephone Encounter - Aislinn Orellana CMA - 06/12/2024 3:22 PM EDT Form is completed and ready to be picked up. Aislinn Orellana CMA * Telephone Encounter - Brunilda Martinez OSA - 06/12/2024 12:19 PM EDT Patient requests their disability parking placard application to be completed. Provider to complete form; Deborah Galarza MD Form placed in IM nurses forms request box for review. (Confirm patient's name/ or MRN is on form) on form Patient requests the form to be Picked up When form is complete, please call/MyG patient at Cell Thank you! documented in this encounter Plan of Treatment Upcoming Encounters Date Type Department Care Team (Late st Contact Info) Description 11/11/2024 1:15 PM EDT Imaging Radiology [facility] 1st [facility] [address] [place] [phone] 12/22/2024 3:00 PM EDT Office Visit Neurology, Adelaida Garcia [address] [place] [address] [place] [address] Paul Ferrera, PAMeghanaC [address] [facility] [address] [place] [address] Health Maintenance Due Date Last Done Comments Zoster Vaccines (2 of 3) 11/06/2011 09/11/2011 *BISPHONATE OR OTHER ACCEPTABLE MEDICATION NEEDED FOR OSTEOPOROSIS (REFER TO SMARTSET #1146) 04/21/2021 Depression Screening 04/09/2023 04/09/2022 COVID-19 Vaccine ( season) 2023 05/21/2020, 04/30/2020 Influenza Vaccine (FLU shot) (#1) 2023 01/24/2010, 01/11/2009 CKD HGB USE SMARTSET 20351 11/14/202411/14, 05/02/2023, 10/22/2022, Additional history exists Albumin/Creatinine Ratio 11/19/2024 024, 10/25/2022, 08/29/2021 Colonoscopy 11/23/2024 11/24/2019, 03/2019, 12/01/2018, Additional history exists GFR 12/11/2024 06/10/2024, 082 05/2023, 05/02/2023, Additional history exists CKD PHOS USE SMARTSET 47105 06/10/202505/23, 12/14/2022, 10/22/2022, Additional history exists TSH 06/10/2025 06/10/2024, 10/24, 06/12/2023, Additional history exists DXA Scan 08/04/2025 08/05/2023, 10/25, 10/23/2017, Additional history exists DTap/Tdap Vaccines (2 - Td or Tdap) 11/14/2033 11/15/2023, 01/24/2010 Pneumococcal Vaccine: 50+ Years Completed 10/04/2015, 09/18/2013 RETIRED - COLONOSCOPY-EVERY 5 YRS AGES 18-100 Discontinued 11/24/2019, 11/24/2019, 12/01/2018, Additional history exists VITAMIN D LEVEL ONCE IN A LIFETIME-USE SMARTSET# 20002 Completed 12/14/2022, 04/19/2021, 09/16/2014, Additional history exists [...] this encounter Medical Devices Implanted Type Area Square Shear Operator Device Identifier Shelf Expiration Date Model / Serial / Lot Lens Intraoc 24.0 - [id number] - [id number] Implanted:Qty: 1 on 04/17/2022 by Leonel Guaman MD at OR [facility] Left: Eye BAUSCH & LOMB 07/22/2026 [id number] / [id number] / Lens Intraoc 24.5 - [id number] - [id number] Implanted:Qty: 1 on 05/01/2022 by Leonel Guaman MD at OR [facility] Right: Eye BAUSCH & LOMB 09/21/2026 [id number] / [id number] / [id number] documented as of this encounter Advance Directives [...] Power of Attor robyn? No Care Teams Water Service Dispatcher Relationship Specialty Start Date End Date Deborah Galarza MD 200 [facility] [place] [address] PCP - General Internal Medicine 05/09/12 documented as of this encounter
--- OUTSIDE RECORDS SUMMARY | 2024-06-30 04:18 | External Medical Summary ---
Author Name Unknown Address Unknown Organization K01:[facility] [address] [place] [address] Laboratory Report Ordering Provider Test Date Status [facility] 06/10/2024 11:55:09 Final Observation Date Value Abnormality Reference (Units ) Status Vitamin B12 06/10/2024 11:55:09 [phone] (pg/mL) Final Performing Location [facility] - [address] [place] [address]
--- OUTSIDE RECORDS SUMMARY | 2024-06-30 04:18 | External Medical Summary | Summary of Care ---
Author Name Unknown Organization [facility] Address [address] [place] [address] Phone [phone] Care Team Providers Care Ice Cream Man Name Role Phone Deborah Galarza MD Primary Care Provider [phone] Reason for Visit * Reason Onset Date Comments Forms Request 06/12/2024 Encounter Details Date Type Department Care Team (Late st Contact Info) Description 06/12/2024 Telephone General Internal Medicine [facility] [place] [address] [facility] [place] [address] Deborah Galarza MD [address] [facility] [place] [address] Forms Request Allergies Active Allergy Reactions Criticality [...] 50 MCG/ACT Nasal Suspension (Flonase) Administer 1 [place] into nostril in the morning. 4 Active [...] glass of water daily 4 Active Nystatin 007955 UNIT/GM External Cream Apply topically to affected [...] 12/18/2017:Stage IA(pT1c, pN0(sn), cM0, G2, ER: Positive, ND: Positive, HER2: Negative) - Signed by Prosper [...] mRNA, LNP-s, No Pre serve, 2-Dose Series ([employer]) 05/21/2020,04/30/2020 Pneumococcal Conjugate Vacc, 13 Valent (Prevnar) [...] 1:15 PM EDT Imaging Radiology [facility]st [facility] [address] [place] [address] 12/22/2024 3:00 PM EDT Office Visit Neurology, Adelaida Garcia Dr [address] [place] [address] [place] [address] Paul Ferrera, PAMeghanaC [address] [facility] [address] [place] [address] Health Maintenance Due Date Last Done Comments Zoster Vaccines (2 of 3) 11/06/2011 09/11/2011 *BISPHONATE OR OTHER ACCEPTABLE MEDICATION NEEDED FOR OSTEOPOROSIS (REFER TO SMARTSET #1146) 04/21/2021 Depression Screening 04/09/2023 04/09/2022 COVID-19 Vaccine ( season) 2023 05/21/2020, 04/30/2020 Influenza Vaccine (FLU shot) (#1) 2023 01/24/2010, 01/11/2009 CKD HGB USE SMARTSET 55865 11/14/202411/14, 05/02/2023, 10/22/2022, Additional history exists Albumin/Creatinine Ratio 11/19/2024 024, 10/25/2022, 08/29/2021 Colonoscopy 11/23/2024 11/24/2019, 03/2019, 12/01/2018, Additional history exists GFR 12/11/2024 06/10/2024, 082 05/2023, 05/02/2023, Additional history exists CKD PHOS USE SMARTSET 86277 06/10/202505/23, 12/14/2022, 10/22/2022, Additional history exists TSH 06/10/2025 06/10/2024, 10/24, 06/12/2023, Additional history exists DXA Scan 08/04/2025 08/05/2023, 10/25, 10/23/2017, Additional history exists DTap/Tdap Vaccines (2 - Td or Tdap) 11/14/2033 11/15/2023, 01/24/2010 Pneumococcal Vaccine: 50+ Years Completed 10/04/2015, 09/18/2013 RETIRED - COLONOSCOPY-EVERY 5 YRS AGES 18-100 Discontinued 11/24/2019, 11/24/2019, 12/01/2018, Additional history exists VITAMIN D LEVEL ONCE IN A LIFETIME-USE SMARTSET# 29054 Completed 12/14/2022, 04/19/2021, 09/16/2014, Additional history exists [...] this encounter Medical Devices Implanted Type Area Biological Science Aide Device Identifier Shelf Expiration Date Model / Serial / Lot Lens Intraoc 24.0 - [id number] - [id number] Implanted:Qty: 1 on 04/17/2022 by Leonel Guaman MD at OR [facility] Left: Eye BAUSCH & LOMB 07/22/2026 [id number] / [id number] / Lens Intraoc 24.5 - [id number] - [id number] Implanted:Qty: 1 on 05/01/2022 by Leoenl Guaman MD at OR [facility] Right: Eye BAUSCH & LOMB 09/21/2026 [id number] / [id number] / [id number] documented as of this encounter Advance Directives [...] Power of Attor robyn? No Care Teams Ice Cream Man Relationship Specialty Start Date End Date Deborah Galarza MD [address] [facility] [place] [address] PCP - General Internal Medicine 05/09/12 documented as of this encounter
--- OUTSIDE RECORDS SUMMARY | 2024-06-30 04:18 | External Medical Summary ---
Author Name Unknown Address Unknown Organization K09:[facility] [address] [place] [address] Laboratory Report Ordering Provider Test Date Status [facility] 06/10/2024 11:55:09 Final Observation Date Value Abnormality Reference (Units ) Status BUN 06/10/2024 11:55:09 17 6-20 (mg/dL) Final Creatinine 06/10/2024 11:55:09 0.8 0.5-1.0 (mg/dL) Final Glomerular filtration rate/1.73 sq M.predicted [Volume Rate/Area] in Serum, Plasma or Blood by Creatinine-based formula (CKD-EPI) 06/10/2024 11:55:09 69 >=60 (mL/min) Final eGFR is calculated based on the CKD-EPI 2020 equation. Sodium 06/10/2024 11:55:09 145 135-146 (m mol/L) Final Potassium 06/10/2024 11:55:09 4.0 3.5-5.1 (m mol/L) Final Cl 06/10/2024 11:55:09 106 98-107 (mm ol/L) Final CO2 06/10/2024 11:55:09 29 22-32 (mmo l/L) Final Anion gap 06/10/2024 11:55:09 10 7-15 (mmol /L) Final Glucose 06/10/2024 11:55:09 111 70-120 (mg /dL) Final Albumin 06/10/2024 11:55:09 4.6 3.8-5.0 (g /dL) Final AST (Aspartate aminotransferase) 06/10/2024 11:55:09 27 10-35 (U/L) Fin al Alk Phos 06/10/2024 11:55:09 136 Above high normal 35 -130 (U/L) Final Bilirubin, Total 06/10/2024 11:55:09 0.4 <=1 .2 (mg/dL) Final Calcium 06/10/2024 11:55:09 10.7 Above high normal 8. 4-10.2 (mg/dL) Final Protein 06/10/2024 11:55:09 7.4 6.0-8.3 (g /dL) Final ALT (Alanine aminotransferase) 06/10/2024 11:55:09 21 10-35 (U/L) Qasim mendes Performing Location [facility]- [facility] [address] [place] [address]
--- OUTSIDE RECORDS SUMMARY | 2024-06-30 04:18 | External Medical Summary | Summary of Care ---
Author Name Unknown Organization [facility] Address [address] [place] [address] Phone [phone] Care Team Providers Care Sand Mixer Machine Name Role Phone Deborah Galarza MD Primary Care Provider [phone] Reason for Visit * Reason Comments Memory Loss * Evaluate & Treat - Unlimited Visits (Within 30 days (routine)) - Pending Review Specialty Diagnoses / Procedures Referred By Contac t Referred To Contact Neurology Diagnoses Dementia, unspecified dementia severity, unspecified dementia type, unspecified whether behavioral, psychotic, or mood disturbance or anxiety (HCC) Deborah Galarza MD [address] [place] [address] Phone: tel: fax: Referral ID Status Reason Start Date Expiration Date Visits Requested Visits Authorized [id number] Pending Review Specialty Services Required 06/10/[phone] Encounter Details Date Type Department Care Team (Latest Contact Info) Description 06/11/2024 3:00 PM EDT Office Visit Neurology [address] [place] [address] Sheri Bryson, DO [address] [place] [address] Dementia of the Alzheimer's type, [...] 50 MCG/ACT Nasal Suspension (Flonase) Administer 1 [place] into nostril in the morning. 4 Active [...] glass of water daily 4 Active Nystatin 023398 UNIT/GM External Cream Apply topically to affected [...] mRNA, LNP-s, No Pre serve, 2-Dose Series ([employer]) 05/21/2020,04/30/2020 Pneumococcal Conjugate Vacc, 13 Valent (Prevnar) [...] Utilize Pillpack service through your pharmacy (e.g. [facility]) where they pack your medications based onwhen [...] eat anymore), living arrangements (home health, or long-term if he/she can't live safely at home independently anymore), financial decisions (estate planning, inheritance), and surrogate decision makers (e.g. power of environmental attorney) if he/she can no longer make sound decisions. Work with an environmental attorney on putting these wishes on paper [...] with Pillpack, consider automatic pill dispensers (e.g. [employer]). They are automated with alarms and opens [...] certain grocery stores, and apps like Door Concur [place], bulletn., and QuantuModeling. There are also subscriptions for pre-made meals that requires light cooking, e.g. Hello Fresh and Blue Aprons, and ones that require scanning a barcode and heating up in a special convection oven (e.g. Tovala). Other Resources The Alzheimer's Association 15/10 Helpline [phone] Features: Confidential care consultation by master's level clinicians with: decision- making support, crisis management, education Referral to local community programs, services and support documented in this encounter Plan of Treatment Upcoming Encounters Date Type Department Care Team (Late st Contact Info) Description 11/11/2024 1:15 PM EDT Imaging Radiology [facility] [address] [place] [address] 12/22/2024 3:00 PM EDT Office Visit Neurology, Adelaida Garcia Dr [address] [place] [address] [place] [address] Paul Ferrera PA-C [address] [facility] [address] [place] [address] Health Maintenance Due Date Last Done Comments Zoster Vaccines (2 of 3) 11/06/2011 09/11/2011 *BISPHONATE OR OTHER ACCEPTABLE MEDICATION NEEDED FOR OSTEOPOROSIS (REFER TO SMARTSET #1146) 04/21/2021 Depression Screening 04/09/2023 04/09/2022 COVID-19 Vaccine ( season) 2023 05/21/2020, 04/30/2020 Influenza Vaccine (FLU shot) (#1) 2023 01/24/2010, 01/11/2009 CKD HGB USE SMARTSET 04745 11/14/202411/14, 05/02/2023, 10/22/2022, Additional history exists Albumin/Creatinine Ratio 11/19/2024 024, 10/25/2022, 08/29/2021 Colonoscopy 11/23/2024 11/24/2019, 0903/2019, 12/01/2018, Additional history exists GFR 12/11/2024 06/10/2024, 10/24, 05/02/2023, Additional history exists CKD PHOS USE SMARTSET 24465 06/10/202505/23, 12/14/2022, 10/22/2022, Additional history exists TSH 06/10/2025 06/10/2024, 10/24, 06/12/2023, Additional history exists DXA Scan 08/04/2025 08/05/2023, 10/25, 10/23/2017, Additional history exists DTap/Tdap Vaccines (2 - Td or Tdap) 11/14/2033 11/15/2023, 01/24/2010 Pneumococcal Vaccine: 50+ Years Completed 10/04/2015, 09/18/2013 RETIRED - COLONOSCOPY-EVERY 5 YRS AGES 18-100 Discontinued 11/24/2019, 11/24/2019, 12/01/2018, Additional history exists VITAMIN D LEVEL ONCE IN A LIFETIME-USE SMARTSET# 08983 Completed 12/14/2022, 04/19/2021, 09/16/2014, Additional history exists [...] this encounter Medical Devices Implanted Type Area Farm Owner Operator Device Identifier Shelf Expiration Date Model / Serial / Lot Lens Intraoc 24.0 - [id number] - [id number] Implanted:Qty: 1 on 04/17/2022 by Leonel Guaman MD at OR [facility] Left: Eye BAUSCH & LOMB 07/22/2026 [id number] / [id number] / Lens Intraoc 24.5 - [id number] - [id number] Implanted:Qty: 1 on 05/01/2022 by Leonel Guaman MD at OR [facility] Right: Eye BAUSCH & LOMB 09/21/2026 [id number] / [id number] / [id number] documented as of this encounter Visit Diagnoses [...] Power of Attor robyn? No Care Teams Sand Mixer Machine Relationship Specialty Start Date End Date Deborah Galarza MD [address] [place] [address], [place] [address] PCP - General Internal Medicine 05/09/12 documented as of this encounter
--- OUTSIDE RECORDS SUMMARY | 2024-06-30 04:19 | External Medical Summary | Summary of Care ---
Author Name Unknown Organization [facility] Address [address] [place] [address] Phone [phone] Care Team Providers Care Screening Technician Name Role Phone Deborah Galarza MD Primary Care Provider [phone] Reason for Visit * Reason Onset Date Comments Advice 06/04/2024 Encounter Details Date Type Department Care Team (Late st Contact Info) Description 06/04/2024 Telephone General Internal Medicine [facility] [place] [address] [facility] [place] [address] Deborah Galarza MD [address] [facility] [place] [address] Advice Allergies Active Allergy Reactions Criticality Noted Date Comments Prednisone 05/02/2023 Nausea, lethargy, states she felt awful documented as of this encounter (statuses as of 06/04/2024) Medications Q-10 CO-ENZYME 10 MG OR CAPS [...] 50 MCG/ACT Nasal Suspension (Flonase) Administer 1 [place] into nostril in the morning. 4 Active [...] glass of water daily 4 Active Nystatin 983342 UNIT/GM External Cream Apply topically to affected area 2 times a day. Apply to underneath both breasts twice daily 30 g 4 Active Levothyroxine Sodium 100 MCG Oral Tablet (Levoxyl)Indicatio ns:Acquired hypothyroidism TAKE 1 TABLET BY MOUTH IN THE MORNING 30 MINUTES BEFORE BREAKFAST OR OTHER MEDS 30 Tablet 5 Active documented as of this encounter (statuses as of 06/04/2024) Active Problems Problem Noted Date Diagnosed Date Chronic kidney disease, stage 3a 10/31/2020 Overview: Per CKD protocol Senile osteoporosis 04/17/2019 Pain of left upper arm 10/15/2018 Synovial cyst of hand 10/15/2018 Malignant neoplasm of upper- outer quadrant of left breast in female, estrogen receptor positive 11/13/2017 Cancer Staging:Clinical: Unsigned Pathologic stage from 12/18/2017:Stage IA(pT1c, pN0(sn), cM0, G2, ER: Positive, LA: Positive, HER2: Negative) - Signed by Prosper Daley MD on 12/18/2017 Dyslipidemia, goal LDL below 130 09/11/2011 Acquired hypothyroidism 05/23/2005 LFTs abnormal 11/10/2003 documented as of this encounter (statuses as of 06/04/2024) Resolved Problems Problem Noted Date Diagnosed Date Resolved Date Prediabetes 11/05/2022 12/05/2023 Overview: Per Prediabetes protocol Generalized weakness 09/11/2021 022 Dyslipidemia, goal to be determined 03/09/2009 09/11/2011 Overview (03/09/2009): Per Lipid Taxonomy. Other allergic rhinitis 05/23/200509/23 Overview (01/15/2017): ICD-10 update of inactive term documented as of this encounter (statuses as of 06/04/2024) Immunizations Name Administration Dates Next Due COVID-19 [...] encounter Miscellaneous Notes * Telephone Encounter - Teri Turpin LPN - 06/04/2024 1:28 PM EDT Called and spoke with Ana Luisa from [employer]. She will fax orders to the office. Start of care will be tomorrow 06/05/24. No further questions at this time. * Telephone Encounter - Merary Layton OSA - 06/04/2024 12:12 PM EDT Reason for patient's call: home health call. Home health is looking to see if pt's PCP will sign home health referrals for pt Caller was unable to be transferred. Please advise. documented in this encounter Plan of Treatment Upcoming Encounters Date Type Department Care Team (Late st Contact Info) Description 06/10/2024 10:00 AM EDT Office Visit General Internal Medicine [facility] [address] [facility] [place] [address] Deborah Galarza MD [address] [facility] [place] [address] 11/11/2024 1:15 PM EDT Imaging Radiology [address] [place] [address] Health Maintenance Due Date Last Done Comments Zoster Vaccines (2 of 3) 11/06/2011 09/11/2011 *BISPHONATE OR OTHER ACCEPTABLE MEDICATION NEEDED FOR OSTEOPOROSIS (REFER TO SMARTSET #1146) 04/21/2021 Depression Screening 04/09/2023 04/09/2022 COVID-19 Vaccine ( season) 2023 05/21/2020, 04/30/2020 Influenza Vaccine (FLU shot) (#1) 2023 01/24/2010, 01/11/2009 CKD PHOS USE SMARTSET 96339 12/15/202311/24, 10/22/2022, 04/19/2021 GFR 05/17/2024 11/15/2023, 10/2023, 12/14/2022, Additional history exists CKD HGB USE SMARTSET 92098 11/14/202411/14, 05/02/2023, 10/22/2022, Additional history exists TSH [...] D LEVEL ONCE IN A LIFETIME-USE SMARTSET# [id number] Completed 12/14/2022, 04/19/2021, 09/16/2014, Additional history exists [...] this encounter Medical Devices Implanted Type Area Senior Buyer Device Identifier Shelf Expiration Date Model / Serial / Lot Lens Intraoc 24.0 - [id number] - [id number] Implanted:Qty: 1 on 04/17/2022 by Leonel Guaman MD at OR [facility] Left: Eye [employer] 07/22/2026 [id number] / [id number] / Lens Intraoc 24.5 - [id number] - [id number] Implanted:Qty: 1 on 05/01/2022 by Leonel Guaman MD at [facility] Right: Eye [employer] 09/21/2026 [id number] / [id number] / [id number] documented as of this encounter Advance Directives [...] Power of Attor robyn? No Care Teams Screening Technician Relationship Specialty Start Date End Date Deborah Galarza MD [address] [place] [address] PCP - General Internal Medicine 05/09/12 documented as of this encounter
--- OUTSIDE RECORDS SUMMARY | 2024-06-30 04:19 | External Medical Summary | Summary of Care ---
Author Name Unknown Organization [facility] Address [address] [place] [address] Phone [phone] Care Team Providers Care Dinkey Mechanic Name Role Phone Deborah Galarza MD Primary Care Provider [phone] Reason for Visit * Reason Comments eRx-Medication Refill Encounter Details Date Type Department Care Team (Late st Contact Info) Description 06/05/2024 Refill General Internal Medicine [facility] [place] [address] [facility] [address] [place] [address] Deborah Galarza MD 200 [facility] [place] [address] Acquired hypothyroidism Allergies Active Allergy Reactions Criticality Noted Date Comments Prednisone 05/02/2023 Nausea, lethargy, states she felt awful documented as of this encounter (statuses as of 06/06/2024) Medications Q-10 CO-ENZYME 10 MG OR CAPS [...] 50 MCG/ACT Nasal Suspension (Flonase) Administer 1 [place] into nostril in the morning. 04/19/19 24 [...] of water daily 11/15/19 24 Active Nystatin 175479 UNIT/GM External Cream Apply topically to affected area 2 times a day. Apply to underneath both breasts twice daily 30 g 01/14/20 24 Active Levothyroxine Sodium 100 MCG Oral Tablet (Levoxyl)Indicati ons:Acquired hypothyroidism TAKE 1 TABLET BY MOUTH IN THE MORNING 30 MINUTES BEFORE BREAKFAST OR OTHER MEDS. 30 Tablet 06/07/19 25 Active Levothyroxine Sodium 100 MCG Oral Tablet (Levoxyl)Indicati ons:Acquired hypothyroidism TAKE 1 TABLET BY MOUTH IN THE MORNING 30 MINUTES BEFORE BREAKFAST OR OTHER MEDS 30 Tablet 05/16/19 25 2024 Discontinued documented as of this encounter (statuses as of 06/06/2024) Active Problems Problem Noted Date Diagnosed Date [...] as of this encounter (statuses as of 06/06/2024) Resolved Problems Problem Noted Date Diagnosed Date Resolved Date Prediabetes 11/05/2022 12/05/2023 Overview: Per Prediabetes protocol Generalized weakness 09/11/2021 022 Dyslipidemia, goal to be determined 03/09/2009 09/11/2011 Overview (03/09/2009): Per Lipid Taxonomy. Other allergic rhinitis 05/23/200509/23 Overview (01/15/2017): ICD-10 update of inactive term documented as of this encounter (statuses as of 06/06/2024) Immunizations Name Administration Dates Next Due COVID-19 [...] encounter Miscellaneous Notes * Telephone Encounter - Nicole Barnes [facility] - 06/06/2024 7:16 AM EDTSigned Prescriptions: Disp Refills Levothyroxine Sodium 100 MCG Oral Tablet (*30 Tab*0 Sig: TAKE 1 TABLET BY MOUTH IN THE MORNING 30 MINUTES BEFORE BREAKFAST OR OTHER MEDS.Authorizing Provider: Vanita GALARZA User: NICOLE BARNES * Telephone Encounter - Nicole Barnes [facility] - 06/06/2024 7:15 AM EDT RX authorized. Zero refills given until upcoming appt. documented in this encounter Plan of Treatment Upcoming Encounters Date Type Department Care Team (Late st Contact Info) Description 06/10/2024 10:00 AM EDT Office Visit General Internal Medicine [facility] [address] [place] [address] Deborah Galarza MD [address] [place] [address] 11/11/2024 1:15 PM EDT Imaging Radiology [facility] [address] [place] [phone] Health Maintenance Due Date Last Done Comments Zoster Vaccines (2 of 3) 11/06/2011 09/11/2011 *BISPHONATE OR OTHER ACCEPTABLE MEDICATION NEEDED FOR OSTEOPOROSIS (REFER TO SMARTSET #1146) 04/21/2021 Depression Screening 04/09/2023 04/09/2022 COVID-19 Vaccine ( season) 2023 05/21/2020, 04/30/2020 Influenza Vaccine (FLU shot) (#1) 2023 01/24/2010, 01/11/2009 CKD PHOS USE SMARTSET 23495 12/15/2023 09/2 04/2022, 10/22/2022, 04/19/2021 GFR 05/17/2024 11/15/2023, 02/0 10/2023, 12/14/2022, Additional history exists CKD HGB USE SMARTSET 01738 11/14/202411/14, 05/02/2023, 10/22/2022, Additional history exists TSH [...] D LEVEL ONCE IN A LIFETIME-USE SMARTSET# [id number] Completed 12/14/2022, 04/19/2021, 09/16/2014, Additional history exists [...] this encounter Medical Devices Implanted Type Area Event Marketing Intern Device Identifier Shelf Expiration Date Model / Serial / Lot Lens Intraoc 24.0 - [id number] - [id number] Implanted:Qty: 1 on 04/17/2022 by Leonel Guaman MD at OR [facility] Left: Eye [employer] 07/22/2026 [id number] / [id number] / Lens Intraoc 24.5 - [id number] - [id number] Implanted:Qty: 1 on 05/01/2022 by Leonel Guaman MD at OR [facility] Right: Eye [employer] 09/21/2026 [id number] / [id number] / [id number] documented as of this encounter Visit Diagnoses [...] Power of Attor robyn? No Care Teams Dinkey Mechanic Relationship Specialty Start Date End Date Deborah Galarza MD [address] [place] [address], [place] [address] PCP - General Internal Medicine 05/09/12 documented as of this encounter
[2024-06-30] MEDS: LEVOTHYROXINE SODIUM 75 MCG TABLET PO SCH (06:14)
[2024-06-30] MEDS: metroNIDAZOLE 500 MG/100 ML BAG IV SCH (06:14)
[2024-06-30 07:30] LABS: Basophils # (auto) 0.08 K/uL (0.00-0.20); Eosinophils # (auto) 0.11 K/uL (0.00-0.50); Eosinophils % (auto) 1.4 %; Hematocrit (blood only) 37.6 % (37.0-47.0); Hemoglobin 12.5 g/dl (12.0-16.0); Immature Granulocytes # (auto) 0.02 K/uL (0.01-0.20); Immature Granulocytes % (auto) 0.3 %; Lymphocytes # (auto) 1.82 K/uL (1.20-3.40); Lymphocytes % (auto) 22.9 %; Mean Corpuscular Hemoglobin 30.8 pg (25.0-34.0); Mean Corpuscular Hgb Conc 33.2 g/dL (32.0-36.0); Mean Corpuscular Volume 92.6 fL (80.0-100.0); Mean Platelet Volume 9.7 fL (9.4-12.4); Monocytes # (auto) 1.19 K/uL (0.11-0.59); Neutrophils # (auto) 4.73 K/uL (1.40-6.50); Neutrophils % (auto) 59.4 %; Platelet Count 244 K/uL (130-400); RDW Coefficient of Variation 13.7 % (11.5-14.5); RDW Standard Deviation 46.7 fL (36.4-46.3); Red Blood Count 4.06 M/uL (4.20-5.40); White Blood Count 7.95 K/ul (4.8-10.8)
[2024-06-30 07:40] LABS: BUN Creatinine Ratio 13.9 (10-20); Calcium 9.1 mg/dl (8.6-10.3); Creatinine Clr Calc Pharmacy 54.6 ml/min; Potassium 3.6 mmol/L (3.5-5.1)
[2024-06-30] MEDS: MULTIVITAMIN TAB PO SCH (08:33)
[2024-06-30] MEDS: POLYETHYLENE (MIRALAX) 17 GM PACK PO SCH (08:33)
--- NOTE | 2024-06-30 16:53 | Hospitalist Progress Note ---
Date of Service June 30, 2024 Assessment & Plan (1) Colitis: Plan Assessment/plan Patient with a past medical history of hypothyroidism, dementia presents to the hospital with nausea and vomiting for 1 day. Possible colitis Constipation Patient presents to the hospital with nausea and vomiting No leukocytosis on admission BUN/creatinine within normal limits CT abdomen pelvis shows possible early colitis in transverse and descending colon and moderate fecal retention. Will start clear liquid diet. Started on ceftriaxone and Flagyl. IV fluids with normal saline at 75 cc/h Antiemetics Last BM after arrival to the ED; start MiraLAX daily to regulate bowel movement. Minimal nausea without any vomiting and abdominal pain seems to be improving Will continue current management Left inferior rectus sheath fluid collection- CT abdomen pelvis shows left inferior rectus sheath fluid collection of 2 cm on admission; Possibly hematoma related with retching due to vomiting; ; will obtain ultrasound to better evaluate. NO overlying tenderness/swelling to suggest abscess. Seems to have hematoma and ultrasound does not suggest any abscess- 4 x 4 x 1.7 cm Will observe Chronic conditiona; Hypothyroidismcontinue levothyroxine 75 mcg Dementia Saw neurology as outpatient on 06/11/2024; MoCA score of 18/25 with deficit in delayed recall, language and educated function concerning for Alzheimer's dementia; started on donepezil.continue on donepezil no acute delirium DNR/DNI DVT-SCDs given possibility of rectus sheath collection(?hematoma) Admission and Anticipated Discharge Date Admission Date: June 29, 2024 Subjective 06/30/2024 The patient was seen and examined in medical floor She has been feeling much better denies any abdominal pain, nausea and or vomiting She remains afebrile and denies any chest pain, palpitation or shortness of breath Review of Systems Review of Systems: All systems reviewed and are unremarkable except as noted below Physical Exam Physical Exam: Lying in bed without any acute distress Constitutional: + ill appearing and average body habitus Eyes: PERRL, conjunctivae normal, anicteric sclerae ENMT: external ear and nose normal, oropharynx normal Neck: trachea midline, no thyromegaly Respiratory: no respiratory distress Auscultation: lungs clear to auscultation bilaterally Cardiovascular: Rate/Rhythm: regular rate and regular rhythm; not tachycardic Heart Sounds: normal S1 and normal S2; no murmur Extremities: no edema Gastrointestinal (Abdomen): Inspection/Auscultation: normal bowel sounds; abdomen not distended Percussion/Palpation: + abdomen tender ( minimally tender left lower quadrant) and abdomen soft Musculoskeletal: No acute arthritis involving any of the joint Neurologic: normal touch/pain/proprioception and moves all extremities; no focal motor deficits Lymphatic: no cervical or axillary lymphadenopathy Results & Data Results & Data Vital Signs (Past 12 Hours) Vital Signs Temp Pulse Resp BP BP Pulse Ox O2 Del Method 06/30/24 15:42 36.6 C 57 L 17 116/73 98 Room Air 06/30/24 07:17 36.7 C 59 L 16 127/74 98 Room Air Laboratory Results Short CBC 06/30/24 Range/Units 06:45 WBC 7.95 (4.8-10.8) K/ul Hgb 12.5 (12.0-16.0) g/dl Hct 37.6 (37.0-47.0) % Plt Count 244 (130-400) K/uL BMP 06/30/24 06:45 Sodium 144 Potassium 3.6 Chloride 111 H Carbon Dioxide 29 BUN 10 Creatinine 0.72 Glucose 86 Calcium 9.1 Urine 06/29/24 Range/Units 17:19 Urine Color Yellow Urine Appearance Clear (Clear) Urine pH 5.5 (4.5-7.5) Ur Specific [place] 1.019 (1.000-1.030) Urine Protein Negative (Negative) Urine Glucose (UA) Negative (Negative) Medications Administered Current Inpatient Medications Acetaminophen (Acetaminophen 325 Mg Tab) 650 mg PO Q4H PRN PRN Reason: pain/fever Stop: 07/29/24 20:30 Donepezil HCl (Donepezil Hcl 10 Mg Tab) 10 mg PO PM MARY Stop: 07/30/24 20:59 Ceftriaxone Sodium (Rocephin) 2,000 mg in 50 mls @ 100 mls/hr IV Q24H [facility]ARY Stop: 07/04/24 20:59 Metronidazole (Flagyl) 500 mg in 100 mls @ 100 mls/hr IV Q8H MARY; Protocol Stop: 07/04/24 05:59 Last Infusion: 06/30/24 15:52 Dose: Infused Sodium Chloride (Nss) 1,000 mls @ 75 mls/hr IV .[id number] MARY Stop: 06/30/24 20:59 Last Admin: 06/30/24 10:30 Dose: 75 mls/hr Levothyroxine Sodium (Levothyroxine Sodium 75 Mcg Tablet) 75 mcg PO DAILYBB [facility] Stop: 07/30/24 06:29 Last Admin: 06/30/24 06:14 Dose: 75 mcg Magnesium Hydroxide (Magnesium Hydroxide Susp 30 Ml Udc) 30 ml PO Q6H PRN PRN Reason: Constipation Stop: 07/29/24 20:30 Multivitamins (Multivitamin Tab) 1 tab PO DAILY MARY Stop: 07/30/24 08:59 Last Admin: 06/30/24 08:33 Dose: 1 tab Ondansetron HCl (Ondansetron Inj 2 Mg/Ml 2 Ml Vial) 4 mg IV Q6H PRN PRN Reason: Nausea Stop: 07/29/24 20:30 Last Admin: 06/30/24 07:27 Dose: 4 mg Polyethylene Glycol (Polyethylene (Miralax) 17 Gm Pack) 17 gm PO DAILY MARY Stop: 07/30/24 08:59 Last Admin: 06/30/24 08:33 Dose: 17 gm
[2024-06-30] MEDS: cefTRIAXone SODIUM 2,000 MG/50 ML BAG IV SCH (20:02)
[2024-06-30] MEDS: DONEPEZIL HCL 10 MG TAB PO SCH (20:03)
--- NOTE | 2024-07-01 12:51 | Hospitalist Progress Note ---
Date of Service July 01, 2024 Assessment & Plan (1) Colitis: Plan Assessment/plan Patient with a past medical history of hypothyroidism, dementia presents to the hospital with nausea and vomiting for 1 day. Possible colitis Constipation Patient presents to the hospital with nausea and vomiting No leukocytosis on admission BUN/creatinine within normal limits CT abdomen pelvis shows possible early colitis in transverse and descending colon and moderate fecal retention. Will start clear liquid diet. Started on ceftriaxone and Flagyl. IV fluids with normal saline at 75 cc/h Antiemetics Last BM after arrival to the ED; start MiraLAX daily to regulate bowel movement. Minimal nausea without any vomiting and abdominal pain seems to be improving Will continue current management Will add PPI for possible gastric irritation Remains medically stable and will advance diet as tolerated Left inferior rectus sheath fluid collection- CT abdomen pelvis shows left inferior rectus sheath fluid collection of 2 cm on admission; Possibly hematoma related with retching due to vomiting; ; will obtain ultrasound to better evaluate. NO overlying tenderness/swelling to suggest abscess. Seems to have hematoma and ultrasound does not suggest any abscess- 4 x 4 x 1.7 cm Will observe Denies any abdominal pain Chronic conditiona; Hypothyroidismcontinue levothyroxine 75 mcg Dementia Saw neurology as outpatient on 06/11/2024; MoCA score of 18/25 with deficit in delayed recall, language and educated function concerning for Alzheimer's dementia; started on donepezil.continue on donepezil no acute delirium DNR/DNI DVT-SCDs given possibility of rectus sheath collection(?hematoma) Admission and Anticipated Discharge Date Admission Date: June 29, 2024 Subjective 06/30/2024 The patient was seen and examined in medical floor She has been feeling much better denies any abdominal pain, nausea and or vomiting She remains afebrile and denies any chest pain, palpitation or shortness of breath 07/01/2024 The patient was seen and examined in medical floor She still has nausea but no vomiting and denies any abdominal pain She was asking for solid food Denies any other significant symptoms Review of Systems Review of Systems: All systems reviewed and are unremarkable except as noted below Physical Exam Physical Exam: Lying in bed without any acute distress Constitutional: + ill appearing and average body habitus Eyes: PERRL, conjunctivae normal, anicteric sclerae ENMT: external ear and nose normal, oropharynx normal Neck: trachea midline, no thyromegaly Respiratory: no respiratory distress Auscultation: lungs clear to auscultation bilaterally Cardiovascular: Rate/Rhythm: regular rate and regular rhythm; not tachycardic Heart Sounds: normal S1 and normal S2; no murmur Extremities: no edema Gastrointestinal (Abdomen): Inspection/Auscultation: normal bowel sounds; abdomen not distended Percussion/Palpation: abdomen soft; abdomen nontender ( minimally tender left lower quadrant) Neurologic: normal touch/pain/proprioception and moves all extremities; no focal motor deficits Lymphatic: no cervical or axillary lymphadenopathy Results & Data Results & Data Vital Signs (Past 12 Hours) Vital Signs Temp Pulse Resp BP Pulse Ox O2 Del Method 07/01/24 07:46 36.7 C 53 L 16 122/70 96 Room Air Medications Administered Current Inpatient Medications Acetaminophen (Acetaminophen 325 Mg Tab) 650 mg PO Q4H PRN PRN Reason: pain/fever Stop: 07/29/24 20:30 Donepezil HCl (Donepezil Hcl 10 Mg Tab) 10 mg PO PM [facility] Stop: 07/30/24 20:59 Last Admin: 06/30/24 20:03 Dose: 10 mg Ceftriaxone Sodium (Rocephin) 2,000 mg in 50 mls @ 100 mls/hr IV Q24H [facility] Stop: 07/04/24 20:59 Last Infusion: 06/30/24 20:34 Dose: Infused Metronidazole (Flagyl) 500 mg in 100 mls @ 100 mls/hr IV Q8H [facility]; Protocol Stop: 07/04/24 05:59 Last Infusion: 07/01/24 06:34 Dose: Infused Levothyroxine Sodium (Levothyroxine Sodium 75 Mcg Tablet) 75 mcg PO DAILYBB [facility] Stop: 07/30/24 06:29 Last Admin: 07/01/24 05:33 Dose: 75 mcg Magnesium Hydroxide (Magnesium Hydroxide Susp 30 Ml Udc) 30 ml PO Q6H PRN PRN Reason: Constipation Stop: 07/29/24 20:30 Multivitamins (Multivitamin Tab) 1 tab PO DAILY [facility] Stop: 07/30/24 08:59 Last Admin: 07/01/24 08:13 Dose: 1 tab Ondansetron HCl (Ondansetron Inj 2 Mg/Ml 2 Ml Vial) 4 mg IV Q6H PRN PRN Reason: Nausea Stop: 07/29/24 20:30 Last Admin: 07/01/24 12:05 Dose: 4 mg Polyethylene Glycol (Polyethylene (Miralax) 17 Gm Pack) 17 gm PO DAILY [facility] Stop: 07/30/24 08:59 Last Admin: 07/01/24 08:13 Dose: 17 gm
[2024-07-01] MEDS: LANSOPRAZOLE 30 MG SOLTAB PO SCH (13:59)
[2024-07-01] MEDS: metroNIDAZOLE 500 MG TAB PO STA (22:41)
[2024-07-02] MEDS: metroNIDAZOLE 500 MG TAB PO STA (05:56)
--- NOTE | 2024-07-02 15:21 | Hospitalist Progress Note ---
Date of Service July 02, 2024 Assessment & Plan (1) Colitis: Plan Assessment/plan Patient with a past medical history of hypothyroidism, dementia presents to the hospital with nausea and vomiting for 1 day. Possible colitis Constipation Patient presents to the hospital with nausea and vomiting No leukocytosis on admission BUN/creatinine within normal limits CT abdomen pelvis shows possible early colitis in transverse and descending colon and moderate fecal retention. Will start clear liquid diet. Started on ceftriaxone and Flagyl. IV fluids with normal saline at 75 cc/h Antiemetics Last BM after arrival to the ED; start MiraLAX daily to regulate bowel movement. Minimal nausea without any vomiting and abdominal pain seems to be improving Will continue current management Will add PPI for possible gastric irritation Remains medically stable and will advance diet as tolerated She has been much better today and communicating normally does not seems to be in confusion Denies any significant symptoms of GERD Awaiting physical therapy and likely discharge tomorrow Left inferior rectus sheath fluid collection- CT abdomen pelvis shows left inferior rectus sheath fluid collection of 2 cm on admission; Possibly hematoma related with retching due to vomiting; ; will obtain ultrasound to better evaluate. NO overlying tenderness/swelling to suggest abscess. Seems to have hematoma and ultrasound does not suggest any abscess- 4 x 4 x 1.7 cm Will observe Denies any abdominal pain Will get a repeat US to monitor the Hematoma Chronic conditiona; Hypothyroidismcontinue levothyroxine 75 mcg Dementia Saw neurology as outpatient on 06/11/2024; MoCA score of 18/25 with deficit in delayed recall, language and educated function concerning for Alzheimer's dementia; started on donepezil.continue on donepezil no acute delirium DNR/DNI DVT-SCDs given possibility of rectus sheath collection(?hematoma) Admission and Anticipated Discharge Date Admission Date: June 29, 2024 Subjective 06/30/2024 The patient was seen and examined in medical floor She has been feeling much better denies any abdominal pain, nausea and or vomiting She remains afebrile and denies any chest pain, palpitation or shortness of breath 07/01/2024 The patient was seen and examined in medical floor She still has nausea but no vomiting and denies any abdominal pain She was asking for solid food Denies any other significant symptoms 07/02/2024 The patient was seen and examined in medical floor in presence of the She has been feeling much better and awaiting physical therapy Review of Systems Review of Systems: All systems reviewed and are unremarkable except as noted below Physical Exam Physical Exam: Lying in bed without any acute distress Constitutional: + ill appearing and average body habitus Eyes: PERRL, conjunctivae normal, anicteric sclerae ENMT: external ear and nose normal, oropharynx normal Neck: trachea midline, no thyromegaly Respiratory: no respiratory distress Auscultation: lungs clear to auscultation bilaterally Cardiovascular: Rate/Rhythm: regular rate and regular rhythm; not tachycardic Heart Sounds: normal S1 and normal S2; no murmur Extremities: no edema Gastrointestinal (Abdomen): Inspection/Auscultation: normal bowel sounds; abdomen not distended Percussion/Palpation: abdomen soft; abdomen nontender ( minimally tender left lower quadrant) Neurologic: normal touch/pain/proprioception and moves all extremities; no focal motor deficits Lymphatic: no cervical or axillary lymphadenopathy Results & Data Results & Data Vital Signs (Past 12 Hours) Vital Signs Temp Pulse Resp BP Pulse Ox O2 Del Method 07/02/24 07:17 36.8 C 59 L 18 146/86 H 97 Room Air Medications Administered Current Inpatient Medications Acetaminophen (Acetaminophen 325 Mg Tab) 650 mg PO Q4H PRN PRN Reason: pain/fever Stop: 07/29/24 20:30 Donepezil HCl (Donepezil Hcl 10 Mg Tab) 10 mg PO PM [facility] Stop: 07/30/24 20:59 Last Admin: 07/01/24 20:10 Dose: 10 mg Ceftriaxone Sodium (Rocephin) 2,000 mg in 50 mls @ 100 mls/hr IV Q24H [facility] Stop: 07/04/24 20:59 Last Infusion: 07/01/24 20:57 Dose: Infused Metronidazole (Flagyl) 500 mg in 100 mls @ 100 mls/hr IV Q8H [facility]; Protocol Stop: 07/04/24 05:59 Last Admin: 07/02/24 14:44 Dose: 100 mls/hr Lansoprazole (Lansoprazole 30 Mg Soltab) 30 mg PO QAM [facility] Stop: 07/31/24 12:59 Last Admin: 07/02/24 09:26 Dose: 30 mg Levothyroxine Sodium (Levothyroxine Sodium 75 Mcg Tablet) 75 mcg PO DAILYBB [facility] Stop: 07/30/24 06:29 Last Admin: 07/02/24 05:56 Dose: 75 mcg Magnesium Hydroxide (Magnesium Hydroxide Susp 30 Ml Udc) 30 ml PO Q6H PRN PRN Reason: Constipation Stop: 07/29/24 20:30 Multivitamins (Multivitamin Tab) 1 tab PO DAILY [facility] Stop: 07/30/24 08:59 Last Admin: 07/02/24 09:26 Dose: 1 tab Ondansetron HCl (Ondansetron Inj 2 Mg/Ml 2 Ml Vial) 4 mg IV Q6H PRN PRN Reason: Nausea Stop: 07/29/24 20:30 Last Admin: 07/02/24 14:07 Dose: 4 mg Polyethylene Glycol (Polyethylene (Miralax) 17 Gm Pack) 17 gm PO DAILY [facility] Stop: 07/30/24 08:59 Last Admin: 07/02/24 09:26 Dose: 17 gm
--- NOTE | 2024-07-02 16:39 | Ultrasound Report ---
EXAM: US Abdomen Limited INDICATION: Follow-up rectus sheath hematoma. TECHNIQUE: Sonographic images labeled left lower quadrant provided. COMPARISON: No relevant prior studies available. FINDINGS: Enlarged left inferior rectus sheath hematoma now measures 5.3 x 1.2 x 2.4 cm. There is prominent color Doppler flow along the periphery. IMPRESSION: Interval enlargement of left rectus sheath hematoma compared to 06/29/2024 measuring 5.3 x 1.2 x 2.4 cm. Electronically signed by Carmela Wilkes 07-02-2024 4:39 PM
[2024-07-03 07:13] VITALS: BP 146/82; PULSE 58; RESP 17; TEMP 98.2; O2SAT 95
--- NOTE | 2024-07-03 10:38 | Hospitalist Progress Note ---
Date of Service July 03, 2024 Assessment & Plan (1) Colitis: Plan Assessment/plan Patient with a past medical history of hypothyroidism, dementia presents to the hospital with nausea and vomiting for 1 day. Possible colitis Constipation Patient presents to the hospital with nausea and vomiting No leukocytosis on admission BUN/creatinine within normal limits CT abdomen pelvis shows possible early colitis in transverse and descending colon and moderate fecal retention. Will start clear liquid diet. Started on ceftriaxone and Flagyl. IV fluids with normal saline at 75 cc/h Antiemetics Last BM after arrival to the ED; start MiraLAX daily to regulate bowel movement. Minimal nausea without any vomiting and abdominal pain seems to be improving Will continue current management Will add PPI for possible gastric irritation Remains medically stable and will advance diet as tolerated She has been much better today and communicating normally does not seems to be in confusion Denies any significant symptoms of GERD Denies any abdominal symptoms and has been tolerating regular diet without any problem She has had physical therapy and recommended home She will be discharged home today and will continue Augmentin to finish the course of antibiotic for a total of 10 days Left inferior rectus sheath fluid collection- CT abdomen pelvis shows left inferior rectus sheath fluid collection of 2 cm on admission; Possibly hematoma related with retching due to vomiting; ; will obtain ultrasound to better evaluate. NO overlying tenderness/swelling to suggest abscess. Seems to have hematoma and ultrasound does not suggest any abscess- 4 x 4 x 1.7 cm Will observe Denies any abdominal pain Will get a repeat US to monitor the Hematoma- interval decrease of the left rectus sheath hematoma to 5.3 x 1.2 x 2.4 cm compared to prior as above.Volume decreased to 15 from 27 Chronic conditiona; Hypothyroidismcontinue levothyroxine 75 mcg Dementia Saw neurology as outpatient on 06/11/2024; MoCA score of 18/25 with deficit in delayed recall, language and educated function concerning for Alzheimer's dementia; started on donepezil.continue on donepezil no acute delirium DNR/DNI DVT-SCDs given possibility of rectus sheath collection(?hematoma) Admission and Anticipated Discharge Date Admission Date: June 29, 2024 Subjective 06/30/2024 The patient was seen and examined in medical floor She has been feeling much better denies any abdominal pain, nausea and or vomiting She remains afebrile and denies any chest pain, palpitation or shortness of breath 07/01/2024 The patient was seen and examined in medical floor She still has nausea but no vomiting and denies any abdominal pain She was asking for solid food Denies any other significant symptoms 07/02/2024 The patient was seen and examined in medical floor in presence of the She has been feeling much better and awaiting physical therapy 07/03/2024 The patient was seen and examined in medical floor She has been feeling much better and denies any symptoms She has had physical therapy and recommended home Review of Systems Review of Systems: All systems reviewed and are unremarkable except as noted below Physical Exam Physical Exam: Lying in bed without any acute distress Constitutional: + ill appearing and average body habitus Eyes: PERRL, conjunctivae normal, anicteric sclerae ENMT: external ear and nose normal, oropharynx normal Neck: trachea midline, no thyromegaly Respiratory: no respiratory distress Auscultation: lungs clear to auscultation bilaterally Cardiovascular: Rate/Rhythm: regular rate and regular rhythm; not tachycardic Heart Sounds: normal S1 and normal S2; no murmur Extremities: no edema Gastrointestinal (Abdomen): Inspection/Auscultation: normal bowel sounds; abdomen not distended Percussion/Palpation: abdomen soft; abdomen nontender ( minimally tender left lower quadrant) Neurologic: normal touch/pain/proprioception and moves all extremities; no focal motor deficits Lymphatic: no cervical or axillary lymphadenopathy Results & Data Results & Data Vital Signs (Past 12 Hours) Vital Signs Temp Pulse Resp BP Pulse Ox O2 Del Method 07/03/24 07:12 36.8 C 58 L 17 146/82 H 95 Room Air Medications Administered Current Inpatient Medications Acetaminophen (Acetaminophen 325 Mg Tab) 650 mg PO Q4H PRN PRN Reason: pain/fever Stop: 07/29/24 20:30 Amoxicillin/Clavulanate Potassium (Amoxicillin/Clavulanate 875 Mg Tab) 1 tab PO BIDM [facility]; Protocol Stop: 07/07/24 16:59 Donepezil HCl (Donepezil Hcl 10 Mg Tab) 10 mg PO PM [facility] Stop: 07/30/24 20:59 Last Admin: 07/02/24 20:10 Dose: 10 mg Lansoprazole (Lansoprazole 30 Mg Soltab) 30 mg PO QAM [facility] Stop: 07/31/24 12:59 Last Admin: 07/03/24 08:08 Dose: 30 mg Levothyroxine Sodium (Levothyroxine Sodium 75 Mcg Tablet) 75 mcg PO DAILYBB [facility] Stop: 07/30/24 06:29 Last Admin: 07/03/24 05:59 Dose: 75 mcg Magnesium Hydroxide (Magnesium Hydroxide Susp 30 Ml Udc) 30 ml PO Q6H PRN PRN Reason: Constipation Stop: 07/29/24 20:30 Metronidazole (Metronidazole 500 Mg Tab) 500 mg PO Q8H [facility] Stop: 07/04/24 05:59 Multivitamins (Multivitamin Tab) 1 tab PO DAILY [facility] Stop: 07/30/24 08:59 Last Admin: 07/03/24 08:08 Dose: 1 tab Ondansetron HCl (Ondansetron Inj 2 Mg/Ml 2 Ml Vial) 4 mg IV Q6H PRN PRN Reason: Nausea Stop: 07/29/24 20:30 Last Admin: 07/02/24 14:07 Dose: 4 mg Polyethylene Glycol (Polyethylene (Miralax) 17 Gm Pack) 17 gm PO DAILY [facility] Stop: 07/30/24 08:59 Last Admin: 07/03/24 08:08 Dose: Not Given
[2024-07-03] MEDS ORDERED: metroNIDAZOLE 500 MG TAB PO SCH (14:00)
--- NOTE | 2024-07-03 15:46 | Discharge Summary ---
Date of Service July 03, 2024 Admission HPI Per Admitting Provider History obtained from interview with the patient and chart review Past medical history of dementia, hypothyroidism, history of breast cancer, dyslipidemia Last admission with complicated UTI from 05/19 to 05/26/2024; was discharged to short-term rehab at [facility]. Discharged home on 06/04/2024. Patient presents to the hospital with nausea and vomiting for 1 day Patient reports that she started to feel nauseous after waking up today. She went to a restaurant with her to have lunch. However, she started to experience episodes of vomiting as soon as she arrived at the place. The vomiting was bilious; no blood seen. She reports some abdominal discomfort on her left lower quadrant. Reports chills; no fever, chest pain, shortness of breath or urinary symptoms. Last bowel movement was after arrival to the ED. Patient reports having bowel movement every 2 to 3 days. On presentation to the ED; she was normotensive, afebrile and saturating well on room air. No leukocytosis present. BUN/creatinine within normal limits. Urinalysis shows 6-[address] abdomen pelvis shows possible early colitis of the transverse and descending colon. Fluid collection in inferior rectus sheath measuring 2 cm; moderate fecal impaction Admission Exam Per Admitting Provider Physical Exam: On physical exam; Constitutional: WD/WN, vitals as above, NAD, sitting up in bed, pleasant, conversing easily Respiratory: normal respiratory effort, lungs clear to auscultation, no wheeze, rales, rhonchi. Normal insp/exp effort, no accessory muscle use Cardiovascular: RRR, no murmur, no edema Vessels: no JVD or carotid bruit Chest: normal inspection of chest Abdomen: Mild tenderness in left lower quadrant; no redness/swelling seen. Bowel sounds present. Musculoskeletal: no cyanosis or clubbing, extremities motor strength 5/5 Skin: no rashes, warm and dry normal turgor Neurologic: PERRL, EOMI, accommodation nl, no face palsy, no dysarthria CN's II- XI intact bilaterally and moves all extremities Principal Diagnosis Colitis, dementia, left inferior rectus sheath hematoma- reduced and asymptomatic Discharge Exam Lying in bed without any acute distress Constitutional + ill appearing and average body habitus Eyes PERRL, conjunctivae normal, anicteric sclerae ENMT external ear and nose normal, oropharynx normal Neck trachea midline, no thyromegaly Respiratory no respiratory distress Auscultation: lungs clear to auscultation bilaterally Cardiovascular Rate/Rhythm: regular rate and regular rhythm; not tachycardic Heart Sounds: normal S1 and normal S2; no murmur Extremities: no edema Gastrointestinal (Abdomen) Inspection/Auscultation: normal bowel sounds; abdomen not distended Percussion/Palpation: abdomen soft; abdomen nontender ( minimally tender left lower quadrant) Neurologic normal touch/pain/proprioception and moves all extremities; no focal motor deficits Lymphatic no cervical or axillary lymphadenopathy Discharge Data Allergies Allergy/AdvReac Type Severity Reaction Status Date / Time No Known Drug Allergies Allergy Unknown Verified 06/29/24 18:10 Consultations 06/29/24 19:51 ED Decision to Admit Stat Ordered Studies 06/29/24 17:02 CT abd pelvis IV con only Stat 06/29/24 20:33 US softtissue abdwall/lwr back Routine 07/02/24 15:26 US abdomen limited Routine Hospital Course (1) Colitis: Plan Assessment/plan Patient with a past medical history of hypothyroidism, dementia presents to the hospital with nausea and vomiting for 1 day. Possible colitis Constipation Patient presents to the hospital with nausea and vomiting No leukocytosis on admission BUN/creatinine within normal limits CT abdomen pelvis shows possible early colitis in transverse and descending colon and moderate fecal retention. Will start clear liquid diet. Started on ceftriaxone and Flagyl. IV fluids with normal saline at 75 cc/h Antiemetics Last BM after arrival to the ED; start MiraLAX daily to regulate bowel movement. Minimal nausea without any vomiting and abdominal pain seems to be improving Will continue current management Will add PPI for possible gastric irritation Remains medically stable and will advance diet as tolerated She has been much better today and communicating normally does not seems to be in confusion Denies any significant symptoms of GERD Denies any abdominal symptoms and has been tolerating regular diet without any problem She has had physical therapy and recommended home She will be discharged home today and will continue Augmentin to finish the course of antibiotic for a total of 10 days Left inferior rectus sheath fluid collection- CT abdomen pelvis shows left inferior rectus sheath fluid collection of 2 cm on admission; Possibly hematoma related with retching due to vomiting; ; will obtain ultrasound to better evaluate. NO overlying tenderness/swelling to suggest abscess. Seems to have hematoma and ultrasound does not suggest any abscess- 4 x 4 x 1.7 cm Will observe Denies any abdominal pain Will get a repeat US to monitor the Hematoma- interval decrease of the left rectus sheath hematoma to 5.3 x 1.2 x 2.4 cm compared to prior as above.Volume decreased to 15 from 27 Chronic conditiona; Hypothyroidismcontinue levothyroxine 75 mcg Dementia Saw neurology as outpatient on 06/11/2024; MoCA score of 18/25 with deficit in delayed recall, language and educated function concerning for Alzheimer's dementia; started on donepezil.continue on donepezil no acute delirium DNR/DNI DVT-SCDs given possibility of rectus sheath collection(?hematoma) Total Time Total Time Spent Total Time Spent (In Minutes): 35 minutes Discharge Plan Discharge Items Patient Disposition: Home - Home Health Services Reason For Visit: COLITIS Discharge Diagnosis: Colitis, dementia, left inferior rectus sheath hematoma- reduced and asymptomatic Activity: Resume your previous activity Non-emergency contact: Primary Care Provider Call non-emergency contact if: you have any medication questions and your sy mptoms worsen Follow-up/Referrals: Deborah Galarza MD [Primary Care Provider] - (Date & Time 07/08/2024 10:00 AM Provider: Deborah Galarza MD General Internal Medicine [facility] ) Diet: Regular and Low Sodium (2gm) Addtl Attending Provider Instructions: Please take precautions to avoid falls Finish the course of antibiotic You can try some probiotics [id number] while you are on antibiotic Please keep appointments with the healthcare providers Pending Studies at Discharge: No Stand-Alone Forms: [facility], Smoking Cessation Medications and DC Order Prescriptions: New amoxicillin-pot clavulanate 875-125 mg Tablet 1 tab PO BIDM Qty: 10 0RF pantoprazole [Protonix] 20 mg tablet,delayed release (DR/EC) 20 mg PO DAILY Qty: 30 0RF Continued multivitamin tablet 1 tab PO DAILY donepezil 10 mg tablet 10 mg PO QAM levothyroxine 75 mcg tablet 75 mcg PO DAILYBB Discharge Orders: Discharge Order (Routine); Ordered 07/03/24 Ordered By: Ajay Thomas Admission Data Admit Date/Time: 06/29/24 20:31 Attending Provider: Ajay Thomas Admit Provider: Musa Tran Primary Care Provider: Deborah Galarza Other Providers: Musa Tran; [facility],Home Healthcare; [facility],Home Health Other Interventions: Discharge Summary Assessment (RN) Last Done: 07/03/24 12:58
[2024-07-03] MEDS ORDERED: AMOXICILLIN/CLAVULANATE 875 MG TAB PO SCH (17:00)
== END 2024-07-03 13:19 | disposition home health service (06) | DRG 392 ==
LOC: ED 15:45 → 3W 20:31

== ENCOUNTER 2024-07-19 12:30 | Inpatient (IN) ==
--- OUTSIDE RECORDS SUMMARY | 2024-07-19 12:36 | External Medical Summary | Summary of Care ---
Author Name Unknown Organization [facility] Address [address] [place] [address] Phone [phone] Care Team Providers Care Management Professionals Name Role Phone Deborah Galarza MD Primary Care Provider [phone] Reason for Visit * Reason Comments Outpatient Testing Encounter Details Date Type Department Care Team (Late st Contact Info) Description 07/08/2024 11:30 AM EDT Laboratory Laboratory [facility] Karlo Osborne [address] [place] [phone] [place], Lab Scen[address] [facility] [place] [address] Impaired fasting glucose; Rectus sheath hematoma, subsequent encounter Allergies Active Allergy Reactions Criticality Noted Date Comments Prednisone 05/02/2023 Nausea, lethargy, states she felt awful documented as of this encounter (statuses as of 07/08/2024) Medications Q-10 CO-ENZYME 10 MG OR CAPS [...] 50 MCG/ACT Nasal Suspension (Flonase) Administer 1 [place] into nostril in the morning. 4 Active Vitamin D3 125 MCG (5000 UT) Oral Capsule Take 1 Capsule by mouth in the morning. Active Benefiber Oral Powder Take 1 Tbsf in a glass of water daily 4 Active Nystatin 794277 UNIT/GM External Cream Apply topically to affected area 2 times a day. Apply to underneath both breasts twice daily 30 g 4 Active Levothyroxine Sodium 75 MCG Oral Tablet (Levoxyl)Indicatio ns:Impaired fasting glucose Take 1 Tablet by mouth in the morning. (at least 30 min prior to breakfast or other meds). 60 Tablet 5 Active Donepezil HCl 10 MG Oral Tablet (Aricept)Indicatio ns:Dementia of the Alzheimer's type, with late onset, uncomplicated (HCC) Take 1 Tablet by mouth in the morning. Take with largest meal of the day.. 30 Tablet 3 5 Active Amoxicillin-Pot Clavulanate 875-125 MG Oral Tablet (Augmentin) 1 Tablet. 5 Active Ondansetron 4 MG Oral Tablet Disintegrating (Zofran) 1 Tablet. 5 Active Docusate Sodium 100 MG Oral Capsule (Colace) Take 1 Capsule by mouth in the morning and 1 Capsule before bedtime. OTC. 5 Active Polyethylene Glycol 3350 17 GM/SCOOP Oral Powder (MiraLax) Take 17 g by mouth daily as needed for Constipation. Dissolve one heaping tablespoon in 8 ounces of water or juice. If no BM in 2 days 5 Active Pantoprazole Sodium 20 MG Oral Tablet Delayed Release (Protonix) Take 1 Tablet by mouth at bedtime. 5 Active documented as of this encounter (statuses as of 07/08/2024) Active Problems Problem Noted Date Diagnosed Date Dementia of the Alzheimer's type, with late onset, uncomplicated 06/11/2024 Chronic kidney disease, stage 3a 10/31/2020 Overview: Per CKD protocol Senile osteoporosis 04/17/2019 Pain of left upper arm 10/15/2018 Synovial cyst of hand 10/15/2018 History of breast cancer in female 11/13/2017 Cancer Staging:Clinical: Unsigned Pathologic stage from 12/18/2017:Stage IA(pT1c, pN0(sn), cM0, G2, ER: Positive, MA: Positive, HER2: Negative) - Signed by Prosper Daley MD on 12/18/2017 Dyslipidemia, goal LDL below 130 09/11/2011 Acquired hypothyroidism 05/23/2005 LFTs abnormal 11/10/2003 documented as of this encounter (statuses as of 07/08/2024) Resolved Problems Problem Noted Date Diagnosed Date Resolved Date Prediabetes 11/05/2022 12/05/2023 Overview: Per Prediabetes protocol Generalized weakness 09/11/2021 022 Dyslipidemia, goal to be determined 03/09/2009 09/11/2011 Overview (03/09/2009): Per Lipid Taxonomy. Other allergic rhinitis 05/23/200509/23 Overview (01/15/2017): ICD-10 update of inactive term documented as of this encounter (statuses as of 07/08/2024) Immunizations Name Administration Dates Next Due COVID-19 mRNA, LNP-s, No Pre serve, 2-Dose Series ([employer]) 05/21/2020,04/30/2020 Pneumococcal Conjugate Vacc, 13 Valent (Prevnar) [...] Care Team (Late st Contact Info) Description 10/09/2024 2:00 PM EDT Office Visit General Internal Medicine [facility] [address] [place] [address] Deborah Galarza MD [address] [place] [address] [place] [address] 11/11/2024 1:15 PM EDT Imaging Radiology [facility] [place] [address] [place] [phone] 01/05/2025 2:20 PM EDT Telemedicine Neurology, House Adelaida Azevedo [address] [place] [address] Mariano Mccarty MD [address] [place] [address] [place], Telemed [facility] [address] [place] [address] Pending Results Name Type Priority Associated Diagnoses Date /Time TSH WITH FREE T4 IF INDICATED Lab Routine Impaired fasting glucose 07/08/2024 11:34 AM EDT Health Maintenance Due Date Last Done Comments Depression Screening 1952 Zoster Vaccines (2 of 3) 11/06/2011 09/11/2011 *BISPHONATE OR OTHER ACCEPTABLE MEDICATION NEEDED FOR OSTEOPOROSIS (REFER TO SMARTSET #1146) 04/21/2021 COVID-19 Vaccine ( season) 2023 05/21/2020, 04/30/2020 Albumin/Creatinine Ratio 11/19/2024 024, 10/25/2022, 08/29/2021 Colonoscopy 11/23/2024 11/24/2019, 03/2019, 12/01/2018, Additional history exists Influenza Vaccine (FLU shot) (Season Ended) 2024 01/24/2010, 01/11/2009 GFR 01/07/2025 07/08/2024, 05/23, 11/15/2023, Additional history exists CKD PHOS USE SMARTSET 32048 06/10/202505/23, 12/14/2022, 10/22/2022, Additional history exists TSH 06/10/2025 06/10/2024, 10/24, 06/12/2023, Additional history exists CKD HGB USE SMARTSET 18003 07/08/202507/08, 11/15/2023, 05/02/2023, Additional history exists DXA Scan 08/04/2025 08/05/2023, 10/25, 10/23/2017, Additional history exists DTap/Tdap Vaccines (2 - Td or Tdap) 11/14/2033 11/15/2023, 01/24/2010 Pneumococcal Vaccine: 50+ Years Completed 10/04/2015, 09/18/2013 RETIRED - COLONOSCOPY-EVERY 5 YRS AGES 18-100 Discontinued 11/24/2019, 11/24/2019, 12/01/2018, Additional history exists VITAMIN D LEVEL ONCE IN A LIFETIME-USE SMARTSET# 51279 Completed 12/14/2022, 04/19/2021, 09/16/2014, Additional history exists [...] this encounter Medical Devices Implanted Type Area Graduate Civil Engineer Device Identifier Shelf Expiration Date Model / Serial / Lot Lens Intraoc 24.0 - [id number] - [id number] Implanted:Qty: 1 on 04/17/2022 by Leonel Guaman MD at OR [facility] Left: Eye BAUSCH 07/22/2026 [id number] / [id number] / Lens Intraoc 24.5 - [id number] - [id number] Implanted:Qty: 1 on 05/01/2022 by Leonel Guaman MD at OR [facility] Right: Eye BAUSCH 09/21/2026 [id number] / [id number] / [id number] documented as of this encounter Procedures Procedure Name Priority Date/Time Associated Diagnosis Comments COMPREHENSIVE METABOLIC PANEL Routine 07/08/2024 11:34 AM EDT Rectus sheath hematoma, subsequent encounter CBC Routine 07/08/2024 11:34 AM EDT Rectus sheath hematoma, subsequent encounter documented in this encounter Results * (ABNORMAL) COMPREHENSIVE METABOLIC PANEL (07/08/2024 11:34 AM EDT) BUN 9 6 - 20 mg/dL 07/08/2024 12:51 PM EDT [facility] [place] 56-02 CREATININE 0.7 0.5 - 1.0 mg/dL 07/08/2024 12:51 PM EDT [facility]-02 EGFR 81 >=60 mL/min 07/08/2024 12:51 PM EDT [facility] [place] 56-02 Comment:eGFR is calculated b ased on the CKD-EPI 2020 equation. SODIUM 146 135 - 146 mmol/L 07/08/2024 12:51 PM EDT [facility] 56 POTASSIUM 3.5 3.5 - 5.1 mmol/L 07/08/2024 12:51 PM EDT [facility] 56 CHLORIDE 105 98 - 107 mmol/L 07/08/2024 12:51 [address] EDT [address] CO2 30 22 - 32 mmol/L 07/08/2024 12:[address]T [address] ANION GAP 11 7 - 15 mmol/L 07/08/2024 12:51 PM EDT [address] GLUCOSE 95 70 - 120 mg/dL 07/08/2024 12:51 PM EDT [address] Albumin 4.3 3.8 - 5.0 g/dL 07/08/2024 12:[address] AST 24 10 - 35 U/L 07/08/2024 12:51 PM EDT [address] Alkaline Phosphatase 92 35 - 130 U/L 07/08/2024 12:51 PM EDT [address] Bilirubin, Total 0.4 <=1.2 mg/dL 07/08/2024 12:51 PM EDT [facility] 56 CALCIUM 10.3(H) 8.4 - 10.2 mg/dL 07/08/2024 12:51 PM EDT [facility] 56 Protein 6.7 6.0 - 8.3 g/dL 07/08/2024 12:51 PM EDT [facility] 56 ALT 18 10 - 35 U/L 07/08/2024 12:51 PM EDT [facility] 56 Blood Venous blood specimen / Unknown Venipuncture / Unknown 07/08/2024 11:34 AM EDT 07/08/2024 11:35 AM EDT us Deborah Galarza MD LAB BLOOD ORDERABLES Final Res ult [facility] 56- [address] [place] [address] * CBC (07/08/2024 11:34 AM EDT) WBC 6.28 4.00 - 10.80 K/uL 07/08/2024 11:41 AM EDT [facility] 56 RBC 4.75 3.85 - 5.15 M/uL 07/08/2024 11:41 AM EDT [facility] 56 HGB 14.9 12.0 - 15.3 g/dL 07/08/2024 11:41 AM EDT [facility] 56 HCT 44.7 36.0 - 45.2 % 07/08/2024 11:41 AM EDT [facility] 56 MCV 94.1 81.5 - 97.5 fL 07/08/2024 11:41 AM EDT [facility] 56 MCH 31.4 27.0 - 34.0 pg 07/08/2024 11:41 AM EDT [facility] 56 MCHC 33.3 32.0 - 36.0 g/dL 07/08/2024 11:41 AM EDT [facility] 56 RDW 14.1 11.5 - 15.5 % 07/08/2024 11:41 AM EDT [facility] 56 PLT 265 140 - 400 K/uL 07/08/2024 11:41 AM EDT [facility] 56 MPV 9.8 6.6 - 11.1 fL 07/08/2024 11:41 AM T [facility] 5602 Blood Venous blood specimen / Unknown Venipuncture / Unknown 07/08/2024 11:34 AM EDT 07/08/2024 11:35 AM EDT us Deborah Galarza MD LAB BLOOD ORDERABLES Final Res ult [facility] [address] [place] [address] documented in this encounter Visit Diagnoses Diagnosis Impaired fasting glucose Rectus sheath hematoma, subsequent encounter documented in this encounter Advance Directives * [...] Power of Attor robyn? No Care Teams Management Professionals Relationship Specialty Start Date End Date Deborah Galarza MD [address] [place] [address] PCP - General Internal Medicine 05/09/12 documented as of this encounter
--- OUTSIDE RECORDS SUMMARY | 2024-07-19 12:36 | External Medical Summary ---
Author Name Unknown Address Unknown Organization K01:[facility] [place] [address] [place] [address] Laboratory Report Ordering Provider Test Date Status ASIA SINCLAIRFE 07/08/2024 11:34:38 Final Observation Date Value Abnormality Reference (Units ) Status TSH 07/08/2024 11:34:38 0.31 0.27-4.20 (uIU/mL) Final Performing Location [facility] [place] [address] [place] [address]
--- OUTSIDE RECORDS SUMMARY | 2024-07-19 12:36 | External Medical Summary | Summary of Care ---
Author Name Unknown Organization [facility] Address [address] [place] [address] Phone [phone] Care Team Providers Care Humidifier Maintenance Worker Name Role Phone Deborah Galarza MD Primary Care Provider [phone] Reason for Visit * Reason Onset Date Comments Advice 07/03/2024 Encounter Details Date Type Department Care Team (Late st Contact Info) Description 07/03/2024 Telephone General Internal Medicine [facility] [place] [address] [facility] [place] [address] Deborah Galarza MD [address] [facility] [place] [address] Advice Allergies Active Allergy Reactions Criticality Noted Date Comments Prednisone 05/02/2023 Nausea, lethargy, states she felt awful documented as of this encounter (statuses as of 07/03/2024) Medications Q-10 CO-ENZYME 10 MG OR CAPS [...] 50 MCG/ACT Nasal Suspension (Flonase) Administer 1 [place] into nostril in the morning. 4 Active [...] glass of water daily 4 Active Nystatin 832767 UNIT/GM External Cream Apply topically to affected [...] as of this encounter (statuses as of 07/03/2024) Active Problems Problem Noted Date Diagnosed Date [...] 12/18/2017:Stage IA(pT1c, pN0(sn), cM0, G2, ER: Positive, IA: Positive, HER2: Negative) - Signed by Prosper Daley MD on 12/18/2017 Dyslipidemia, goal LDL below 130 09/11/2011 Acquired hypothyroidism 05/23/2005 LFTs abnormal 11/10/2003 documented as of this encounter (statuses as of 07/03/2024) Resolved Problems Problem Noted Date Diagnosed Date Resolved Date Prediabetes 11/05/2022 12/05/2023 Overview: Per Prediabetes protocol Generalized weakness 09/11/2021 022 Dyslipidemia, goal to be determined 03/09/2009 09/11/2011 Overview (03/09/2009): Per Lipid Taxonomy. Other allergic rhinitis 05/23/200509/23 Overview (01/15/2017): ICD-10 update of inactive term documented as of this encounter (statuses as of 07/03/2024) Immunizations Name Administration Dates Next Due COVID-19 [...] encounter Miscellaneous Notes * Telephone Encounter - Amandeep Hollis RN - 07/03/2024 3:44 PM EDT Called and spoke with Yolanda from [facility] and informed her of Dr. Galarza's previous message. She verbalized understanding. Yolanda said they already have the fax number for our office. * Telephone Encounter - Deborah Galarza MD - 07/03/2024 3:21 PM EDT Yes I will * Telephone Encounter - Amandeep Hollis RN - 07/03/2024 2:45 PM EDT Received transferred call from Patsy from [facility]. Yolanda said they received a home health referral from [facility] and wanted to confirm patient's PCP and also if they would be willing to signHome Health orders for the patient. Confirmed that Dr. Deborah Galarza is listed as the patient's PCP. Please advise if you are willing to sign Home Health orders. Patient has upcoming hospital follow up visit on 07/08/2024. Please advise. Yolanda's call back number is [phone]. She would like called back today of possible. documented in this encounter Plan of Treatment Upcoming Encounters Date Type Department Care Team (Late st Contact Info) Description 07/08/2024 10:00 AM EDT Office Visit General Internal Medicine [facility] [address] [facility] [place] [address] Deborah Galarza MD [address] [facility] [place] [address] 11/11/2024 1:15 PM EDT Imaging Radiology [facility]st [facility], [place] [address] [place] [phone] 01/05/2025 2:20 PM EDT Telemedicine Neurology, [place] Adelaida Azevedo [address] [place] [address] Mariano Mccarty MD [address] [place] [address] [place] [phone] Cart, Telemed [facility] [address] [facility] [place] [address] Health Maintenance Due Date Last Done Comments Depression Screening 1952 Zoster Vaccines (2 of 3) 11/06/2011 09/11/2011 *BISPHONATE OR OTHER ACCEPTABLE MEDICATION NEEDED FOR OSTEOPOROSIS (REFER TO SMARTSET #1146) 04/21/2021 COVID-19 Vaccine ( season) 2023 05/21/2020, 04/30/2020 CKD HGB USE SMARTSET 38980 11/14/202411/14, 05/02/2023, 10/22/2022, Additional history exists Albumin/Creatinine Ratio 11/19/2024 024, 10/25/2022, 08/29/2021 Colonoscopy 11/23/2024 11/24/2019, 03/2019, 12/01/2018, Additional history exists Influenza Vaccine (FLU shot) (Season Ended) 2024 01/24/2010, 01/11/2009 GFR 12/11/2024 06/10/2024, 0805/2023, 05/02/2023, Additional history exists CKD PHOS USE SMARTSET 78180 06/10/202505/23, 12/14/2022, 10/22/2022, Additional history exists TSH 06/10/2025 06/10/2024, 10/24, 06/12/2023, Additional history exists DXA Scan 08/04/2025 08/05/2023, 10/25, 10/23/2017, Additional history exists DTap/Tdap Vaccines (2 - Td or Tdap) 11/14/2033 11/15/2023, 01/24/2010 Pneumococcal Vaccine: 50+ Years Completed 10/04/2015, 09/18/2013 RETIRED - COLONOSCOPY-EVERY 5 YRS AGES 18-100 Discontinued 11/24/2019, 11/24/2019, 12/01/2018, Additional history exists VITAMIN D LEVEL ONCE IN A LIFETIME-USE SMARTSET# 60195 Completed 12/14/2022, 04/19/2021, 09/16/2014, Additional history exists [...] this encounter Medical Devices Implanted Type Area Master Dyer Device Identifier Shelf Expiration Date Model / Serial / Lot Lens Intraoc 24.0 - [id number] - [id number] Implanted:Qty: 1 on 04/17/2022 by Leonel Guaman MD at OR [facility] Left: Eye BAUSCH 07/22/2026 [id number] / [id number] / Lens Intraoc 24.5 - [id number] - [id number] Implanted:Qty: 1 on 05/01/2022 by Leonel Guaman MD at OR [facility] Right: Eye BAUSCH 09/21/2026 [id number] / [id number] / [id number] documented as of this encounter Advance Directives [...] Power of Attor robyn? No Care Teams Humidifier Maintenance Worker Relationship Specialty Start Date End Date Deborah Galarza MD [address] [place] [address] PCP - General Internal Medicine 05/09/12 documented as of this encounter
--- OUTSIDE RECORDS SUMMARY | 2024-07-19 12:36 | External Medical Summary | Summary of Care ---
Author Name Unknown Organization [facility] Address [address] [place] [address] Phone [phone] Care Team Providers Care Nuclear Medicine Tech Name Role Phone Deborah Galarza MD Primary Care Provider [phone] Reason for Visit * Reason Onset Date Comments Hospital Follow-Up Hospital Follow-Up 07/08/2024 Encounter Details Date Type Department Care Team (Latest Contact Info) Description 07/08/2024 10:00 AM EDT Office Visit General Internal Medicine [facility] [address] [place] [id number] Deborah Galarza MD [address] [facility] [place] [address] Colitis*; Rectus sheath hematoma, subsequent encounter; Hospital discharge follow-up; Dementia of the Alzheimer's type, with late onset, uncomplicated (HCC); Chronic kidney disease, stage 3a (HCC); Gastroesophageal reflux disease without esophagitis; Acquired hypothyroidism; LFTs abnormal; Dyslipidemia, goal LDL below 130; History of breast cancer in female; Synovial cyst of hand; Senile osteoporosis Allergies Active Allergy Reactions Criticality Noted Date Comments Prednisone 05/02/2023 Nausea, lethargy, states she felt awful documented as of this encounter (statuses as of 07/08/2024) Medications Q-10 CO-ENZYME 10 MG OR CAPS daily 0 004 Active SUPER MILK THISTLE X PO CAPSIndications:t akes at night Take by mouth. Indications: takes at night 0 008 Active CHROMIUM 200 MCG PO CAPS one daily 009 Active VITAMIN C 500 MG PO TABS 2 daily Active POTASSIUM 99 MG PO TABS one daily 0 Active FISH OIL 1000 MG PO CAPSIndications:D yslipidemia, goal to be determined 2 capsules daily 011 Active NATURAL SUPPLEMENT K2 100 mcg daily Active Bilberry 40 MG CAPS Take by mouth daily. Active Red Yeast Rice Extract 600 MG Oral Capsule Take by mouth daily. Active Lutein Esters 18.6 MG CAPSIndications:H ealth examination of defined subpopulation 2 times a day. 40 mg once daily 30 Cap Active Probiotic Product (PRO-BIOTIC BLEND) CAPS Take by mouth. Active Niacin 250 MG TabletIndications :takes at night Take 1 Tablet by mouth in the morning. Active Fluticasone Propionate 50 MCG/ACT Nasal Suspension (Flonase) Administer 1 [place] into nostril in the morning. Active Vitamin D3 125 MCG (5000 UT) Oral Capsule Take 1 Capsule by mouth in the morning. Active Benefiber Oral Powder Take 1 Tbsf in a glass of water daily Active Nystatin 169626 UNIT/GM External Cream Apply topically to affected area 2 times a day. Apply to underneath both breasts twice daily 30 g 024 Active Levothyroxine Sodium 75 MCG Oral Tablet (Levoxyl)Indicati ons:Impaired fasting glucose Take 1 Tablet by mouth in the morning. (at least 30 min prior to breakfast or other meds). 60 Tablet 025 Active Donepezil HCl 10 MG Oral Tablet (Aricept)Indicati ons:Dementia of the Alzheimer's type, with late onset, uncomplicated (HCC) Take 1 Tablet by mouth in the morning. Take with largest meal of the day.. 30 Tablet 3 025 Active Amoxicillin-Pot Clavulanate 875-125 MG Oral Tablet (Augmentin) 1 Tablet. 025 Active Ondansetron 4 MG Oral Tablet Disintegrating (Zofran) 1 Tablet. 025 Active Docusate Sodium 100 MG Oral Capsule (Colace) Take 1 Capsule by mouth in the morning and 1 Capsule before bedtime. OTC. 025 Active Polyethylene Glycol 3350 17 GM/SCOOP Oral Powder (MiraLax) Take 17 g by mouth daily as needed for Constipation. Dissolve one heaping tablespoon in 8 ounces of water or juice. If no BM in 2 days 025 Active Pantoprazole Sodium 20 MG Oral Tablet Delayed Release (Protonix) Take 1 Tablet by mouth at bedtime. 025 Active Pantoprazole Sodium 20 MG Oral Tablet Delayed Release (Protonix) 1 Tablet. 025 2024 Discontinued Amoxicillin 500 MG Oral Capsule (Amoxil) 025 2024 Discontinued(E nd of Procedure) documented as of this encounter (statuses as [...] 12/18/2017:Stage IA(pT1c, pN0(sn), cM0, G2, ER: Positive, HI: Positive, HER2: Negative) - Signed by Prosper [...] Sign Reading Time Taken Comments Blood Pressure 118/68 07/08/2024 10:18 AM EDT Pulse 62 07/08/2024 10:18 AM EDT Temperature 36.5 °C (97.7 °F) 07/08/2024 1 0:18 AM EDT Respiratory Rate 20 07/08/2024 10:1 8 AM EDT Oxygen Saturation 98% 07/08/2024 10: 18 AM EDT Inhaled Oxygen Concentration - - Weight 68.9 kg (151 lb 12.8 oz) 025 10:18 AM EDT Height 160.7 cm (5' 3.27") 07/08/2024 1 0:18 AM EDT Body Mass Index 26.66 07/08/2024 10:18 AM EDT documented in this encounter Patient Instructions * Patient Instructions* Deborah Galarza MD - 07/08/2024 10:44 AM EDT Taking Medicine Safely Medicine is [...] street drugs, herbs, supplements, or even some oppg-jkf-kzhzvcm medicines can be harmful. Talk to your [...] to get rid of medicine: Call your [facility] or [facility] government's household trash and recycling service and ask if a drug take-back program is available in your community. Call your local pharmacy and ask the right way to get rid of the medicine. Go to http://www.fda.gov/ForConsumers/ConsumerUpdates/cxf305829 to learn how to get rid of [...] medicine, unless their doctor says otherwise. © Krysta Bell, [address] [place] [address]. All rights reserved. This information is not [...] best to keep a sense of humor. Krysta Bell, [address] [place] [address]. All rights reserved. This information is not intended as a substitute for professional medical care. Always follow your healthcare professional's instructions. documented in this encounter Progress Notes * Deborah Galarza MD - 07/08/2024 10:30 AM EDT Images from the original note were not included. Subjective Rocio Monet is a 84 year old female that presents for Hospital Follow-Up 84 year old female with PMH significant for hypothyroidism, hyperlipidemia, allergic rhinitis presents here for hospital follow up . She was admitted to [facility] hospital from 06/29/24 through 07/03/24 and was discharged back to home with 5 days of Augmentin and Protonix . History of Present Illness The patient, with a history of Alzheimer's disease, osteoporosis, and constipation, presents for a follow-up visit after a recent hospitalization. The hospitalization was due to an episode of sudden nausea and vomiting while at a restaurant, which was initially attributed to the patient's long-standing issue of motion sickness due to possible Meniere's disease. However, symptoms continued to get worse and she was taken to hospital where further investigation revealed colitis transverse and descending colon and a hematoma in the rectus muscle, later likely due to forceful vomiting. The patientdenies any preceding symptoms such as chills, abdominal pain, fever, or diarrhea but upon questioning was having some discomfort in the left lower abdomen for few weeks before everything happened. The patient's bowel habits have been irregular, with bowel movements occurring every three to four days, which has been a lifelong pattern. The patient also reports a feeling of off balance and lightheadedness, which she describes as balance issue and not feeling like spinning or on a roller coaster. The patient's Alzheimer's disease has been progressing, with significant memory loss noted. The patient was seen by neurologist and is currently on Aricept for this condition. The patient also has osteoporosis, but has declined treatment for this condition in the past. The patient's reportsthat the patient's appetite has been gradually improving since her discharge from the hospital. I reviewed patient's hospital record including ER note, H&P, sr technical sales consultant's note if applicable, discharge summary, labs and imaging Patient Active Problem List Diagnosis LFTs abnormal Acquired hypothyroidism Dyslipidemia, goal LDL below 130 History of breast cancer in female Pain of left upper arm Synovial cyst of hand Senile osteoporosis Chronic kidney disease, stage 3a (HCC) Dementia of the Alzheimer's type, with late onset, uncomplicated (HCC) Medication list : Ondansetron 4 MG Oral Tablet Disintegrating (Zofran) Amoxicillin-Pot Clavulanate 875-125 MG Oral Tablet (Augmentin) Pantoprazole Sodium 20 MG Oral Tablet Delayed Release (Protonix) Donepezil HCl 10 MG Oral Tablet (Aricept) Levothyroxine Sodium 75 MCG Oral Tablet (Levoxyl) Nystatin 147945 UNIT/GM External Cream Benefiber Oral Powder Vitamin D3 125 MCG [...] CO-ENZYME 10 MG OR CAPS Objective BP 118/68 | Pulse 62 | Temp 97.7 °F (36.5 °C) (Tympanic) | Resp 20 | Ht 5' 3.27" (1.607 m) | Wt 151 lb 12.8 oz (68.9 kg) | SpO2 98% | BMI 26.66 kg/m² | BSA 1.75 m² BP Readings from Last 3 Encounters: 07/08/24 118/68 06/10/24 130/60 01/14/24 151/75 Physical Exam VITALS: BP- 118/68 General: Pleasant lady not in acute distress, mildly demented HEENT: Ears normal, no cerumen. Nasopharynx with mild erythema but no edema and no rhinorrhea CHEST: Lungs clear to auscultation bilaterally. ABDOMEN: Abdomen soft nontender, no organomegaly but mild tender in left lower quadrant. Subtle bruise on the right lateral lower abdomen Heart: regular rate & rhythm, no murmur, and no gallops Extremities: less than 2 second capillary refill, no joint deformities, effusion, or inflammation Results LABS Syphilis: False positive RADIOLOGY Abdominal CT: Colitis, rectus muscle hematoma, no abscess or infection (06/29/2024) Assessment and Plan Assessment & Plan Colitis CT scan showed colitis without abscess or infection. Managed with antibiotics. Constipation prevention is crucial. - Continue Augmentin for one more day. Total of 10 days - Take Benefiber daily. - Take Colace twice daily. - Use Miralax as needed for constipation. Hematoma Rectus muscle hematoma from vomiting. Expected to resolve spontaneously. Monitoring for complications necessary. - Monitor for resolution of hematoma. - Check hemoglobin levels during next blood work. Dehydration risk Inadequate fluid intake may cause hypotension and lightheadedness. Increased fluid intake recommended. - Encourage fluid intake of 50-60 ounces daily. Dementia, likely Alzheimer's disease Alzheimer's disease confirmed with significant memory loss. On Aricept for stabilization. - Continue Aricept. - Follow up with neurologist in December. Hypothyroidism Thyroid medication adjusted due to overmedication. Follow-up blood work planned. - Repeat thyroid function tests in July. Osteoporosis Osteoporosis confirmed by DEXA scan. Risks of untreated condition include fractures. Medication discussion deferred. - Discuss Fosamax at the next appointment in three months. Colitis (Primary) - DISCH MED RECON CUR MED LIS Rectus sheath hematoma, subsequent encounter - DISCH MED RECON CUR MED LIS - CBC; Future; Expected date: 07/27/2024 - COMPREHENSIVE METABOLIC PANEL; Future; Expected date: 07/27/2024 Hospital discharge follow-up - DISCH MED RECON CUR MED LIS Dementia of the Alzheimer's type, with late onset, uncomplicated (HCC) Chronic kidney disease, stage 3a (HCC) Gastroesophageal reflux disease without esophagitis Acquired hypothyroidism LFTs abnormal Dyslipidemia, goal LDL below 130 History of breast cancer in female Synovial cyst of hand Senile osteoporosis Wrap-Up PLAN: Continue present medication(s): Begin medication(s): Colace twice a day on regular basis and MiraLax as needed at least every 2 days if no bowel movement Continue medication(s): Pantoprazole Schedule labs: In a month Patient education: Important to control constipation to improve baseline nausea and prevent colitisin future. Important to take all the medication as directed, fall precaution and important to use cane with ambulation, continue with home physical therapy and if her memory declines or deconditioning worse consider extra help at home Follow up in 3 month(s). I spent a total of 40-54 minutes (exact time 54 mins) minutes on the date of service in preparation, delivery, and documentation of the care provided to Rocio Monet excluding any time spent in performance of separately billed services. Deborah Galarza MD I spent a total of 40-54 minutes [...] Nursing Notes * Aislinn Orellana CMA - 07/08/2024 10:14 AM EDT Pt here today for a hospital follow up. Pt was seen at [facility] on 06/29-07/03. DC summary scanned into chart documented in this encounter Plan of Treatment Upcoming Encounters Date Type Department Care Team (Late st Contact Info) Description 10/09/2024 2:00 PM EDT Office Visit General Internal Medicine [facility] [address] [facility] [place] [phone] Deborah Galarza MD [address] [facility] [place] [phone] 11/11/2024 1:15 PM EDT Imaging Radiology [facility] [address] [place] [phone] 01/05/2025 2:20 PM EDT Telemedicine Neurology, [place] Adelaida Azevedo [address] [place] [id number] Mariano Mccarty MD [address] [place] [address] Cart, Telemed [facility] [address] [facility] [place] [phone] Health Maintenance Due Date Last Done Comments Depression Screening 1952 Zoster Vaccines (2 of 3) 11/06/2011 09/11/2011 *BISPHONATE OR OTHER ACCEPTABLE MEDICATION NEEDED FOR OSTEOPOROSIS (REFER TO SMARTSET #1146) 04/21/2021 COVID-19 Vaccine (3 - season) 2023 05/21/2020, 04/30/2020 Albumin/Creatinine Ratio 11/19/2024 024, 10/25/2022, 08/29/2021 Colonoscopy 11/23/2024 11/24/2019, 03/2019, 12/01/2018, Additional history exists Influenza Vaccine (FLU shot) (Season Ended) 2024 01/24/2010, 01/11/2009 GFR 01/07/2025 07/08/2024, 05/23, 11/15/2023, Additional history exists CKD PHOS USE SMARTSET 86811 06/10/202505/23, 12/14/2022, 10/22/2022, Additional history exists TSH 06/10/2025 07/08/2024, 05/23, 11/15/2023, Additional history exists CKD HGB USE SMARTSET 71413 07/08/202507/08, 11/15/2023, 05/02/2023, Additional history exists DXA Scan 08/04/2025 08/05/2023, 10/25, 10/23/2017, Additional history exists DTap/Tdap Vaccines (2 - Td or Tdap) 11/14/2033 11/15/2023, 01/24/2010 Pneumococcal Vaccine: 50+ Years Completed 10/04/2015, 09/18/2013 RETIRED - COLONOSCOPY-EVERY 5 YRS AGES 18-100 Discontinued 11/24/2019, 11/24/2019, 12/01/2018, Additional history exists VITAMIN D LEVEL ONCE IN A LIFETIME-USE SMARTSET# 89029 Completed 12/14/2022, 04/19/2021, 09/16/2014, Additional history exists [...] this encounter Medical Devices Implanted Type Area Rewinder Operator Helper Device Identifier Shelf Expiration Date Model / Serial / Lot Lens Intraoc 24.0 - [id number] - [id number] Implanted:Qty: 1 on 04/17/2022 by Leonel Guaman MD at OR [facility] Left: Eye BAUSCH 07/22/2026 [id number] / [id number] / Lens Intraoc 24.5 - [id number] - [id number] Implanted:Qty: 1 on 05/01/2022 by Leonel Guaman MD at OR [facility] Right: Eye BAUSCH 09/21/2026 [id number] / [id number] / [id number] documented as of this encounter Results * (ABNORMAL) COMPREHENSIVE METABOLIC PANEL (07/08/2024 11:34 AM EDT) [facility] BUN 9 6 - 20 mg/dL 07/08/2024 12:51 PM EDT [facility] 56- CREATININE 0.7 0.5 - 1.0 mg/dL 07/08/2024 12:51 PM EDT [facility] 56- EGFR 81 >=60 mL/min 07/08/2024 12:51 PM EDT [facility] 56- Comment:eGFR is calculated b ased on the CKD-EPI 2020 equation. SODIUM 146 135 - 146 mmol/L 07/08/2024 12:51 PM EDT [facility] 56- POTASSIUM 3.5 3.5 - 5.1 mmol/L 07/08/2024 12:51 PM EDT [facility] 56- CHLORIDE 105 98 - 107 mmol/L 07/08/2024 12:51 PM EDT [facility] 56- CO2 30 22 - 32 mmol/L 07/08/2024 12:51 PM EDT [facility] 56- ANION GAP 11 7 - 15 mmol/L 07/08/2024 12:51 PM EDT [facility] 56 GLUCOSE 95 70 - 120 mg/dL 07/08/2024 12:51 PM EDT [facility] 56 Albumin 4.3 3.8 - 5.0 g/dL 07/08/2024 12:51 PM EDT [facility] 56 AST 24 10 - 35 U/L 07/08/2024 12:51 PM EDT [address] Alkaline Phosphatase 92 35 - 130 U/L 07/08/2024 12:51 PM EDT [address] Bilirubin, Total 0.4 <=1.2 mg/dL 07/08/2024 12:51 PM EDT [address] CALCIUM 10.3(H) 8.4 - 10.2 mg/dL 07/08/2024 12:51 PM EDT [address] Protein 6.7 6.0 - 8.3 g/dL 07/08/2024 12:51 PM EDT [address] ALT 18 10 - 35 U/L 07/08/2024 12:51 PM EDT [facility] 56 Blood Venous blood specimen / Unknown Venipuncture / Unknown 07/08/2024 11:34 AM EDT 07/08/2024 11:35 AM EDT us Deborah Galarza MD LAB BLOOD ORDERABLES Final Res ult [facility] 56 [address] [place] [address] * CBC (07/08/2024 11:34 AM EDT) WBC 6.28 4.00 - 10.80 K/uL 07/08/2024 11:41 AM EDT [facility] 56 RBC 4.75 3.85 - 5.15 M/uL 07/08/2024 11:41 AM EDT [facility] 56 HGB 14.9 12.0 - 15.3 g/dL 07/08/2024 11:41 AM EDT [facility] 56 HCT 44.7 36.0 - 45.2 % 07/08/2024 11:41 AM EDT [address] MCV 94.1 81.5 - 97.5 fL 07/08/2024 11:41 AM EDT [address] MCH 31.4 27.0 - 34.0 pg 07/08/2024 11:41 AM EDT [address] MCHC 33.3 32.0 - 36.0 g/dL 07/08/2024 11:41 AM EDT [address] RDW 14.1 11.5 - 15.5 % 07/08/2024 11:41 AM EDT [address] PLT 265 140 - 400 K/uL 07/08/2024 11:41 AM EDT [address] MPV 9.8 6.6 - 11.1 fL 07/08/2024 11:41 AM EDT [place] [address] Blood Venous blood specimen / Unknown Venipuncture / Unknown 07/08/2024 11:34 AM EDT 07/08/2024 11:35 AM EDT us Deborah Galarza MD LAB BLOOD ORDERABLES Final Res ult [place] [address] [place] [address] documented in this encounter Visit Diagnoses Diagnosis Colitis- Primary Other and unspecified noninfectious gastroenteritis and colitis Rectus sheath hematoma, subsequent encounter Hospital discharge follow-up Other follow-up examination Dementia of the Alzheimer's type, with late onset, uncomplicated (HCC) Alzheimer's disease Chronic kidney disease, stage 3a (HCC) Gastroesophageal reflux disease without esophagitis Esophageal reflux Acquired hypothyroidism Unspecified hypothyroidism LFTs abnormal Other abnormal blood chemistry Dyslipidemia, goal LDL below 130 Other and unspecified hyperlipidemia History of breast cancer in female Personal history of malignant neoplasm of breast Synovial cyst of hand Senile osteoporosis documented in this encounter Advance Directives * [...] Power of Attor robyn? No Care Teams Nuclear Medicine Tech Relationship Specialty Start Date End Date Deborah Galarza MD [address] [place] [address] [place] [address] PCP - General Internal Medicine 05/09/12 documented as of this encounter
--- OUTSIDE RECORDS SUMMARY | 2024-07-19 12:36 | External Medical Summary ---
Author Name Unknown Address Unknown Organization K09[facility] [place] [address] Laboratory Report Ordering Provider Test Date Status [facility] 07/08/2024 11:34:38 Final Observation Date Value Abnormality Reference (Units ) Status WBC, Total 07/08/2024 11:34:38 6.28 4.00-10.8 0 (K/uL) Final RBC 07/08/2024 11:34:38 4.75 3.85-5.15 (M/uL) Final Hemoglobin 07/08/2024 11:34:38 14.9 12.0-15.3 (g/dL) Final HCT 07/08/2024 11:34:38 44.7 36.0-45.2 (%) Final MCV 07/08/2024 11:34:38 94.1 81.5-97.5 (fL) Final MCH 07/08/2024 11:34:38 31.4 27.0-34.0 (pg) Final MCHC 07/08/2024 11:34:38 33.3 32.0-36.0 (g/dL) Final RDW 07/08/2024 11:34:38 14.1 11.5-15.5 (%) Final Platelets 07/08/2024 11:34:38 265 140-400 (K /uL) Final MPV 07/08/2024 11:34:38 9.8 6.6-11.1 ( fL) Final Performing Location [facility] [place] [address]
--- OUTSIDE RECORDS SUMMARY | 2024-07-19 12:36 | External Medical Summary | Summary of Care ---
Author Name Unknown Organization [facility] Address [address] [facility] [place] [address] Phone [phone] Care Team Providers Care Diplomatic Officer Name Role Phone Deborah Galarza MD Primary Care Provider [phone] Reason for Visit * Reason Onset Date Comments Hospital Follow-Up 07/06/2024 Encounter Details Date Type Department Care Team (Late st Contact Info) Description 07/06/2024 Telephone General Internal Medicine [facility] Karlo Osborne [address] [facility] [place] [address] Romi Tidwell, JAXON Hospital Follow-Up Allergies Active Allergy Reactions Criticality Noted Date Comments Prednisone 05/02/2023 Nausea, lethargy, states she felt awful documented as of this encounter (statuses as of 07/06/2024) Medications Q-10 CO-ENZYME 10 MG OR CAPS [...] 50 MCG/ACT Nasal Suspension (Flonase) Administer 1 [place] into nostril in the morning. 04/19/19 24 Active Vitamin D3 125 MCG (5000 UT) Oral Capsule Take 1 Capsule by mouth in the morning. Active Benefiber Oral Powder Take 1 Tbsf in a glass of water daily 11/15/19 24 Active Nystatin 470795 UNIT/GM External Cream Apply topically to affected [...] day.. 30 Tablet 3 06/18/19 25 Active Amoxicillin-Pot Clavulanate 875-125 MG Oral Tablet (Augmentin) 1 Tablet. 07/04/19 25 Active Pantoprazole Sodium 20 MG Oral Tablet Delayed Release (Protonix) 1 Tablet. 07/04/19 25 Active Amoxicillin 500 MG Oral Capsule (Amoxil) Take 1 Capsule by mouth in the morning and 1 Capsule at noon and 1 Capsule before bedtime. 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 Other allergic rhinitis 05/23/200509/23 Overview (01/15/2017): ICD-10 update of inactive term documented as of this encounter (statuses as of 07/06/2024) Immunizations Name Administration Dates Next Due COVID-19 [...] encounter Miscellaneous Notes * Telephone Encounter - Romi Tidwell RN - 07/06/2024 12:07 PM EDT Transitions of Care Note Reason for Referral:Recent Admission Phone visit for follow up: ANAI Admitted to: [facility], Date: 06/29 Discharged to: Home, Date: 07/03 Diagnosis driving hospitalization: Nausea/vomiting. Colitis, dementia, left inferior sheath hematoma Source/Contact: Patient SUBJECTIVE Consent: Verbal consent for review of hospital discharge: Yes REVIEW OF SYSTEMS Patient/Other Reports: Current patient/caregiver problems or concerns: feeling better CV: Denies problems Pulmonary: Denies problems Chills/Sweats/Fever:Denies chills/sweats Denies fever Appetite:Denies problems such as nausea, vomiting, burning, decreased appetite Current diet: regular Bowel: denies problems Bladder: denies problems Wound (If applicable): N/A Pain:Denies Sleep:Denies problems FUNCTIONAL STATUS: ADL'S: Needs Assistance With:N/A as pt is independent IADL'S: Needs Assistance With:Taking medications Cognitive and Mental Health: denies problems, alert and oriented x 3, and able to communicate, understand instructions, process information. MEDICATION RECONCILIATION Medications: Discharge med list reviewed with patient or caregiver New medication(s) filled since hospitalization- protonix, Augmentin ASSESSMENT Medication Risk Assessment: No risks identified Discharge instructions available for review? Yes PLAN Symptom Monitoring Interventions:Member/caregiver education - signs and symptoms to contact PrimaryCare (DO NOT DELETE-Three curtis symptoms patient is to report to PCP) 1. fever 2. Nausea/vomiting 3. Pain Wellness Program ManagerAccount Executive Trainee of Care interventions/Action Plan: 5 - 7 day follow-up with PCP in place - Date: 07/08 Educated on role of ANAI completed with patient/caregiver. Educated patient/caregiver on patient right to have input on ANAI plan of care. Verification of Home Health/DME if indicated: Yes, advantage Identified Care Gaps: Yes Care Gaps closed this call: Appointment made or confirmed, Safety and self care issues addressed, and Transition of Care follow-up communication Re-evaluation of Plan of Care and progress towards goals achievement: Patient education this visit: Verbal, as above Plan to instructed to call Primary Care Provider with change in symptoms or as needed before next follow-up, discharge needs met, verbalizes understanding and agrees with plan. Romi Tidwell RN documented in this encounter Plan of Treatment Upcoming Encounters Date Type Department Care Team (Late st Contact Info) Description 07/08/2024 10:00 AM EDT Office Visit General Internal Medicine [facility] [address] [place] [address] Deborah Galarza MD [address] [place] [address] 11/11/2024 1:15 PM EDT Imaging Radiology [address] [place] [phone] 01/05/2025 2:20 PM EDT Telemedicine Neurology, [place] Adelaida Azevedo [address] [place] [address] Mariano Mccarty MD [address] [place] [address] Cart, Telemed [facility] [address] [place] [address] Health Maintenance Due Date Last Done Comments Depression Screening 1952 Zoster Vaccines (2 of 3) 11/06/2011 09/11/2011 *BISPHONATE OR OTHER ACCEPTABLE MEDICATION NEEDED FOR OSTEOPOROSIS (REFER TO SMARTSET #1146) 04/21/2021 COVID-19 Vaccine ( season) 2023 05/21/2020, 04/30/2020 CKD HGB USE SMARTSET 52588 11/14/202411/14, 05/02/2023, 10/22/2022, Additional history exists Albumin/Creatinine Ratio 11/19/2024 024, 10/25/2022, 08/29/2021 Colonoscopy 11/23/2024 11/24/2019, 03/2019, 12/01/2018, Additional history exists Influenza Vaccine (FLU shot) (Season Ended) 2024 01/24/2010, 01/11/2009 GFR 12/11/2024 06/10/2024, 10/24, 05/02/2023, Additional history exists CKD PHOS USE SMARTSET 95724 06/10/202505/23, 12/14/2022, 10/22/2022, Additional history exists TSH 06/10/2025 06/10/2024, 10/24, 06/12/2023, Additional history exists DXA Scan 08/04/2025 08/05/2023, 10/25, 10/23/2017, Additional history exists DTap/Tdap Vaccines (2 - Td or Tdap) 11/14/2033 11/15/2023, 01/24/2010 Pneumococcal Vaccine: 50+ Years Completed 10/04/2015, 09/18/2013 RETIRED - COLONOSCOPY-EVERY 5 YRS AGES 18-100 Discontinued 11/24/2019, 11/24/2019, 12/01/2018, Additional history exists VITAMIN D LEVEL ONCE IN A LIFETIME-USE SMARTSET# [id number] Completed 12/14/2022, 04/19/2021, 09/16/2014, Additional history exists [...] this encounter Medical Devices Implanted Type Area Supervising Editor Trailer Device Identifier Shelf Expiration Date Model / Serial / Lot Lens Intraoc 24.0 - [id number] - [id number] Implanted:Qty: 1 on 04/17/2022 by Leonel Guaman MD at OR [facility] Left: Eye BAUSCH 07/22/2026 [id number] / [id number] / Lens Intraoc 24.5 - [id number] - [id number] Implanted:Qty: 1 on 05/01/2022 by Leonel Guaman MD at OR [facility] Right: Eye BAUSCH 09/21/2026 [id number] / [id number] / [id number] documented as of this encounter Advance Directives [...] Power of Attor robyn? No Care Teams Diplomatic Officer Relationship Specialty Start Date End Date Deborah Galarza MD [address] [place] [address] PCP - General Internal Medicine 05/09/12 documented as of this encounter
--- OUTSIDE RECORDS SUMMARY | 2024-07-19 12:36 | External Medical Summary | Summary of Care ---
Author Name Unknown Organization [facility] Address [address] [place] [address] Phone [phone] Care Team Providers Care Cloth Framer Name Role Phone Dottie Washburn MD Primary Care Provider [phone] Reason for Visit * Reason Onset Date Comments Hospital Follow-Up Hospital Follow-Up 07/08/2024 Encounter Details Date Type Department Care Team (Latest Contact Info) Description 07/08/2024 10:00 AM EDT Office Visit General Internal Medicine [place] Karlo Harrison [address] [place] [address] Dottie Washburn MD [address] [facility] [place] [address] Colitis*; Rectus sheath hematoma, subsequent encounter; Hospital discharge follow-up; Dementia of the Alzheimer's type, with late onset, uncomplicated (HCC); Chronic kidney disease, stage 3a (HCC); Gastroesophageal reflux disease without esophagitis; Acquired hypothyroidism; LFTs abnormal; Dyslipidemia, goal LDL below 130; History of breast cancer in female; Synovial cyst of hand; Senile osteoporosis; Hypercalcemia Allergies Active Allergy Reactions Criticality Noted Date Comments Prednisone 05/02/2023 Nausea, lethargy, states she felt awful documented as of this encounter (statuses as of 07/09/2024) Medications Q-10 CO-ENZYME 10 MG OR CAPS [...] 50 MCG/ACT Nasal Suspension (Flonase) Administer 1 [place] into nostril in the morning. Active Vitamin D3 125 MCG (5000 UT) Oral Capsule Take 1 Capsule by mouth in the morning. Active Benefiber Oral Powder Take 1 Tbsf in a glass of water daily Active Nystatin 440807 UNIT/GM External Cream Apply topically to affected [...] as of this encounter (statuses as of 07/09/2024) Active Problems Problem Noted Date Diagnosed Date Prediabetes 07/06/2024 Overview: Per Prediabetes protocol Dementia of the Alzheimer's type, with late [...] as of this encounter (statuses as of 07/09/2024) Resolved Problems Problem Noted Date Diagnosed Date Resolved Date Prediabetes 11/05/2022 12/05/2023 Overview: Per Prediabetes protocol Generalized weakness 09/11/2021 022 Dyslipidemia, goal to be determined 03/09/2009 09/11/2011 Overview (03/09/2009): Per Lipid Taxonomy. Other allergic rhinitis 05/23/200509/23 Overview (01/15/2017): ICD-10 update of inactive term documented as of this encounter (statuses as of 07/09/2024) Immunizations Name Administration Dates Next Due COVID-19 [...] this encounter Patient Instructions * Patient Instructions* Dottie Washburn MD - 07/08/2024 10:44 AM EDT Taking [...] street drugs, herbs, supplements, or even some [id number]-[id number] medicines can be harmful. Talk to your [...] to get rid of medicine: Call your [facility] or formerly [facility] government's household trash and recycling service and ask if a drug take-back program is available in your community. Call your local pharmacy and ask the right way to get rid of the medicine. Go to http://www.fda.gov/ForConsumers/ConsumerUpdates/jkq094604 to learn how to get rid of [...] their doctor says otherwise. © Krysta Bell, [address] [place] [address], [place] [address]. All rights reserved. This information is not [...] to keep a sense of humor. © 2002-[address]rysta Bell [address] [place] [address], [place] [address]. All rights reserved. This information is not intended as a substitute for professional medical care. Always follow your healthcare professional's instructions. documented in this encounter Progress Notes * Dottie Washburn MD - 07/08/2024 10:30 AM EDT Images from the original note were not included. Subjective Rocio Monet is a 84 year old female that presents for Hospital Follow-Up 84 year old female with PMH significant for hypothyroidism, hyperlipidemia, allergic rhinitis presents here for hospital follow up . She was admitted to [facility] hospital from 06/29/24 through 07/03/24 and was [...] patient's hospital record including ER note, H&P, sap consultant's note if applicable, discharge summary, labs [...] Sodium 75 MCG Oral Tablet (Levoxyl) Nystatin 306589 UNIT/GM External Cream Benefiber Oral Powder Vitamin [...] documentation of the care provided to Rocio Funes Comly excluding any time spent in performance of separately billed services. Dottie Washburn MD I spent a total of 40-54 minutes (exact time 54 mins) on the date of service in preparation, delivery, and documentation of the care provided to Rocio Funes Comly excluding any time spent in the performance [...] hospital follow up. Pt was seen at [facility] on 06/29-07/03. DC summary scanned into chart documented in this encounter Miscellaneous Notes * Addendum Note - Dottie Washburn MD - 07/09/2024 12:32 PM EDTAddended by: DOTTIE WASHBURN on: 07/09/2024 12:32 PM Modules accepted: Orders documented in this encounter Plan of Treatment Upcoming Encounters Date Type Department Care Team (Late st Contact Info) Description 10/09/2024 2:00 PM EDT Office Visit General Internal Medicine Elisabeth Osborne [place] [address] [place] [address] Dottie Washburn MD [address] [place] [address] 11/11/2024 1:15 PM EDT Imaging Radiology [facility] [address] [facility], [place] [address] [place] [phone] 01/05/2025 2:20 PM EDT Telemedicine Neurology, [place] Adelaida Azevedo [address] [place] [address] Mariano Mccarty MD [address] [place] [address] Cart, Telemed [facility] [address] [place] [address] Scheduled Orders Name Type Priority Associated Diagnoses Orde r Schedule BASIC METABOLIC PANEL Lab Routine Hypercalcemia Expected: 10/08/2024, Expires: 07/09/2025 25-HYDROXY VITAMIN D Lab Routine Hypercalcemia Expected: 10/08/2024, Expires: 07/09/2025 TSH WITH FREE T4 IF INDICATED Lab Routine Acquired hypothyroidism Expected: 10/08/2024, Expires: 07/09/2025 Health Maintenance Due Date Last Done Comments Depression Screening 1952 Zoster Vaccines (2 of 3) 11/06/2011 09/11/2011 *BISPHONATE OR OTHER ACCEPTABLE MEDICATION NEEDED FOR OSTEOPOROSIS (REFER TO SMARTSET #1146) 04/21/2021 COVID-19 Vaccine ( season) 2023 05/21/2020, 04/30/2020 Albumin/Creatinine Ratio 11/19/2024 024, 10/25/2022, 08/29/2021 Colonoscopy 11/23/2024 11/24/2019, 09/0 03/2019, 12/01/2018, Additional history exists Influenza Vaccine (FLU shot) (Season Ended) 2024 01/24/2010, 01/11/2009 GFR 01/07/2025 07/08/2024, 05/23, 11/15/2023, Additional history exists CKD PHOS USE SMARTSET 24744 06/10/202505/23, 12/14/2022, 10/22/2022, Additional history exists HbA1c 06/10/2025 06/10/2024, 0805/2023, 05/02/2023, Additional history exists CKD HGB USE SMARTSET 08235 07/08/202507/08, 11/15/2023, 05/02/2023, Additional history exists TSH 07/08/2025 07/08/2024, 05/23, 11/15/2023, Additional history exists DXA Scan 08/04/2025 08/05/2023, 10/25, 10/23/2017, Additional history exists DTap/Tdap Vaccines (2 - Td or Tdap) 11/14/2033 11/15/2023, 01/24/2010 Pneumococcal Vaccine: 50+ Years Completed 10/04/2015, 09/18/2013 RETIRED - COLONOSCOPY-EVERY 5 YRS AGES 18-100 Discontinued 11/24/2019, 11/24/2019, 12/01/2018, Additional history exists VITAMIN D LEVEL ONCE IN A LIFETIME-USE SMARTSET# [id number] Completed 12/14/2022, 04/19/2021, 09/16/2014, Additional history exists [...] this encounter Medical Devices Implanted Type Area Clinical Assoc Device Identifier Shelf Expiration Date Model / Serial / Lot Lens Intraoc 24.0 - [id number] - [id number] Implanted:Qty: 1 on 04/17/2022 by Leonel Guaman MD at OR [facility] Left: Eye BAUSCH 07/22/2026 [id number] / [id number] / Lens Intraoc 24.5 - [id number] - [id number] Implanted:Qty: 1 on 05/01/2022 by Leonel Guaman MD at OR [facility] Right: Eye BAUSCH 09/21/2026 [id number] / [id number] / [id number] documented as of this encounter Results * (ABNORMAL) COMPREHENSIVE METABOLIC PANEL (07/08/2024 11:34 AM EDT) BUN 9 6 - 20 mg/dL 07/08/2024 12:51 PM EDT [address] CREATININE 0.7 0.5 - 1.0 mg/dL 07/08/2024 12:51 PM EDT [facility] 56 EGFR 81 >=60 mL/min 07/08/2024 12:51 PM EDT [facility] 56 Comment:eGFR is calculated b ased on the CKD-EPI 2020 equation. SODIUM 146 135 - 146 mmol/L 07/08/2024 12:51 PM EDT [address] POTASSIUM 3.5 3.5 - 5.1 mmol/L 07/08/2024 12:51 PM EDT [address] CHLORIDE 105 98 - 107 mmol/L 07/08/2024 12:[address] EDT [address] CO2 30 22 - 32 mmol/L 07/08/2024 12:51 [address] EDT [address] ANION GAP 11 7 - 15 mmol/L 07/08/2024 12:[address]T [address] GLUCOSE 95 70 - 120 mg/dL 07/08/2024 12:51 PM T [address] Albumin 4.3 3.8 - 5.0 g/dL 07/08/2024 12:51 PM EDT [facility] 56 AST 24 10 - 35 U/L 07/08/2024 12:51 PM T [facility] 56 Alkaline Phosphatase 92 35 - 130 U/L 07/08/2024 12:51 PM T [address] Bilirubin, Total 0.4 <=1.2 mg/dL 07/08/2024 12:51 PM T [facility] 56 CALCIUM 10.3(H) 8.4 - 10.2 mg/dL 07/08/2024 12:51 PM T [facility] 56 Protein 6.7 6.0 - 8.3 g/dL 07/08/2024 12:51 PM EDT [facility] 56 ALT 18 10 - 35 U/L 07/08/2024 12:51 PM T [facility] 56 Blood Venous blood specimen / Unknown Venipuncture / Unknown 07/08/2024 11:34 AM EDT 07/08/2024 11:35 AM EDT Dottie Washburn MD LAB BLOOD ORDERABLES Final Res ult [facility] [address] [place] [address] * CBC (07/08/2024 11:34 AM EDT) WBC 6.28 4.00 - 10.80 K/uL 07/08/2024 11:41 AM EDT [facility] 56 RBC 4.75 3.85 - 5.15 M/uL 07/08/2024 11:[address] EDT [address] HGB 14.9 12.0 - 15.3 g/dL 07/08/2024 11:[address] EDT [address] HCT 44.7 36.0 - 45.2 % 07/08/2024 11:41 AM EDT [facility] 56 MCV 94.1 81.5 - 97.5 fL 07/08/2024 11:41 AM EDT [facility] 56 MCH 31.4 27.0 - 34.0 pg 07/08/2024 11:41 AM EDT [facility] 56 MCHC 33.3 32.0 - 36.0 g/dL 07/08/2024 11:41 AM EDT [facility] 56 RDW 14.1 11.5 - 15.5 % 07/08/2024 11:41 AM EDT [facility] 56 PLT 265 140 - 400 K/uL 07/08/2024 11:41 AM EDT [facility] 56 MPV 9.8 6.6 - 11.1 fL 07/08/2024 11:41 AM EDT [facility] 56-02 Blood Venous blood specimen / Unknown Venipuncture / Unknown 07/08/2024 11:34 AM EDT 07/08/2024 11:35 AM EDT Dottie Washburn MD LAB BLOOD ORDERABLES Final Res ult [facility] [address] [place] [address] documented in this encounter Visit Diagnoses Diagnosis [...] breast Synovial cyst of hand Senile osteoporosis Hypercalcemia documented in this encounter Advance Directives [...] Power of Attor robyn? No Care Teams Cloth Framer Relationship Specialty Start Date End Date [facility] [address] PCP - General Internal Medicine 05/09/12 documented as of this encounter
--- OUTSIDE RECORDS SUMMARY | 2024-07-19 12:36 | External Medical Summary ---
Author Name Unknown Address Unknown Organization K09:[facility] [place] [address] Laboratory Report Ordering Provider Test Date Status [facility] 07/08/2024 11:34:38 Final Observation Date Value Abnormality Reference (Units ) Status BUN 07/08/2024 11:34:38 9 6-20 (mg/dL) Final Creatinine 07/08/2024 11:34:38 0.7 0.5-1.0 (mg/dL) Final Glomerular filtration rate/1.73 sq M.predicted [Volume Rate/Area] in Serum, Plasma or Blood by Creatinine-based formula (CKD-EPI) 07/08/2024 11:34:38 81 >=60 (mL/min) Final eGFR is calculated based on the CKD-EPI 2020 equation. Sodium 07/08/2024 11:34:38 146 135-146 (m mol/L) Final Potassium 07/08/2024 11:34:38 3.5 3.5-5.1 (m mol/L) Final Cl 07/08/2024 11:34:38 105 98-107 (mm ol/L) Final CO2 07/08/2024 11:34:38 30 22-32 (mmo l/L) Final Anion gap 07/08/2024 11:34:38 11 7-15 (mmol /L) Final Glucose 07/08/2024 11:34:38 95 70-120 (mg /dL) Final Albumin 07/08/2024 11:34:38 4.3 3.8-5.0 (g /dL) Final AST (Aspartate aminotransferase) 07/08/2024 11:34:38 24 10-35 (U/L) Fin al Alk Phos 07/08/2024 11:34:38 92 35-130 (U/ L) Final Bilirubin, Total 07/08/2024 11:34:38 0.4 <=1 .2 (mg/dL) Final Calcium 07/08/2024 11:34:38 10.3 Above high normal 8. 4-10.2 (mg/dL) Final Protein 07/08/2024 11:34:38 6.7 6.0-8.3 (g /dL) Final ALT (Alanine aminotransferase) 07/08/2024 11:34:38 18 10-35 (U/L) Qasim mendes Performing Location [facility] [place] [address]
--- OUTSIDE RECORDS SUMMARY | 2024-07-19 12:36 | External Medical Summary | Summary of Care ---
Author Name Unknown Organization [facility] Address [address] [place] [address] Phone [phone] Care Team Providers Care Passenger Train Braker Name Role Phone Deborah Galarza MD Primary Care Provider [phone] Reason for Visit * Reason Onset Date Comments Test Results Lab 07/09/2024 Encounter Details Date Type Department Care Team (Late st Contact Info) Description 07/09/2024 [facility]phone [facility] [address] [facility] [place] [address] Deborah Galarza MD [address] [facility] [place] [id number] Test Results Lab Allergies Active Allergy Reactions Criticality Noted Date [...] 50 MCG/ACT Nasal Suspension (Flonase) Administer 1 [place] into nostril in the morning. 4 Active Vitamin D3 125 MCG (5000 UT) Oral Capsule Take 1 Capsule by mouth in the morning. Active Benefiber Oral Powder Take 1 Tbsf in a glass of water daily 4 Active Nystatin 930825 UNIT/GM External Cream Apply topically to affected [...] Positive, HER2: Negative) - Signed by Prosper Daely MD on 12/18/2017 Dyslipidemia, goal LDL below [...] mRNA, LNP-s, No Pre serve, 2-Dose Series (Life800) 05/21/2020,04/30/2020 Pneumococcal Conjugate Vacc, 13 Valent (Prevnar) [...] encounter Miscellaneous Notes * Telephone Encounter - Dorothy Kothari CMA - 07/09/2024 1:27 PM EDT MyG sent regarding results below. * Telephone Encounter - Dorothy Kothari CMA - 07/09/2024 1:20 PM EDT ----- Message from Deborah Galarza MD sent at 07/09/2024 12:32 PM EDT ----- TSH improved but still looks overreacted. Suggest to take levothyroxine to only Mon to Sat and skipon Sun and will get tsh in 3 months right after visit Potassium on low side of normal which can be form recent sickness and low appetite, is she taking OTC potassium supplement per list ? If not start taking daily and Increase food rich in potassium like banana, low fat yogurt,dried apricot,spinach,white beans, mushroom, avocardo ect. Will recheck in 3 months Calcium slightly up but improved, make sure no calcium supplement or tums . Recheck in 3 months documented in this encounter Plan of Treatment Upcoming Encounters Date Type Department Care Team (Late st Contact Info) Description 10/09/2024 2:00 PM EDT Office Visit General Internal Medicine [facility] [place] [address] Deborah Galarza MD [address] [facility] [place] [address] 11/11/2024 1:15 PM EDT Imaging Radiology [address] [place] [phone] 01/05/2025 2:20 PM EDT Telemedicine [place]rology, [place] Adelaida Azevedo [address] [place] [address] Mariano Mccarty MD [address] [place] [address] Cart, Telemed [facility] [address] [facility] [place] [address] Health Maintenance Due Date Last Done Comments [...] Additional history exists CKD PHOS USE SMARTSET 23696 06/10/202505/23, 12/14/2022, 10/22/2022, Additional history exists HbA1c 06/10/2025 06/10/2024, 0805/2023, 05/02/2023, Additional history exists CKD HGB USE SMARTSET 29435 07/08/202507/08, 11/15/2023, 05/02/2023, Additional history exists TSH 07/08/2025 07/08/2024, 05/23, 11/15/2023, Additional history exists DXA Scan 08/04/2025 08/05/2023, 10/25, 10/23/2017, Additional history exists DTap/Tdap Vaccines (2 - Td or Tdap) 11/14/2033 11/15/2023, 01/24/2010 Pneumococcal Vaccine: 50+ Years Completed 10/04/2015, 09/18/2013 RETIRED - COLONOSCOPY-EVERY 5 YRS AGES 18-100 Discontinued 11/24/2019, 11/24/2019, 12/01/2018, Additional history exists VITAMIN D LEVEL ONCE IN A LIFETIME-USE SMARTSET# [id number] Completed 12/14/2022, 04/19/2021, 09/16/2014, Additional history exists [...] this encounter Medical Devices Implanted Type Area Olive Picker Device Identifier Shelf Expiration Date Model / Serial / Lot Lens Intraoc 24.0 - [id number] - [id number] Implanted:Qty: 1 on 04/17/2022 by Leonel Guaman MD at [facility] Left: Eye BAUSCH 07/22/2026 [id number] / [id number] / Lens Intraoc 24.5 - [id number] - [id number] Implanted:Qty: 1 on 05/01/2022 by Leonel Guaman MD at [facility] Right: Eye BAUSCH 09/21/2026 [id number] / [id number] / [id number] documented as of this encounter Advance Directives [...] Power of Attor robyn? No Care Teams Passenger Train Braker Relationship Specialty Start Date End Date Deborah Galarza MD [address] [place] [address] PCP - General Internal Medicine 05/09/12 documented as of this encounter
--- OUTSIDE RECORDS SUMMARY | 2024-07-19 12:36 | External Medical Summary | Summary of Care ---
Author Name Unknown Organization [facility] Address [address] [place] [address] Phone [phone] Care Team Providers Care Repairer Art Objects Name Role Phone Deborah Galarza MD Primary Care Provider [phone] Reason for Visit * Reason Onset Date Comments Forms Request 06/12/2024 Encounter Details Date Type Department Care Team (Late st Contact Info) Description 06/12/2024 Telephone General Internal Medicine [facility] [place] [address] [facility] [place] [address] Deborah Galarza MD [address] [facility] [place] [address] Forms Request Allergies Active Allergy Reactions Criticality [...] 50 MCG/ACT Nasal Suspension (Flonase) Administer 1 [place] into nostril in the morning. 04/19/19 24 Active Vitamin D3 125 MCG (5000 UT) Oral Capsule Take 1 Capsule by mouth in the morning. Active Benefiber Oral Powder Take 1 Tbsf in a glass of water daily 11/15/19 24 Active Nystatin 828512 UNIT/GM External Cream Apply topically to affected area 2 times a day. Apply to underneath both breasts twice daily 30 g 01/14/20 24 Active Amoxicillin 500 MG Oral Capsule (Amoxil) Take 1 Capsule by mouth in the morning and 1 Capsule at noon and 1 Capsule before bedtime. 11/13/19 24 025 Discontin ued(Medic ation List Clean Up) Levothyroxine Sodium 100 MCG Oral Tablet (Levoxyl)Indicatio ns:Acquired hypothyroidism TAKE 1 TABLET BY MOUTH IN THE MORNING 30 MINUTES BEFORE BREAKFAST OR OTHER MEDS. 30 Tablet 06/07/19 25 025 Discontin ued(Medic ation/Dos e Changed) Donepezil HCl 5 MG Oral Tablet (Aricept)Indicatio [...] 12/18/2017:Stage IA(pT1c, pN0(sn), cM0, G2, ER: Positive, [place]: Positive, HER2: Negative) - Signed by Prosper [...] can be picked up at internal med administrative receptionist. * Telephone Encounter - Aislinn Orellana CMA [...] PM EDT Office Visit General Internal Medicine [facility] [address] [facility] [place] [address] Deborah Galarza MD [address] [facility] [place] [address] 11/11/2024 1:15 PM EDT Imaging Radiology [facility] [address] [facility], [place] [address] [place] [id number] 01/05/2025 2:20 PM EDT Telemedicine Neurology, [place] Adelaida Azevedo [address] [place] [address] Mariano Mccarty MD [address] [place] [address] Cart, Telemed [facility] [address] [facility] [place] [address] Health Maintenance Due Date Last Done Comments Depression Screening 1952 Zoster Vaccines (2 of 3) 11/06/2011 09/11/2011 *BISPHONATE OR OTHER ACCEPTABLE MEDICATION NEEDED FOR OSTEOPOROSIS (REFER TO SMARTSET #1146) 04/21/2021 COVID-19 Vaccine ( season) 2023 05/21/2020, 04/30/2020 Albumin/Creatinine Ratio 11/19/20242 024, 10/25/2022, 08/29/2021 Colonoscopy 11/23/2024 11/24/2019, 0903/2019, 12/01/2018, Additional history exists Influenza Vaccine (FLU shot) (Season Ended) 2024 01/24/2010, 01/11/2009 GFR 01/07/2025 07/08/2024, 05/23, 11/15/2023, Additional history exists CKD PHOS USE SMARTSET 83328 06/10/202505/23, 12/14/2022, 10/22/2022, Additional history exists TSH 06/10/2025 06/10/2024, 10/24, 06/12/2023, Additional history exists CKD HGB USE SMARTSET 87335 07/08/202507/08, 11/15/2023, 05/02/2023, Additional history exists DXA Scan 08/04/2025 08/05/2023, 10/25, 10/23/2017, Additional history exists DTap/Tdap Vaccines (2 - Td or Tdap) 11/14/2033 11/15/2023, 01/24/2010 Pneumococcal Vaccine: 50+ Years Completed 10/04/2015, 09/18/2013 RETIRED - COLONOSCOPY-EVERY 5 YRS AGES 18-100 Discontinued 11/24/2019, 11/24/2019, 12/01/2018, Additional history exists VITAMIN D LEVEL ONCE IN A LIFETIME-USE SMARTSET# [id number] Completed 12/14/2022, 04/19/2021, 09/16/2014, Additional history exists [...] this encounter Medical Devices Implanted Type Area Community Organization Aide Device Identifier Shelf Expiration Date Model / Serial / Lot Lens Intraoc 24.0 - [id number] - [id number] Implanted:Qty: 1 on 04/17/2022 by Leonel Guaman MD at [facility] Left: Eye BAUSCH 07/22/2026 [id number] / [id number] / Lens Intraoc 24.5 - [id number] - [id number] Implanted:Qty: 1 on 05/01/2022 by Leonel Guaman MD at [facility] Right: Eye BAUSCH 09/21/2026 [id number] / [id number] / [id number] documented as of this encounter Advance Directives [...] Power of Attor robyn? No Care Teams Repairer Art Objects Relationship Specialty Start Date End Date Deborah Galarza MD [address] [place] [address] PCP - General Internal Medicine 05/09/12 documented as of this encounter
[2024-07-19 13:42] LABS: Basophils # (auto) 0.08 K/uL (0.00-0.20); Basophils % (auto) 0.5 %; Eosinophils # (auto) 0.01 K/uL (0.00-0.50); Eosinophils % (auto) 0.1 %; Hemoglobin 15.2 g/dl (12.0-16.0); Immature Granulocytes # (auto) 0.07 K/uL (0.01-0.20); Immature Granulocytes % (auto) 0.4 %; Lymphocytes # (auto) 0.78 K/uL (1.20-3.40); Lymphocytes % (auto) 4.6 %; Mean Corpuscular Hemoglobin 31.1 pg (25.0-34.0); Mean Corpuscular Hgb Conc 34.5 g/dL (32.0-36.0); Mean Corpuscular Volume 90.2 fL (80.0-100.0); Mean Platelet Volume 9.4 fL (9.4-12.4); Monocytes # (auto) 1.43 K/uL (0.11-0.59); Monocytes % (auto) 8.5 %; Neutrophils # (auto) 14.52 K/uL (1.40-6.50); Neutrophils % (auto) 85.9 %; Platelet Count 231 K/uL (130-400); RDW Coefficient of Variation 13.4 % (11.5-14.5); RDW Standard Deviation 44.3 fL (36.4-46.3); Red Blood Count 4.88 M/uL (4.20-5.40); White Blood Count 16.89 K/ul (4.8-10.8)
[2024-07-19 14:00] LABS: Albumin Globulin Ratio 1.4 (0.9-2); Albumin Level 4.4 gm/dl (3.4-5.0); BUN Creatinine Ratio 11.1 (10-20); Bilirubin,Total 0.8 mg/dl (0.2-1.0); Calcium 9.6 mg/dl (8.6-10.3); Creatinine Clr Calc Pharmacy 48.1 ml/min; Globulin 3.2 gm/dl (2.5-4.0); Potassium 2.9 mmol/L (3.5-5.1); Total Protein 7.6 gm/dl (6.0-8.3)
[2024-07-19] MEDS: OPTIRAY 320 100ml IV ONE (14:11)
[2024-07-19] MEDS: POTASSIUM CHLORIDE CRTAB 20 MEQ TABCR PO STA (14:49)
--- NOTE | 2024-07-19 15:27 | CT Scan Report ---
EXAMINATION: CT of the abdomen and pelvis performed after the administration of IV contrast TECHNIQUE: Helical CT images from the lung bases through the symphysis pubis were obtained with contrast. Coronal and sagittal reformatted images were generated at a workstation for further assessment. Dose reduction techniques were achieved by using automatic exposure control and/or adjustment of mA and/or kV according to patient size and/or use of iterative reconstruction technique. COMPARISON: 06/29/2024 HISTORY: Abdominal pain FINDINGS: Lower chest: No consolidation. No pleural effusion or pneumothorax. Mild bibasilar subsegmental atelectasis. Liver: No suspicious liver lesions. Portal veins appear patent. Gallbladder: No gallstones. No evidence of acute cholecystitis. Spleen: Normal size. Pancreas: No suspicious pancreatic lesions. The pancreatic duct is not dilated. Adrenal glands: No adrenal nodules. Kidneys: No hydronephrosis or obstructing renal stones. Bladder / Pelvic organs: Unremarkable. Bowel: No bowel obstruction. There is new wall thickening and mucosal hyperenhancement, with a stratified and featureless appearance extending from the anus, rectum, sigmoid colon, and throughout the descending colon up to the level of the splenic flexure. There may be mild wall thickening of the ascending and transverse colon. No bowel obstruction. The appendix is unremarkable. Lymph nodes: No retroperitoneal, mesenteric, or pelvic lymphadenopathy. Peritoneum / Retroperitoneum: No free fluid or air within the abdomen. Vessels: No infrarenal aortic aneurysm. Bones and soft tissues: No suspicious lesion in the bones. IMPRESSION: There is new wall thickening and mucosal hyperenhancement, with a stratified and featureless appearance extending from the anus, rectum, sigmoid colon, and throughout the descending colon up to the level of the splenic flexure. The findings are suggestive of colitis, with ulcerative colitis not excluded, given the appearance. Electronically signed by Walker Palomo 07-19-2024 3:27 PM
--- NOTE | 2024-07-19 15:36 | Emergency Department Note ---
Impression & Plan Confusion, Generalized weakness, Ambulatory dysfunction ED Provider Note NAME: CORKY SMART AGE: 84 SEX: F : 1940 ARRIVES VIA: Ambulance INFORMANT: Patient, ED PROVIDER(S): Jada Daley MD CHIEF COMPLAINT: Fall, weakness HPI: This is a an 84-year-old female with history of dementia presenting after a fall. Patient reportedly got up in the middle the night at around 10 PM. She went to the bathroom and was found this morning around 5:30 AM on the ground. She was not taken off the ground until around 11 AM when EMS arrived. She notes that she did lower herself to the ground as per family. There is unclear if she actually fell or just fell off the ground. She was recently in the hospital for altered mental status, UTI and colitis. She otherwise lives with her . The son states that she no longer can stay at home due to the elderly not being able to take care of her. ROS: See above HPI for pertinent positives & negatives. A total of 10 systems reviewed and were otherwise negative. PAST MEDICAL HISTORY: See Below PAST SURGICAL HISTORY: See Below FAMILY HISTORY: See Below SOCIAL HISTORY: See Below HOME MEDICATIONS: See Below ALLERGIES: See Below VITALS: See Below PHYSICAL EXAMINATION: General: resting comfortably in no acute distress Head: Normocephalic and atraumatic Eyes: Normal inspection, extraocular muscles intact Ear, nose, throat: Normal external exam Neck: Normal range of motion Respiratory: lungs clear to auscultation bilaterally Cardiovascular: Regular rate/rhythm, no murmur GI: soft, nontender, no guarding or rebound Extremities: nontender, moves all extremities Neuro: The patient awake and alert, appropriately conversive, no focal deficits, symmetric faces Skin: Warm, dry, and intact MEDICAL DECISION MAKING: This is a 84-year-old female presenting after a fall. Patient has a baseline history of dementia. Head on the ground for almost 12 hours. Will do basic blood work, CK. Will do CT Abdo/pelvis as patient reports new back pain. - There is a significant leukocytosis to 16.89, new from previous. Otherwise potassium is 2.9, will replete here. -CT imaging reveals new wall thickening/mucosal hyperenhancement consistent with colitis. -As patient is unable to ambulate well at this time and has been found down. Will admit for placement as this per family does request as well. Unsafe discharge plan. Differential diagnosis: Colitis, UTI, dementia, failure to thrive Independent History obtained from: and son Diagnostics interpreted by me: ECG: None Cardiac Monitoring: An order was placed for continuous cardiac monitoring. The monitor shows a rate of 77 with sinus rhythm. 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 Mother , age 79 , heart problems , COPD No problems noted. Brother , age 83 , dementia No problems noted. Son No problems noted. Daughter Lupus Sister Stomach cancer Other No family history of adverse response to anesthesia No family history of bleeding disorder Social History Smoking Status: Never smoker Second Hand Exposure: No; Do You Dip or Chew Tobacco: No; Tobacco Cessation Education Requested by Patient: No Hx Alcohol Use: No Hx Substance Use: No Preferred Language: Macedonian Communication Ability: Effective Miter Operator Required: No Beliefs That Will Affect Care: None marital status: Current Living Situation: Spouse Other Information That Helps Us Care for You: No Feels Safe at Home: Yes Safety Concerns: Feels Safe At This Time Assistive Devices: Denture - Upper Allergies Allergies Allergy/AdvReac Type Severity Reaction Status Date / Time No Known Drug Allergies Allergy Unknown Verified 06/29/24 18:10 Home Meds Home Medications Medication Instructions Recorded Confirmed multivitamin 1 tab PO DAILY 01/07/18 07/19/24 donepezil 10 mg tablet 10 mg PO QAM 06/29/24 07/19/24 levothyroxine 75 mcg tablet 75 mcg PO DAILYBB 06/29/24 07/19/24 Previous Rx's Medication Instructions Recorded pantoprazole 20 mg tablet,delayed 20 mg PO DAILY #30 tabs 07/03/24 release (Protonix) Results & Data (ED) Vital Signs Vital Signs - 24 hr 07/19/24 12:34 07/19/24 12:42 07/19/24 14:00 Temperature 37.6 C H Temperature Source Oral Pulse Rate 79 80 78 Respiratory Rate 16 20 Respiratory Effort / Characteristics Non-Labored Spontaneous Respiratory Depth Normal Blood Pressure 167/72 H 158/56 H Blood Pressure Mean 103 90 Pulse Oximetry 99 Oxygen Delivery Method Room Air Sepsis Recent Fever Within 48 Hours Yes Sepsis New/Unexplained Change in Mental Status N/A Sepsis Action Taken by Nursing No Action Required 07/19/24 15:21 Temperature Temperature Source Pulse Rate 74 Respiratory Rate 20 Respiratory Effort / Characteristics Respiratory Depth Blood Pressure 173/90 H Blood Pressure Mean 117 Pulse Oximetry 95 Oxygen Delivery Method Room Air Sepsis Recent Fever Within 48 Hours Sepsis New/Unexplained Change in Mental Status Sepsis Action Taken by Nursing Laboratory Data 07/19/24 12:41 07/19/24 12:41 Lab Results 07/19/24 Range/Units 12:41 WBC 16.89 H (4.8-10.8) K/ul RBC 4.88 (4.20-5.40) M/uL Hgb 15.2 (12.0-16.0) g/dl Hct 44.0 (37.0-47.0) % MCV 90.2 (80.0-100.0) fL MCH 31.1 (25.0-34.0) pg MCHC 34.5 (32.0-36.0) g/dL RDW Std Deviation 44.3 (36.4-46.3) fL RDW Coeff of Consuelo 13.4 (11.5-14.5) % Plt Count 231 (130-400) K/uL MPV 9.4 (9.4-12.4) fL Immature Gran % (Auto) 0.4 % Neut % (Auto) 85.9 % Lymph % (Auto) 4.6 % Lares % (Auto) 8.5 % Eos % (Auto) 0.1 % Baso % (Auto) 0.5 % Neut # (Auto) 14.52 H (1.40-6.50) K/uL Lymph # (Auto) 0.78 L (1.20-3.40) K/uL Lares # (Auto) 1.43 H (0.11-0.59) K/uL Eos # (Auto) 0.01 (0.00-0.50) K/uL Baso # (Auto) 0.08 (0.00-0.20) K/uL Immature Gran # (Auto) 0.07 (0.01-0.20) K/uL Sodium 141 (136-145) mmol/L Potassium 2.9 L (3.5-5.1) mmol/L Chloride 105 (98-107) mmol/L Carbon Dioxide 28 (21-32) mmol/L Anion Gap 8 (3-11) BUN 8 (6-23) mg/dl Creatinine 0.72 (0.6-1.2) mg/dl Est Cr Clr Drug Dosing 48.1 ml/min eGFR 82.39 BUN/Creatinine Ratio 11.1 (10-20) Glucose 111 H (70-99(Fasting)) mg/dl Calcium 9.6 (8.6-10.3) mg/dl Total Bilirubin 0.8 (0.2-1.0) mg/dl AST 23 (13-39) U/L ALT 14 (7-52) U/L Alkaline Phosphatase 91 (34-104) U/L Total Creatine Kinase 106 (26-192) U/L Total Protein 7.6 (6.0-8.3) gm/dl Albumin 4.4 (3.4-5.0) gm/dl Globulin 3.2 (2.5-4.0) gm/dl Albumin/Globulin Ratio 1.4 (0.9-2) Lipase 8 L (11-82) U/L Administered Medications Potassium Chloride/Sodium Chloride (Normal Saline W/20 Meq Kcl) 20 meq in 1,000 mls @ 75 mls/hr IV .[id number] MARY Stop: 07/20/24 17:59 Last Admin: 07/19/24 18:18 Dose: 75 mls/hr Documented By: NANCY Discontinued Medications Piperacillin Sod/Tazobactam Sod (Zosyn) 4.5 gm in 100 mls @ 200 mls/hr IV NOW ONE; Protocol Stop: 07/19/24 16:31 Last Admin: 07/19/24 16:37 Dose: 200 mls/hr Documented By: KRISTIE Ioversol (Optiray 320 100ml) 93 ml IV ONCE ONE Stop: 07/19/24 14:12 Last Admin: 07/19/24 14:11 Dose: 93 ml Documented By: SURYA Potassium Chloride (Potassium Chloride Crtab 20 Meq Tabcr) 40 meq PO NOW STA Stop: 07/19/24 14:27 Last Admin: 07/19/24 14:49 Dose: 40 meq Documented By: KRISTIE Imaging Data Radiologist's Impression: Abdomen/Pelvis CT 07/19/24 12:41 EXAMINATION: CT of the abdomen and pelvis performed after the administration of IV contrast TECHNIQUE: Helical CT images from the lung bases through the symphysis pubis were obtained with contrast. Coronal and sagittal reformatted images were generated at a workstation for further assessment. Dose reduction techniques were achieved by using automatic exposure control and/or adjustment of mA and/or kV according to patient size and/or use of iterative reconstruction technique. COMPARISON: 06/29/2024 HISTORY: Abdominal pain FINDINGS: Lower chest: No consolidation. No pleural effusion or pneumothorax. Mild bibasilar subsegmental atelectasis. Liver: No suspicious liver lesions. Portal veins appear patent. Gallbladder: No gallstones. No evidence of acute cholecystitis. Spleen: Normal size. Pancreas: No suspicious pancreatic lesions. The pancreatic duct is not dilated. Adrenal glands: No adrenal nodules. Kidneys: No hydronephrosis or obstructing renal stones. Bladder / Pelvic organs: Unremarkable. Bowel: No bowel obstruction. There is new wall thickening and mucosal hyperenhancement, with a stratified and featureless appearance extending from the anus, rectum, sigmoid colon, and throughout the descending colon up to the level of the splenic flexure. There may be mild wall thickening of the ascending and transverse colon. No bowel obstruction. The appendix is unremarkable. Lymph nodes: No retroperitoneal, mesenteric, or pelvic lymphadenopathy. Peritoneum / Retroperitoneum: No free fluid or air within the abdomen. Vessels: No infrarenal aortic aneurysm. Bones and soft tissues: No suspicious lesion in the bones. IMPRESSION: There is new wall thickening and mucosal hyperenhancement, with a stratified and featureless appearance extending from the anus, rectum, sigmoid colon, and throughout the descending colon up to the level of the splenic flexure. The findings are suggestive of colitis, with ulcerative colitis not excluded, given the appearance. Electronically signed by Walker Palomo 07-19-2024 3:27 PM Discharge Plan Visit Data Chief Complaint: Back Injury/Pain Stated Complaint: BACK PAIN ED Provider: Jada Daley Discharge Problem: Confusion, Generalized weakness, Ambulatory dysfunction Patient Disposition: Admitted As Inpatient Discharge Instructions Interventions: ED Discharge Assessment Last Done: 07/19/24 16:52
--- NOTE | 2024-07-19 16:00 | History & Physical Report ---
Date of Service July 19, 2024 Assessment & Plan (1) Generalized weakness: (2) Ambulatory dysfunction: (3) Leukocytosis: (4) Colitis: (5) Hypokalemia: Plan This is an 84-year-old female who has a significant past medical history of dementia, hypothyroidism, hyperlipidemia, osteoporosis, history of left breast cancer status post lumpectomy and prediabetes who presents to ED after being found on the floor by family. Hospitalized 05/19-05/26 2/2 complicated UTI, Subacute rehab stay at [facility], D/C to home 06/04 Hospitalized 06/29-07/03 2/2 Colitis, treated with Ceft/Flagyl and d/c on 10 day course of augmentin #Generalized Weakness #Ambulatory dysfunction #Leukocytosis #Colitis admit to med/surg --CT a/p: There is new wall thickening and mucosal hyperenhancement, with a stratified and featureless appearance extending from the anus, rectum, sigmoid colon, and throughout the descending colon up to the level of the splenic flexure. The findings are suggestive of colitis, with ulcerative colitis not excluded, given the appearance. CT appears worsened from image on 06/29 - was treated with IV Ceft/Flagyl and 10 day course of oral augmentin during this visit Pt with leukocytosis of 16k, borderline elevated temp 37.6, does not meet SIRS/Sepsis criteria Await urine culture. obtain stool culture and cdiff given recent antibiotic use Empirically tx with IV Zosyn for now clear liquids Pt is generally w/o abdominal sx, if worsens consider GI consult gentle IVF 75cc/hr + 20meq KCL x 24hrs PT/OT consults #Hypokalemia K 2.9 on admission, received 40meq KCL in ED will given additional 40meq @ 20:00 #Dementia mood stable, continue aricept #Hypothyroidism TSH 06/10 was 0.17 and 07/08 was 0.31. repeat TSH/T4 in a.m. Recent levothyroxine reduction from 100mcg to 75mcg #Pre diabetes A1C was 5.7 in May DVT ppx: SCDS for now given recent admission with rectal sheath hematoma DNR/DNI PCP: Deborah Galarza Dispo: admit to medical, PT/OT consulted, per ED provider EMS states family requesting possible placement Pt was seen and examined in collaboration with Dr. Tran, please see addendum I spent a total of 75 minutes coordinating, documenting and providing care for this patient excluding time spent in the performance of separately billed services or time spent by another provider/QHP. History of Present Illness Chief Complaint: Lowered self to ground overnight. Primary Care Provider: Deborah Galarza MD This is an 84-year-old female who has a significant past medical history of de mentia, hypothyroidism, hyperlipidemia, osteoporosis, history of left breast cancer status post lumpectomy and prediabetes who presents to ED after being found on the floor by family. Of significance patient has had recent hospitalizations. She was hospitalized on 05/19 to 05/26 secondary to a complicated UTI. She required short-term rehab at [place] care and was discharged home on 06/04/2024. She unfortunately was then readmitted on 06/29 to 07/03 secondary to concerns for a possible colitis as well as rectus sheath hematoma. She was treated with a course of IV antibiotics and transition to a course of oral Augmentin. She had serial imaging regarding her rectal sheath hematoma which was improving. History obtained from pt and at bedside. Pt sleeps downstair in a recliner. Her sleeps upstairs And he is very hard of hearing. Patient states that approximately 10 PM last evening she tried to get out of her recliner. She felt too weak and had to lower herself to the ground. She then tried crawling to the bathroom, but did not make it. Her found her laying on the floor this morning. Patient denies hitting her head or having any injuries. She does complain of some low back pain due to her positioning in the hospital bed. She moved her bowels this morning and states it was not diarrhea. Patient is unsure if she has had a fever at home. She reports her blood pressure typically runs on the lower side and her agrees with this. Patient denies any lightheadedness, dizziness, chest pain, shortness with, nausea, vomiting, diarrhea, melena, hematochezia, dysuria, increased urgency or frequency with urination. She does report some left lower quadrant abdominal pain. In ED patient remained hemodynamically stable although she was mildly hypertensive. Her lab work was notable for a hypokalemia, but otherwise unremarkable. Her CK was normal. According to ED provider EMS reported that family is looking for probable placement. states patient typically ambulates with a cane. Allergies Allergy/AdvReac Type Severity Reaction Status Date / Time No Known Drug Allergies Allergy Unknown Verified 06/29/24 18:10 Home Medications Medication Instructions Recorded Confirmed Type multivitamin 1 tab PO DAILY 01/07/18 07/19/24 History donepezil 10 mg tablet 10 mg PO QAM 06/29/24 07/19/24 History levothyroxine 75 mcg tablet 75 mcg PO DAILYBB 06/29/24 07/19/24 History pantoprazole 20 mg tablet,delayed 20 mg PO DAILY #30 tabs 07/03/24 07/19/24 Rx release (Protonix) Past Med/Surg History Problem List (Updated 07/19/24 @ 18:31 by Jada Daley MD) Hypokalemia Leukocytosis Ambulatory dysfunction (Acute) Colitis (Acute) Complicated UTI (urinary tract infection) (Acute) Generalized weakness (Acute) Confusion (Acute) Acute dysfunction of both eustachian tubes Sensorineural hearing loss (SNHL) of both ears Malignant neoplasm of upper-outer quadrant of left breast in female, estrogen receptor positive (Acute) Abnormal left breast mammogram Status post ultrasound-guided core needle biopsy 10/30/2017 Lobular carcinoma Estrogen receptor positive, progesterone receptor positive, HER-2/stephon negative Status post lumpectomy and sentinel lymph node biopsy 12/04/2017 Stage pT1c pN0 grade 2 Medical History Meniere disease Lyme disease Hypothyroidism Dyslipidemia Surgical History Status post left breast lumpectomy Family History Father , age 47 , DC No problems noted. Mother , age 79 , heart problems , COPD No problems noted. Brother , age 83 , dementia No problems noted. Son No problems noted. Daughter Lupus Sister Stomach cancer Other No family history of adverse response to anesthesia No family history of bleeding disorder Social History Smoking Status: Never smoker Second Hand Exposure: No; Do You Dip or Chew Tobacco: No; Tobacco Cessation Education Requested by Patient: No Hx Alcohol Use: No Hx Substance Use: No Preferred Language: Malian Communication Ability: Effective Political Theory Professor Required: No Beliefs That Will Affect Care: None marital status: Current Living Situation: Spouse Other Information That Helps Us Care for You: No Feels Safe at Home: Yes Safety Concerns: Feels Safe At This Time Assistive Devices: Denture - Upper Review of Systems Review of Systems: All systems reviewed & are unremarkable except as noted in HPI & below Physical Exam Physical Exam: Constitutional: WD/WN, vitals as above, NAD, sitting up in bed, pleasant, conversing easily Head: Normocephalic, Atraumatic Eyes: PERRL, conjunctivae normal, anicteric sclerae ENMT: external ear and nose normal, oropharynx normal dry mucous membranes Neck: trachea midline, no thyromegaly normal visual inspection Respiratory: normal respiratory effort, lungs clear to auscultation, no wheeze, rales, rhonchi. Normal insp/exp effort, no accessory muscle use Cardiovascular: RRR, no murmur, no edema Vessels: no JVD or carotid bruit Chest: normal inspection of chest Abdomen: normal bowel sounds, soft, nontender, no hepatosplenomegaly Musculoskeletal: no cyanosis or clubbing, extremities AROM x 4 Skin: no rashes, warm and dry normal turgor Neurologic: PERRL, EOMI, accommodation nl, no face palsy, no dysarthria CN's II-XI intact bilaterally and moves all extremities Psychiatric: A+Ox3 basics, euthymic affect Lymphatic: no cervical or axillary lymphadenopathy : deferred Results & Data Results & Data Vital Signs (Past 12 Hours) Vital Signs Temp Pulse Resp BP Pulse Ox O2 Del Method 07/19/24 15:21 74 20 173/90 H 95 Room Air 07/19/24 14:00 78 20 158/56 H 99 07/19/24 12:42 80 07/19/24 12:34 37.6 C H 79 16 167/72 H Room Air Laboratory Results I have independently reviewed and interpreted patient's admitting labs including CBC, CMP, CK Diagnostic Findings Abdomen/Pelvis CT 07/19/24 12:41 EXAMINATION: CT of the abdomen and pelvis performed after the administration of IV contrast TECHNIQUE: Helical CT images from the lung bases through the symphysis pubis were obtained with contrast. Coronal and sagittal reformatted images were generated at a workstation for further assessment. Dose reduction techniques were achieved by using automatic exposure control and/or adjustment of mA and/or kV according to patient size and/or use of iterative reconstruction technique. COMPARISON: 06/29/2024 HISTORY: Abdominal pain FINDINGS: Lower chest: No consolidation. No pleural effusion or pneumothorax. Mild bibasilar subsegmental atelectasis. Liver: No suspicious liver lesions. Portal veins appear patent. Gallbladder: No gallstones. No evidence of acute cholecystitis. Spleen: Normal size. Pancreas: No suspicious pancreatic lesions. The pancreatic duct is not dilated. Adrenal glands: No adrenal nodules. Kidneys: No hydronephrosis or obstructing renal stones. Bladder / Pelvic organs: Unremarkable. Bowel: No bowel obstruction. There is new wall thickening and mucosal hyperenhancement, with a stratified and featureless appearance extending from the anus, rectum, sigmoid colon, and throughout the descending colon up to the level of the splenic flexure. There may be mild wall thickening of the ascending and transverse colon. No bowel obstruction. The appendix is unremarkable. Lymph nodes: No retroperitoneal, mesenteric, or pelvic lymphadenopathy. Peritoneum / Retroperitoneum: No free fluid or air within the abdomen. Vessels: No infrarenal aortic aneurysm. Bones and soft tissues: No suspicious lesion in the bones. IMPRESSION: There is new wall thickening and mucosal hyperenhancement, with a stratified and featureless appearance extending from the anus, rectum, sigmoid colon, and throughout the descending colon up to the level of the splenic flexure. The findings are suggestive of colitis, with ulcerative colitis not excluded, given the appearance. Electronically signed by Walker Palomo 07-19-2024 3:27 PM Medications Administered Medication List Discontinued Medications Ioversol (Optiray 320 100ml) 93 ml IV ONCE ONE Stop: 07/19/24 14:12 Last Admin: 07/19/24 14:11 Dose: 93 ml Documented By: SURYA Potassium Chloride (Potassium Chloride Crtab 20 Meq Tabcr) 40 meq PO NOW STA Stop: 07/19/24 14:27 Last Admin: 07/19/24 14:49 Dose: 40 meq Documented By: KRISTIE ECG Additional Comments: I have independently reviewed and interpreted patient's admitting EKG which revealed: NSR 80bpm, no st or t wave changes noted, artifact throughout, qtc 546ms COVID-19 Results Results COVID-19 Adm Lab Results: RBC 4.88 M/uL (4.20-5.40) 07/19/24 WBC 16.89 K/ul (4.8-10.8) H 07/19/24 Hgb 15.2 g/dl (12.0-16.0) 07/19/24 Hct 44.0 % (37.0-47.0) 07/19/24 Plt Count 231 K/uL (130-400) 07/19/24 Neutrophils (%) (Auto) 85.9 % 07/19/24 Lymphocytes (%) (Auto) 4.6 % 07/19/24 Monocytes # (Auto) 1.43 K/uL (0.11-0.59) H 07/19/24 Eosinophils # (Auto) 0.01 K/uL (0.00-0.50) 07/19/24 Immature Granulocyte % (Auto) 0.4 % 07/19/24 Neutrophils # (Auto) 14.52 K/uL (1.40-6.50) H 07/19/24 Lymphocytes # (Auto) 0.78 K/uL (1.20-3.40) L 07/19/24 Monocytes # (Auto) 1.43 K/uL (0.11-0.59) H 07/19/24 Eosinophils # (Auto) 0.01 K/uL (0.00-0.50) 07/19/24 Basophils # (Auto) 0.08 K/uL (0.00-0.20) 07/19/24 Immature Granulocyte # (Auto) 0.07 K/uL (0.01-0.20) 5 Na 141 mmol/L (136-145) 07/19/24 K 2.9 mmol/L (3.5-5.1) L 07/19/24 Cl 105 mmol/L (98-107) 07/19/24 CO2 28 mmol/L (21-32) 07/19/24 Anion Gap 8 (3-11) 07/19/24 BUN 8 mg/dl (6-23) 07/19/24 Creatinine 0.72 mg/dl (0.6-1.2) 07/19/24 BUN/Creatinine Ratio 11.1 (10-20) 07/19/24 Glucose Level 111 mg/dl (70-99(Fasting)) H 07/19/24 Ca 9.6 mg/dl (8.6-10.3) 07/19/24 Total Bilirubin 0.8 mg/dl (0.2-1.0) 07/19/24 AST/SGOT 23 U/L (13-39) 07/19/24 ALT/SGPT 14 U/L (7-52) 07/19/24 Alkaline Phosphatase 91 U/L (34-104) 07/19/24 Total Protein 7.6 gm/dl (6.0-8.3) 07/19/24 Albumin 4.4 gm/dl (3.4-5.0) 07/19/24 Globulin 3.2 gm/dl (2.5-4.0) 07/19/24 Albumin/Globulin Ratio 1.4 (0.9-2) 07/19/24 Total CK 106 U/L (26-192) 07/19/24 Code Status & VTE Plan Code Status DNR/DNI VTE Prophylaxis Plan VTE Prophylaxis will be ordered: Yes Supervising Physician Co-Signing Physician Notes I have reviewed the advanced practitioner's documentation, and I agree with, and take responsibility for the plan of care I spent a total of 25 minutes coordinating, documenting, and providing care for this patient excluding time spent in the performance of separately billed services. All of the aforementioned completed while collaborating with the assigned advanced practitioner for a full treatment plan
[2024-07-19] MEDS: PIPERACILLIN/TAZOBACTAM 4.5 GM/100 ML BAG IV ONE (16:37)
[2024-07-19] MEDS ORDERED: FAMOTIDINE 20 MG TAB PO PRN (17:41)
[2024-07-19] MEDS ORDERED: MAGNESIUM HYDROXIDE SUSP 30 ML UDC PO PRN (17:41)
[2024-07-19] MEDS ORDERED: POLYETHYLENE (MIRALAX) 17 GM PACK PO PRN (17:41)
[2024-07-19] MEDS ORDERED: ACETAMINOPHEN 325 MG TAB PO PRN (17:41)
[2024-07-19] MEDS: NSS + 20MEQ KCL 20 MEQ/1,000 ML BAG IV SCH (18:18)
[2024-07-19] MEDS: POTASSIUM CHLORIDE CRTAB 20 MEQ TABCR PO ONE (20:52)
[2024-07-19] MEDS ORDERED: MELATONIN 3 MG TAB PO PRN (21:00)
[2024-07-19] MEDS: PIPERACILLIN/TAZOBACTAM 4.5 GM/100 ML BAG IV SCH (21:01)
[2024-07-20 00:04] LABS: Cdiff Toxin B Gene (2yr or >) Positive Cdiff Gene (Neg)
[2024-07-20 00:05] LABS: Adenovirus F 40/41 PCR Not Detected (NotDetected); Astrovirus PCR Not Detected (NotDetected); Campylobacter PCR Not Detected (NotDetected); Cryptosporidium PCR Not Detected (NotDetected); Cyclospora cayetanensis PCR Not Detected (NotDetected); Entamoeba histolytica PCR Not Detected (NotDetected); Enteroaggregative E.coli(EAEC) Not Detected (NotDetected); Enteropathogenic E.coli (EPEC) Not Detected (NotDetected); Enterotoxigenic E.coli (ETEC) Not Detected (NotDetected); Giardia lamblia PCR Not Detected (NotDetected); Norovirus GI/GII PCR Not Detected (NotDetected); Plesiomonas shigelloides PCR Not Detected (NotDetected); Rotavirus A PCR Not Detected (NotDetected); Salmonella PCR Not Detected (NotDetected); Sapovirus PCR Not Detected (NotDetected); Shiga-like Toxin E.coli (STEC) Not Detected (NotDetected); Shigella/Enteroinvasive E.coli Not Detected (NotDetected); Vibrio cholerae PCR Not Detected (NotDetected); Vibrio species PCR Not Detected (NotDetected); Yersinia enterocolitica PCR Not Detected (NotDetected)
[2024-07-20 00:25] LABS: Cdiff Toxin A+B Positive Cdiff Toxin (Negative)
[2024-07-20 00:26] LABS: Cdiff Antigen Positive
[2024-07-20] MEDS: CHERRY SYRUP 5 ML UDP PO SCH (01:08)
[2024-07-20] MEDS: VANCOMYCIN HCL 125 MG/2.5ML SOLN PO SCH (01:08)
[2024-07-20] MEDS: LEVOTHYROXINE SODIUM 75 MCG TABLET PO SCH (06:07)
[2024-07-20 07:02] LABS: Basophils # (auto) 0.09 K/uL (0.00-0.20); Basophils % (auto) 0.5 %; Eosinophils # (auto) 0.05 K/uL (0.00-0.50); Eosinophils % (auto) 0.3 %; Hematocrit (blood only) 41.8 % (37.0-47.0); Hemoglobin 13.8 g/dl (12.0-16.0); Immature Granulocytes # (auto) 0.09 K/uL (0.01-0.20); Immature Granulocytes % (auto) 0.5 %; Lymphocytes # (auto) 1.73 K/uL (1.20-3.40); Lymphocytes % (auto) 9.1 %; Mean Corpuscular Hemoglobin 30.3 pg (25.0-34.0); Mean Corpuscular Volume 91.9 fL (80.0-100.0); Mean Platelet Volume 9.9 fL (9.4-12.4); Monocytes # (auto) 1.81 K/uL (0.11-0.59); Monocytes % (auto) 9.5 %; Neutrophils # (auto) 15.26 K/uL (1.40-6.50); Neutrophils % (auto) 80.1 %; Platelet Count 216 K/uL (130-400); RDW Standard Deviation 47.8 fL (36.4-46.3); Red Blood Count 4.55 M/uL (4.20-5.40); White Blood Count 19.03 K/ul (4.8-10.8)
[2024-07-20 07:23] LABS: Albumin Globulin Ratio 1.5 (0.9-2); Albumin Level 3.7 gm/dl (3.4-5.0); BUN Creatinine Ratio 9.9 (10-20); Bilirubin,Total 0.8 mg/dl (0.2-1.0); Calcium 9.2 mg/dl (8.6-10.3); Creatinine Clr Calc Pharmacy 42.8 ml/min; Globulin 2.5 gm/dl (2.5-4.0); Magnesium 1.9 mg/dl (1.7-2.4); Potassium 3.2 mmol/L (3.5-5.1); Total Protein 6.2 gm/dl (6.0-8.3)
--- NOTE | 2024-07-20 07:33 | Hospitalist Progress Note ---
Date of Service July 20, 2024 Assessment & Plan (1) Generalized weakness: (2) Ambulatory dysfunction: (3) Leukocytosis: (4) Colitis: (5) Hypokalemia: Plan This is an 84-year-old female who has a significant past medical history of dementia, hypothyroidism, hyperlipidemia, osteoporosis, history of left breast cancer status post lumpectomy and prediabetes who presents to ED after being found on the floor by family. Hospitalized 05/19-05/26 2/2 complicated UTI, Subacute rehab stay at [facility], D/C to home 06/04 Hospitalized 06/29-07/03 2/2 Colitis, treated with Ceft/Flagyl and d/c on 10 day course of augmentin Generalized Weakness Ambulatory dysfunction Leukocytosis Colitis admit to med/surg --CT a/p: There is new wall thickening and mucosal hyperenhancement, with a stratified and featureless appearance extending from the anus, rectum, sigmoid colon, and throughout the descending colon up to the level of the splenic flexure. The findings are suggestive of colitis, with ulcerative colitis not excluded, given the appearance. CT appears worsened from image on 06/29 - was treated with IV Ceft/Flagyl and 10 day course of oral augmentin during this visit Pt with leukocytosis of 16k on admission--> worsened to 19.03 today. Await urine culture. Stool Cx: CD gene (+) CD toxin (+); placed on contact isolation Started on PO Vancomycin; continue IV Zosyn discontinued as no evidence of diverticulitis Tolerating clear liquids; advance diet as tolerated Given recurrent state of colitis; asked for GI consult; appreciate recommendations Received 2L IVF; tolerating clear liquids continue gentle fluids Continues to have loose/soft stools PT/OT consults Hypokalemia K 2.9 on admission, received a total of 80mEq between doses on 07/19 Serum K+ this AM 3.2; administer additional 40 mEq Received NSS + 20mEq overnight Trend BMP Dementia Takes aricept; continue No behavioral disturbance noted Hypothyroidism TSH 06/10 was 0.17 and 07/08 was 0.31. repeat TSH/T4 in a.m. Recent levothyroxine reduction from 100mcg to 75mcg Pre diabetes A1C was 5.7 in May Disposition: Code status:DNR/DNI PCP: Deborah Galarza DVT ppx: SCDS for now given recent admission with rectal sheath hematoma --admit to medical, PT/OT consulted, per ED provider EMS states family requesting possible placement I spent a total of 58 minutes coordinating, documenting and providing care for this patient excluding time spent in the performance of separately billed services or time spent by another provider/QHP. Admission and Anticipated Discharge Date Admission Date: July 19, 2024 Supervising Physician Co-Signing Physician Notes Attending addendum: The patient was seen and examined in presence of the and medical floor She has been feeling little better since admission still has nausea but no vomiting Denies any significant abdominal pain or distention On examination Lying in bed without any apparent distress Hemodynamically stable Chestclear to auscultate bilaterally HeartS1-S2, regular Abdominal examination showed mildly tender abdomen all over without any guarding or rigidity Extremitiesnegative for any edema Her labs and imaging studies reviewed. medications reviewed Has significant increase in white count from 16-[address] evidence of pancolitis and C. difficile toxin is positive Has had recent course of antibiotic with Augmentin for nonspecific colitis Other medical conditions remains stable as above Agree with assessment and plan as outlined above by Jelly RAMIREZ and take the full responsibility of care in the hospital Total time taken to document all this was [address] Srinivas Thomas Subjective Pt sitting in her hospital bed and was feeling nauseated. She is AAOx3 and pleasant otherwise. She was able to answer most questions appropriately. She denies KO, chest pain, SOB, abdominal pain and tenderness, swelling, recent falls. She was unable to tell me why she was in the hospital, other than she is "weak and not getting better" Review of Systems Review of Systems: Neuro: (-) Falls, trauma, slurred speech HEENT: (-) KO, dizziness, dysphagia, visual or auditory changes CV: (-) CP, palpitations, swelling Resp: (-) SOB GI: (-) appetite changes, N/V/D, bowel changes : (-) urinary changes Skin: (-) rashes Psych: (-) anxiety, depression Physical Exam Physical Exam: Neuro: AAOx4, PERRLA, no aphagia, memory changes, CNII-XII grossly intact HEENT: head normocephalic, moist mucus membranes CV: S1/S2, (-) M/G/R, (-) edema, cap refill < 3 seconds Resp: Lungs CTA in all farrell. On RA GI: Abdomen S/NT/ND, Ax4 bowel sounds, (-) CVA tenderness Musculoskeletal: 5/5 B/L UE strength, 5/5 B/L LE strength. Reportedly uses a cane at baseline Skin: (-) rashes , (-) erythema. Psych: euthymic mood Results & Data Results & Data Vital Signs (Past 12 Hours) Vital Signs Temp Pulse Resp BP Pulse Ox O2 Del Method 07/19/24 21:00 Room Air 07/19/24 20:37 37.9 C H 69 16 153/69 H 96 Room Air Laboratory Results Short CBC 07/20/24 Range/Units 06:26 WBC 19.03 H (4.8-10.8) K/ul Hgb 13.8 (12.0-16.0) g/dl Hct 41.8 (37.0-47.0) % Plt Count 216 (130-400) K/uL BMP 07/20/24 06:26 Sodium 141 Potassium 3.2 L Chloride 109 H Carbon Dioxide 25 BUN 8 Creatinine 0.81 Glucose 110 H Calcium 9.2 Cardiac Enzymes 07/19/24 Range/Units 12:41 Total Creatine Kinase 106 (26-192) U/L Liver Function 07/20/24 Range/Units 06:26 Total Bilirubin 0.8 (0.2-1.0) mg/dl AST 24 (13-39) U/L ALT 14 (7-52) U/L Alkaline Phosphatase 74 (34-104) U/L Albumin 3.7 (3.4-5.0) gm/dl
[2024-07-20 07:38] LABS: Thyroid Stimulating Hormone 0.395 uIu/ml (0.300-4.500)
[2024-07-20] MEDS: DONEPEZIL HCL 10 MG TAB PO SCH (08:01)
[2024-07-20] MEDS: MULTIVITAMIN TAB PO SCH (08:02)
[2024-07-20] MEDS: PANTOprazole 40 MG TAB PO SCH (08:02)
[2024-07-20] MEDS: metroNIDAZOLE 500 MG/100 ML BAG IV SCH (08:49)
[2024-07-20] MEDS: POTASSIUM CHLORIDE CRTAB 20 MEQ TABCR PO STA (08:49)
[2024-07-20] MEDS: PROMETHAZINE 6.25 MG/50.25 ML BAG IV PRN (10:17)
--- NOTE | 2024-07-20 12:39 | Gastrointestinal Consultation ---
Date of Consultation July 20, 2024 Assessment & Plan (1) Colitis: Pleasant woman with colitis on CT and c. diff in stool. I suspect her only problem is c. diff so I would treat her with vancomycin as you are doing but would probably stop the piperacillin and metronidazole. I suspect we will see improvement over the next 3-4 days. Surprisingly she has only minimal symptoms other than diarrhea. History of Present Illness Reason for Consultation: colitis Attending Physician: Ajay Thomas MD History of Present Illness 84 year old female in the hospital earlier this month with colitis and treated with antibiotics. She continues with symptoms and was brought to the hospital for weakness. She had persistent colitis on CT scan. Stool studies returned positive for c. diff. She says she is going to the bathroom frequently. She denies pain. There is no blood in her stool. Allergies Allergy/AdvReac Type Severity Reaction Status Date / Time No Known Drug Allergies Allergy Unknown Verified 06/29/24 18:10 Home Medications Medication Instructions Recorded Confirmed Type multivitamin 1 tab PO DAILY 01/07/18 07/19/24 History donepezil 10 mg tablet 10 mg PO QAM 06/29/24 07/19/24 History levothyroxine 75 mcg tablet 75 mcg PO DAILYBB 06/29/24 07/19/24 History pantoprazole 20 mg tablet,delayed 20 mg PO DAILY #30 tabs 07/03/24 07/19/24 Rx release (Protonix) Patient History Medical History Meniere disease Lyme disease Hypothyroidism Dyslipidemia Surgical History Status post left breast lumpectomy Family History Father , age 47 , [place] No problems noted. Mother , age 79 , heart problems , COPD No problems noted. Brother , age 83 , dementia No problems noted. Son No problems noted. Daughter Lupus Sister Stomach cancer Other No family history of adverse response to anesthesia No family history of bleeding disorder Social History Smoking Status: Never smoker Second Hand Exposure: No; Do You Dip or Chew Tobacco: No; Tobacco Cessation Education Requested by Patient: No Hx Alcohol Use: No Hx Substance Use: No Preferred Language: Welsh Communication Ability: Effective Plan Consultant Required: No Beliefs That Will Affect Care: None marital status: Current Living Situation: Spouse Other Information That Helps Us Care for You: No Feels Safe at Home: Yes Safety Concerns: Feels Safe At This Time Assistive Devices: Denture - Upper Review of Systems Review of Systems: All systems reviewed & are unremarkable except as noted in HPI & below Physical Exam Physical Exam: She looks happy Constitutional: WD/WN, vitals as above Neck: trachea midline, no thyromegaly Respiratory: normal respiratory effort, lungs clear to auscultation Cardiovascular: RRR, no murmur, no edema Gastrointestinal (Abdomen): normal bowel sounds, soft, nontender, no hepatosplenomegaly Results & Data Laboratory Results 07/20/24 07/19/24 07/19/24 Range/Units 06:26 22:00 12:41 WBC 19.03 H 16.89 H (4.8-10.8) K/ul RBC 4.55 4.88 (4.20-5.40) M/uL Hgb 13.8 15.2 (12.0-16.0) g/dl Hct 41.8 44.0 (37.0-47.0) % MCV 91.9 90.2 (80.0-100.0) fL MCH 30.3 31.1 (25.0-34.0) pg MCHC 33.0 34.5 (32.0-36.0) g/dL RDW Std Deviation 47.8 H 44.3 (36.4-46.3) fL RDW Coeff of Consuelo 14.0 13.4 (11.5-14.5) % Plt Count 216 231 (130-400) K/uL MPV 9.9 9.4 (9.4-12.4) fL Immature Gran % (Auto) 0.5 0.4 % Neut % (Auto) 80.1 85.9 % Lymph % (Auto) 9.1 4.6 % [place]ford % (Auto) 9.5 8.5 % Eos % (Auto) 0.3 0.1 % Baso % (Auto) 0.5 0.5 % Neut # (Auto) 15.26 H 14.52 H (1.40-6.50) K/uL Lymph # (Auto) 1.73 0.78 L (1.20-3.40) K/uL [place] # (Auto) 1.81 H 1.43 H (0.11-0.59) K/uL Eos # (Auto) 0.05 0.01 (0.00-0.50) K/uL Baso # (Auto) 0.09 0.08 (0.00-0.20) K/uL Immature Gran # (Auto) 0.09 0.07 (0.01-0.20) K/uL Sodium 141 141 (136-145) mmol/L Potassium 3.2 L 2.9 L (3.5-5.1) mmol/L Chloride 109 H 105 (98-107) mmol/L Carbon Dioxide 25 28 (21-32) mmol/L Anion Gap 7 8 (3-11) BUN 8 8 (6-23) mg/dl Creatinine 0.81 0.72 (0.6-1.2) mg/dl Est Cr Clr Drug Dosing 42.8 48.1 ml/min eGFR 71.54 82.39 BUN/Creatinine Ratio 9.9 L 11.1 (10-20) Glucose 110 H 111 H (70-99(Fasting)) mg/dl Calcium 9.2 9.6 (8.6-10.3) mg/dl Magnesium 1.9 (1.7-2.4) mg/dl Total Bilirubin 0.8 0.8 (0.2-1.0) mg/dl AST 24 23 (13-39) U/L ALT 14 14 (7-52) U/L Alkaline Phosphatase 74 91 (34-104) U/L Total Creatine Kinase 106 (26-192) U/L Total Protein 6.2 7.6 (6.0-8.3) gm/dl Albumin 3.7 4.4 (3.4-5.0) gm/dl Globulin 2.5 3.2 (2.5-4.0) gm/dl Albumin/Globulin Ratio 1.5 1.4 (0.9-2) Lipase 8 L (11-82) U/L TSH 0.395 (0.300-4.500) uIu/ml Stl C. cayetanensis PCR Not Detected (NotDetected) Stool Rotavirus A PCR Not Detected (NotDetected) Stl Adenov F 40/41 PCR Not Detected (NotDetected) Stool Astrovirus (PCR) Not Detected (NotDetected) Stool Campylobacter PCR Not Detected (NotDetected) Stl C. diff Tox B Gene Positive Cdiff Gene A (Neg) Stl C.difficile Tox A&B Positive Cdiff Toxin A* (Negative) Stool Cryptosporidium PCR Not Detected (NotDetected) Stl E.coli Shiga Tox PCR Not Detected (NotDetected) Stl Enterotoxigenic E PCR Not Detected (NotDetected) Stool EPEC (PCR) Not Detected (NotDetected) Stool EAEC (PCR) Not Detected (NotDetected) Stl E. histolytica PCR Not Detected (NotDetected) Stool Giardia Lamblia PCR Not Detected (NotDetected) Stool Salmonella PCR Not Detected (NotDetected) Stool Sapovirus (PCR) Not Detected (NotDetected) Stl P. shigelloides PCR Not Detected (NotDetected) Stl Shigella/EIEC PCR Not Detected (NotDetected) St Y.enterocolitica PCR Not Detected (NotDetected) Stool Vibrio (PCR) Not Detected (NotDetected) Stl Vibrio cholerae PCR Not Detected (NotDetected) Stl Norovirus GI/GII PCR Not Detected (NotDetected) Diagnostic Findings Abdomen/Pelvis CT 07/19/24 12:41 EXAMINATION: CT of the abdomen and pelvis performed after the administration of IV contrast TECHNIQUE: Helical CT images from the lung bases through the symphysis pubis were obtained with contrast. Coronal and sagittal reformatted images were generated at a workstation for further assessment. Dose reduction techniques were achieved by using automatic exposure control and/or adjustment of mA and/or kV according to patient size and/or use of iterative reconstruction technique. COMPARISON: 06/29/2024 HISTORY: Abdominal pain FINDINGS: Lower chest: No consolidation. No pleural effusion or pneumothorax. Mild bibasilar subsegmental atelectasis. Liver: No suspicious liver lesions. Portal veins appear patent. Gallbladder: No gallstones. No evidence of acute cholecystitis. Spleen: Normal size. Pancreas: No suspicious pancreatic lesions. The pancreatic duct is not dilated. Adrenal glands: No adrenal nodules. Kidneys: No hydronephrosis or obstructing renal stones. Bladder / Pelvic organs: Unremarkable. Bowel: No bowel obstruction. There is new wall thickening and mucosal hyperenhancement, with a stratified and featureless appearance extending from the anus, rectum, sigmoid colon, and throughout the descending colon up to the level of the splenic flexure. There may be mild wall thickening of the ascending and transverse colon. No bowel obstruction. The appendix is unremarkable. Lymph nodes: No retroperitoneal, mesenteric, or pelvic lymphadenopathy. Peritoneum / Retroperitoneum: No free fluid or air within the abdomen. Vessels: No infrarenal aortic aneurysm. Bones and soft tissues: No suspicious lesion in the bones. IMPRESSION: There is new wall thickening and mucosal hyperenhancement, with a stratified and featureless appearance extending from the anus, rectum, sigmoid colon, and throughout the descending colon up to the level of the splenic flexure. The findings are suggestive of colitis, with ulcerative colitis not excluded, given the appearance. Electronically signed by Walker Palomo 07-19-2024 3:27 PM
[2024-07-20] MEDS: SODIUM CHLORIDE 0.9% 1,000 ML IV SCH (15:24)
[2024-07-21 04:19] LABS: Hematocrit (blood only) 38.8 % (37.0-47.0); Hemoglobin 12.9 g/dl (12.0-16.0); Mean Corpuscular Hemoglobin 30.9 pg (25.0-34.0); Mean Corpuscular Hgb Conc 33.2 g/dL (32.0-36.0); Mean Platelet Volume 9.9 fL (9.4-12.4); Platelet Count 198 K/uL (130-400); RDW Coefficient of Variation 14.2 % (11.5-14.5); RDW Standard Deviation 48.5 fL (36.4-46.3); Red Blood Count 4.17 M/uL (4.20-5.40); White Blood Count 9.53 K/ul (4.8-10.8)
[2024-07-21 04:33] LABS: BUN Creatinine Ratio 11.5 (10-20); Calcium 8.8 mg/dl (8.6-10.3); Creatinine Clr Calc Pharmacy 56.8 ml/min; Potassium 3.6 mmol/L (3.5-5.1)
--- NOTE | 2024-07-21 06:59 | Hospitalist Progress Note ---
Date of Service July 21, 2024 Assessment & Plan (1) Generalized weakness: (2) Ambulatory dysfunction: (3) Leukocytosis: (4) Colitis: (5) Hypokalemia: Plan This is an 84-year-old female who has a significant past medical history of dementia, hypothyroidism, hyperlipidemia, osteoporosis, history of left breast cancer status post lumpectomy and prediabetes who presents to ED after being found on the floor by family. Hospitalized 05/19-05/26 2/2 complicated UTI, Subacute rehab stay at [facility], D/C to home 06/04 Hospitalized 06/29-07/03 2/2 Colitis, treated with Ceft/Flagyl and d/c on 10 day course of augmentin CDiff Colitis: Enterocolitis due to Clostridium difficile CTAP: There is new wall thickening and mucosal hyperenhancement, with a stratified and featureless appearance extending from the anus, rectum, sigmoid colon, and throughout the descending colon up to the level of the splenic flexure. The findings are suggestive of colitis, with ulcerative colitis not excluded, given the appearance. CT appears worsened from image on 06/29 - was treated with IV Ceft/Flagyl and 10 day course of oral augmentin during last visit leukocytosis 16k on admission--> 19.03--> Much improved today at 9.53. Await urine culture. Stool Cx: CD gene (+) CD toxin (+); placed on contact isolation Started on PO Vancomycin; continue for 10 days (last day 07/29) IV Zosyn as no evidence of diverticulitis Tolerating regular diet advancement; will DC IV fluids. Given recurrent state of colitis; GI consult; appreciate recommendations to continue PO vancomycin less loose stools today Hypokalemia IMPROVED K 2.9 on admission, After replacement in ED and on 07/20 serum potassium 07/21 3.8 Trend BMP Dementia Generalized Weakness Ambulatory dysfunction Takes aricept; continue No behavioral disturbance noted On admission there was indication that family had interest in looking at snf transition due to presumedly difficulty caring for patient at home (see bold below). PT cleared for independence, OT recc SNF for ADL's. Hypothyroidism TSH 06/10 was 0.17 and 07/08 was 0.31. repeat TSH/T4 in a.m. Recent levothyroxine reduction from 100mcg to 75mcg Pre diabetes A1C was 5.7 in May Disposition: Code status:DNR/DNI PCP: Deborah Galarza DVT ppx: SCDS for now given recent admission with rectal sheath hematoma --admit to medical, PT/OT consulted, per ED provider EMS states family requesting possible placement Called pt sonTitus @ [phone] at length who stated that they had been considering [facility] for longer term for both parents. They were pleased with [facility] previously and would support SNF placement there; relayed to CM I spent a total of 55 minutes coordinating, documenting and providing care for this patient excluding time spent in the performance of separately billed services or time spent by another provider/QHP. Admission and Anticipated Discharge Date Admission Date: July 19, 2024 Supervising Physician Co-Signing Physician Notes Attending addendum: The patient was seen and examined in presence of the and medical floor She has been feeling little better since admission still has nausea but no vomiting Denies any significant abdominal pain or distention 07/21/2024 The patient was seen and examined in medical floor in presence of the She has been feeling much better and and is out of bed on a chair Denies any significant symptoms On examination sitting on a chair without any acute distress Hemodynamically stable Chestclear to auscultate bilaterally HeartS1-S2, regular Abdominal examination showed mildly tender abdomen all over without any guarding or rigidity Extremitiesnegative for any edema Her labs and imaging studies reviewed. medications reviewed has enterocolitis secondary to C. difficile Has had recent course of antibiotic with Augmentin for nonspecific colitis Other medical conditions remains stable as above Agree with assessment and plan as outlined above by Jelly RAMIREZ and take the full responsibility of care in the hospital Total time taken to document all this was [address] Srinivas Thomas Subjective Pt sitting in her hospital bed and was feeling nauseated. She is AAOx3 and pleasant otherwise. Afebrile and hemodynamically stable She denies KO, chest pain, SOB, abdominal pain and tenderness, swelling, recent falls. She was able to tell me where she is and able to answer simple questions. Called pt son Titus and spoke at length; see bold bottom of note. Review of Systems Review of Systems: Neuro: (-) Falls, trauma, slurred speech HEENT: (-) KO, dizziness, dysphagia, visual or auditory changes CV: (-) CP, palpitations, swelling Resp: (-) SOB GI: (-) appetite changes, N/V/D, bowel changes : (-) urinary changes Skin: (-) rashes Psych: (-) anxiety, depression Physical Exam Physical Exam: Neuro: AAOx4, PERRLA, no aphagia, memory changes, CNII-XII grossly intact HEENT: head normocephalic, moist mucus membranes CV: S1/S2, (-) M/G/R, (-) edema, cap refill < 3 seconds Resp: Lungs CTA in all farrell. On RA GI: Abdomen S/NT/ND, Ax4 bowel sounds, (-) CVA tenderness Musculoskeletal: 5/5 B/L UE strength, 5/5 B/L LE strength. Reportedly uses a cane at baseline Skin: (-) rashes , (-) erythema. Psych: euthymic mood Results & Data Results & Data Vital Signs (Past 12 Hours) Vital Signs Temp Pulse Resp BP Pulse Ox O2 Del Method 07/20/24 20:14 36.7 C 80 16 157/84 H 96 Room Air Laboratory Results Short CBC 07/21/24 Range/Units 03:54 WBC 9.53 (4.8-10.8) K/ul Hgb 12.9 (12.0-16.0) g/dl Hct 38.8 (37.0-47.0) % Plt Count 198 (130-400) K/uL BMP 07/21/24 03:54 Sodium 142 Potassium 3.6 Chloride 113 H Carbon Dioxide 24 BUN 7 Creatinine 0.61 Glucose 90 Calcium 8.8
[2024-07-21 17:30] LABS: Appearance Urine Clear (Clear); Bacteria Urine Automated None Seen (None Seen); Bilirubin Urine Negative (Negative); Blood Urine Negative (Negative); Cast Urine Automated 0-2 /lpf (0-2); Color Urine Yellow; Epithelial Cell Urine Auto 0-2 /hpf (0-2); Glucose Urine UA Negative (Negative); Ketones Urine Negative (Negative); Leukocyte Esterase Urine Trace (Negative); Nitrite Urine Negative (Negative); Protein Urine Negative (Negative); RBC Urine Automated 0-2 /hpf (0-2); Specific Gravity Urine 1.014 (1.000-1.030); Urobilinogen Urine Negative (Negative); WBC Urine Automated 0-5 /hpf (0-5)
--- NOTE | 2024-07-22 07:08 | Hospitalist Progress Note ---
Date of Service July 22, 2024 Assessment & Plan (1) C. difficile colitis: Plan: Rocio Monet is an 84y/o F with PMHx significant for dementia, hypothyroidism, HLD, osteoporosis, history of left breast cancer s/p lumpectomy and prediabetes who is admitted for management of Clostridium difficile colitis after being found on the floor by family at home. Previously hospitalized from 06/29/24- 07/03/24 due to colitis and discharged home on course of oral Augmentin. CTAP: New wall thickening and mucosal hyperenhancement, with a stratified and featureless appearance extending from the anus, rectum, sigmoid colon, and throughout the descending colon up to the level of the splenic flexure. The findings are suggestive of colitis, with ulcerative colitis not excluded, given the appearance. CD toxin positive. Tolerating regular diet advancement with subsequent decrease in frequency of loose stools. GI evaluated 2/2 recurrent state of colitis. Reviewed GI consultation. Set to complete oral vancomycin course on 07/29/24. Contact precautions. (2) Hypokalemia: Plan: K+ 3.4 this morning. Repleted orally with 40mEq KCl. Continue to monitor and r eplete PRN. (3) Dementia: (4) Generalized weakness: (5) Ambulatory dysfunction: Plan: Continue Aricept. No behavioral disturbances noted. Indication on admission that family was interested in looking at SNF transition due to presumed difficulty of caring for patient at home. Appreciate PT/OT evaluations. CM working on obtaining placement; referral pending to [facility]. Recently seen and evaluated by [facility] neurology in May 2024. Her MOCA testing showed a score of 18/30 with deficits in delayed recall, language, and executive function. Her history and testing are most concerning for Alzheimer's dementia. (6) Hematoma: Plan: Recent diagnosis of left inferior rectus sheath hematoma on CTAP performed on 06/29/24 during her last admission - likely related to retching due to vomiting. Repeat abdominal US done 07/02/24 with interval enlargement of the left rectus sheath hematoma compared to 06/29/24 measuring 5.3 x 1.2 x 2.4cm. Appears to have resolved on her repeat CTAP this admission (no free fluid or air within the abdomen). (7) Hypothyroidism: Plan: TSH WNL this admission. Recent reduction of levothyroxine dose from 100mcg to 75mcg - continue current dose. Other Chronic Medical Conditions: Prediabetes - Hgb A1c 5.7% this past May. DVT Prophylaxis: SCDs/TEDs for now given recent admission with rectal sheath hematoma. Code Status: DNR/DNI PCP: Deborah Galarza MD Disposition: Medically stable for discharge once SNF placement becomes available. Patient seen in collaboration with Dr. Ibarra. Please see addendum. I spent a total of 50 minutes coordinating, documenting, and providing care for this patient excluding time spent in the performance of separately billed services or time spent by another provider/QHP. This included personally reviewing all current laboratories and imaging studies, medical reconciliation, outpatient chart review and discussion with specialists. This chart was completed in part utilizing Speech Voice Recognition Software. Grammatical errors, random word insertions, pronoun errors, and incomplete sentences are an occasional consequence of this system due to software limitations, ambient noise, and hardware issues. Any formal questions or concerns about the content, text, or information contained within the body of this dictation should be directly addressed to the provider for clarification. Admission and Anticipated Discharge Date Admission Date: July 19, 2024 Supervising Physician Co-Signing Physician Notes Attending Addendum: Case reviewed with the advanced practitioner. I have personally seen and examined patient at bedside I have reviewed the advanced practitioner's documentation on the date of service referenced in note, and I agree with, and take responsibility for the plan of care. please refer to her notes for full details patient seen and examined, records reviewed by myself as well all labs, imaging noted and reviewed ASSESSMENT AND PLAN diagnoses and plan of care as per advanced practitioner's notes I spent a total of 35 minutes coordinating, documenting, and providing care for this patient, excluding time spent in the performance of separately billed services or time spent by another provider/QHP. Masood Ibarra MD Subjective Patient seen and examined in room N383-2. NAEO. A&Ox3 during our conversation and very pleasant. Did have some nausea this morning which has since resolved. No episodes of vomiting. Does not endorse any additional complaints. Notes gradual decrease in frequency of bowel movements. Denies any chest pain, SOB or abdominal pain. Review of Systems Review of Systems: At least ten systems reviewed and negative, except as noted in the subjective section. Physical Exam Physical Exam: General/Neurologic: Elderly, F. NAD. Laying down in bed. Very pleasant. A&Ox3 during conversation. HEENT: Normocephalic, atraumatic. Conjunctivae normal. External ear and nose normal. Moist mucous membranes. Respiratory: Normal respiratory effort. Lungs clear to auscultation bilaterally. No accessory muscle use. Cardiovascular: Regular rate and rhythm. Normal peripheral pulses, no BLE edema. Abdomen/GI: Normoactive bowel sounds, soft, nondistended, nontender to palpation in all quadrants. Extremities/Musculoskeletal: No cyanosis or clubbing, extremities motor strength intact, moves all extremities. Results & Data Results & Data Vital Signs (Past 12 Hours) Vital Signs Temp Pulse Resp BP Pulse Ox O2 Del Method 07/21/24 21:30 Room Air 07/21/24 19:32 36.6 C 61 16 172/80 H 98 Room Air Laboratory Results Short CBC 07/22/24 Range/Units 09:14 WBC 5.87 (4.8-10.8) K/ul Hgb 13.6 (12.0-16.0) g/dl Hct 41.0 (37.0-47.0) % Plt Count 236 (130-400) K/uL BMP 07/22/24 09:14 Sodium 141 Potassium 3.4 L Chloride 108 H Carbon Dioxide 28 BUN 7 Creatinine 0.67 Glucose 135 H Calcium 9.0 Urine 07/21/24 Range/Units 17:10 Urine Color Yellow Urine Appearance Clear (Clear) Urine pH 6.0 (4.5-7.5) Ur Specific [place] 1.014 (1.000-1.030) Urine Protein Negative (Negative) Urine Glucose (UA) Negative (Negative) (3) Dementia Dementia behavioral or psychological symptom: unspecified whether behavioral, psychotic, or mood disturbance or anxiety Dementia severity: unspecified severity Dementia type: unspecified type Qualified Code(s): F03.90 - Unspecified dementia, unspecified severity, without behavioral disturbance, psychotic disturbance, mood disturbance, and anxiety (7) Hypothyroidism Hypothyroidism type: unspecified Qualified Code(s): E03.9 - Hypothyroidism, unspecified
[2024-07-22 09:38] LABS: Hemoglobin 13.6 g/dl (12.0-16.0); Mean Corpuscular Hemoglobin 30.5 pg (25.0-34.0); Mean Corpuscular Hgb Conc 33.2 g/dL (32.0-36.0); Mean Corpuscular Volume 91.9 fL (80.0-100.0); Platelet Count 236 K/uL (130-400); RDW Coefficient of Variation 13.6 % (11.5-14.5); RDW Standard Deviation 46.6 fL (36.4-46.3); Red Blood Count 4.46 M/uL (4.20-5.40); White Blood Count 5.87 K/ul (4.8-10.8)
[2024-07-22 09:57] LABS: BUN Creatinine Ratio 10.4 (10-20); Creatinine Clr Calc Pharmacy 51.7 ml/min; Potassium 3.4 mmol/L (3.5-5.1)
[2024-07-22] MEDS: POTASSIUM CHLORIDE 20 MEQ/15 ML UDC PO STA (12:57)
--- NOTE | 2024-07-22 16:55 | Gastroenterology Progress Note ---
Date of Service July 22, 2024 Assessment & Plan (1) C. difficile colitis: Plan: She is improving but is not over it yet. I suspect she will improve more over the next 48 hours Admission and Anticipated Discharge Date Admission Date: July 19, 2024 Subjective Says she feels better. Diarrhea less frequent but no form yet Physical Exam Physical Exam: She looks well Constitutional: WD/WN, vitals as above Neck: trachea midline, no thyromegaly Respiratory: normal respiratory effort, lungs clear to auscultation Cardiovascular: RRR, no murmur, no edema Gastrointestinal (Abdomen): normal bowel sounds, soft, nontender, no hepatosplenomegaly Results & Data Vital Signs (Past 12 Hours) Vital Signs Temp Pulse Resp BP Pulse Ox O2 Del Method 07/22/24 14:03 36.6 C 67 16 166/72 H 95 Room Air 07/22/24 07:27 36.8 C 58 L 16 166/72 H 95 Room Air
--- NOTE | 2024-07-23 07:11 | Hospitalist Progress Note ---
Date of Service July 23, 2024 Assessment & Plan (1) C. difficile colitis: Plan: Rocio Monet is an 84y/o F with PMHx significant for dementia, hypothyroidism, HLD, osteoporosis, history of left breast cancer s/p lumpectomy and prediabetes who is admitted for management of Clostridium difficile colitis after being found on the floor by family at home. Previously hospitalized from 06/29/24- 07/03/24 due to colitis and discharged home on course of oral Augmentin. CTAP: New wall thickening and mucosal hyperenhancement, with a stratified and featureless appearance extending from the anus, rectum, sigmoid colon, and throughout the descending colon up to the level of the splenic flexure. The findings are suggestive of colitis, with ulcerative colitis not excluded, given the appearance. CD toxin positive. Tolerating regular diet advancement with subsequent decrease in frequency of loose stools. GI evaluated 2/2 recurrent state of colitis. Reviewed GI consultation. Set to complete oral vancomycin course on 07/29/24. Contact precautions. (2) Dementia: (3) Generalized weakness: (4) Ambulatory dysfunction: Plan: Continue Aricept. No behavioral disturbances noted. Indication on admission that family was interested in looking at SNF transition due to presumed difficulty of caring for patient at home. Appreciate PT/OT evaluations. CM working on obtaining placement; SNF vs. [facility] per discussion with patient's at bedside this morning. Recently seen and evaluated by [facility] neurology in May 2024. Her MOCA testing showed a score of 18/30 with deficits in delayed recall, language, and executive function. Her history and testing are most concerning for Alzheimer's dementia. (5) Hematoma: Plan: Recent diagnosis of left inferior rectus sheath hematoma on CTAP performed on 06/29/24 during her last admission - likely related to retching due to vomiting. Repeat abdominal US done 07/02/24 with interval enlargement of the left rectus sheath hematoma compared to 06/29/24 measuring 5.3 x 1.2 x 2.4cm. Appears to have resolved on her repeat CTAP this admission (no free fluid or air within the abdomen). (6) Hypothyroidism: Plan: TSH WNL this admission. Recent reduction of levothyroxine dose from 100mcg to 75mcg - continue current dose. Other Chronic Medical Conditions: Prediabetes - Hgb A1c 5.7% this past May. DVT Prophylaxis: SCDs/TEDs for now given recent admission with rectal sheath hematoma. Code Status: DNR/DNI PCP: Deborah Galarza MD Disposition: Medically stable for discharge once placement is determined - greatly appreciate the assistance of CM in this regard. Patient seen in collaboration with Dr. Ibarra. Please see addendum. I spent a total of 34 minutes coordinating, documenting, and providing care for this patient excluding time spent in the performance of separately billed services or time spent by another provider/QHP. This included personally reviewing all current laboratories and imaging studies, medical reconciliation, outpatient chart review and discussion with specialists. This chart was completed in part utilizing Speech Voice Recognition Software. Grammatical errors, random word insertions, pronoun errors, and incomplete sentences are an occasional consequence of this system due to software limitations, ambient noise, and hardware issues. Any formal questions or con cerns about the content, text, or information contained within the body of this dictation should be directly addressed to the provider for clarification. Admission and Anticipated Discharge Date Admission Date: July 19, 2024 Supervising Physician Co-Signing Physician Notes Attending Addendum: Case reviewed with the advanced practitioner. I have personally seen and examined patient at bedside I have reviewed the advanced practitioner's documentation on the date of service referenced in note, and I agree with, and take responsibility for the plan of care. please refer to her notes for full details patient seen and examined, records reviewed by myself as well all labs, imaging noted and reviewed ASSESSMENT AND PLAN diagnoses and plan of care as per advanced practitioner's notes I spent a total of 20 minutes coordinating, documenting, and providing care for this patient, excluding time spent in the performance of separately billed services or time spent by another provider/QHP. Masood Ibarra MD Subjective Patient seen and examined in room N383-2. E. present at bedside. Still having diarrhea but not nearly as frequent as she was. Nausea now resolved. Tolerated breakfast this morning without any issue. Denies any SOB, chest pain or abdominal pain. Awaiting placement. Review of Systems Review of Systems: At least ten systems reviewed and negative, except as noted in the subjective section. Physical Exam Physical Exam: General/Neurologic: Elderly, F. NAD. Sitting up in bed. Very pleasant. A&Ox3 during conversation. HEENT: Normocephalic, atraumatic. Conjunctivae normal. External ear and nose normal. Moist mucous membranes. Respiratory: Normal respiratory effort. Lungs clear to auscultation bilaterally. No accessory muscle use. Cardiovascular: Regular rate and rhythm. Normal peripheral pulses, no BLE edema. Abdomen/GI: Normoactive bowel sounds, soft, nondistended, nontender to palpation in all quadrants. Extremities/Musculoskeletal: No cyanosis or clubbing, extremities motor strength intact, moves all extremities. Results & Data Results & Data Vital Signs (Past 12 Hours) Vital Signs Temp Pulse Resp BP Pulse Ox O2 Del Method 07/23/24 07:02 36.6 C 58 L 16 148/82 H 94 Room Air 07/22/24 19:00 36.6 C 64 16 149/79 H 95 Room Air 07/22/24 14:03 36.6 C 67 16 166/72 H 95 Room Air Intake and Output 07/22/24 07/23/24 07/23/24 22:59 06:59 14:59 Output Total 1 / 2 1 / 2 Balance - - Output: # Bowel Movements 1 / 2 1 / 2 Other: # Unmeasured Voids 1 1 Laboratory Results Short CBC 07/23/24 Range/Units 07:40 WBC 6.04 (4.8-10.8) K/ul Hgb 13.7 (12.0-16.0) g/dl Hct 40.3 (37.0-47.0) % Plt Count 256 (130-400) K/uL BMP 07/23/24 07:40 Sodium 142 Potassium 3.6 Chloride 108 H Carbon Dioxide 29 BUN 6 Creatinine 0.65 Glucose 91 Calcium 9.0 (2) Dementia Dementia behavioral or psychological symptom: unspecified whether behavioral, psychotic, or mood disturbance or anxiety Dementia severity: unspecified severity Dementia type: unspecified type Qualified Code(s): F03.90 - Unspecified dementia, unspecified severity, without behavioral disturbance, psychotic disturbance, mood disturbance, and anxiety (6) Hypothyroidism Hypothyroidism type: unspecified Qualified Code(s): E03.9 - Hypothyroidism, unspecified
[2024-07-23 08:06] LABS: Hematocrit (blood only) 40.3 % (37.0-47.0); Hemoglobin 13.7 g/dl (12.0-16.0); Mean Corpuscular Hemoglobin 30.9 pg (25.0-34.0); Mean Corpuscular Volume 90.8 fL (80.0-100.0); Platelet Count 256 K/uL (130-400); RDW Coefficient of Variation 13.6 % (11.5-14.5); RDW Standard Deviation 45.6 fL (36.4-46.3); Red Blood Count 4.44 M/uL (4.20-5.40); White Blood Count 6.04 K/ul (4.8-10.8)
[2024-07-23 08:24] LABS: BUN Creatinine Ratio 9.2 (10-20); Creatinine Clr Calc Pharmacy 53.3 ml/min; Potassium 3.6 mmol/L (3.5-5.1)
[2024-07-23 15:14] VITALS: PULSE 60
--- NOTE | 2024-07-24 07:36 | Hospitalist Progress Note ---
Date of Service July 24, 2024 Assessment & Plan (1) C. difficile colitis: Plan: Rocio Monet is an 84y/o F with PMHx significant for dementia, hypothyroidism, HLD, osteoporosis, history of left breast cancer s/p lumpectomy and prediabetes who is admitted for management of Clostridium difficile colitis after being found on the floor by family at home. Previously hospitalized from 06/29/24- 07/03/24 due to colitis and discharged home on course of oral Augmentin. CTAP: New wall thickening and mucosal hyperenhancement, with a stratified and featureless appearance extending from the anus, rectum, sigmoid colon, and throughout the descending colon up to the level of the splenic flexure. The findings are suggestive of colitis, with ulcerative colitis not excluded, given the appearance. CD toxin positive. Tolerating regular diet advancement with subsequent decrease in frequency of loose stools. GI evaluated 2/2 recurrent state of colitis. Reviewed GI consultation. Set to complete oral vancomycin course on 07/29/24. Contact precautions. (2) Dementia: (3) Generalized weakness: (4) Ambulatory dysfunction: Plan: Continue Aricept. No behavioral disturbances noted. Indication on admission that family was interested in looking at SNF transition due to presumed difficulty of caring for patient at home. Appreciate PT/OT evaluations. CM working on obtaining placement; SNF vs. [facility] per discussion with patient's at bedside this morning. Recently seen and evaluated by [facility] neurology in May 2024. Her MOCA testing showed a score of 18/30 with deficits in delayed recall, language, and executive function. Her history and testing are most concerning for Alzheimer's dementia. (5) Hematoma: Plan: Recent diagnosis of left inferior rectus sheath hematoma on CTAP performed on 06/29/24 during her last admission - likely related to retching due to vomiting. Repeat abdominal US done 07/02/24 with interval enlargement of the left rectus sheath hematoma compared to 06/29/24 measuring 5.3 x 1.2 x 2.4cm. Appears to have resolved on her repeat CTAP this admission (no free fluid or air within the abdomen). (6) Hypothyroidism: Plan: TSH WNL this admission. Recent reduction of levothyroxine dose from 100mcg to 75mcg - continue current dose. Other Chronic Medical Conditions: Prediabetes - Hgb A1c 5.7% this past May. DVT Prophylaxis: SCDs/TEDs for now given recent admission with rectal sheath hematoma. Code Status: DNR/DNI PCP: Deborah Galarza MD Disposition: Medically stable for discharge once placement is determined - greatly appreciate the assistance of CM in this regard. Patient seen in collaboration with Dr. Ibarra. Please see addendum. I spent a total of minutes coordinating, documenting, and providing care for this patient excluding time spent in the performance of separately billed services or time spent by another provider/QHP. This included personally reviewing all current laboratories and imaging studies, medical reconciliation, outpatient chart review and discussion with specialists. This chart was completed in part utilizing Speech Voice Recognition Software. Grammatical errors, random word insertions, pronoun errors, and incomplete sentences are an occasional consequence of this system due to software limitations, ambient noise, and hardware issues. Any formal questions or con cerns about the content, text, or information contained within the body of this dictation should be directly addressed to the provider for clarification. Admission and Anticipated Discharge Date Admission Date: July 19, 2024 Results & Data Results & Data Vital Signs (Past 12 Hours) Vital Signs Temp Pulse Resp BP Pulse Ox O2 Del Method 07/23/24 21:09 Room Air 07/23/24 20:58 36.6 C 60 18 159/82 H 93 Room Air (2) Dementia Dementia type: unspecified type Dementia severity: unspecified severity Dementia behavioral or psychological symptom: unspecified whether behavioral, psychotic, or mood disturbance or anxiety Qualified Code(s): F03.90 - Unspecified dementia, unspecified severity, without behavioral disturbance, psychotic disturbance, mood disturbance, and anxiety (6) Hypothyroidism Hypothyroidism type: unspecified Qualified Code(s): E03.9 - Hypothyroidism, unspecified
[2024-07-24 07:49] VITALS: BP 145/84; RESP 16; TEMP 97.5; O2SAT 95
[2024-07-24 08:17] LABS: BUN Creatinine Ratio 11.6 (10-20); Calcium 9.2 mg/dl (8.6-10.3); Creatinine Clr Calc Pharmacy 50.2 ml/min; Magnesium 2.1 mg/dl (1.7-2.4); Potassium 3.5 mmol/L (3.5-5.1)
--- NOTE | 2024-07-24 13:03 | Discharge Summary ---
Discharge Summary Date of Service July 24, 2024 Principal Dx & Hospital Course #1 = Principal Diagnosis (1) C. difficile colitis: Rocio Monet is an 84y/o F with PMHx significant for dementia, hypothyroidism, HLD, osteoporosis, history of left breast cancer s/p lumpectomy and prediabetes who was admitted for management of Clostridium difficile colitis after being found on the floor by family at home. Previously hospitalized from 06/29/24- 07/03/24 due to colitis and discharged home on course of oral Augmentin. CTAP with new wall thickening and mucosal hyperenhancement, with a stratified and featureless appearance extending from the anus, rectum, sigmoid colon, and throughout the descending colon up to the level of the splenic flexure. The findings are suggestive of colitis, with ulcerative colitis not excluded, given the appearance. Tolerating regular diet advancement with subsequent decrease in frequency of loose stools. GI evaluated due to recurrent state of colitis. No changes in management per GI. Notable clinical improvement at time of discharge. Patient set to complete oral vancomycin course on 07/29/24. (2) Dementia: (3) Generalized weakness: (4) Ambulatory dysfunction: Continue Aricept. No behavioral disturbances noted during admission. Recently seen and evaluated by [facility] neurology in May 2024. Her MOCA testing showed a score of 18/30 with deficits in delayed recall, language, and executive function. Her history and testing are most concerning for Alzheimer's dementia. Patient seen and evaluated by PT/OT whom recommended SNF placement. Patient is being discharged to [facility]. Goal of transitioning to [facility] with her following rehab stay. (5) Hematoma: Recent diagnosis of left inferior rectus sheath hematoma on CTAP performed on 06/29/24 during her last admission - likely related to retching due to vomiting. Repeat abdominal US done 07/02/24 with interval enlargement of the left rectus sheath hematoma compared to 06/29/24 measuring 5.3 x 1.2 x 2.4cm. Noted resolution on her repeat CTAP this admission (no free fluid or air within the abdomen). (6) Hypothyroidism: TSH WNL this admission. Recent reduction of levothyroxine dose from 100mcg to 75mcg - continue on discharge. Other Chronic Medical Conditions: Prediabetes - Hgb A1c 5.7% this past May. PCP: Deborah Galarza MD Disposition: Patient is being discharged in good condition to [facility] as per above. Patient seen in collaboration with Dr. Ibarra. Please see addendum. I spent a total of 62 minutes coordinating, documenting, and providing care for this patient excluding time spent in the performance of separately billed services or time spent by another provider/QHP. This included personally reviewing all current laboratories and imaging studies, medical reconciliation, outpatient chart review and discussion with specialists. This chart was completed in part utilizing Speech Voice Recognition Software. Grammatical errors, random word insertions, pronoun errors, and incomplete sentences are an occasional consequence of this system due to software limitations, ambient noise, and hardware issues. Any formal questions or concerns about the content, text, or information contained within the body of this dictation should be directly addressed to the provider for clarification. Notes For Next Care Provider Needs PCP hospital discharge follow-up appointment within the next 1-2 weeks. Medication Changes From Visit 1.) Oral vancomycin 125mg Q6H through 07/29/2024 to complete full 10-day course. Admission HPI Per Admitting Provider This is an 84-year-old female who has a significant past medical history of dementia, hypothyroidism, hyperlipidemia, osteoporosis, history of left breast cancer status post lumpectomy and prediabetes who presents to ED after being found on the floor by family. Of significance patient has had recent hospitalizations. She was hospitalized on 05/19 to 05/26 secondary to a complicated UTI. She required short-term rehab at [facility] and was discharged home on 06/04/2024. She unfortunately was then readmitted on 06/29 to 07/03 secondary to concerns for a possible colitis as well as rectus sheath hematoma. She was treated with a course of IV antibiotics and transition to a course of oral Augmentin. She had serial imaging regarding her rectal sheath hematoma which was improving. History obtained from pt and at bedside. Pt sleeps downstair in a recliner. Her sleeps upstairs And he is very hard of hearing. Patient states that approximately 10 PM last evening she tried to get out of her recliner. She felt too weak and had to lower herself to the ground. She then tried crawling to the bathroom, but did not make it. Her found her l aying on the floor this morning. Patient denies hitting her head or having any injuries. She does complain of some low back pain due to her positioning in the hospital bed. She moved her bowels this morning and states it was not diarrhea. Patient is unsure if she has had a fever at home. She reports her blood pressure typically runs on the lower side and her agrees with this. Patient denies any lightheadedness, dizziness, chest pain, shortness with, nausea, vomiting, diarrhea, melena, hematochezia, dysuria, increased urgency or frequency with urination. She does report some left lower quadrant abdominal pain. In ED patient remained hemodynamically stable although she was mildly hypertensive. Her lab work was notable for a hypokalemia, but otherwise unremarkable. Her CK was normal. According to ED provider EMS reported that family is looking for probable placement. states patient typically ambulates with a cane. Admission Exam Per Admitting Provider Constitutional: WD/WN, vitals as above, NAD, sitting up in bed, pleasant, conversing easily Head: Normocephalic, Atraumatic Eyes: PERRL, conjunctivae normal, anicteric sclerae ENMT: external ear and nose normal, oropharynx normal dry mucous membranes Neck: trachea midline, no thyromegaly normal visual inspection Respiratory: normal respiratory effort, lungs clear to auscultation, no wheeze, rales, rhonchi. Normal insp/exp effort, no accessory muscle use Cardiovascular: RRR, no murmur, no edema Vessels: no JVD or carotid bruit Chest: normal inspection of chest Abdomen: normal bowel sounds, soft, nontender, no hepatosplenomegaly Musculoskeletal: no cyanosis or clubbing, extremities AROM x 4 Skin: no rashes, warm and dry normal turgor Neurologic: PERRL, EOMI, accommodation nl, no face palsy, no dysarthria CN's II-XI intact bilaterally and moves all extremities Psychiatric: A+Ox3 basics, euthymic affect Lymphatic: no cervical or axillary lymphadenopathy : deferred Discharge Exam General/Neurologic: Elderly, F. NAD. Sitting up in bed. Very pleasant. A&Ox4. HEENT: Normocephalic, atraumatic. Conjunctivae normal. External ear and nose normal. Moist mucous membranes. Respiratory: Normal respiratory effort. Lungs clear to auscultation bilaterally. No accessory muscle use. Cardiovascular: Regular rate and rhythm. Normal peripheral pulses, no BLE edema. Abdomen/GI: Normoactive bowel sounds, soft, nondistended, nontender to palpation in all quadrants. Extremities/Musculoskeletal: No cyanosis or clubbing, extremities motor strength intact, moves all extremities. Updated Medication List Medication Instructions Recorded Confirmed Type multivitamin 1 tab PO DAILY 01/07/18 07/19/24 History donepezil 10 mg tablet 10 mg PO QAM 06/29/24 07/19/24 History levothyroxine 75 mcg tablet 75 mcg PO DAILYBB 06/29/24 07/19/24 History pantoprazole 20 mg tablet,delayed 20 mg PO DAILY #30 tabs 07/03/24 07/19/24 Rx release (Protonix) vancomycin 125 mg capsule 125 mg PO QID #22 caps 07/24/24 Rx Hospital Stay Data Consultations 07/19/24 16:11 ED Decision to Admit Stat 07/20/24 07:48 Consult Gastroenterology Routine Diagnostic Imagining Performed 07/19/24 12:41 CT abd pelvis IV con only Stat FINDINGS: Lower chest: No consolidation. No pleural effusion or pneumothorax. Mild bibasilar subsegmental atelectasis. Liver: No suspicious liver lesions. Portal veins appear patent. Gallbladder: No gallstones. No evidence of acute cholecystitis. Spleen: Normal size. Pancreas: No suspicious pancreatic lesions. The pancreatic duct is not dilated. Adrenal glands: No adrenal nodules. Kidneys: No hydronephrosis or obstructing renal stones. Bladder / Pelvic organs: Unremarkable. Bowel: No bowel obstruction. There is new wall thickening and mucosal hyperenhancement, with a stratified and featureless appearance extending from the anus, rectum, sigmoid colon, and throughout the descending colon up to the level of the splenic flexure. There may be mild wall thickening of the ascending and transverse colon. No bowel obstruction. The appendix is unremarkable. Lymph nodes: No retroperitoneal, mesenteric, or pelvic lymphadenopathy. Peritoneum / Retroperitoneum: No free fluid or air within the abdomen. Vessels: No infrarenal aortic aneurysm. Bones and soft tissues: No suspicious lesion in the bones. IMPRESSION: There is new wall thickening and mucosal hyperenhancement, with a stratified and featureless appearance extending from the anus, rectum, sigmoid colon, and throughout the descending colon up to the level of the splenic flexure. The findings are suggestive of colitis, with ulcerative colitis not excluded, given the appearance. Pending Results Patient Have Any Pending Studies at Discharge: No Discharge Instructions Given to Patient (Per Discharging Provider) Mrs. Monet was admitted to [facility] for management of Clostridium difficile colitis and ambulatory dysfunction after being found on the floor by family at home. She is being discharged to [facility] for further rehabilitation services. MEDICATION CHANGES: 1.) Oral vancomycin 125mg by mouth every 6 hours with course to be completed on 07/29/2024. SUMMARY OF TEST RESULTS CTAP Impression from 07/19/2024: There is new wall thickening and mucosal hyperenhancement, with a stratified and featureless appearance extending from the anus, rectum, sigmoid colon, and throughout the descending colon up to the level of the splenic flexure. The findings are suggestive of colitis, with ulcerative colitis not excluded, given the appearance. Stool testing from 07/19/2024 POSITIVE for C. difficile TOXIN. RECOMMENDATIONS FOR FOLLOW-UP: Mrs. Monet will have a PCP hospital discharge follow-up appointment arranged to occur within the next 1-2 weeks by staff at [facility]. Take a probiotic daily and include yogurt, fermented foods in your diet daily to prevent recurrence of C diff colitis. If you are to be prescribe with antibiotics, please inform your physician regarding your history of C diff colitis. It has been a pleasure taking care of Mrs. Monet. If there are any questions regarding her recent hospitalization please contact [facility] and request a [facility] Hospitalist @ [phone]. Total Time Total Time Spent Total Time Spent (In Minutes): 62 Supervising Physician Co-Signing Physician Notes Attending Addendum: Case reviewed with the advanced practitioner. I have personally seen and examined the patient. I have reviewed the advanced practitioner's documentation on the date of service referenced in note, and I agree with, and take responsibility for the plan of care. please refer to her notes for full details patient seen and examined, records reviewed by myself as well diagnoses and plan of care as per advanced practitioner's notes I spent a total of 25 minutes coordinating, documenting, and providing care for this patient, excluding time spent in the performance of separately billed services or time spent by another provider/QHP. Masood Ibarra MD
== END 2024-07-24 15:15 | DRG 373 ==
LOC: ED 12:30 → 3N 15:53 → SUATTDRO 15:53 → 3N 16:52